=== PATIENT | male | born 1945 | race Caucasian/White ===

== ENCOUNTER 2022-10-03 10:50 | Outpatient (OUT) | payer OTHER, SELFPAY ==
[2022-10-03 11:07] LABS: Eosinophils Absolute Auto 0.1 10^3/uL (0.0-0.7); Eosinophils Percent Auto 2.9 % (0.9-7.0); Hematocrit 40.6 % (42.0-54.0); Hemoglobin 13.3 g/dL (14.0-18.0); Immature Granulocytes Abs Auto 0.01 10^3/uL (0.00-0.03); Immature Granulocytes Pct Auto 0.2 % (0.0-0.5); Lymphocytes Absolute Auto 1.2 10^3/uL (1.2-3.8); Lymphocytes Percent Auto 28.1 % (20.5-60.0); Mean Corpuscular HGB Conc 32.8 g/dL (29.9-35.2); Mean Corpuscular Hemoglobin 30.3 pg (25.9-34.0); Mean Corpuscular Volume 92.5 fL (80.0-94.0); Mean Platelet Volume 9.9 fL (9.5-13.5); Monocytes Absolute Auto 0.5 10^3/uL (0.3-0.8); Neutrophils Absolute Auto 2.3 10^3/uL (1.4-6.5); Neutrophils Percent Auto 55.8 % (43.0-75.0); Platelet Count 203 10^3/uL (150-450); Red Blood Count 4.39 10^6/uL (4.70-6.10); Red Cell Distribution Width 12.5 % (11.0-15.0); White Blood Count 4.2 10^3/uL (4.0-11.0)
== END 2022-10-03 10:51 ==
LOC: LAB 10:54
PROVIDERS: PCP Family Medicine; Visit Provider Family Medicine
DX: M25.474 Effusion, right foot (principal)
CPT/HCPCS: 36415; 84550; 85025

== ENCOUNTER 2022-11-07 10:40 | Outpatient (OUT) | payer OTHER, SELFPAY ==
[2022-11-07 12:13] LABS: Thyroid Stimulating Hormone 3.438 uIU/mL (0.358-3.740)
[2022-11-07 12:16] LABS: C Reactive Protein <0.2 mg/dL (<=1.0)
[2022-11-07 12:47] LABS: Erythrocyte Sedimentation Rate 15 mm/hr (<=20)
[2022-11-08 05:12] LABS: HIV Ab/p24 Ag Screen Non Reactive (Non Reactive)
[2022-11-08 15:10] LABS: Deamidated Gliadin Abs, IgA 5 units (0-19); Deamidated Gliadin Abs, IgG 6 units (0-19); Endomysial Antibody IgA Negative (Negative); Immunoglobulin A, Qn, Serum 228 mg/dL (61-437); t-Transglutaminase (tTG) IgA <2 U/mL (0-3); t-Transglutaminase (tTG) IgG 4 U/mL (0-5)
[2022-11-10 00:06] LABS: Calprotectin, Fecal 7 ug/g (0-120)
[2022-11-12 05:12] LABS: Pancreatic Elastase, Fecal 340 (>200)
[2022-11-16 18:09] LABS: Ova + Parasite Exam Final report (.)
== END 2022-11-07 10:41 | disposition home or self-care (01) ==
LOC: LAB 10:41
PROVIDERS: PCP Family Medicine
DX: R19.7 Diarrhea, unspecified (principal)
CPT/HCPCS: 36415; 82656; 82784; 83993; 84443; 85652; 86140; 86231; 86258; 86364; 87045; 87046; 87177; 87209; 87389; 87427

== ENCOUNTER 2023-09-17 15:12 | Emergency (ER) | payer OTHER, SELFPAY ==
[2023-09-17] VITALS (44 sets, daily range): BP systolic 133–157; BP diastolic 56–70; PULSE 55–126; TEMP 36.6; O2SAT 87–97; BMI 30.3
--- NOTE | 2023-09-17 15:37 | ECG_ITS ---
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
--- NOTE | 2023-09-17 15:38 | ED_ITS ---
HPI - Dizziness General Chief Complaint: Dizziness Stated Complaint: Dizziness Time Seen by Provider: 09/17/23 15:20 Source: patient Mode of arrival: walk-in Limitations: no limitations History of Present Illness HPI Narrative: 78-year-old male presents for weakness and dizziness. She is felt like this for a few days. He states that when he stands up he feels like he is off balance and he might pass out. He has not passed out. He has had no fever chest pain shortness of breath or vomiting. No diarrhea. A few weeks ago he had left knee replacement and is on Eliquis. He has no personal history of PE or DVT. He feels better when he lays still. Related Data Home Medications ?Medication ?Instructions ?Recorded ?Confirmed apixaban 5 mg tablet (Eliquis) 5 mg PO Q12H 09/17/23 09/17/23 ascorbic acid (vitamin C) 500 mg 500 mg PO DAILY 09/17/23 09/17/23 tablet,extended release (C Complex) cholecalciferol (vitamin D3) 50 50 mcg PO DAILY 09/17/23 09/17/23 mcg (2,000 unit) capsule (D3-2000) fluoxetine 20 mg capsule 20 mg PO DAILY 09/17/23 09/17/23 lisinopril 20 1 tab PO DAILY 09/17/23 09/17/23 mg-hydrochlorothiazide 12.5 mg tablet multivitamin (Daily Multi-Vitamin 1 tab PO DAILY 09/17/23 09/17/23 tablet) omega 6-orf-gvq-fish oil 1,000 mg 1 cap PO DAILY 09/17/23 09/17/23 (120 mg-180 mg) capsule (Fish Oil) Allergies Allergy/AdvReac Type Severity Reaction Status Date / Time No Known Drug Allergies Allergy Verified 09/17/23 15:24 Review of Systems ROS Narrative A ten point review of systems is negative except as noted above. Exam Narrative Exam Narrative: Nurses note and vital signs reviewed and patient is not hypoxic. General: The patient appears well and in no apparent distress. Patient is resting comfortably on cart. Skin: Warm, dry, no pallor noted. There is no rash noted. His left knee surgical wound is healing quite well. No erythema or dehiscence. Head: Normocephalic, atraumatic Eye: Normal conjunctiva, no drainage Ears, Nose, Mouth, and Throat: oral mucosa is moist. Nares patent. Cardiovascular: Irregularly irregular Respiratory: Patient is in no distress, no accessory muscle use, lungs are clear to auscultation, no wheezing, rales or rhonchi Back: non-tender GI: Soft and nontender Musculoskeletal: The patient has no evidence of calf tenderness, no pitting edema, symmetrical pulses noted bilaterally Neurological: A&O, normal speech, upper and lower extremity strength 5 out of 5 and symmetric Psychiatric: Cooperative Constitutional Vital Signs, click to edit/add: Last Vital Signs Temp 97.9 F 09/17/23 15:24 Pulse 65 09/17/23 18:40 Resp 18 09/17/23 18:40 BP 133/70 09/17/23 18:40 Pulse Ox 97 09/17/23 18:40 O2 Del Method Room Air 09/17/23 18:40 Course Vital Signs Vital signs: Vital Signs Temperature 97.9 F 09/17/23 15:24 Pulse Rate 71 09/17/23 15:24 Respiratory Rate 18 09/17/23 15:24 Blood Pressure 134/58 09/17/23 15:24 Pulse Oximetry 96 09/17/23 15:24 Oxygen Delivery Method Room Air 09/17/23 15:24 Temperature 97.9 F 09/17/23 15:24 Pulse Rate 65 09/17/23 18:40 Respiratory Rate 18 09/17/23 18:40 Blood Pressure 133/70 09/17/23 18:40 Pulse Oximetry 97 09/17/23 18:40 Oxygen Delivery Method Room Air 09/17/23 18:40 MDM - Dizziness MDM Narrative Medical decision making narrative: Laboratory analysis is negative. The patient however was noted to have sinus pauses in the range of 1 and half to nearly 3 seconds, several occasions. He has been diagnosed with atrial fibrillation a few weeks ago and is on Eliquis. He does not seem to be on any beta-blockers or calcium channel blockers. 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 He is stable and agreeable for transfer. We are awaiting a callback from the accepting physician. The patient is signed out to Dr. Knight at change of shift. Differential Diagnosis Differential diagnosis: Likely benign paroxysmal positional vertigo, orthostatic hypotension and other (Dysrhythmia) Lab Data Attestation: I reviewed the patient's lab results. Labs: Lab Results 09/17/23 09/17/23 Range/Units 15:45 17:45 WBC 5.8 (4.0-11.0) 10^3/uL RBC 3.60 L (4.70-6.10) 10^6/uL Hgb 10.8 L (14.0-18.0) g/dL Hct 33.6 L (42.0-54.0) % MCV 93.3 (80.0-94.0) fL MCH 30.0 (25.9-34.0) pg MCHC 32.1 (29.9-35.2) g/dL RDW 13.0 (11.0-15.0) % Plt Count 328 (150-450) 10^3/uL MPV 9.9 (9.5-13.5) fL Neut % (Auto) 60.3 (43.0-75.0) % Lymph % (Auto) 23.3 (20.5-60.0) % [place] % (Auto) 12.5 H (1.7-12.0) % Eos % (Auto) 3.1 (0.9-7.0) % Baso % (Auto) 0.5 (0.2-2.0) % Neut # (Auto) 3.5 (1.4-6.5) 10^3/uL Lymph # (Auto) 1.4 (1.2-3.8) 10^3/uL [place] # (Auto) 0.7 (0.3-0.8) 10^3/uL Eos # (Auto) 0.2 (0.0-0.7) 10^3/uL Baso # (Auto) 0.0 (0.0-0.1) 10^3/uL Abs Immat Gran (auto) 0.02 (0.00-0.03) 10^3/uL Imm/Tot Granulo (auto) 0.3 (0.0-0.5) % Sodium 137 (136-145) mmol/L Potassium 4.1 (3.5-5.1) mmol/L Chloride 103 (98-107) mmol/L Carbon Dioxide 26.4 (21.0-32.0) mmol/L Anion Gap 11.7 BUN 21.0 H (7.0-18.0) mg/dL Creatinine 1.20 (0.70-1.30) mg/dL Est GFR ( Amer) >60 (>=60) Est GFR (Non-Af Amer) 59 L (>=60) BUN/Creatinine Ratio 17.5 Glucose 102 (74-106) mg/dL Calcium 8.6 (8.5-10.1) mg/dL Troponin I High Sens 7.6 (4.0-76.1) pg/mL Urine Color Yellow (YELLOW) Urine Clarity Clear (CLEAR) Urine pH 6.5 (5.0-9.0) Ur Specific [place] 1.025 (1.005-1.025) Urine Protein Negative (NEG/TRACE) mg/dL Urine Glucose (UA) Negative (NEGATIVE) mg/dL Urine Ketones Negative (NEGATIVE) mg/dL Urine Occult Blood Negative (NEGATIVE) Urine Nitrite Negative (NEGATIVE) Urine Bilirubin Negative (NEGATIVE) Urine Urobilinogen 0.2 (0.2-1.0) EU/dL Ur Leukocyte Esterase Negative (NEGATIVE) Urine RBC 0-2 (0-2) #/HPF Urine WBC None seen (NONE SEEN) #/HPF Ur Squamous Epith Cells None seen (NONE/RARE) #/LPF Urine Crystals None seen (None Seen) #/HPF Urine Bacteria None seen (NONE SEEN) #/HPF Urine Casts None seen (NONE SEEN) #/LPF Urine Mucus None seen (NONE SEEN) Imaging Data Chest x-ray: Radiologist's impression: ITS Impressions Chest X-Ray 09/17/23 15:38 IMPRESSION: No acute infiltrate or evidence of cardiac decompensation. Similar findings were noted in the prior study. Electronically authenticated by: JAMILA SONG Date: 09/17/2023 16:17 ECG Data Attestation: I personally reviewed and interpreted this ECG as follows: (EKG on my interpretation shows normal sinus rhythm with a rate of 66.) Discharge Plan Discharge Chief Complaint: Dizziness Clinical Impression: Sinus pause, Dizziness [facility] Time of Disposition Decision: 18:29 Discharge Location: [facility] Condition: Fair Mode of Transportation: Private Vehicle
--- NOTE | 2023-09-17 15:38 | XR_ITS ---
The [address] [address] Patient Name: SHAJI WASHINGTON MRN: [id number] date: 1945 Sex: M Assigned Patient Location: ER Current Patient Location: ER Accession/Order Number: [id number] Exam Date: 09/17/2023 15:45 Report Date: 09/17/2023 16:17 At the request of: CARMENCITA POWERS Procedure: XR chest 1V EXAM: XR chest 1V at 1544 hours HISTORY: Weakness and dizziness COMPARISON: 04/18/2015 TECHNIQUE: AP upright portable chest x-ray FINDINGS: The heart is not enlarged and the vasculature is not distended. No acute infiltrate, effusion or pneumothorax is identified. Elevation of the right hemidiaphragm is again noted. The osseous structures are grossly intact. XR/XR chest 1V IMPRESSION: No acute infiltrate or evidence of cardiac decompensation. Similar findings were noted in the prior study. Electronically authenticated by: JAMILA SONG Date: 09/17/2023 16:17
[2023-09-17 16:16] LABS: Basophils Percent Auto 0.5 % (0.2-2.0); Eosinophils Absolute Auto 0.2 10^3/uL (0.0-0.7); Eosinophils Percent Auto 3.1 % (0.9-7.0); Hematocrit 33.6 % (42.0-54.0); Hemoglobin 10.8 g/dL (14.0-18.0); Immature Granulocytes Abs Auto 0.02 10^3/uL (0.00-0.03); Immature Granulocytes Pct Auto 0.3 % (0.0-0.5); Lymphocytes Absolute Auto 1.4 10^3/uL (1.2-3.8); Lymphocytes Percent Auto 23.3 % (20.5-60.0); Mean Corpuscular HGB Conc 32.1 g/dL (29.9-35.2); Mean Corpuscular Volume 93.3 fL (80.0-94.0); Mean Platelet Volume 9.9 fL (9.5-13.5); Monocytes Absolute Auto 0.7 10^3/uL (0.3-0.8); Monocytes Percent Auto 12.5 % (1.7-12.0); Neutrophils Absolute Auto 3.5 10^3/uL (1.4-6.5); Neutrophils Percent Auto 60.3 % (43.0-75.0); Platelet Count 328 10^3/uL (150-450); White Blood Count 5.8 10^3/uL (4.0-11.0)
[2023-09-17 16:34] LABS: Anion Gap 11.7; BUN Creatinine Ratio 17.5; Calcium 8.6 mg/dL (8.5-10.1); Carbon Dioxide 26.4 mmol/L (21.0-32.0); Chloride 103 mmol/L (98-107); Estimated GFR (African America >60 (>=60); Estimated GFR (Non-African Ame 59 (>=60); Glucose 102 mg/dL (74-106); Potassium 4.1 mmol/L (3.5-5.1); Sodium 137 mmol/L (136-145)
[2023-09-17 16:42] LABS: Troponin I High Sensitivity 7.6 pg/mL (4.0-76.1)
[2023-09-17 17:56] LABS: Bilirubin Urine NEGATIVE (NEGATIVE); Blood Urine NEGATIVE (NEGATIVE); Clarity Urine CLEAR (CLEAR); Color Urine YELLOW (YELLOW); Glucose Urine UA NEGATIVE (NEGATIVE); Ketones Urine NEGATIVE (NEGATIVE); Leukocyte Esterase Urine NEGATIVE (NEGATIVE); Nitrite Urine NEGATIVE (NEGATIVE); Protein Urine NEGATIVE (NEG/TRACE); Specific Gravity Urine 1.025 (1.005-1.025); Urobilinogen Urine 0.2 EU/dL (0.2-1.0); pH Urine 6.5 (5.0-9.0)
--- NOTE | 2023-09-17 18:05 | CT_ITS ---
The [address] [address] Patient Name: SHAJI WASHINGTON MRN: [id number] date: 1945 Sex: M Assigned Patient Location: ED.MAIN Current Patient Location: Accession/Order Number: [id number] Exam Date: 09/17/2023 18:30 Report Date: 09/17/2023 18:53 At the request of: CARMENCITA POWERS Procedure: CT head/brain wo con EXAM: CT head/brain wo con HISTORY: dizzy COMPARISON: None. TECHNIQUE: Axial CT scans through the head were obtained without IV contrast administration. Dose reduction techniques were achieved by using: automated exposure control and/or adjustment of mA and /or kV according to patient size and/or use of iterative reconstruction technique. FINDINGS: There is no acute intracranial hemorrhage or abnormal extra-axial fluid collection. No mass effect or midline shift is seen. There is no evidence of large acute territorial infarction. There is no hydrocephalus. There is mild enlargement of the cortical sulci, consistent with mild cerebral atrophy To the limit of CT, the posterior fossa appears unremarkable. The calvaria and extra cranial soft tissues are unremarkable. The visualized orbits show no abnormality. The visualized paranasal sinuses show no air-fluid level. Mastoid air cells are clear. CT/CT head/brain wo con IMPRESSION: No acute intracranial process. Mild cerebral atrophy. Electronically authenticated by: RUDY FOREMANU Date: 09/17/2023 18:53
[2023-09-17 18:10] LABS: Bacteria Urine NONE SEEN #/HPF (NONE SEEN); Cast Seen? NONE SEEN #/LPF (NONE SEEN); Crystals Seen? None Seen #/HPF (None Seen); Mucus Urine NONE SEEN (NONE SEEN); RBC Urine 0-2 #/HPF (0-2); Squamous Epithelial Cell Urine NONE SEEN #/LPF (NONE/RARE); WBC Urine NONE SEEN #/HPF (NONE SEEN)
== END 2023-09-17 23:25 | disposition short-term general hospital (02) ==
PROVIDERS: Emergency Medicine; Emergency Provider Internal Medicine; PCP Family Medicine
DX: I49.5 Sick sinus syndrome (principal); R42 Dizziness and giddiness; Z79.01 Long term (current) use of anticoagulants; Z96.652 Presence of left artificial knee joint; I48.91 Unspecified atrial fibrillation
CPT/HCPCS: 36415; 70450; 71045; 80048; 81001; 84484; 85025; 93005; 99285

== ENCOUNTER 2024-04-23 13:08 | Outpatient (OUT) | payer OTHER, SELFPAY ==
--- NOTE | 2024-04-23 13:11 | CA_ITS ---
Patient Name: SHAJI WASHINGTON MR#: [id number] : 1945 Exam Date: 04/23/2024 Ordering Doctor: Non-Staff Physician ECHOCARDIOGRAM REPORT PROCEDURE: CA ECHO DOPPLER COMPLETE INDICATIONS: Ischemic heart disease, hypertension, atrial fibrillation COMPARISON: None. DESCRIPTION: COMPLETE ECHOCARDIOGRAM Real-time transthoracic echocardiography with 2D, M-mode, spectral and color flow Doppler performed. QUALITY: Technical quality was good. LEFT VENTRICLE: Normal chamber size. Normal left ventricular wall thickness. LV EF: Global left ventricular systolic function is hyperdynamic; visually estimated ejection fraction is 65 to 70%. No obvious wall motion abnormalities DIASTOLIC: Normal diastolic function. ATRIAL SEPTUM: Inadequately seen. LEFT ATRIUM: Normal chamber size. RIGHT ATRIUM: Normal chamber size. RIGHT VENTRICLE: Appears enlarged. Normal right ventricular systolic function. TRICUSPID VALVE: Normal mobility and thickness. No stenosis with no regurgitation. MITRAL VALVE: Normal mobility and thickness. No evidence of mitral valve stenosis. There is no mitral annular calcification. Mild mitral regurgitation. AORTIC VALVE: Normal trileaflet appearance. Thickened aortic valve. Normal leaflet mobility. No evidence of aortic valve stenosis. No aortic regurgitation. AORTIC ROOT: Normal diameter and appearance. Ascending aorta is normal in size. PULMONIC VALVE: Not well visualized. No stenosis. No regurgitation. PERICARDIUM: No evidence of pericardial effusion. IVC: IVC is normal in size, does not fully collapse. CONCLUSION: 1. Global left ventricular systolic function is hyperdynamic; visually estimated ejection fraction is 65 to 70% 2. The right ventricle appears enlarged with normal systolic function 3. Normal diastolic function 4. The left atrium is normal in size 5. Mild mitral regurgitation Adult Echocardiography Procedure Report Left Ventricle LVEDD (3.7 - 5.6 cm): 4.66 cm LVESD (2.2 - 4.0 cm): 2.89 cm LVIVS thickness (0.6 - 1.2 cm): 0.93 cm LVPW thickness (0.5 - 1.0 cm): 0.98 cm e': 0.09 m/s E - e': 11.32 LVOT Max Gradient: 3.16 mm[Hg] LVOT Area (cm2): 0.89 m/s Peak Velocity (LVOT): 0.89 m/s Mean Velocity (LVOT): 0.59 m/s LVOT Diameter 2.06 cm Left Atrium LA Volume Index (2D A2C): 36.01 ml/m2 Left Atrium Systolic Dimension: 3.87 cm Mitral Valve MV E to A Ratio: 1.15 Mitral Valve A-Wave Peak Velocity: 0.91 m/s Mitral Valve E-Wave Peak Velocity: 1.04 m/s Right Ventricle Aorta AO Root Diam: 2.96 cm Ascending Ao Diam: 3.06 cm Aortic Valve AoV Area (Peak Matheus): 2.93 cm2, 2.93 cm2 AoV Area (VTI): 2.65 cm2, 2.65 cm2 Peak Velocity(Antegrade Flow): 1.01 m/s Peak Gradient(Antegrade Flow): 4.12 mm[Hg] Mean Velocity(Antegrade Flow): 0.73 m/s Mean Gradient(Antegrade Flow): 2.42 mm[Hg] Velocity Time Integral: 27.30 cm Tricuspid Valve Pulmonic Valve Mean Gradient: 2.33 mm[Hg] Mean Velocity: 0.72 m/s Peak Velocity: 1.02 m/s, 1.00 m/s Peak Gradient: 4.03 mm[Hg], 4.14 mm[Hg] Right Atrium Right Atrium Systolic Pressure: 44.97 ml, 44.97 ml Dictated by: Argentina Farmer M.D. on 04/28/2024 at 11:27 Approved by: Argentina Farmer M.D. on 04/28/2024 at 11:30
== END 2024-04-23 13:09 | disposition home or self-care (01) ==
LOC: CARD 13:09
PROVIDERS: PCP Family Medicine
DX: I25.9 Chronic ischemic heart disease, unspecified (principal); I51.7 Cardiomegaly
CPT/HCPCS: 93306

== ENCOUNTER 2024-04-29 20:59 | Outpatient (OUT) | payer OTHER, SELFPAY | END 2024-04-29 21:00 | disposition home or self-care (01) | LOC: SLEEP 21:00 | PROVIDERS: PCP Chiropractor; Visit Provider Chiropractor | DX: G47.30 Sleep apnea, unspecified (principal) | CPT/HCPCS: 95810 ==

== ENCOUNTER 2024-05-01 10:03 | Emergency (ER) | payer MEDICARE, SELFPAY ==
[2024-05-01 10:07] VITALS: BP 140/84; PULSE 71; TEMP 36.6; O2SAT 95; BMI 35.9
--- OUTSIDE RECORDS SUMMARY | 2024-05-01 10:29 | XMS_ITS | CCD ---
Author Organization [facility] Care Team Providers Care Creative Producer Name Role Phone Phuc Denney Unavailable DR MEGAN FAN Primary Care Unavailable CARMEL ARANA Attending Unavailable GIACOMO Medina, CARMEL Admitting Unavailable ODESSA UMAÑA Consulting Unavailable CARMEL ARANA Consulting Unavailable MENG, DR MEGAN Stafford Consulting Unavailable MENG, DR MEGAN Stafford Attending Unavailable MENG, DR MEGAN Stafford Admitting Unavailable MENG, DR MEGAN Stafford Primary Care Unavailable MENG, DR MEGAN Stafford Consulting Unavailable MENG, DR MEGAN Stafford Attending Unavailable MENG, DR MEGAN Stafford Admitting Unavailable MENG, DR MEGAN Stafford Primary Care Unavailable Megan Fan Unavailable Tina Garcia Unavailable MD Megan Fan Primary Care Provider MD Tina Garcia Attending Provider Jack Mcpherson Unavailable MD Megan Fan Primary Care Provider DO Phuc Denney Attending Provider MD Garrett Gunter Attending Provider MD Devonte Kelly Admit Provider [phone] MD Patricia Vilchis Attending Provider MANNY ESCOBEDO Attending Unavailable MANNY ESCOBEDO Attending Unavailable ELBERT FOSS Referring Unavailable DOUGIE MOSLEY Attending Unavailable ELBERT FOSS Referring Unavailable RONNA CARPIO Attending Unavailable ELBERT FOSS Referring Unavailable MD Megan Fan Primary Care Provider DO Phuc Denney Attending Provider MD Garrett Gunter Attending Provider MD Megan Fan Primary Care Provider MD Garrett Gunter Attending Provider MD Tina Garcia Attending Provider [phone] Edwin Denneyin Zena Admitting Unavailable Graciela Phuc A Attending Unavailable Velasquez Fania E Primary Care Unavailable Megan Fan E Primary Care Unavailable Garrett Gunter Admitting Unavai lable Koromia, Garrett Denny Attending Unavai lable Matthew, Adwoa Consulting Unavailable Velasquez Fania E Primary Care Unavailable Patricia Vilchis Attending Unavailable DaromarDevonte Admitting Unavailable Jitendra Buddy Consulting Unavailable GosiaomGarrett harmon Consulting Unavai lable Al, Ibis Consulting Unavailable Graciela, Phuc A Admitting Unavailable Graciela Phuc A Attending Unavailable Velasquez Fania E Primary Care Unavailable Graciela Phuc A Admitting Unavailable Graciela Phuc A Attending Unavailable Meng Megan E Primary Care Unavailable Meng, Megan E Primary Care Unavailable Asaad, Imad Admitting Unavailable Asaad, Imad Attending Unavailable Graciela, Phuc A Attending Unavailable Graciela, Phuc A Admitting Unavailable Fan, Megan E Primary Care Unavailable Meng, Megan E Primary Care Unavailable Garrett Gunter Attending Unavai lable Lyric, Garrett Denny Admitting Unavai lable Megan Fan Primary Care Unavailable Garrett Gunter Admitting Unavai lable Gosiaomeden, Garrett Denny Attending Unavai lable Megan Fan Primary Care Unavailable Garrett Gunter Attending Unavai lable Garrett Gunter Admitting Unavai lable Allergies Allergy Classification Reported Allergen(s) Allergy Type Date of Onset Reaction(s) Facility (18 sources) Diclofenac Drug Allergy stomach upset/weakness [facility] Other (8 sources) Allergies Reconciled Propensity to adverse reactions Unknown [facility] Other (1 source) Diclofenac Drug Allergy 4 [facility] Repository Medications Current Medications Medication Drug Class(es) Dates Sig (Normalized) Sig (Original) allopurinol 100 mg oral tablet (7 sources) Xanthine Oxidase Inhibitor Start: 12-24-2023 take 1 tablet by mouth once daily Allopurinol Active 0 .ROUTE .COMPLEX December 24, 2023 1:16pm TAKE 1 TABLET BY MOUTH EVERY DAY Start: 09-25-2023 End: 12-24-2023 take 100 mg by mouth once daily Allopurinol Discontinued 100 MG PO Daily November 18, 2023 2:18pm December 24, 2023 1:16pm apixaban 5 mg oral tablet (18 sources) Factor Xa Inhibitor Start: 08-14-2023 End: 08-21-2023 take 1 tablet by mouth twice daily Apixaban (Eliquis) 5 mg tablet Active 5 MG PO Twice daily August 14, 2023 12:00am cholecalciferol 0.05 mg oral capsule (20 sources) Vitamin D Start: 12-16-2020 take 1 capsule by mouth once daily in the morning Cholecalciferol (Vitamin D3) (Vitamin D3) 50 mcg (2,000 unit) Capsule Active 50 MCG PO Every morning December 16, 2020 12:00am take 1 capsule by [facility] every twenty-four hours Vitamin D3 50 MCG (2000 UT) 1 capsule Orally Once a day Active diphenhydrAMINE hydrochloride 25 mg oral capsule (1 source) Histamine-1 Receptor Antagonist Start: 12-20-2023 take 1 capsule by mouth once daily at bedtime Diphenhydramine Hcl (Allergy (Diphenhydramine)) 25 mg capsule Active 25 MG PO Daily at bedtime December 20, 2023 12:00am Fish Oils (9 sources) take 1 capsule by mouth once daily Fish Oil 1000 MG 1 capsule Orally Once a day Active FLUoxetine 20 mg oral capsule (20 sources) Serotonin Reuptake Inhibitor Start: 10-21-2023 Fluoxetine Active 0 .ROUTE .COMPLEX October 21, 2023 8:30am TAKE 1 CAPSULE ONCE DAILY Start: 08-09-2023 End: 10-21-2023 take 1 capsule by mouth once daily in the morning Fluoxetine Discontinued 20 MG PO Every morning August 09, 2023 12:00am October 21, 2023 8:30am TAKE 1 CAPSULE ONCE DAILY Start: 07-22-2023 End: 08-09-2023 Fluoxetine Discontinued 0 .R OUTE .COMPLEX July 22, 2023 11:55am August 09, 2023 10:31am TAKE 1 CAPSULE ONCE DAILY Start: 07-22-2023 End: 07-22-2023 take 20 mg by mouth once daily Fluoxetine Discontinued 20 MG PO Daily July 22, 2023 12:00am July 22, 2023 11:55am Start: 06-22-2022 take 1 capsule by [facility] every twenty-four hours FLUoxetine HCl 20 MG 1 capsule Orally Once a day for 90 days Jun, Active hydroCHLOROthiazide 12.5 mg oral capsule (9 sources) Thiazide Diuretic take 1 capsule by mouth every twenty-four hours hydroCHLOROthiazide 12.5 MG 1 capsule in the morning Orally Once a day Active hydroCHLOROthiazide 12.5 mg / lisinopril 20 mg oral tablet (20 sources) Thiazide Diuretic, Angiotensin Converting Enzyme Inhibitor Start : 12-12 Lisinopril-Hydrochloroth iazide Active 0 .ROUTE .COMPLEX December 13, 2023 10:23am TAKE 1 TABLET DAILY Start: 09-23-2023 End: 12-13-2023 take 1 tablet by mouth once daily Lisinopril-Hydrochlorothiazide Discontin ued 1 TAB PO Daily September 23, 2023 1:48pm December 13, 2023 10:23am Start: 09-06-2023 End: 09-23-2023 Lisinopril-Hydrochlorothiazi de Discontinued 0 .ROUTE .COMPLEX September 06, 2023 9:53am September 23, 2023 1:51pm TAKE 1 TABLET DAILY Start: 08-09-2023 End: 09-06-2023 take 1 tablet by mouth once daily in the morning Lisinopril-Hydrochlorothiazide Discontin ued 1 TAB PO Every morning August 09, 2023 12:00am September 06, 2023 9:53am TAKE 1 TABLET DAILY Start: 06-17-2023 End: 08-09-2023 Lisinopril-Hydrochlorothiazi de Discontinued 0 .ROUTE .COMPLEX June 17, 2023 3:23pm August 09, 2023 10:31am TAKE 1 TABLET DAILY Start: 06-17-2023 End: 06-17-2023 take 1 tablet by mouth once daily Lisinopril-Hydrochlorothiazide Discontin ued 1 TAB PO Daily June 17, 2023 1:00am June 17, 2023 3:23pm Start: 12-16-2020 End: 08-05-2023 take 1 tablet by mouth once daily Lisinopril-Hydrochlorothiazide Discontin ued 1 TAB PO Daily December 16, 2020 12:00am August 05, 2023 8:55am take 1 tablet by yuri th every twenty-four hours Lisinopril-hydroCHLOROthiazide 20-12.5 M G 1 tablet Orally Once a day for 90 days Active levocetirizine dihydrochloride 5 mg oral tablet (9 sources) Histamine-1 Receptor Antagonist take 1 tablet by mouth every twenty-four hours Xyzal Allergy 24HR 5 MG 1 tablet in the evening Orally Once a day Active methylPREDNISolone 4 mg oral tablet (6 sources) Corticosteroid Start : 10-03 methylPREDNISolone 4 MG as directed Orally for 6 days Sep, Active 24 hr metoprolol succinate 25 mg extended release oral tablet (10 sources) beta-Adrenergic Cate Start : 09-18 End: 10-02 take 25 mg by mouth once daily Metoprolol Succinate Active 25 MG PO Daily October 03, 2023 3:41pm Jfndhmna-Odq-Xfenr-Vit K-Lycop (Men's 50 Plus Daily Formula) 400-20-370 mcg Tablet (12 sources) Start : 12-16 take 1 tablet by mouth once daily in the morning Swsdllwz-Ghf-Kgrlp-Vit K-Lycop (Men's 50 Plus Daily Formula) 400-20-370 mcg Tablet Active 1 TAB PO Every morning December 16, 2020 12:00am Start: 12-16-2020 take 1 tablet by yuri th once daily Hghfibzz-Fpa-Einaz-Vit K-Lycop (Men's 50 Plus Daily Formula) 400-20-370 mcg Tablet Active 1 TAB PO Daily December 16, 2020 12:00am Multivitamin preparation (18 sources) Multivitamin Act everette [place]-3 Fatty Acids (Maxepa) 500 mg capsule (1 source) Start: take 1 capsule by mouth once daily [place]-3 Fatty Acids (Maxepa) 500 mg capsule Active 500 MG PO Daily December 20, 2023 12:00am paxlovid (300/100) 20 x 150 mg & 10 x 100mg tablet therapy pack (2 sources) Paxlovid (300/10 0) 20 x 150 MG & 10 x 100MG as directed Orally for 5 days Active polyethylene glycol 3350 [id number] mg / potassium chloride 2970 mg / sodium bicarbonate 6740 mg / sodium chloride 5860 mg / sodium sulfate 27235 mg powder for oral solution (5 sources) Osmotic Laxative Start: 3 Golytely 236 GM At 4:00 pm the day prior to colonoscopy Orally 8 ounces every 15 minutes for 1 days PLEASE CHECK ALLERGIES Oct, Active Vitamin D3 (9 sources) Vitamin D3 Activ e {20 (nirmatrelvir 150 MG Oral Tablet) / 10 (ritonavir 100 MG Oral Tablet) } Pack [Paxlovid 5-Day] (2 sources) Paxlovid (300/10 0) 20 x 150 MG & 10 x 100MG as directed Orally for 5 days Active Completed/Discontinued Medications Medication Drug Class(es) Dates Sig (Normalized) Sig (Original) acetaminophen 500 mg oral tablet (20 sources) Start: 08-21-2023 End: 08-21-2023 take 1000 mg by mouth every eight hours Acetaminophen Discontinued 1000 MG PO Q8H 180 August 21, 2023 12:00am August 21, 2023 11:11am Start: 01-04-2021 End: 08-05-2023 take 1000 mg by mouth every eight hours Acetaminophen Discontinued 1000 MG PO Q8H January 04, 2021 12:00am August 05, 2023 8:56am Start: 12-30-2020 take 2 tablets by mo [facility] every eight hours Acetaminophen 500 MG take 2 tablet Orally every 8 hrs Do not fill until 01/02/21. To be used post op TKA. 10 Dec, 2020 Active aspirin 81 mg chewable tablet (20 sources) Platelet Aggregation Inhibitor, Nonsteroidal Anti-inflammatory Drug Start: 08-21-2023 End: 08-21-2023 take 81 mg by mouth twice daily Aspirin Discontinued 81 MG PO Twice daily 74 37 August 21, 2023 12:00am August 21, 2023 11:11am Start: 01-04-2021 End: 12-11-2022 take 81 mg by mouth twice daily Aspirin Discontinued 8 1 MG PO Twice daily January 04, 2021 12:00am December 11, 2022 9:20am Start: 12-30-2020 take 1 tablet by yuri every twelve hours Aspirin 81 MG 1 tablet Orally every 12 hrs for 35 days Do not fill until 01/02/21. To be used post op TKA for DVT prophylaxis Dec, Active baclofen 10 mg oral tablet (20 sources) gamma-Aminobutyric Acid-ergic Agonist Start: 12-16-2020 End: 08-05-2023 take 10 mg by mouth at bedtime Baclofen Discontinued 10 MG PO Bedtime December 16, 2020 12:00am August 05, 2023 8:56am calcium ascorbate 500 mg oral tablet (9 sources) Start: 08-14-2023 End: 08-21-2023 take 500 mg by mouth once daily Ascorbate Calcium (Vitamin C) Discontinued 500 MG PO Daily August 14, 2023 12:00am August 21, 2023 11:11am cyclobenzaprine hydrochloride 10 mg oral tablet (17 sources) Muscle Relaxant Start: 08-21-2023 End: 09-11-2023 take 5-10 mg by mouth every eight hours Cyclobenzaprine Discontinued 5 - 10 MG PO Q8H 30 August 21, 2023 12:00am September 11, 2023 2:04pm Start: 12-30-2020 take 0.5-1 tablets b y mouth every eight hours as needed for muscle spasms Cyclobenzaprine HCl 10 MG 1/2 to 1 tablet at as needed for muscle spasm Orally every 8 hrs Dec, Not-Taking docusate sodium 100 mg oral capsule (20 sources) Start: 08-21-2023 End: 09-09-2023 take 1 capsule by mouth twice daily Docusate Sodium (Colace) 100 mg capsule Discontinued 100 MG PO Twice daily August 21, 2023 12:00am September 09, 2023 10:21am Start: 01-04-2021 End: 08-09-2023 take 100 mg by mouth twice daily Docusate Sodium Discontinued 100 MG PO Twice daily January 04, 2021 12:00am August 09, 2023 10:30am Start: 12-30-2020 take 1 capsule by mo [facility] every twelve hours Colace 100 MG 1 capsule Orally every 12 hrs for 14 days Do not fill until 01/02/21. To be used post op TKA. Dec, Active doxycycline hyclate 100 mg oral tablet (8 sources) Tetracycline-class Drug Start: 08-21-2023 End: 09-11-2023 take 100 mg by mouth twice daily Doxycycline Hyclate Discontinued 100 MG PO Twice daily 14 August 21, 2023 12:00am September 11, 2023 2:04pm dronedarone 400 mg oral tablet (16 sources) Antiarrhythmic Start: 08-14-2023 End: 09-19-2023 take 1 tablet by mouth twice daily at mealtime Dronedarone (Multaq) 400 mg tablet Discontinued 400 MG PO Twice daily 180 90 September 11, 2023 2:49pm September 19, 2023 2:26pm must administer with a meal/food loratadine 10 mg oral tablet (20 sources) Start: 12-16-2020 End: 08-21-2023 take 1 tablet by mouth once daily at bedtime Loratadine (Claritin) 10 mg tablet Discontinued 10 MG PO Daily at bedtime August 14, 2023 1:57pm August 21, 2023 11:12am Claritin Active melatonin 10 mg oral tablet (20 sources) Start: 12-16-2020 End: 12-11-2022 take 10 mg by mouth once daily at bedtime Melatonin Discontinued 10 MG PO Daily at bedtime December 16, 2020 12:00am December 11, 2022 9:20am Melatonin Not-Ta ann marie Melatonin Active [place] 1-Cqz-Zuw-Fish Oil (12 sources) Start: 12-16-2020 End: 10-22-2023 [place] 9-Nkv-Ujq-Fish Oil Dis continued 1 CAP PO Every morning December 16, 2020 12:00am October 22, 2023 2:21pm Instructed to stop 7 days berfore surgery Start: 12-16-2020 [place] 3-Dha-Ep a-Fish Oil Active 1 CAP PO Every morning December 16, 2020 12:00am Instructed to stop 7 days berfore surgery Start: 12-16-2020 [place] 3-Dha-Ep a-Fish Oil Active 1 CAP PO Daily December 16, 2020 12:00am Instructed to stop 7 days berfore surgery oxyCODONE hydrochloride 5 mg oral tablet (20 sources) Opioid Agonist Start: 08-21-2023 End: 09-09-2023 take 1 tablet by mouth every four hours Oxycodone Discontinued 5 MG PO Q4H 42 7 August 204 May 20th, 2024 10:21am dispense 42 (forty-two) tablets diagnosis: M17.12 DO NOT FILL UNTIL 08/26/2023 Start: 12-30-2020 End: 08-09-2023 take 5 mg by mouth every four hours Oxycodone Discontinued 5 MG PO Q4H January 04, 2021 August 09, 2023 10:30am traMADol hydrochloride 50 mg oral tablet (8 sources) Opioid Agonist Start: 08-21-2023 End: 09-09-2023 take 1 tablet by mouth every four hours Tramadol Discontinued 50 MG PO Q4H 42 August 21, 2023 12:00am September 09, 2023 10:21am dispense 42 (forty-two) tablets diagnosis: M17.12 DO NOT FILL UNTIL 08/26/2023 Triamcinolone (20 sources) Corticosteroid Start: 10-13-2020 Kenalog -40 mg Sep, 40 mg Start: 10-21-2018 Kenalog -40 mg Oct, 40 mg Start: 06-07-2016 Kenalog -40 mg May, Vitamin B Complex (20 sources) Start: 12-16-2020 End: 12-11-2022 take 1 tablet by mouth once daily Vitamin B Complex Discontinued 1 TAB PO Daily December 16, 2020 12:00am December 11, 2022 9:21am Vitamin B Comple x Not-Taking Vitamin B Comple x Active Problems Active Problems Problem Classification Problem Date Documented Da te Episodic/Chronic Anxiety disorders (8 sources) Generalized anxiety disorder; Translations: [Generalized anxiety disorder] Chronic Cardiac dysrhythmias (20 sources) Atrial fibrillation; Translations: [Unspecified atrial fibrillation] Onset: 4 08-09-2023 Chronic Essential hypertension (20 sources) Essential (primary) hypertension; Translations: [Essential hypertension] Onset: 3 Chronic Gout and other crystal arthropathies (20 sources) Gout, unspecified; Translations: [Gouty arthropathy] Onset: 2 Chronic Mood disorders (18 sources) Moderate major depression, single episode; Translations: [Major depressive disorder, single episode, moderate] Chronic Nausea and vomiting (8 sources) Nausea; Translations: [Nausea] Episodic Osteoarthritis (20 sources) Osteoarthritis of knee; Translations: [Unilateral primary osteoarthritis, left knee] Onset: 1 Resolved: 1 Chronic Other circulatory disease (5 sources) Other specified symptoms and signs involving the circulatory and respiratory systems; Translations: [OTH SPEC SX SIGNS INVLV CIRC RS] Onset: 3 Episodic Other circulatory disease (6 sources) Orthostatic hypotension; Translations: [Orthostatic hypotension] 09-18-2023 Episodic Other connective tissue disease (18 sources) History of right total knee replacement; Translations: [Presence of right artificial knee joint] Chronic Other connective tissue disease (2 sources) Presence of right artificial knee joint; Translations: [History of total right knee replacement Z96.651] Onset: 1 Resolved: 1 Chronic Other connective tissue disease (19 sources) History of total knee arthroplasty; Translations: [Presence of unspecified artificial knee joint] 01-04-2021 Chronic Other connective tissue disease (9 sources) Presence of left artificial knee joint; Translations: [Knee joint replacement] 09-09-2023 Chronic Other gastrointestinal disorders (10 sources) Incontinence of feces; Translations: [Full incontinence of feces] Episodic Other gastrointestinal disorders (2 sources) Full incontinence of feces Episodic Other gastrointestinal disorders (1 source) Other fecal abnormalities Episodic Other gastrointestinal disorders (1 source) Change in bowel habit Episodic Other gastrointestinal disorders (1 source) Diarrhea, unspecified Episodic Other injuries and conditions due to external causes (8 sources) History of fall; Translations: [History of falling] Episodic Other lower respiratory disease (8 sources) Cough; Translations: [Cough, unspecified] Episodic Other non-traumatic joint disorders (1 source) Effusion, right foot Episodic Other non-traumatic joint disorders (1 source) Effusion, left foot Episodic Other nutritional; endocrine; and metabolic disorders (18 sources) Obesity; Translations: [Obesity, unspecified] Chronic Other nutritional; endocrine; and metabolic disorders (20 sources) Body mass index 30+ - obesity; Translations: [Body mass index (BMI) 32.0-32.9, adult] Chronic Other nutritional; endocrine; and metabolic disorders (2 sources) Obesity, unspecified; Translations: [Obesity, unspecified E66.9] Onset: 1 Resolved: 1 Chronic Other nutritional; endocrine; and metabolic disorders (2 sources) Body mass index (BMI) 31.0-31.9, adult; Translations: [Body mass index [BMI] 31.0-31.9, adult Z68.31] Onset: 1 Resolved: Chronic Other screening for suspected conditions (not mental disorders or infectious disease) (2 sources) Encounter for screening for malignant neoplasm of colon; Translations: [Abnormal electrocardiogram [ECG] [EKG]] Onset: 4 Episodic Residual codes; unclassified (4 sources) Obstructive sleep apnea syndrome; Translations: [Obstructive sleep apnea (adult) (pediatric)] 09-28-2023 Chronic Residual codes; unclassified (3 sources) Obstructive sleep apnea (adult) (pediatric); Translations: [Obstructive sleep apnea (adult)(pediatric)] 09-23-2023 Chronic Spondylosis; intervertebral disc disorders; other back problems (18 sources) Degeneration of lumbosacral intervertebral disc; Translations: [Other intervertebral disc degeneration, lumbar region] Chronic Past or Other Problems Problem Classification Problem Date Documented Da te Episodic/Chronic Conditions associated with dizziness or vertigo (5 sources) Dizziness; Translations: [Dizziness and giddiness] Onset: 09-18-2023 09-18-2023 Episodic Malaise and fatigue (5 sources) Asthenia; Translations: [Weakness] Onset: 09-18-2023 09-18-2023 Episodic Other aftercare (2 sources) Other show host or hostess (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) drug therapy; Translations: [OTH [facility] CURRENT DRUG THERAPY] Onset: 08-18-2021 Episodic Other circulatory disease (6 sources) Orthostatic hypotension; Translations: [Orthostatic hypotension] Onset: 09-18-2023 09-19-2023 Episodic Other connective tissue disease (3 sources) Pain in left toe(s); Translations: [PAIN IN LEFT TOES] Onset: 08-17-2021 Episodic Other non-traumatic joint disorders (2 sources) Pain in right knee; Translations: [Acute pain of right knee M25.561] Onset: 01-18-2021 Resolved: 02-15-2021 Episodic Other non-traumatic joint disorders (19 sources) Pain in left knee; Translations: [Left knee pain] Onset: 08-05-2023 08-02-2023 Episodic Viral infection (4 sources) COVID-19 Results Test Name Value Interpretation Reference Range Facility Pathology Request for Lab Co rpon 01-03-2024 Pathology Request for Lab [place] Normal [facility] Comment on above: Order Comment: PATHO LOGY GI SPECIMEN Result Comment: See report. Scanned copy available in EMR. PERFORMED BY: [place] [address] PATHOLOGIST CORPORATE QUALITY MANAGER DEJA LING M.D. Performed By: #### P ATH TO [facility] ####[facility] [id number] [place] [id number] [facility] FPG ECG *CARDIOLOGY ONLY*on 10-22-2023 FPG ECG *CARDIOLOGY ONLY* [facility] Main [place] [address] [place] [address] Electrocardiograph Report Signed Patient: Nicholas Trujillo MR#: [id number] : 1945 Acct:[id number] Age/Sex: 78 / M ADM Date: 10/22/23 Loc: [facility] Room: Type: [facility] Attending Dr: Garrett Gunter MD Ordering Provider: Garrett Gunter MD Date of Service: 10/22/2306/15/1410 ECG/FPG ECG *CARDIOLOGY ONLY*: I48.0 - Paroxysmal atrial fibrillation Copies to: Test Reason : Blood Pressure : / mmHG Vent. Rate : 054 BPM Atrial Rate : 054 BPM P-R Int : 220 ms QRS Dur : 090 ms QT Int : 446 ms P-R-T Axes : 073 032 061 degrees QTc Int : 422 ms Sinus bradycardia with 1st degree AV block Otherwise normal ECG When compared with ECG of 18-SEP-2023 07:23, No significant change was found Confirmed by Garrett Gunter ([id number]) on 10/23/2023 2:31:25 PM Referred By: Electronically Signed By:Garrett Gunter Transcribed By: MUS Signed By Garrett Gunter MD 10/23/23 1431 Normal [facility] Basic Metabolic Panelon 08-22 Creatinine Clr Calc Pharmacy 63.33 Normal [facility] Comment on above: Performed By: #### M G, BMP, CBCNO ####[place] [id number] [place] [id number] [facility] GFR/1.73 sq M.predicted MDRD (S/P/Bld) [Vol rate/Area] mL/min/{1.73_m2} Normal [facility] Comment on above: Performed By: #### KONSTANTIN Colin, CBCNO ####[place] [id number] [facility] Calcium [Mass/volume] in Ser um or PlasmaOrdered By: Patricia Vilchis on 09-19-2023 Calcium [Mass/Vol] 8.9 mg/dL Normal 8.6-10.3 [facility] Comment on above: Performed By: #### KONSTANTIN Colin, CBCNO ####[address] Carbon dioxide, total [Moles /volume] in Serum or PlasmaOrdered By: Patricia Vilchis on 09-19-2023 CO2 [Moles/Vol] 25.1 mmol/L Normal 21.0-31.0 [facility] Comment on above: Performed By: #### KONSTANTIN Colin, CBCNO ####[place] [id number] [facility] Chloride [Moles/volume] in S ster[place] or PlasmaOrdered By: Patricia Vilchis on 09-19-2023 Chloride [Moles/Vol] 104 mmol/L Normal 98-107 [facility] Comment on above: Performed By: #### KONSTANTIN Colin, CBCNO ####[place] [id number] [facility] Creatinine [Mass/volume] in Serum or PlasmaOrdered By: Patricia Vilchis on 09-19-2023 Creatinine [Mass/Vol] 1.11 mg/dL Normal 0.70-1.30 [facility] Comment on above: Performed By: #### KONSTANTIN Colin, CBCNO ####[place] [id number] [facility] Erythrocyte distribution wid th [Ratio] by Automated countOrdered By: Patricia Vilchis on 09-19-2023 Erythrocyte distribution width (RBC) [Ratio] 13.3 % Normal 12.0-14.8 [facility] Comment on above: Performed By: #### KONSTANTIN Colin, CBCNO #### [facility] [address] Erythrocytes [#/volume] in B lood by Automated countOrdered By: Patricia Vilchis on 09-19-2023 RBC (Bld) [#/Vol] 3.65 10*6/uL Low 3.90-5.60 [facility] Comment on above: Performed By: #### KONSTANTIN Colin, CBCNO #### [facility] [address] [place] [address] [place] Glucose [Mass/volume] in Ser um or PlasmaOrdered By: Patricia Vilchis on 09-19-2023 Glucose [Mass/Vol] 100 mg/dL Normal 70-100 [facility] Comment on above: ADA recommended refe rence rangeRandom Glucose Reference Range is dependent on time and content of last meal. Glucose of more than 200 mg/dL in a nonstressed, ambulatory subject supports the diagnosis of Diabetes Mellitus. Result Comment: Taylor om Glucose Reference Range is dependent on time and content of last meal. Glucose of more than 200 mg/dL in a nonstressed, ambulatory subject supports the diagnosis of Diabetes Mellitus. ADA recommended reference range Performed By: #### KONSTANTIN Colin CBCNO ####[facility] [id number] [place] [address] [place] Hematocrit [Volume Fraction] of Blood by Automated countOrdered By: Patricia Vilchis on 09-19-2023 Hematocrit (Bld) [Volume fraction] 33.3 % Low 38.8-50.0 [facility] Comment on above: Performed By: #### KONSTANTIN Colin, CBCNO #### [facility] [address] Hemoglobin [Mass/volume] in BloodOrdered By: Patricia Vilchis on 09-19-2023 Hemoglobin (Bld) [Mass/Vol] 11.2 g/dL Low 13.0-17.0 [facility] Comment on above: Performed By: #### M KONSTANTIN Colmenares, CBCNO #### [facility] [address] Hemogram CBC Without Diffon 09-19-2023 Mean Corpuscular HGB Conc 33.7 g/dL Normal 32.5-35.6 [facility] Comment on above: Performed By: #### M Dedra, KONSTANTIN, CBCNO #### [facility] [address] WBC (Bld) [#/Vol] 7.8 10*3/uL Normal 4.1-10.5 [facility] Comment on above: Performed By: #### M KONSTANTIN Colmenares, CBCNO #### [address] Leukocytes [#/volume] correc alfonso for nucleated erythrocytes in Blood by Automated counOrdered By: Patricia Vilchis on 09-19-2023 WBC corrected for nucl RBC Auto (Bld) [#/Vol] 7.8 10*3/uL 4.1-10.5 [facility] MCH [Entitic mass] by Automa alfonso countOrdered By: Patricia Vilchis on 09-19-2023 MCH (RBC) [Entitic mass] 30.7 pg Normal 27.5-35.2 [facility] Comment on above: Performed By: #### M KONSTANTIN Colmenares, CBCNO #### [address] MCHC Auto (RBC) [Mass/Vol]Or dered By: Patricia Vilchis on 09-19-2023 MCHC (RBC) [Mass/Vol] 33.7 g/dL 32.5-35.6 [facility] MCV [Entitic volume] by Auto mated countOrdered By: Patricia Vilchis on 09-19-2023 MCV (RBC) [Entitic vol] 91.2 fL Normal 83.5-101 F [facility] Comment on above: Performed By: #### M KONSTANTIN Colmenares, CBCNO #### [address] Magnesium [Mass/volume] in S sterling or PlasmaOrdered By: Patricia Vilchis on 09-19-2023 Magnesium [Mass/Vol] 1.8 mg/dL Low 1.9-2.7 [facility] Comment on above: Result Comment: PERF ORMED BY: [place] [address] PATHOLOGIST [employer]PORATE QUALITY MANAGER DEJA LING M.D. Performed By: #### KONSTANTIN Colin, CBCNO ####[place] [id number] [address] No Panel InformationOrdered By: Patricia Vilchis on 09-19-2023 Estimated GFR (CKD-EPI) > 60.0 mL/Min [facility] Creatinine Clearance (Chem 63.33 [facility] Platelet mean volume [Entiti c volume] in Blood by Automated countOrdered By: Patricai Vilchis on 09-19-2023 Platelet mean volume (Bld) [Entitic vol] 8.1 fL Normal 6.6-10.1 [facility] Comment on above: Result Comment: PERF ORMED BY: [place] [address] [place] [address] PATHOLOGIST CORPORATE QUALITY MANAGER DEJA LING M.D. Performed By: #### KONSTANTIN Colin CBCNO #### [address] Platelets [#/volume] in Bloo d by Automated countOrdered By: Patricia Vilchis on 09-19-2023 Platelets (Bld) [#/Vol] 293 10*3/uL Normal 150-450 [facility] Comment on above: Performed By: #### KONSTANTIN Colin, CBCNO #### [facility] [address] Potassium [Moles/volume] in Serum or PlasmaOrdered By: Patricia Vilchis on 09-19-2023 Potassium [Moles/Vol] 4.2 mmol/L Normal 3.5-5.1 [facility] Comment on above: Performed By: #### KONSTANTIN Colin, CBCNO ####[facility]1111 [place] [id number] [facility] Serum or plasma anion gap de terminationOrdered By: Patricia Vilchis on 09-19-2023 Anion gap [Moles/Vol] 10.1 mmol/L Normal 6.0-15.0 [facility] Comment on above: Performed By: #### KONSTANTIN Colin, TANNERNO ####[place] [address] Sodium [Moles/volume] in Ser um or PlasmaOrdered By: Patricia Vilchis on 09-19-2023 Sodium [Moles/Vol] 135 mmol/L Low 136-145 [facility] Comment on above: Performed By: #### M KONSTANTIN Colmenares, TANNERNO ####[place] [address] US carotid doppler BIon 08-22 US carotid doppler BI [facility] Main [place] [address] [place] [address] Ultrasound Report Signed Patient: Nicholas Trujillo MR#: [id number] : 1945 Acct:[id number] Age/Sex: 78 / M ADM Date: 09/18/23 Loc: Room: [address] [place] [address] Type: DIS IN Attending Dr: Patricia Vilchis MD Ordering Provider: Carlene Orozco APRN Date of Service: 09/18/23 US/US carotid doppler BI: dizziness Copies to: MD Carlene Burleson APRN CAROTID DUPLEX INDICATION: Dizziness and weakness. PROCEDURE: Color-flow duplex scanning is used to interrogate the extracranial carotid arterial system, as well as both vertebral arteries. The proximal right internal carotid artery shows a highest peak systolic velocity of 72.3 cm/s with an end-diastolic velocity of 12.5 cm/s . The mid internal carotid artery measures 77.2 cm/s peak systolic with an end-diastolic velocity of 23.6 cm/s . The distal segment measures 71.3 cm/s peak systolic with an end diastolic velocity of 24.8 cm/s . The velocities of the right common carotid artery are 96.9 cm/s peak systolic and 19.9 cm/s end- diastolic proximally and 52.7 cm/s peak systolic and 13.6 cm/s end-diastolic distally. The peak systolic velocity ratio of the internal to the common carotid artery is 1.46 . The right external carotid artery measures 90.9 cm/s peak systolic. The right vertebral artery is patent at 35.1 cm/s peak systolic and with antegrade flow. The proximal left internal carotid artery shows a highest peak systolic velocity of 83.4 cm/s with an end-diastolic velocity of 20.3 cm/s . The mid internal carotid artery measures 76.8 cm/s peak systolic with an end-diastolic velocity of 26.3 cm/s . The distal segment measures 118 cm/s peak systolic with an end diastolic velocity of 36.8 cm/s . The velocities of the left common carotid artery are 76.7 cm/s peak systolic and 21.1 cm/s end-diastolic proximally and 66.9 cm/s peak systolic and 16.1 cm/s end-diastolic distally. The peak systolic velocity ratio of the internal to the common carotid artery is 1.25 . The left external carotid artery measures 105 cm/s peak systolic. The left vertebral artery is patent at 54.6 cm/s peak systolic with antegrade flow. US/US carotid doppler BI IMPRESSION: NO HEMODYNAMICALLY SIGNIFICANT STENOSIS OF EITHER EXTRACRANIAL INTERNAL CAROTID ARTERY. BOTH VERTEBRAL ARTERIES ARE PATENT WITH ANTEGRADE FLOW. Impression dictated by: Mian Lopez MD09/19/2023 5:18 PM Dictation Location: [place] [address] Tech: Mai Jordan Transcribed By: LARISA 09/19/231717 Dictated By: Mian Lopez MD 09/19/231716 Signed By: 09/19/231717 Normal [facility] Urea nitrogen [Mass/volume] in Serum or PlasmaOrdered By: Patricia Vilchis on 09-19-2023 Urea nitrogen [Mass/Vol] 20 mg/dL Normal 11-13 [facility] Comment on above: Performed By: #### M G, BMP, CBCNO ####[facility] [address] [place] [address] [facility] ECG 12 lead ECGon 09-18-2023 ECG 12 lead ECG [facility] Main [place] [address] [place] [address] Electrocardiograph Report Signed Patient: Nicholas Trujillo MR#: [id number] : 1945 Acct:[id number] Age/Sex: 78 / M ADM Date: 09/18/23 Loc: Room: [address] [place] [address] Type: ADM IN Attending Dr: Patricia Vilchis MD Ordering Provider: Carlene Orozco APRN Date of Service: 09/18/23 ECG/ECG 12 lead ECG: Hx of a-fib Copies to: Test Reason : Blood Pressure : / mmHG Vent. Rate : 067 BPM Atrial Rate : 067 BPM P-R Int : 238 ms QRS Dur : 098 ms QT Int : 448 ms P-R-T Axes : 065 025 061 degrees QTc Int : 473 ms Sinus rhythm with 1st degree AV block Otherwise normal ECG When compared with ECG of 11-SEP-2023 14:13, No significant change was found Confirmed by Garrett Gunter ([id number]) on 09/19/2023 10:26:51 AM Referred By: Electronically Signed By:Garrett Gunter Transcribed By: MUS Signed By Garrett Gunter MD 09/19/23 1026 Normal [facility] Basophils Auto (Bld) [#/Vol] on 09-17-2023 Basophils (Bld) [#/Vol] 0.0 10 3/uL 0.0-0.1 [facility] Basophils/100 WBC Auto (Bld) on 09-17-2023 Basophils/100 WBC (Bld) 0.5 % 0.2-2.0 [facility] Eosinophils/100 WBC Auto (Bl d)on 09-17-2023 Eosinophils/100 WBC (Bld) 3.1 % 0.9-7.0 [facility] Erythrocyte distribution wid th Auto (RBC) [Ratio]on 09-17-2023 Erythrocyte distribution width (RBC) [Ratio] 13.0 % 11.0-15.0 [facility] Estimated glomerular filtrat ion rate (GFR) non- Americanon 05-28-2024 GFR/1.73 sq M.predicted among non-blacks MDRD (S/P/Bld) [Vol rate/Area] 59 mL/min/{1.73_m2} Low >=60 [facility] Hematocrit Auto (Bld) [Volum e fraction]on 09-17-2023 Hematocrit (Bld) [Volume fraction] 33.6 % Low 42.0-54.0 [facility] Hemoglobin [Mass/volume] in Bloodon 09-17-2023 Hemoglobin (Bld) [Mass/Vol] 10.8 g/dL Low 14.0-18.0 [facility] Laboratory - Chemistry and C hemistry - challengeon 09-17-2023 Bilirubin Ql (U) Negative NEGATIVE [facility] Glucose (U) [Mass/Vol] Negative NEGATIVE [facility] Ketones Ql (U) Negative NEGATIVE [facility] pH (U) 6.5 [pH] 5.0-9.0 [facility] Specific gravity (U) [Rel density] 1.025 1.005-1.025 [facility] Urobilinogen Qn (U) 0.2 {Jodi'U}/dL 0.2-1.0 [facility] Calcium [Mass/Vol] 8.6 mg/dL 8.5-10.1 [facility] Chloride [Moles/Vol] 103 mmol/L 98-107 [facility] CO2 [Moles/Vol] 26.4 mmol/L 21.0-32.0 [facility] Creatinine [Mass/Vol] 1.20 mg/dL 0.70-1.30 [facility] GFR/1.73 sq M.predicted MDRD (S/P/Bld) [Vol rate/Area] mL/min/{1.73_m2} >=60 [facility] Glucose [Mass/Vol] 102 mg/dL 74-106 [facility] Potassium [Moles/Vol] 4.1 mmol/L 3.5-5.1 [facility] Sodium [Moles/Vol] 137 mmol/L 136-145 [facility] Urea nitrogen [Mass/Vol] 21.0 mg/dL High 7.0-18.0 [facility] Urea nitrogen/Creatinine [Mass ratio] 17.5 mg/mg [facility] - Hematology and Cell countson 09-17-2023 Immature granulocytes/100 WBC (Bld) 0.3 % 0.0-0.5 [facility] - Specimen inform ationon 09-17-2023 Appearance (U) CLEAR CLEAR [facility] Color (U) YELLOW YELLOW [facility] - Urinalysison Leukocyte esterase Test strip Ql (U) Negative NEGATIVE [facility] Mucus Ql (Urine sed) NONE SEEN NONE SEEN [facility] Nitrite Ql (U) Negative NEGATIVE [facility] Protein Ql (U) Negative NEG/TRACE [facility] Leukocytes [#/volume] correc alfonso for nucleated erythrocytes in Blood by Automated counon 09-17-2023 WBC corrected for nucl RBC Auto (Bld) [#/Vol] 5.8 10 3/uL 4.0-11.0 [facility] Lymphocytes Auto (Bld) [#/Vo l]on 09-17-2023 Lymphocytes (Bld) [#/Vol] 1.4 10 3/uL 1.2-3.8 [facility] Lymphocytes/100 WBC Auto (Bl d)on 09-17-2023 Lymphocytes/100 WBC (Bld) 23.3 % 20.5-60.0 [facility] MCH Auto (RBC) [Entitic mass ]on 09-17-2023 MCH (RBC) [Entitic mass] 30.0 pg 25.9-34.0 [facility] MCHC Auto (RBC) [Mass/Vol]on 09-17-2023 MCHC (RBC) [Mass/Vol] 32.1 g/dL 29.9-35.2 [facility] MCV Auto (RBC) [Entitic vol] on 09-17-2023 MCV (RBC) [Entitic vol] 93.3 fL 80.0-94.0 [facility] Monocytes Auto (Bld) [#/Vol] on 09-17-2023 Monocytes (Bld) [#/Vol] 0.7 10 3/uL 0.3-0.8 [facility] Monocytes/100 WBC Auto (Bld) on 09-17-2023 Monocytes/100 WBC (Bld) 12.5 % High 1.7-12.0 F [facility] Neutrophils Auto (Bld) [#/Vo l]on 09-17-2023 Neutrophils (Bld) [#/Vol] 3.5 10 3/uL 1.4-6.5 [facility] Neutrophils/100 WBC Auto (Bl d)on 09-17-2023 Neutrophils/100 WBC (Bld) 60.3 % 43.0-75.0 [facility] No Panel Informationon 09-16 Urine Bacteria NONE SEEN #/HPF NONE SEEN [facility] Urine Occult Blood Negative NEGATIVE [facility] Urine Other Casts NONE SEEN #/LPF NONE SEEN Fi [facility] Urine Other Crystals None Seen #/HPF None Seen [facility] Urine RBC 0-2 #/HPF 0-2 [facility] Urine Squamous Epithelial Cells NONE SEEN #/LPF NONE/RARE [facility] Urine WBC NONE SEEN #/HPF NONE SEEN [facility] Eosinophils # (Auto) 0.2 10 3/uL 0.0-0.7 [facility] Immature Granulocyte # (Auto) 0.02 10 3/uL 0.00-0.03 [facility] Troponin I High Sensitivity 7.6 pg/mL 4.0-76.1 [facility] Comment on above: CUT-OFF POINTS HAVE BEEN ESTABLISHED BASED ON THE FOURTHUNIVERSAL DEFINITION OF MYOCARDIAL INFARCTION. THE UPPERREFERENCE LIMIT (URL) OF TROPONIN, DEFINED THE 99THPERCENTILE OF cTnI DISTRIBUTION IN A REFERENCE POPULATION,HAS BEEN CONFIRMED THE DECISION THRESHOLD FOR MIDIAGNOSIS.99TH PERCENTILE = 76.2 PG/MLNOTE: HIGH-SENSITIVITY TROPONIN ASSAY IS NOT INTENDED TO BEUSED IN ISOLATION BUT SHOULD BE INTERPRETED IN CONJUNCTIONWITH OTHER DIAGNOSTIC AND CLINICAL INFORMATION. Platelet mean volume Auto (B ld) [Entitic vol]on 09-17-2023 Platelet mean volume (Bld) [Entitic vol] 9.9 fL 9.5-13.5 [facility] Platelets Auto (Bld) [#/Vol] on 09-17-2023 Platelets (Bld) [#/Vol] 328 10 3/uL 150-450 [facility] RBC Auto (Bld) [#/Vol]on RBC (Bld) [#/Vol] 3.60 10 6/uL Low 4.70-6.10 [facility] Serum or plasma anion gap de terminationon 09-17-2023 Anion gap [Moles/Vol] 11.7 mmol/L [facility]PG ECG *OFFICE ONLY*on 08-21 FPG ECG *OFFICE ONLY* [facility] [place] [address] Electrocardiograph Report Signed Patient: Nicholas Trujillo MR#: [id number] : 1945 Acct:[id number] Age/Sex: 78 / M ADM Date: 09/11/23 Loc: EKGCARD Room: Type: [facility] Attending Dr: Garrett Gunter MD Ordering Provider: Garrett Gunter MD Date of Service: 09/11/23 ECG/FPG ECG *OFFICE ONLY*: I48.0 - Paroxysmal atrial fibrillation Copies to: Test Reason : Blood Pressure : / mmHG Vent. Rate : 077 BPM Atrial Rate : 077 BPM P-R Int : 220 ms QRS Dur : 092 ms QT Int : 394 ms P-R-T Axes : 067 033 078 degrees QTc Int : 445 ms Sinus rhythm with 1st degree AV block Otherwise normal ECG When compared with ECG of 14-AUG-2023 14:34, No significant change was found Confirmed by Garrett Gunter ([id number]) on 09/13/2023 12:01:40 AM Referred By: Electronically Signed By:Garrett Gunter Transcribed By: MUS Signed By Garrett Gunter MD 09/13/23 0001 Normal [facility] Shadi 08-27-2023 L Specimen: [id number] Received: 08/27/23 Status: ADITI Repauly Num: [id number] Spec Type: Surgical Subm Dr: Phuc Denney DO Tissues: A Joint/Knee (LT KNEE) Procedures: HE, Gross/Micro L4, Decalcification Age/ Patient Sex Location Account Attending Physician Nicholas Trujillo 78/M [place] [id number] Phuc Denney DO SPEC NUM: [id number] RECD: 08/27/23 STATUS: ADITI CORDEROPauly NUM: [id number] SHIRA: 08/27/[address]: Phuc Denney DO ENTERED: 08/27/[address] [facility] DR: SPEC TYPE: Surgical DEPT: S ORDERED: HE, Gross/Micro L4, Decalcification ORDERED: HE, Gross/Micro L4, Decalcification Pathological Diagnosis Left knee bone and tissue, total knee arthroplasty: -Severe degenerative osteoarthritis, including patchy articular erosion and cortical eburnation, in addition to the moderate osteophytic degeneration, and irregularly thickened meniscus cartilage, compatible with severe degenerative joint disease of the left knee. Gross only examination Gross Description The specimen is received in formalin, labeled with the patient's name and left knee bone and tissue , and consists of a 16.6 x 14.9 x 2.9 cm aggregate of multiple fragments of mcfadden- white hemorrhagic bone and fibrous soft tissue. The largest fragment is consistent with tibial plateau, measuring 8.1 x 5.5 x 2.6 cm. There is a 2.3 x 1.5 cm focus of eburnation on the articular surface of the tibial plateau. There is mild osteophytic lipping over 20 to 30% of the specimen periphery. The specimen is for gross only examination. Gross photo included. Clinical history: DJD TW -------- Specimen: [id number] Received: 08/27/23 Status: ADITI Cochran Num: [id number] Spec Type: Surgical Subm Dr: Phuc Denney DO Tissues: A Joint/Knee (LT KNEE) Procedures: HE, Gross/Micro L4, Decalcification -------- Patient: Nicholas Trujillo [id number] (Continued) -------- Specimen: [id number] Received: 08/27/23 (Continued) Signed (signature on file) Alva Quinones MD 08/28/23 1851 -------- Specimen: [id number] Received: 08/27/23 Status: ADITI Cochran Num: [id number] Spec Type: Surgical Subm Dr: Phuc Denney DO Tissues: A Joint/Knee (LT KNEE) Procedures: GABY, Niles/Brayan L4, Decalcification -------- Patient: Nicholas Trujillo [id number] (Continued) -------- Specimen: [id number] Received: 08/27/23 (Continued) CPT Codes 56531 BONE AND TISSUE -------- -------- Specimen: [id number] Received: 08/27/23 Status: ADITI Cochran Num: [id number] Spec Type: Surgical Subm Dr: Phuc Denney DO Tissues: A Joint/Knee (LT KNEE) Procedures: Niles GRIFFIN/Brayan L4, Decalcification -------- Patient: Nicholas Trujillo [id number] (Continued) -------- Signed (signature on file) Alva Quinones MD 08/28/23 1851 Normal [facility] XR knee LT 2Von 08-27-2023 XR knee LT 2V [address] [address] XRay Report Signed Patient: Nicholas Trujillo MR#: [id number] 5004 : 1945 Acct:[id number] Age/Sex: 78 / M ADM Date: 08/27/23 Loc: [place] Room: Type: [facility] Attending Dr: Phuc Denney DO Copies to: Phuc Denney DO Ordering Provider: Phuc Denney DO Date of Service: 08/27/23 XR/XR knee LT 2V: Total or partial knee, do in PACU LEFT KNEE - 2 views COMPARISON: 08/05/2023 CLINICAL DATA: Follow-up after knee replacement. AP and lateral views were obtained. There is a new knee replacement. The hardware appears intact and in appropriate position. No acute fracture or dislocation is identified. There is postoperative air within the joint space and anterior subcutaneous soft tissues. XR/XR knee LT 2V IMPRESSION: SATISFACTORY POSTOPERATIVE APPEARANCE OF LEFT KNEE REPLACEMENT. Impression dictated by: Shirin Charles M.D.08/27/2023 2:45 PM Dictation Location: [place] [address] Transcribed By: [facility] 08/27/23 144 Dictated By: Shirin Charles MD 08/27/231443 Signed By: 08/27/23 144 Normal [facility] ECH echo transthoracicon ECH echo transthoracic [address] [address] Echocardiogram Signed Patient: Nicholas Trujillo MR#: [id number] 5004 : 1945 Acct:[id number] Age/Sex: 78 / M ADM Date: 08/21/23 Loc: Room: Type: [facility] Attending Dr: Garrett Gunter MD Ordering Provider: Garrett Gunter MD Date of Service: 08/21/2305/15/841 ECH/ECH echo transthoracic: R94.31 - Abnormal electrocardiogram [ECG] [EKG] Copies to: MD Gonzalez Mccoy MD, [facility] Weight: 215 lb Performed By: Glory Graff VIJAYA BSA: 2.1 m2 BP: 148/70 mmHg HR: 63 Reason For Study: Abnormal electrocardiogram [ECG] [EKG] History: HTN. JULIANA. Former Smoker. Interpretation Summary The left ventricular size, thickness and function are normal Ejection Fraction = 60-65%. A variety of Doppler measurements indicate normal left ventricular diastolic function. There is mild tricuspid regurgitation. The right ventricular systolic pressure is 46 mmHg. Right ventricular systolic pressure is consistent with mild to moderate pulmonary hypertension. There is no prior echocardiogram noted for this patient. Procedure/Quality: A two-dimensional transthoracic echocardiogram with color flow and Doppler was performed. The study was technically good in quality. There is no prior echocardiogram noted for this patient. Left Ventricle: The left ventricular size, thickness and function are normal. Ejection Fraction = 60-65%. A variety of Doppler measurements indicate normal left ventricular diastolic function. Left Atrium: The left atrium appears normal in size. The atrial septum appears normal. Right Atrium: The right atrium appears normal in size. Right Ventricle: The right ventricular size, thickness and function are normal. Aortic Valve: The aortic valve is trileaflet. Mitral Valve: The mitral valve is mildly sclerotic. Tricuspid Valve: The tricuspid valve is normal in structure. There is mild tricuspid regurgitation. The right ventricular systolic pressure is 46 mmHg. Right ventricular systolic pressure is consistent with mild to moderate pulmonary hypertension. Pulmonic Valve: The pulmonic valve is not well seen, but is grossly normal. Arteries: The aortic root is normal size. Pericardium/Pleura: No pericardial effusion seen. There is no pleural effusion. IVC/Hepatic Veins: The IVC is normal in size with an inspiratory collapse of greater then 50%, suggesting normal right atrial pressure. Miscellaneous: No thrombus, vegetation or mass is seen. Measurements with Normals IVSd: 0.95 cm (0.7-1.1 cm)LVIDd: 4.1 cm (3.7-5.4 cm) LVPWd: 0.89 cm (0.7-1.1 cm)LVIDs: 2.7 cm (2.3-3.6 cm) LA dimension: 3.9 cm (2.3-4.0 cm)Ao root diam: 3.4 cm(2.0-3.6 cm) asc Aorta Diam: 3.6 cm(2.1-3.4cm) Doppler with Normals RVSP(TR): 45.8 mmHg (18-35mmHg) LV V1 max: 132.8 cm/sec (0.7-1.7m/s)MV E max leatha: 113.0 cm/sec(0.8-1.3m/s) MV A max leatha: 107.1 cm/sec(0.0-0.0m/s) MV E/A: 1.1 (<1.5) MMode/2D Measurements Calculations TAPSE: 2.3 cm FS: 33.4 % Ao root area: LVOT diam: 2.0 cm RV S Leatha: EDV(Teich): 9.0 cm2 LVOT area: 3.2 cm2 20.0 cm/sec 72.9 ml ESV(Teich): 27.3 ml EF(Teich): 62.6 % __ LVLd ap4: 8.1 cm SV(MOD-sp4): LAV(MOD-sp4): LA A2 area: 14.3 cm2 EDV(MOD-sp4): 56.6 ml 27.8 ml 89.1 ml LAV(MOD-sp2): LA A4 area: 12.4 cm2 LVLs ap4: 6.7 cm 32.5 ml LA length (vol): ESV(MOD-sp4): 4.3 cm 32.5 ml LA vol: 35.2 ml EF(MOD-sp4): 63.5 % LA vol index: 16.4 ml/m2 Doppler Measurements Calculations MV dec time: MV V2 max: E/E' lat: 12.1 MV P1/2t max leatha: 0.19 sec 121.1 cm/sec E/E' med: 12.8 121.6 cm/sec MV max PG: MV P1/2t: 60.4 msec 100.0 mmHg MV V2 mean: MVA(P1/2t): 3.6 cm2 70.8 cm/sec MV dec slope: MV mean P.2 cm/sec2 2.3 mmHg MV V2 VTI: 38.9 cm MVA(VTI): 2.1 cm2 __ Ao V2 max: LV V1 max PG: MR max leatha: TV max P.0 mmHg 146.8 cm/sec 7.1 mmHg 499.5 cm/sec Ao max PG: LV V1 mean PG: MR max P.6 mmHg 3.4 mmHg 99.9 mmHg Ao mean PG: LV V1 mean: 4.9 mmHg 83.2 cm/sec Ao V2 mean: LV V1 VTI: 25.3 cm 105.3 cm/sec Ao V2 VTI: 32.0 cm DENNIS(I,D): 2.6 cm2 DENNIS(V,D): 2.9 cm2 __ TR max leatha: 327.3 cm/sec TR max P.8 mmHg RAP systole: 3.0 mmHg Transcribed By: SCV Performed At: 08/21/23 0846 Signed By: Gonzalez Perez MD, FACC 08/22/23 6224 Normal [facility] FPG ECG *OFFICE ONLY*on 07-22 FPG ECG *OFFICE ONLY* [facility] [place] [address] Electrocardiograph Report Signed Patient: Nicholas Trujillo MR#: [id number] 5004 : 1945 Acct:[id number] Age/Sex: 78 / M ADM Date: 08/14/23 Loc: EKGCARDIO Room: Type: [facility] Attending Dr: Garrett Gunter MD Ordering Provider: Garrett Gunter MD Date of Service: 08/14/23 ECG/FPG ECG *OFFICE ONLY*: I48.91 - Unspecified atrial fibrillation Copies to: Test Reason : Blood Pressure : / mmHG Vent. Rate : 061 BPM Atrial Rate : 061 BPM P-R Int : 222 ms QRS Dur : 094 ms QT Int : 426 ms P-R-T Axes : 076 012 081 degrees QTc Int : 428 ms Sinus rhythm with 1st degree AV block Otherwise normal ECG When compared with ECG of 09-AUG-2023 10:41, Sinus rhythm has replaced Atrial fibrillation Confirmed by Garrett Gunter ([id number]) on 08/14/2023 6:22:41 PM Referred By: Electronically Signed By:Garrett Gunter Transcribed By: MUS Signed By Garrett Gunter MD 08/14/23 1822 Normal [facility] Alanine aminotransferase [En zymatic activity/volume] in Serum or PlasmaOrdered By: Phuc Denney on 08-09-2023 ALT [Catalytic activity/Vol] 21 U/L Normal 7-52 [facility] Comment on above: Performed By: #### C BC, CMP wRFX A1C #### [facility] [address] [place] [address] Albumin [Mass/volume] in Ser um or Plasma by Bromocresol green (BCG) dye binding methoOrdered By: Phuc Denney on 08-09-2023 Albumin BCG dye [Mass/Vol] 4.0 g/dL 3.5-5.7 [facility] Alkaline phosphatase [Enzyma tic activity/volume] in Serum or PlasmaOrdered By: Phuc Denney on 08-09-2023 ALP [Catalytic activity/Vol] 37 U/L Normal 34-104 [facility] Comment on above: Result Comment: PERF ORMED BY: [place] [address] PATHOLOGIST CORPORATE QUALITY MANAGER DEJA LING M.D. Performed By: #### C BC, CMP wRFX A1C #### [facility] [address] [place] [address] Aspartate aminotransferase [ Enzymatic activity/volume] in Serum or PlasmaOrdered By: Phuc Denney on 08-09-2023 AST [Catalytic activity/Vol] 22 U/L Normal 13-39 [facility] Comment on above: Performed By: #### C BC, CMP wRFX A1C #### [facility] [address] [place] [address] Automated basophil %Ordered By: Phuc Denney on 08-09-2023 Basophils/100 WBC (Bld) 1.1 % Normal . [facility] Comment on above: Performed By: #### C BC, CMP wRFX A1C #### [facility] [address] [place] [address] Automated basophil countOrde red By: Phuc Denney on 08-09-2023 Basophils (Bld) [#/Vol] 0.1 10*3/uL Normal 0.0-0.2 [facility] Comment on above: Result Comment: PERF ORMED BY: [place] [address] PATHOLOGIST CORPORATE QUALITY MANAGER DEJA LING M.D. Performed By: #### C BC, CMP wRFX A1C #### [address] Automated blood monocyte cou ntOrdered By: Phuc Denney on 08-09-2023 Monocytes (Bld) [#/Vol] 0.8 10*3/uL Normal 0.0-0.8 [facility] Comment on above: Performed By: #### C BC, CMP wRFX A1C #### [facility] [address] [place] [address] Automated eosinophil %Ordere d By: Phuc Denney on 08-09-2023 Eosinophils/100 WBC (Bld) 2.3 % Normal . [facility] Comment on above: Performed By: #### C BC, CMP wRFX A1C #### [facility] [address] [place] [address] Automated eosinophil countOr dered By: Phuc Denney on 08-09-2023 Eosinophils (Bld) [#/Vol] 0.1 10*3/uL Normal 0.0-0.45 [facility] Comment on above: Performed By: #### C BC, CMP wRFX A1C #### [address] Automated monocyte %Ordered By: Phuc Denney on 08-09-2023 Monocytes/100 WBC (Bld) 14.9 % Normal .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 08-27-2023 11:45-0400 SaO2% (BldA) [Mass fraction] 93 % MD Megan Fan Work Phone: [facility] 08-27-2023 11:45-0400 Systolic blood pressure 141 mm[Hg] MD Megan Fan Work Phone: [facility] 08-27-2023 10:14-0400 Body temperature 98.1 [degF] MD Megan Fan Work Phone: [facility] 08-27-2023 09:49-0400 Inhaled oxygen flow rate 6 L/min MD Megan Fan Work Phone: [facility] 08-27-2023 07:47-0400 Body mass index (BMI) [Ratio] 30.9 kg/m2 MD Megan Fan Work Phone: [facility] 08-27-2023 06:36-0400 Body height 177.8 cm MD Megan Fan Work Phone: [facility] 08-27-2023 06:36-0400 Body weight 97.7 kg MD Megan Fan Work Phone: [facility] 08-21-2023 11:10-0400 Body height 177.8 cm MD Megan Fan Work Phone: [facility] 08-21-2023 11:10-0400 Body mass index (BMI) [Ratio] 30.9 kg/m2 MD Megan Fan Work Phone: [facility] 08-21-2023 11:10-0400 Body weight 97.57 kg MD Megan Fan Work Phone: [facility] 08-14-2023 14:01-0400 Body height 177.8 cm MD Megan Fan Work Phone: [facility] 08-14-2023 14:01-0400 Body mass index (BMI) [Ratio] 30.8 kg/m2 MD Megan Fan Work Phone: [facility] 08-14-2023 14:01-0400 Body weight 97.52 kg MD Megan Fan Work Phone: [facility] 08-14-2023 14:01-0400 Diastolic blood pressure 66 mm[Hg] MD Megan Fan Work Phone: [facility] 08-14-2023 14:01-0400 Heart rate 60 /min MD Megan Fan Work Phone: [facility] 08-14-2023 14:01-0400 Respiratory rate 18 /min MD Mgean Fan Work Phone: [facility] 08-14-2023 14:01-0400 SaO2% (BldA) [Mass fraction] 96 % MD Megan Fan Work Phone: [facility] 08-14-2023 14:01-0400 Systolic blood pressure 142 mm[Hg] MD Megan Fan Work Phone: [facility] 08-05-2023 08:56-0400 Body height 177.8 cm MD Megan Fan Work Phone: [facility] 08-05-2023 08:56-0400 Body mass index (BMI) [Ratio] 30.2 kg/m2 MD Megan Fan Work Phone: [facility] 08-05-2023 08:56-0400 Body weight 95.42 kg MD Megna Fan Work Phone: [facility] 12-11-2022 11:24-0400 Diastolic blood pressure 83 mm[Hg] MD Megan Fan Work Phone: [facility] 12-11-2022 11:24-0400 Heart rate 55 /min MD Megan Fan Work Phone: [facility] 12-11-2022 11:24-0400 Respiratory rate 16 /min MD Megan Fan Work Phone: [facility] 12-11-2022 11:24-0400 SaO2% (BldA) [Mass fraction] 99 % MD Megan Fan Work Phone: [facility] 12-11-2022 11:24-0400 Systolic blood pressure 153 mm[Hg] MD Megan Fan Work Phone: [facility] 12-11-2022 09:15-0400 Body height 177.8 cm MD Megan Fan Work Phone: [facility] 12-11-2022 09:15-0400 Body temperature 97.6 [degF] MD Megan Fan Work Phone: [facility] 12-11-2022 09:15-0400 Body weight 96.16 kg MD Megan Fan Work Phone: [facility] 11-06-2022 10:45-0400 Body height 177.8 cm Imad Asaad Other [facility] [employer] Other 11-06-2022 10:45-0400 Body mass index (BMI) [Ratio] 30.13 kg/m2 Imad Asaad Other [facility] [employer] Other 11-06-2022 10:45-0400 Body weight 95.26 kg Imad Asaad Other [employer] Other 11-06-2022 10:45-0400 Diastolic blood pressure 63 mm[Hg] Imad Asaad Other [employer] Other 11-06-2022 10:45-0400 Systolic blood pressure 135 mm[Hg] Imad Asaad Other [employer] Other 10-03-2022 10:00-0400 Body height 177.8 cm Megan Fan Other [employer] Other 10-03-2022 10:00-0400 Body mass index (BMI) [Ratio] 30.7 kg/m2 Megan Fan Other [employer] Other 10-03-2022 10:00-0400 Body weight 97.07 kg Megan Fan Other [employer] Other 10-03-2022 10:00-0400 Diastolic blood pressure 64 mm[Hg] Megan Fan Other [employer] Other 10-03-2022 10:00-0400 Systolic blood pressure 133 mm[Hg] Megan Fan Other [employer] Other 06-22-2022 09:15-0500 Body height 177.8 cm Megan Fan Other [employer] Other 06-22-2022 09:15-0500 Body mass index (BMI) [Ratio] 31.96 kg/m2 Megan Fan Other [employer] Other 06-22-2022 09:15-0500 Body weight 101.06 kg Megan Fan Other [employer] Other 06-22-2022 09:15-0500 Diastolic blood pressure 60 mm[Hg] Megan Fan Other [employer] Other 06-22-2022 09:15-0500 SaO2% (BldA) [Mass fraction] 95 % Megan Fan Other [employer] Other 06-22-2022 09:15-0500 Systolic blood pressure 118 mm[Hg] Megan Fan Other [employer] Other 06-12-2022 09:45-0500 Body height 177.8 cm Megan Fan Other [employer] Other 06-12-2022 09:45-0500 Body mass index (BMI) [Ratio] 31.99 kg/m2 Megan Fan Other [employer] Other 06-12-2022 09:45-0500 Body weight 101.15 kg Megan Fan Other [employer] Other 06-12-2022 09:45-0500 Diastolic blood pressure 74 mm[Hg] Megan Fan Other [employer] Other 06-12-2022 09:45-0500 SaO2% (BldA) [Mass fraction] 97 % Megan Fan Other [employer] Other 06-12-2022 09:45-0500 Systolic blood pressure 126 mm[Hg] Megan Fan Other [employer] Other 02-15-2021 11:00-0400 Body height 177.8 cm Phuc Denney Other [employer] Other 02-15-2021 11:00-0400 Body mass index (BMI) [Ratio] 31.13 kg/m2 Phuc Denney Other [employer] Other 02-15-2021 11:00-0400 Body weight 98.43 kg Phuc Denney Other [employer] Other Encounters Encounter Date Encounter Type Care Provider Facility Start: 01-03-2024 Non-patient / Non-visit MD Sheila Fan Work Phone: [facility] Work Phone: Start: 01-03-2024 End: 01-03-2024 Admission to same day surgery center MD Megan Fan Work Phone: [facility] Work Phone: Start: 01-03-2024 End: 01-03-2024 ambulatory MD Megan Fan Work Phone: [facility] Work Phone: Start: 10-23-2023 End: 10-23-2023 ambulatory MD Megan Fan Work Phone: [facility] Work Phone: Start: 10-23-2023 End: 10-23-2023 Patient encounter procedure MD Megan Fan Work Phone: [facility] Work Phone: Start: 10-22-2023 End: 10-22-2023 ambulatory MD Megan Fan Work Phone: [facility] Work Phone: Start: 10-22-2023 End: 10-22-2023 Patient encounter procedure MD Megan Fan Work Phone: [facility] Work Phone: Start: 10-04-2023 End: 10-04-2023 ambulatory RONNA CARPIO Not Available Start: 10-01-2023 End: 10-01-2023 ambulatory DOUGIE MOSLEY Not Available Start: 09-27-2023 End: 09-27-2023 ambulatory MANNY ESCOBEDO Not Available Start: 09-25-2023 End: 09-25-2023 ambulatory MANNY ESCOBEDO Not Available Start: 09-23-2023 End: 09-23-2023 ambulatory MD Megan Fan Work Phone: [facility] Work Phone: Start: 09-23-2023 End: 09-23-2023 Patient encounter procedure MD Megan Fan Work Phone: [facility] Work Phone: Start: 09-18-2023 End: 09-19-2023 Non-patient / Non-visit MD Megan Fan Work Phone: [facility] Cardiology Work Phone: Start: 09-18-2023 End: 09-19-2023 Evaluation and management of inpatient MD Megan Fan Work Phone: [facility] Work Phone: Start: 09-17-2023 Non-patient / Non-visit MD Sheila Fan Work Phone: [facility] [place] Work Phone: Start: 09-11-2023 End: 09-11-2023 ambulatory MD Megan Fan Work Phone: [facility] Work Phone: Start: 09-11-2023 End: 09-11-2023 Patient encounter procedure MD Megan Fan Work Phone: [facility] Cardiology Work Phone: Start: 09-09-2023 End: 09-09-2023 Patient encounter procedure MD Megan Fan Work Phone: [facility] Work Phone: Start: 08-27-2023 Non-patient / Non-visit MD Sheila Fan Work Phone: [facility] Work Phone: Start: 08-27-2023 End: 08-27-2023 Admission to same day surgery center MD Megan Fan Work Phone: [facility]-Surgery Center [place] Start: 08-27-2023 End: 08-27-2023 ambulatory MD Megan Fan Work Phone: [facility] Work Phone: Start: 08-21-2023 End: 08-21-2023 Patient encounter procedure MD Megan Fan Work Phone: [facility] Work Phone: Start: 08-21-2023 Registered Recurring MD Megan Fan Work Phone: [facility]-Physical Therapy [place] Start: 08-21-2023 End: 08-21-2023 ambulatory Phuc Denney Facility:[facility] Start: 08-21-2023 Encounter for other preprocedural examination Phuc Denney [facility] Start: 08-21-2023 End: 08-21-2023 Patient encounter procedure MD Megan Fan Work Phone: [facility]-Electrodiagnostics Work Phone: Start: 08-21-2023 End: 08-21-2023 ambulatory Megan Fan Facility:[facility] Start: 08-14-2023 Patient encounter status MD Megan Fan Work Phone: [facility] Start: 08-14-2023 End: 08-14-2023 ambulatory MD Megan Fan Work Phone: [facility] Work Phone: Start: 08-14-2023 End: 08-14-2023 Encounter for preprocedural cardiovascular examination MD Megan Fan Work Phone: [facility] Start: 08-14-2023 End: 08-14-2023 Patient encounter procedure MD Megan Fan Work Phone: [facility] Cardiology Work Phone: Start: 08-09-2023 End: 08-09-2023 Patient encounter procedure MD Megan Fan Work Phone: [facility] Work Phone: Start: 08-09-2023 End: 08-09-2023 ambulatory MD Megan Fan Work Phone: [facility] Work Phone: Start: 08-09-2023 Encounter for preprocedural laboratory examination Phuc Denney [facility] Start: 08-05-2023 End: 08-05-2023 Patient encounter procedure MD Megan Fan Work Phone: [facility] Work Phone: Start: 08-05-2023 End: 08-05-2023 Patient encounter procedure MD Megan Fan Work Phone: [facility]-X[facility] Start: 08-05-2023 End: 08-05-2023 ambulatory MD Megan Fan Work Phone: [facility] Work Phone: Start: 06-17-2023 Non-patient / Non-visit MD Sheila Fan Work Phone: [facility] [place] Work Phone: Start: 03-26-2023 (Televisit) Televisit Megan Paul [facility] Start: 03-26-2023 End: 03-26-2023 ambulatory Megan Fan Other [employer] Other Start: 03-13-2023 (Televisit) Televisit Megan Paul [facility] Start: 03-13-2023 End: 03-13-2023 ambulatory Megan Fan Other [employer] Other Start: 01-21-2023 End: 01-21-2023 ambulatory Megan Fan Other [employer] Other Start: 01-21-2023 Telephone encounter Megan Fan [facility] Start: 12-21-2022 End: 12-21-2022 ambulatory Jack Mcpherson Other [employer] Other Start: 12-21-2022 Telephone encounter Jack Mcpherson [facility] Start: 12-11-2022 End: 12-11-2022 Admission to same day surgery center MD Megan Fan Work Phone: [facility] Work Phone: Start: 12-11-2022 End: 12-11-2022 ambulatory MD Megan Fan Work Phone: [facility] Work Phone: Start: 11-16-2022 End: 11-16-2022 ambulatory Megan Fan Other [employer] Other Start: 11-16-2022 Telephone encounter Megan Fan [facility] Start: 11-06-2022 End: 11-06-2022 ambulatory Imad Asaad Other [employer] Other Start: 11-06-2022 Office outpatient ne w 45 minutes Imad Asaad [facility] Start: 10-15-2022 End: 10-15-2022 ambulatory Megan Fan Other [employer] Other Start: 10-15-2022 Telephone encounter Megan Fan [facility] Start: 10-03-2022 End: 10-03-2022 ambulatory Megan Fan Other [employer] Other Start: 10-03-2022 Office outpatient vi sit 15 minutes Megan Fan [facility] Start: 07-31-2022 End: 07-31-2022 ambulatory Megan Fan Other [employer] Other Start: 07-31-2022 Telephone encounter Megan Fan [facility] Start: 06-25-2022 End: 06-26-[address] MEGAN FAN Facility:[facility] Start: 06-22-2022 Office outpatient vi sit 15 minutes Megan Fan [facility] Start: 06-22-2022 End: 06-23-[address] MEGAN FAN Facility:[facility] Start: 06-18-2022 End: 06-18-2022 ambulatory Megan Fan Other [employer] Other Start: 06-18-2022 Telephone encounter Megan Fan [facility] Start: 06-12-2022 End: 06-12-2022 ambulatory Megan Fan Other [employer] Other Start: 06-12-2022 Office outpatient vi sit 15 minutes Megan Fan [facility] Start: 08-17-2021 End: 08-17-[address] MEGAN FAN Facility:[facility] Start: 08-07-2021 Adult health examination Megan Fan Other [employer] Other Start: 02-15-2021 Postop follow up vis it related to original px Phuc Denney [facility] Start: 01-23-2021 Telephone encounter Phuc Denney [facility] Start: 01-18-2021 Postop follow up vis it related to original px Phuc Graciela [facility] Procedures Date Procedure Procedure Detail Performing Clinician Start: 01-03-2024 Colonoscopy MD Megan Fan Work Phone: Start: 09-18-2023 Doppler ultrasonogra phy of bilateral carotid arteries MD Megan Fan Work Phone: Start: 08-27-2023 Total replacement of left knee joint MD Megan Fan Work Phone: Start: 08-27-2023 X-ray of left knee MD Mile Fan Work Phone: Start: 08-05-2023 X-ray of left knee MD Mile Fan Work Phone: Start: 12-11-2022 Colonoscopy MD Megan Fan Work Phone: Plan of Treatment Date Care Activity Detail Author Start: 01-03-2024 [facility] Start: 09-19-2023 [facility] Start: 09-18-2023 Doppler ultrasonogra phy of bilateral carotid arteries US carotid doppler BI [facility] Start: 09-18-2023 US.doppler Carotid a rteries - bilateral [facility] Start: 09-18-2023 Hospital admission [facility] Start: 09-11-2023 [facility] Start: 08-29-2023 [facility] Start: 08-28-2023 [facility] Start: 08-27-2023 End: 08-27-2023 [facility] Start: 08-27-2023 X-ray of left knee XR knee LT 2V [facility] Start: 08-27-2023 XR Knee - left [address] [facility] Start: 08-27-2023 Hospital admission [facility] Start: 08-27-[address] [facility] Start: 08-27-2023 Referral to occupati onal therapist [facility] Start: 12-11-2022 [facility] Patient Education [facility] Work Phone: Patient referral [facility] Work Phone: US Heart Transthoracic [facility] Immunizations Immunization Date Immunization Notes Care Provider Fa cility 02-21-2023 COVID-19 (PFIZER) 12Y and older MD Megan Fan Work Phone: [facility] 01-30-2022 COVID-19 mRNA Bivale nt Booster (Pfizer) MD Megan Fan Work Phone: [facility] 01-30-2022 COVID-19 Pfizer (Pediatric) Megan Fan Other [facility] 03-06-2021 COVID-19 mRNA-1273 (Moderna) MD Megan Fan Work Phone: [facility] 10-13-2020 Kenalog -40 mg Phuc Graciela Other [employer] Other 06-28-2020 COVID-19 mRNA-1273 (Moderna) MD Megan Fan Work Phone: [facility] 05-30-2020 COVID-19 mRNA-1273 (Moderna) MD Megan Fan Work Phone: [facility] 02-06-2019 influenza virus vaccine, split virus (incl. purified surface antigen) Megan Fan Other [facility] Other 02-06-2019 influenza virus vaccine, unspecified formulation MD Megan Fan Work Phone: [facility] 10-21-2018 Kenalog -40 mg Phuc Graciela Other [facility] Other 06-07-2016 Kenalog -40 mg Phuc Graciela Other [facility] Other Payers Date Payer Category Payer Medicare [id number] 2023 Self-pay [id number] 2020 Unknown [id number] 1945 Unknown [id number] 2.16.840.1.494430.3.579.2.593 1945 Unknown [id number] 2.16.840.1.030507.3.579.2.593 1945 Unknown [id number] 2.16.840.1.846312.3.579.2.593 1945 Unknown [id number] 2.840.1.459421.3.579.2.1259 1945 Unknown [id number] 2.840.1.362367.3.579.2.1259 1945 Unknown [id number] 2.840.1.477193.3.579.2.1259 1945 Unknown [id number] 2.840.1.380539.3.579.2.1259 Medicare [id number] 2. [id number] Medicare Medicare [id number] Private Health Insurance [facility] [id number] Unknown [place]/ [id number] Unknown [id number] 2.840.1.226635.3.579.2.531 Unknown [id number] 2.840.1.404902.3.579.2.531 Unknown [id number] 2.840.1.420728.3.579.2.531 Unknown [id number] 2.840.1.452127.3.579.2.531 Unknown [id number] 840.1.874227.3.579.2.531 Unknown [id number] .840.1.310904.3.579.2.531 Unknown [id number] 2.840.1.751259.3.579.2.531 Unknown [id number] 2.840.1.035449.3.579.2.531 Unknown [id number] 2.840.1.757431.3.579.2.531 Unknown [id number] 2.840.1.090507.3.579.2.531 Social History Date Type Detail Facility Sex Assigned At [facility] Other Start: 12-11-2022 End: 01-03-2024 Tobacco smoking status NHIS Ex-smoker (finding) [facility] Start: 1945 Sex Assigned At Male F [facility] Medical Equipment Procedure Code Equipment Code Equipment Origin al Text Equipment Identifier Dates Arthroplasty, knee, total, minimally invasive Orthopaedic cement, non-medicated [id number] FDA Start: 01-03-2021 Arthroplasty, knee, total, minimally invasive Coated knee femur prosthesis ()[id number] FDA Start: 01-03-2021 Arthroplasty, knee, total, minimally invasive Tibial insert ()[id number] FDA Start: 01-03-2021 Arthroplasty, knee, total, minimally invasive Polyethylene patella prosthesis ()[id number] FDA Start: 01-03-2021 Arthroplasty, knee, total, minimally invasive Uncoated knee tibia prosthesis, metallic ()[id number] FDA Start: 01-03-2021 Arthroplasty, knee, total, minimally invasive Orthopaedic cement, non-medicated ()[id number] FDA Start: 08-27-2023 Arthroplasty, knee, total, minimally invasive Uncoated knee tibia prosthesis, metallic ()[id number] FDA Start: 08-27-2023 Arthroplasty, knee, total, minimally invasive Polyethylene patella prosthesis ()[id number] FDA Start: 08-27-2023 Arthroplasty, knee, total, minimally invasive Tibial insert ()[id number] FDA Start: 08-27-2023 Arthroplasty, knee, total, minimally invasive Coated knee femur prosthesis ()[id number] FDA Start: 08-27-2023 Goals Date Patient Goal Desired Activity /State Functional Status Date Assessment Result Facility 09-19-2023 Functional status Patient at Baseline [facility] Work Phone: Mental Status Date Assessment Result Facility 09-19-2023 Cognitive function Cognitive Sta tus Patient at Baseline [facility] Work Phone: Clinical Notes 01-03-2021 to 01-03-2024 Note Date & Type Note Facility 01-03-2024 Procedure note [facility] 09-18-2023 Progress note Note Date/Time September 18, 2023 7:35p m [facility] [address] [place] [address] Hospitalist Progress Note Signed Patient: Nicholas Trujillo MR#: [id number] : 1945 Acct:[id number] Age/Sex: 78 / M Adm Date: 4 Loc: 4P Room: [address] [place] [address] Type: ADM IN Attending Dr: Patricia Vilchis MD Copies to: ~ Date of Service: 09/18/2023 Subjective Subjective Narrative: Assessment And Plan 78M with PMH of HTN, PAF (on Eliquis), DJD who presented with weakness and dizziness to [facility] ER and transferred for the evaluation and treatment of suspected sinus pauses Orthostatic hypotension The patient presented with lightheadedness, he was found with Positive orthostatic blood pressure He received IVF. could be due to Multaq per cardiology dronedarone was discontinued US carotid pending report Post-conversion pause Sinus pauses was noted at [facility] . cardiology belvies this is in the context of conversion of A-fib to sinus rhythm. No syncope Cardiology was consulted, recommendation appreciated. INTERVAL HPI: As Above, Pt resting in bed. feeling better. Denies any chest pain, SOB or lightheadedness Chronic diseases: Unless mentioned Above, Essential home medications have been continued. DVT Px: Addressed Disposition: home in 12-24h Plan of care Discussed with: the medical team, the patient Exam Physical Exam Vital Signs: Temp Pulse Resp BP Pulse Ox O2 Del Method 36.3 C L 74 18 166/68 H 96 Room Air 09/18/23 15:40 09/18/23 15:40 09/18/23 15:40 09/18/23 15:40 09/18/23 15:40 09/18/23 15:40 Narrative: GEN: NAD, Cooperative NECK: ? JVD, supple LUNGS: CTA CV: nl S1 S2; no M/R/G ABD: Soft, ND, NT, + BS, ? HSM EXT: trace LE peripheral edema, No calf muscle tenderness NEURO: ? FND. PSYCH: nl affect, AOx3 Meds Allergies and Active Meds Allergies diclofenac Allergy (Unknown, Verified 09/18/23 15:43) stomach upset/weakness Active Meds: Active Medications Generic Name Dose Route Start Last Admin Trade Name Bradleyq PRN Reason Stop Dose Admin Acetaminophen 1,000 mg 09/18/23 00:54 Acetaminophen 500 Mg Tablet PO 09/17/24 00:53 Q6HR PRN Pain Scale 1 - 3 or fever Apixaban 5 mg 09/18/23 09:00 09/18/23 08:37 Apixaban 5 Mg Tablet PO 09/17/24 08:59 5 mg BID JAREN Administration Fluoxetine HCl 20 mg 09/18/23 09:00 09/18/23 08:37 Fluoxetine 20 Mg Capsule PO 09/17/24 08:59 20 mg QAM JAREN Administration Non-Formulary Medication 0 tab 09/18/23 19:30 Lisinopril-Hydrochlorothiazide .ROUTE 09/17/24 19:29 .COMPLEX JAREN Sodium Chloride 0 ml 09/18/23 06:00 09/18/23 16:57 Sodium Chloride 0.9 % 10 Ml Syringe IV-PUSH 09/17/24 05:59 10 ml QSHIFT JAREN Administration A&P - Hospitalist Assessment/Plan (1) Paroxysmal atrial fibrillation: (2) Hypertension: Plan Documented By: Patricia Vilchis MD 09/18/231931 Signed By: <Electronically signed by Patricia Vilchis MD> 09/18/232053 [facility] Work Phone: 1(327) 969-177705-29-2024 Consult note Author Garrett Gunter [facility] September 18, 2023 2:22pm Note Date/Time September 18, 2023 2:19p m [facility] [address] [place] [address] Cardiology Consult Note Signed with Debbie Patient: Nicholas Trujillo MR#: [id number] : 1945 Acct:[id number] Age/Sex: 78 / M Adm Date: 4 Loc: Room: [address] [place] [address] Type: ADM IN Attending Dr: Patricia Vilchis MD Copies to: MD Megan Mccoy MD Marwan Wassouf, MD~ ADDENDUM1 CANCELLED Addendum Documented By: Garrett Gunter MD 09/18/231421 Addendum Signed By: <Electronically signed by Garrett Gunter MD> 09/18/23 142 Cardiology HPI History of Present Illness Consult Date: 09/18/23 HPI: Mr. Trujillo is a 78-year-old male with a past medical history below who is well- known to me. I have seen him for atrial fibrillation and placed him on Multaq earlier this month. After initiation of Multaq, he initially tolerated the medication well, then developed weakness and dizziness, worse on standing up. Has never had syncope. Denies any chest pain, shortness of breath, palpitations,orthopnea, leg swelling, PND. He has orthostatic symptoms worsened over the lastseveral days and he presented to the [place] ER. There was questionable reportsof dark stools, however patient said that these were due to iron pills. He was not significantly anemic with hemoglobin of 10. At [place] was noted to be in sinus rhythm with first-degree AV block. He then went into A-fib and when he converted back to sinus rhythm he had PACs with pauses lasting 1-3 seconds. The patient says he was asymptomatic of these particular episodes as he was lying inbed and he felt nothing. The rest of his workup at [place] was unremarkable: Chest x-ray shows no acute cardiopulmonary process, elevation of the right hemidiaphragm. CT of the head showed no acute intracranial process. CBC with an H&H of 10.8/33.6. BMP with sodium of 137, potassium 4.1, BUN 21, creatinine 1.2. Troponins negative. Here, he is hemodynamically stable. Telemetry showed sofar shows no pauses. Nursing obtained orthostatic blood pressures and pulses on arrival, laying 152/76, heart rate 65, sitting 145/69, heart rate 69, standing 126/69, heart rate 57. Review of Systems Review of Systems All other systems reviewed & are negative unless noted below or in HPI [facility] Medical History (Updated 09/18/23 @ 14:19 by Garrett Gunter MD) Gout Unilateral primary osteoarthritis, right knee Primary osteoarthritis of right knee Obesity, unspecified Nausea History of falling Gouty arthritis Generalized anxiety disorder Essential (primary) hypertension Degenerative joint disease of left knee Degenerative disc disease at L5-S1 level Cough, unspecified Arthritis of right knee Arthritis of left knee Sleep apnea Chronic low back pain DJD (degenerative joint disease) Venous (peripheral) insufficiency Arthritis Surgical History History of total left knee replacement History of phacoemulsification of cataract of both eyes with intraocular lens implantation History of total right knee replacement Status post epidural steroid injection Family History Father History of stroke hemorrhagic Mother Diabetes Heart disease Family/Other Legacy FamHx Problem: 1 son MVA and bipolar Son Family history of mental disorder Legacy FamHx Problem: Diagnosed with Mental Illness Social History Smoking Status: Former smoker Tobacco Type: cigars Substance Use Type: None Social History Comments: lives in mobile home Meds Medications and Allergies Allergies diclofenac Allergy (Unknown, Verified 09/11/23 14:03) stomach upset/weakness Home Medications cholecalciferol (vitamin D3) 50 mcg (2,000 unit) capsule (Vitamin D3) 50 mcg PO QAM supplement 12/16/20 [History Confirmed 09/18/23] htppmublatnc-fao-ahoqm acid-vit K-lycop 400 mcg-20 mcg-370 mcg tablet (Men's 50 Plus Daily Formula) 1 tab PO QAM supplement 12/16/20 [History Confirmed 09/18/23] omega 3 600 mg-dha 216 mg-epa 324 mg-fish oil 1,200 mg capsule,del rel 1 cap PO QAM supplement 12/16/20 [History Confirmed 09/18/23] fluoxetine 20 mg capsule 20 mg PO QAM 08/09/23 [History Confirmed 09/18/23] apixaban 5 mg tablet (Eliquis) 5 mg PO BID 08/14/23 [History Confirmed 09/18/23] lisinopril 20 mg-hydrochlorothiazide 12.5 mg tablet See Rx Instructions .Route .COMPLEX #90 tabs 09/06/23 [Rx Confirmed 09/18/23] dronedarone 400 mg tablet (Multaq) 400 mg PO BID 90 days #180 tabs 09/11/23 [Rx Confirmed 09/18/23] Exam Physical Exam Vital Signs: Temp Pulse Resp BP Pulse Ox O2 Del Method 98.1 F 67 18 150/64 H 95 Room Air 09/18/23 11:50 09/18/23 11:50 09/18/23 11:50 09/18/23 11:50 09/18/23 11:50 09/18/23 11:50 Narrative: Physical Exam: General: NAD, A&Ox3, Cooperative Head, Eyes: NC/AT, EOMI Lungs: Good air entry; No crackles/rhonchi/wheezes Heart: S1S2 normal, Regular rhythm, No murmurs/rubs/gallop, No JVD Extremities: No edema. Abdomen: Soft, non-tender, non-distended. Neuro: CN grossly intact, No focal deficits. Psych: Normal mood & affect. Results - Cardiology Labs Lab results: Intake and Output 09/17/23 09/18/23 09/18/23 22:59 06:59 14:59 Intake Total 200 / 200 Balance 200 / 200 Intake: Oral 200 / 200 Other: # Unmeasured Voids 1 Weight 99.4 kg Date of Last Bowel Movement 09/17/23 09/18/23 A&P - Cardiology (1) Paroxysmal atrial fibrillation with conversion pauses: Code(s): I48.0 - Paroxysmal atrial fibrillation; I49.5 - Sick sinus syndrome (2) Orthostatic hypotension: Code(s): I95.1 - Orthostatic hypotension (3) Dizziness: Code(s): R42 - Dizziness and giddiness (4) Weakness: Code(s): R53.1 - Weakness (5) Paroxysmal atrial fibrillation: Code(s): I48.0 - Paroxysmal atrial fibrillation (6) Essential (primary) hypertension: Code(s): I10 - Essential (primary) hypertension Plan # Orthostatic dizziness and lightheadedness ? is possibly a side effect of Multaq. # Post-conversion pause of 1-3-seconds noticed at [place] ? -The pauses at [facility] were in the context of conversion of A-fib to sinus rhythm, were asymptomatic, he has never had syncope, and does not require pacemaker therapy. # Paroxysmal nonvalvular A-fib - tolerating Eliquis. Previously on rhythm control strategy with Multaq. # Mild chronic anemia ? baseline Hgb 10-13. # Hypertension ? acceptable control. 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 EKG/ - A-fib 71 bpm, QRS 98, QTc 449. EKG 08/12/2023 ? sinus rhythm with first-degree AV block 61 bpm. Echo 08/21/2023 ? EF 60 to 35%, normal LV size thickness and function, normal diastolic function, mild TR, RVSP 46 mmHg. EKG 09/18/2023 ? sinus rhythm, first-degree AV block, 67 bpm, no ST-T abnormalities, QRS 98, QTc 473. -Continue Eliquis. He has tolerated this well. No symptoms or evidence to suggest bleeding. -His orthostatic lightheadedness and dizziness may be as a result of dronedaronewhich is an occasional side effect. Will stop this medication. -Continue telemetry monitoring. -Will observe for another 24 hours off of Multaq and ensure that he is not having any further pauses, before he would be able to go home. Documented By: Garrett Gunter MD 08/21 01/13 1407 Signed By: <Electronically signed by Garrett Gunter MD> 09/18/23 0177 [facility] Work Phone: 1(495) 467-440705-29-2024 Consult note Author Garrett Gunter [facility] September 18, 2023 2:21pm Note Date/Time September 18, 2023 2:21p m [facility] [address] [place] [address] Cardiology Consult Note Signed Patient: Nicholas Trujillo MR#: [id number] : 1945 Acct:[id number] Age/Sex: 78 / M Adm Date: 4 Loc: 4 Room: [address] [place] [address] Type: ADM IN Attending Dr: Patricia Vilchis MD Copies to: MD eMgan Mccoy MD Marwan Wassouf, MD~ Cardiology HPI History of Present Illness Consult Date: 09/18/23 HPI: Mr. Trujillo is a 78-year-old male with a past medical history below who is well- known to me. I have seen him for atrial fibrillation and placed him on Multaq earlier this month. After initiation of Multaq, he initially tolerated the medication well, then developed weakness and dizziness, worse on standing up. Has never had syncope. Denies any chest pain, shortness of breath, palpitations,orthopnea, leg swelling, PND. He has orthostatic symptoms worsened over the lastseveral days and he presented to the [place] ER. There was questionable reportsof dark stools, however patient said that these were due to iron pills. He was not significantly anemic with hemoglobin of 10. At [place] was noted to be in sinus rhythm with first-degree AV block. He then went into A-fib and when he converted back to sinus rhythm he had PACs with pauses lasting 1-3 seconds. The patient says he was asymptomatic of these particular episodes as he was lying inbed and he felt nothing. The rest of his workup at [place] was unremarkable: Chest x-ray shows no acute cardiopulmonary process, elevation of the right hemidiaphragm. CT of the head showed no acute intracranial process. CBC with an H&H of 10.8/33.6. BMP with sodium of 137, potassium 4.1, BUN 21, creatinine 1.2. Troponins negative. Here, he is hemodynamically stable. Telemetry showed sofar shows no pauses. Nursing obtained orthostatic blood pressures and pulses on arrival, laying 152/76, heart rate 65, sitting 145/69, heart rate 69, standing 126/69, heart rate 57. Review of Systems Review of Systems All other systems reviewed & are negative unless noted below or in HPI [facility] Medical History (Updated 09/18/23 @ 14:19 by Garrett Gunter MD) Gout Unilateral primary osteoarthritis, right knee Primary osteoarthritis of right knee Obesity, unspecified Nausea History of falling Gouty arthritis Generalized anxiety disorder Essential (primary) hypertension Degenerative joint disease of left knee Degenerative disc disease at L5-S1 level Cough, unspecified Arthritis of right knee Arthritis of left knee Sleep apnea Chronic low back pain DJD (degenerative joint disease) Venous (peripheral) insufficiency Arthritis Surgical History History of total left knee replacement History of phacoemulsification of cataract of both eyes with intraocular lens implantation History of total right knee replacement Status post epidural steroid injection Family History Father History of stroke hemorrhagic Mother Diabetes Heart disease Family/Other Legacy FamHx Problem: 1 son MVA and bipolar Son Family history of mental disorder Legacy [facility] Problem: Diagnosed with Mental Illness Social History Smoking Status: Former smoker Tobacco Type: cigars Substance Use Type: None Social History Comments: lives in mobile home Meds Medications and Allergies Allergies diclofenac Allergy (Unknown, Verified 09/11/23 14:03) stomach upset/weakness Home Medications cholecalciferol (vitamin D3) 50 mcg (2,000 unit) capsule (Vitamin D3) 50 mcg PO QAM supplement 12/16/20 [History Confirmed 09/18/23] jatrbztuainm-ttl-tjhtr acid-vit K-lycop 400 mcg-20 mcg-370 mcg tablet (Men's 50 Plus Daily Formula) 1 tab PO QAM supplement 12/16/20 [History Confirmed 09/18/23] omega 3 600 mg-dha 216 mg-epa 324 mg-fish oil 1,200 mg capsule,del rel 1 cap PO QAM supplement 12/16/20 [History Confirmed 09/18/23] fluoxetine 20 mg capsule 20 mg PO QAM 08/09/23 [History Confirmed 09/18/23] apixaban 5 mg tablet (Eliquis) 5 mg PO BID 08/14/23 [History Confirmed 09/18/23] lisinopril 20 mg-hydrochlorothiazide 12.5 mg tablet See Rx Instructions .Route .COMPLEX #90 tabs 09/06/23 [Rx Confirmed 09/18/23] dronedarone 400 mg tablet (Multaq) 400 mg PO BID 90 days #180 tabs 09/11/23 [Rx Confirmed 09/18/23] Exam Physical Exam Vital Signs: Temp Pulse Resp BP Pulse Ox O2 Del Method 98.1 F 67 18 150/64 H 95 Room Air 09/18/23 11:50 09/18/23 11:50 09/18/23 11:50 09/18/23 11:50 09/18/23 11:50 09/18/23 11:50 Narrative: Physical Exam: General: NAD, A&Ox3, Cooperative Head, Eyes: NC/AT, EOMI Lungs: Good air entry; No crackles/rhonchi/wheezes Heart: S1S2 normal, Regular rhythm, No murmurs/rubs/gallop, No JVD Extremities: No edema. Abdomen: Soft, non-tender, non-distended. Neuro: CN grossly intact, No focal deficits. Psych: Normal mood & affect. Results - Cardiology Labs Lab results: Intake and Output 09/17/23 09/18/23 09/18/23 22:59 06:59 14:59 Intake Total 200 / 200 Balance 200 / 200 Intake: Oral 200 / 200 Other: # Unmeasured Voids 1 Weight 99.4 kg Date of Last Bowel Movement 09/17/23 09/18/23 A&P - Cardiology (1) Paroxysmal atrial fibrillation with conversion pauses: Code(s): I48.0 - Paroxysmal atrial fibrillation; I49.5 - Sick sinus syndrome (2) Orthostatic hypotension: Code(s): I95.1 - Orthostatic hypotension (3) Dizziness: Code(s): R42 - Dizziness and giddiness (4) Weakness: Code(s): R53.1 - Weakness (5) Paroxysmal atrial fibrillation: Code(s): I48.0 - Paroxysmal atrial fibrillation (6) Essential (primary) hypertension: Code(s): I10 - Essential (primary) hypertension Plan # Orthostatic dizziness and lightheadedness ? is possibly a side effect of Multaq. # Post-conversion pause of 1-3-seconds noticed at [place] ? -The pauses at [facility] were in the context of conversion of A-fib to sinus rhythm, were asymptomatic, he has never had syncope, and does not require pacemaker therapy. # Paroxysmal nonvalvular A-fib - tolerating Eliquis. Previously on rhythm control strategy with Multaq. # Mild chronic anemia ? baseline Hgb 10-13. # Hypertension ? acceptable control. # Other: H/o right TKA 2021 and left TKA 08/2023, anxiety, Untreated JULIANA (he stopped using CPAP months ago), peripheral venous insufficiency. EKG/ - A-fib 71 bpm, QRS 98, QTc 449. EKG 08/12/2023 ? sinus rhythm with first-degree AV block 61 bpm. Echo 08/21/2023 ? EF 60 to 35%, normal LV size thickness and function, normal diastolic function, mild TR, RVSP 46 mmHg. EKG 09/18/2023 ? sinus rhythm, first-degree AV block, 67 bpm, no ST-T abnormalities, QRS 98, QTc 473. -Continue Eliquis. He has tolerated this well. No symptoms or evidence to suggest bleeding. -His orthostatic lightheadedness and dizziness may be as a result of dronedaronewhich is an occasional side effect. Will stop this medication. -Continue telemetry monitoring. -Will observe for another 24 hours off of Multaq and ensure that he is not having any further pauses, before he would be able to go home. Documented By: Garrett Gunter MD 08/21 01/13 142 Signed By: <Electronically signed by Garrett Gunter MD> 09/18/23 1421 [facility] Work Phone: 1([phone]) 343-732705-29-2024 History and physical note Author Devonte Kelly [facility] September 18, 2023 1:53am Note Date/Time September 18, 2023 1:03a m [facility] [address] [place] [address] Hospitalist H&P Signed Patient: Nicholas Trujillo MR#: [id number] : 1945 Acct:[id number] Age/Sex: 78 / M Adm Date: 4 Loc: 4 Room: [address] [place] [address] Type: ADM IN Attending Dr: Devonte Kelly MD Copies to: MD Devonte Bahena MD Paula G Smith, OPHTHALMOLOGY SURGICAL TECHNICIAN~ HPI DATE OF EXAMINATION: 09/18/23 CHIEF COMPLAINT: weakness and dizziness HISTORY OF PRESENT ILLNESS: Mr. Trujillo is a 78-year-old male with a PMH of paroxysmal A-fib, HTN, recent left knee replacement the presented to the [facility] emergency room for weakness and dizziness. Patient states for the last couple of days he has been feeling weak and dizzy from time to time, especially when he stands up and goes to move. He denies fever, chills, chest pain, shortness of breath, nausea or vomiting, cough. Denies any sick contacts. He states his most recent medication addition was done on first week of August and he was started on dronedarone through cardiology. He denies any black, tarry stools. He states that everything has been going well since his knee surgery. Nursing obtained orthostatic blood pressures and pulses on arrival, laying 152/76, heart rate 65,sitting 145/69, heart rate 69, standing 126/69, heart rate 57. [facility] chart review?EKG sinus rhythm with a first-degree AVB, no ST changes noted. They had sent some rhythm strips through telemetry, looks like he went into a flutter while there and converted back to sinus rhythm, PACs noted. ER physician reports 1-1/2 to 3-second pauses. Chest x-ray shows no acute cardiopulmonary process, elevation of the right hemidiaphragm. CT of the head showed no acute intracranial process. CBC with an H&H of 10.8/33.6. BMP with sodium of 137, potassium 4.1, BUN 21, creatinine 1.2. Troponin was checkedand it was negative at 7.6. UA with clear, yellow urine, negative for infection. Nursing reports that the patient was medicated with his evening medications while there, he received his apixaban and dronedarone while there. Cardiology was consulted per the ER physician who accepted the patient as consult. Patient was transferred here as inpatient to the progressive floor under the care of the hospitalist team. Review of Systems Review of Systems Review of systems: A 10 point review of systems was obtained, negative unless noted in the HPI or below. [facility] Medical History (Updated 09/18/23 @ 01:40 by Carlene Orozco APRN) Gout Unilateral primary osteoarthritis, right knee Primary osteoarthritis of right knee Obesity, unspecified Nausea History of falling Gouty arthritis Generalized anxiety disorder Essential (primary) hypertension Degenerative joint disease of left knee Degenerative disc disease at L5-S1 level Cough, unspecified Arthritis of right knee Arthritis of left knee Sleep apnea Chronic low back pain DJD (degenerative joint disease) Venous (peripheral) insufficiency Arthritis Hypertension Surgical History History of total left knee replacement History of phacoemulsification of cataract of both eyes with intraocular lens implantation History of total right knee replacement Status post epidural steroid injection Family History (Updated 09/18/23 @ 01:40 by Carlene Orozco APRN) Father History of stroke hemorrhagic Mother Diabetes Heart disease Family/Other Legacy FamHx Problem: 1 son MVA and bipolar Son Family history of mental disorder Legacy FamHx Problem: Diagnosed with Mental Illness Social History Smoking Status: Former smoker Tobacco Type: cigars Substance Use Type: None Social History Comments: lives in mobile home Meds Medications and Allergies Allergies diclofenac Allergy (Unknown, Verified 09/11/23 14:03) stomach upset/weakness Home Medications cholecalciferol (vitamin D3) 50 mcg (2,000 unit) capsule (Vitamin D3) 50 mcg PO QAM supplement 12/16/20 [History Confirmed 09/18/23] coalfegznryb-qhm-asurk acid-vit K-lycop 400 mcg-20 mcg-370 mcg tablet (Men's 50 Plus Daily Formula) 1 tab PO QAM supplement 12/16/20 [History Confirmed 09/18/23] omega 3 600 mg-dha 216 mg-epa 324 mg-fish oil 1,200 mg capsule,del rel 1 cap PO QAM supplement 12/16/20 [History Confirmed 09/18/23] fluoxetine 20 mg capsule 20 mg PO QAM 08/09/23 [History Confirmed 09/18/23] apixaban 5 mg tablet (Eliquis) 5 mg PO BID 08/14/23 [History Confirmed 09/18/23] lisinopril 20 mg-hydrochlorothiazide 12.5 mg tablet See Rx Instructions .Route .COMPLEX #90 tabs 09/06/23 [Rx Confirmed 09/18/23] dronedarone 400 mg tablet (Multaq) 400 mg PO BID 90 days #180 tabs 09/11/23 [Rx Confirmed 09/18/23] Exam Physical Exam Vital Signs: Temp Pulse Resp BP Pulse Ox O2 Del Method 97.9 F 65 22 152/76 H 96 Room Air 09/17/23 23:54 09/17/23 23:54 09/17/23 23:54 09/17/23 23:54 09/17/23 23:54 09/18/23 00:00 Narrative: CONST- Appears well -developed and well nourished. Morbidly obese?BMI 31.4 HEAD - Normocephalic and atraumatic EENT-Sclera nonicteric, conjunctive are non-erythemic, moist oral mucosa, pharynx clear NECK-Supple, no cervical lymphadenopathy CARDIAC-normal rate, irregular rhythm, S1 & S2. PULM-diminished without wheeze or rhonchi, RA, no accessory muscle use or cough noted ABD - Soft. Bowel sounds are normal. No distention. No tenderness EXTREM-non pitting edema LLE upper calf, knee and lower thigh, nontender SKIN- W/D good turgor, incision to left knee well-approximated, no drainage, bruising proximal to the incision to the left thigh MS- MAEX4 spontaneously with equal with equal strength NEURO- A&Ox3 speech clear and tongue midline, equal facial symmetry, no focal motor deficits PSYCH-Mood, affect, and behavior appropriate Assessment & Plan Assessment/Plan (1) Dizziness: (2) Weakness: (3) Paroxysmal atrial fibrillation: (4) Hypertension: Plan Dizziness Weakness ? Positive orthostatic blood pressure on arrival ? IV hydration overnight?LR @ 75cc/hr x 1L ? Carotid ultrasounds in a.m. ? Consult PT/OT Paroxysmal A-fib?currently sinus rhythm ? Consult cardiology for possible sinus pauses seen at [facility] emergency room ? Hold dronedarone for now ? Continue apixaban ? Monitor telemetry ? EKG in a.m. Chronic conditions HTN?lisinopril/HCTZ DVT PPx-SCDs, apixaban Diet order-regular CODE STATUS-DNR CCA without intubation after discussion with patient Attending Physician Attestation: I personally reviewed the history, performed the munoz elements of the exam, formulated the plan of care and confirmed the written note. I agree with the findings and plan as documented in this note and have edited it if needed to reflect my findings and plan. Devonte Lamas MD IP vs OBS Justification Based on differential dx, clinical care plan, and risk of adverse events, if untreated, in my clinical judgement this patient requires an acute care setting as: INPATIENT because of an expectation of an over 2 midnight stay. Estimated length of stay (# of days): 3 Documented By: Carlene Orozco APRN 09/18/23 0103 Signed By: <Electronically signed by RAFAT Orozco> 09/18/23 0150 <Electronically signed by Devonte Kelly MD> 09/18/23 0153 [facility] Work Phone: [phone]) 607-911612-05-2023 Evaluation note* Encounter Date Diagnosis Assessment Notes Treatment Notes Treatment Clinical Notes Mar, COVID-19 (ICD-10 - U07.1) Discussed quarantine guidelines and symptom management. Call if further concerns. [facility] Other 11-22-2023 Evaluation note* Encounter Date Diagnosis Assessment Notes Treatment Notes Treatment Clinical Notes Feb, COVID-19 (ICD-10 - U07.1) Given his age and duration symptoms, he is a good candidate for paxlovid. Educated about the risks vs benefit of medicine. She understands and would like to start it. Most recent GFR is greater than 60. No history of liver disease. Pt given her return precautions. ER through weekend of breathing or other symptoms worsen. [facility] Encounter Date Diagnosis Assessment Notes Treatment Notes Treatment Clinical Notes 28 Russell, 2023 Gouty arthritis (ICD-10 - M10.9) [facility] Other 07-18-2023 Evaluation note* Encounter Date Diagnosis Assessment Notes Treatment Notes Treatment Clinical Notes Oct, Fecal incontinence (ICD-10 - R15.9) Oct, Mucus in stool (ICD-10 - R19.5) Oct, Frequent bowel movements (ICD-10 - R19.4) Oct, Diarrhea (ICD-10 - R19.7) [facility] Other 06-26-2023 Evaluation note* Encounter Date Diagnosis Assessment Notes Treatment Notes Treatment Clinical Notes Sep, Incontinence of feces, unspecified fecal incontinence type (ICD-10 - R15.9) [facility] Other 06-14-2023 Evaluation note* Encounter Date Diagnosis Assessment Notes Treatment Notes Treatment Clinical Notes Sep, Effusion, right foot (ICD-10 - M25.474) check labs assess for gout or infection. Sep, Effusion, left foot (ICD-10 - M25.475) as above Sep, Gouty arthritis (ICD-10 - M10.9) Confirmed with elevated uric acid - would hold on colchicine as he is already having GI issues. Medrol pack should help it resolve faster. [facility] Other 04-11-2023 Evaluation note* Encounter Date Diagnosis Assessment Notes Treatment Notes Treatment Clinical Notes Jul, Current moderate episode of major depressive disorder without prior episode (ICD-10 - F32.1) [facility] Other 03-03-2023 Evaluation note* Encounter Date Diagnosis Assessment Notes Treatment Notes Treatment Clinical Notes Jun, Current moderate episode of major depressive disorder without prior episode (ICD-10 - F32.1) D/c effexor. start SSRI. Followup in 1-2 months Jun, Essential (primary) hypertension (ICD-10 - I10) Has not had an ekg in several years. would be helpful to get a baseline with his fluctuating bps. [facility] Other 02-21-2023 Evaluation note* Encounter Date Diagnosis Assessment Notes Treatment Notes Treatment Clinical Notes May, Essential (primary) hypertension (ICD-10 - I10) Reviewed medications. Continue present dose. [facility] May, Decreased pedal pulses (ICD-10 - R09.89) Discussed possible arterial issues - will set up for ABIs. May, Current moderate episode of major depressive disorder without prior episode (ICD-10 - F32.1) Will initiate medication as a trial. Discussed side effects. Denies counseling - cannot identify particular sources of depression in his life at this time. [facility] Other 10-27-2021 Evaluation note* Encounter Date Diagnosis Assessment Notes Treatment Notes Treatment Clinical Notes Jan, Acute pain of right knee (ICD-10 - M25.561) Jan, Primary osteoarthritis of right knee (ICD-10 - M17.11) Ed presents today 6 weeks s/p right total knee arthroplasty. They are doing well. Physical exam is benign with a healthy appearing wound and range of motion of 5-115. He still uses Flexeril at night and we have refilled this today. They are without any signs of deep vein thrombosis. We we will continue outpatient therapy today. I will see them back at the 12-week anniversary from their surgery for reevaluation. No x-rays are needed at that time. Jan, Obesity, unspecified (ICD-10 - E66.9) Jan, Body mass index [BMI] 31.0-31.9, adult (ICD-10 - Z68.31) Today we discussed obesity. We discussed the range of BMI and the patient's BMI of 31.56. We discussed weight loss strategies through increased physical activity as well as decrease caloric intake. We offered referral for bariatric services. Our discussion is limited to 5 minutes. Jan, History of total right knee replacement (ICD-10 - Z96.651) Patient is progressing well from his right total knee surgery at this time. Continue gentle motion and strengthening exercises as instructed by physical therapy. Call with questions/concerns . [facility] Other 09-29-2021 Evaluation note* Encounter Date Diagnosis Assessment Notes Treatment Notes Treatment Clinical Notes Dec, Acute pain of right knee (ICD-10 - M25.561) Dec, Primary osteoarthritis of right knee (ICD-10 - M17.11) Ed presents today 2 weeks s/p right total knee arthroplasty. They are doing well. Physical exam is benign with a healthy appearing wound and range of motion of 10-90. They are still taking pain medication but we did discuss the weaning process today. They are anticoagulated appropriately without any signs of deep vein thrombosis. We have given an order for outpatient therapy today. I will see them back at the 6-week anniversary from their surgery for reevaluation. No x-rays are needed at that time. Dec, Obesity, unspecified (ICD-10 - E66.9) Dec, Body mass index [BMI] 31.0-31.9, adult (ICD-10 - Z68.31) Today we discussed obesity. We discussed the range of BMI and the patient's BMI of 31.56. We discussed weight loss strategies through increased physical activity as well as decrease caloric intake. We offered referral for bariatric services. Our discussion is limited to 5 minutes. Dec, History of total right knee replacement (ICD-10 - Z96.651) Patient is progressing well. Continue physical therapy exercises and TKA precautions. Instructed patient to call with any questions or concerns. Dec, Other See orders docu ment today in the electronic medical record [facility] Other 09-14-2021 History general Narrative - Reported* Type Description Date Medical History HTN Surgical History right total knee arthroplasty [facility] Other 09-14-2021 History general Narrative - Reported* Type Description Date Medical History HTN Surgical History right total knee arthroplasty Hospitalization History SEE SURGICAL HX [facility] Other Evaluation noteNo InformationNort [facility] Other Evaluation noteNo assessment information available [facility] Work Phone: Evaluation note* Diagnosis Onset Date Resolution Status Primary osteoarthritis of left knee acute [facility] Work Phone: Evaluation note* Diagnosis Onset Date Resolution Status Primary osteoarthritis of left knee acute Essential (primary) hypertension acute Left knee pain acute Paroxysmal atrial fibrillation acute Pre-operative cardiovascular examination acute Primary osteoarthritis of left knee acute [facility] Work Phone: evaluation note* Diagnosis Onset Date Resolution Status Primary osteoarthritis of left knee acute Essential (primary) hypertension acute Left knee pain acute Paroxysmal atrial fibrillation acute Pre-operative cardiovascular examination acute Primary osteoarthritis of left knee acute Primary osteoarthritis of left knee acute [facility] Work Phone: Evaluation note* Diagnosis Onset Date Resolution Status Primary osteoarthritis of left knee acute Essential (primary) hypertension acute Left knee pain acute Paroxysmal atrial fibrillation acute Pre-operative cardiovascular examination acute Primary osteoarthritis of left knee acute Primary osteoarthritis of left knee acute Primary osteoarthritis of left knee acute Status post total left knee replacement acute Essential (primary) hypertension acute Paroxysmal atrial fibrillation acute Primary osteoarthritis of left knee acute [facility] Work Phone: evaluation note* Diagnosis Onset Date Resolution Status Primary osteoarthritis of left knee acute Essential (primary) hypertension acute Left knee pain acute Paroxysmal atrial fibrillation acute Pre-operative cardiovascular examination acute Primary osteoarthritis of left knee acute Primary osteoarthritis of left knee acute Primary osteoarthritis of left knee acute Status post total left knee replacement acute Essential (primary) hypertension acute Paroxysmal atrial fibrillation acute Primary osteoarthritis of left knee acute Dizziness acute Essential (primary) hypertension acute Orthostatic hypotension acut e Paroxysmal atrial fibrillation acute Paroxysmal atrial fibrillation with conversion pauses acute Weakness acute [facility] Work Phone: evaluation note* Diagnosis Onset Date Resolution Status Primary osteoarthritis of left knee acute Essential (primary) hypertension acute Left knee pain acute Paroxysmal atrial fibrillation acute Pre-operative cardiovascular examination acute Primary osteoarthritis of left knee acute Primary osteoarthritis of left knee acute Primary osteoarthritis of left knee acute Status post total left knee replacement acute Essential (primary) hypertension acute Paroxysmal atrial fibrillation acute Primary osteoarthritis of left knee acute Essential (primary) hypertension acute Paroxysmal atrial fibrillation acute Orthostatic hypotension reso lved Paroxysmal atrial fibrillation with conversion pauses resolved Gout acute JULIANA (obstructive sleep apnea) acute Paroxysmal atrial fibrillation acute Essential (primary) hypertension acute Paroxysmal atrial fibrillation acute Primary osteoarthritis of left knee acute [facility] Work Phone: evaluation note* Diagnosis Onset Date Resolution Status Primary osteoarthritis of left knee acute Essential (primary) hypertension acute Left knee pain acute Paroxysmal atrial fibrillation acute Pre-operative cardiovascular examination acute Primary osteoarthritis of left knee acute Primary osteoarthritis of left knee acute Primary osteoarthritis of left knee acute Status post total left knee replacement acute Essential (primary) hypertension acute Paroxysmal atrial fibrillation acute Primary osteoarthritis of left knee acute Essential (primary) hypertension acute Paroxysmal atrial fibrillation acute Orthostatic hypotension reso lved Paroxysmal atrial fibrillation with conversion pauses resolved Gout acute JULIANA (obstructive sleep apnea) acute Paroxysmal atrial fibrillation acute Essential (primary) hypertension acute Paroxysmal atrial fibrillation acute Primary osteoarthritis of left knee acute Primary osteoarthritis of left knee acute Status post total left knee replacement acute [facility] Work Phone: Evaluation note* Diagnosis Onset Date Resolution Status Primary osteoarthritis of left knee acute Status post total left knee replacement acute Essential (primary) hypertension acute Paroxysmal atrial fibrillation acute Primary osteoarthritis of left knee acute Essential (primary) hypertension acute Paroxysmal atrial fibrillation acute Orthostatic hypotension reso lved Paroxysmal atrial fibrillation with conversion pauses resolved Gout acute JULIANA (obstructive sleep apnea) acute Paroxysmal atrial fibrillation acute Essential (primary) hypertension acute Paroxysmal atrial fibrillation acute Primary osteoarthritis of left knee acute Primary osteoarthritis of left knee acute Status post total left knee replacement acute [facility] Work Phone: Evaluation note* Diagnosis Onset Date Resolution Status Essential (primary) hypertension acute Paroxysmal atrial fibrillation acute Primary osteoarthritis of left knee acute Primary osteoarthritis of left knee acute Status post total left knee replacement acute [facility] Work Phone: History and physical note Author Tina Garcia [facility] December 11, 2022 10:20am Note Date/Time December 11, 2022 10 :20am [facility] [address] [place] [address] Gastroenterology H&P Signed Patient: Nicholas Trujillo MR#: [id number] : 1945 Acct:[id number] Age/Sex: 77 / M Adm Date: 3 Loc: Room: Type: [facility] Attending Dr: Tina Garcia MD Copies to: MD Megan Zhang MD~ Date of Service: 12/11/2022 HISTORY & PHYSICAL: Patient's history with special attention to the cardiovascular, pulmonary systems and the current problem was reviewed with the patient immediately prior to the procedure. Present medications and doses reviewed in the EMR. Allergies and pertinent laboratory tests were also reviewedat this time in the EMR. The physical examination, as below, was then performed. Indication, assessment and HPI: 77-year-old man here for colonoscopy for evaluation of diarrhea Family history of GI malignancy? No PHYSICAL EXAMINATION Mouth and Pharynx : Moist mucus membranes, normal dentition Cardiac: Regular rate, regular rhythm Pulmonary: Clear to auscultation bilaterally, no wheezing Neurological: Alert and oriented x3, no focal deficits noted Abdomen: Abdomen soft, non-tender REVIEW OF SYSTEMS Constitutional: Denies malaise, fevers Cardiovascular: Denies chest pain, palpitations Respiratory: Denies shortness of breath, wheezing Gastrointestinal: Per HPI Genitourinary: Denies dysuria, polyuria Musculoskeletal: Denies joint swelling, joint stiffness Neurological: Denies numbness, tingling Integumentary: Denies rashes, skin lesions Endocrine: Denies fatigue, weight loss Written informed consent obtained from the patient. Risks (including but not limited to perforation, infection, bloating, bleeding, need for emergent surgeryand loss of life), benefits and alternatives explained and questions answered. The patient verbalized understanding. Based on history patient is an appropriate candidate for the procedure. Tina Garcia M.D. Documented By: Tina Garcia MD 12/11/22 1019 Signed By: <Electronically signed by Tina Garcia MD> 12/11/22 1020 [facility] Work Phone: History and physical note Author Tina Garcia [facility] January 03, 2024 10:22am Note Date/Time January 03, 2024 10:22am [facility] [address] [place] [address] Gastroenterology H&P Signed Patient: Nicholas Trujillo MR#: [id number] : 1945 Acct:[id number] Age/Sex: 78 / M Adm Date: 4 Loc: Room: Type: [facility] Attending Dr: Tina Garcia MD Copies to: MD Megan Zhang MD~ Date of Service: 01/03/2024 HISTORY & PHYSICAL: Patient's history with special attention to the cardiovascular, pulmonary systems and the current problem was reviewed with the patient immediately prior to the procedure. Present medications and doses reviewed in the EMR. Allergies and pertinent laboratory tests were also reviewedat this time in the EMR. The physical examination, as below, was then performed. Indication, assessment and HPI: 78-year-old man here for surveillance colonoscopy Family history of GI malignancy? No PHYSICAL EXAMINATION General appearance: NAD Skin: No jaundice Head: NC/AT Eyes: Anicteric Neck: Supple Lungs: Normal respiratory effort, no use of accessory muscles Abdomen: nondistended Neuro: Ox3. REVIEW OF SYSTEMS Constitutional: Denies malaise, fevers Cardiovascular: Denies chest pain, palpitations Respiratory: Denies shortness of breath, wheezing Gastrointestinal: As per HPI Genitourinary: Denies dysuria, polyuria Musculoskeletal: Denies joint swelling, joint stiffness Neurological: Denies confusion, numbness, tingling Endocrine: Denies fatigue Written informed consent obtained from the patient. Risks (including but not limited to perforation, infection, bloating, bleeding, need for emergent surgeryand loss of life), benefits and alternatives explained and questions answered. The patient verbalized understanding. Based on history patient is an appropriate candidate for the procedure. Tina Garcia M.D. Documented By: Tina Garcia MD 01/03/24 1021 Signed By: <Electronically signed by Tina Garcia MD> 01/03/24 1022 [facility] Work Phone: Hospital Discharge instructions Additional Instructions DISCHARGE INSTRUCTIONS FOR COLONOSCOPY WHAT TO EXPECT: - You may feel full, gassy or cramping after your procedure. In some cases, this may be from a few hours to a day. Walking may help relieve the discomfort. - If you have polyp(s) removed you may note some minor bloody discharge after your first bowel movements. - You should begin to recover from anesthesia within 1 hour of the procedure, however may feel groggy for the next 24 hours. DO's AND DON'Ts: - Call your doctor right away if you have a hard abdomen, severe pain, are passing lots of bright red blood or clots. - Call your doctor if you develop any rashes, hives or difficulty breathing. - Let your doctor know if you have not had a bowel movement by 3 days after your procedure. - If you take 81 mg aspirin for your heart it is safe to resume this medication. - If you take other blood thinner medications your doctor will instruct you when these can safely be resumed. - Do NOT drive for 24 hours. - Do NOT operate machinery such as power tools, lawn mowers, snow blowers, sewing machines, etc. for 24 hours. - Avoid alcoholic beverages and drugs for allergies, nerves, or sleep. - Do NOT stay alone. Do NOT leave your child unattended. - Do NOT make important personal or business decisions or sign any legal documents. - Eat solid foods and drink liquids in smaller amounts than usual until normal appetite returns. If you should experience an upset stomach, liquids high in sugar content (soda, Taiwo-Aid, non-acid juices) are recommended. - You can resume normal activities tomorrow. FOLLOW UP & RECOMMENDATIONS: -Notify the doctor if you have any problems. -Repeat colonoscopy in 1 year -Follow up pathology -Follow up in the office as scheduled -Follow up with PCP. -Office number [phone]. [facility] Work Phone: Hospital Discharge instructions Additional Instructions Joint Replacement Discharge Instructions Your safety during your recovery process is important to us. Please seek immediate emergency care if you have sudden chest pain or shortness of breath. Additionally, please call our office at [phone] should any of the following occur: wound bleeding or an increase in bleeding, increased swelling, redness around the incision, fever over 101 F, excessive vomiting, nose bleeds, or bloody stool. Discharge Medications (scheduled): Aspirin 81 mg twice daily should be taken starting the morning after surgery. You should take this as prescribed until your prescription is completed. This is to provide anticoagulation to help prevent blood clots. Doxycycline tablet by mouth twice daily for 7 days. Take with food. Begin the morning after surgery. This is for prophylaxis against infection Tylenol (acetaminophen) 500mg tablet. Take 2 tablets 3 times (every 8 hours) a day for the first 2 weeks after your surgery. You may begin this the day of your surgery. *If you have a patch behind your ear remove it the morning after surgery, discard, and thoroughly wash your hands. Discharge Medications (as needed): Tramadol (Ultram) 50mg tablet. Take 1 tablet by mouth every 6 hours as needed for pain. Do not take at the same time as oxycodone but rather alternate these if needed. Take with food. Begin the night of surgery. Take around the clock for 24 hours after surgery and then utilize if necessary. Oxycodone 5mg tablet. Take 1 tablet by mouth every 4 hours as needed for pain. If pain unrelenting 30 minutes after taking 1 tablet, then take another 1 tablet. Do not take at the same time as Tramadol (Ultram). Take with food. Begin the night of surgery. Take around the clock for 24 hours after surgery and then utilize if necessary. Discharge Instructions: BE SURE YOU HAVE READ THE BOOKLET YOU RECEIVED IN THE OFFICE. Home Health: Home health is a valuable partner in the joint replacement process; they will be your first step to your road of recovery. A therapist will see you the day after your surgery; they will be at your home before noon. They will see you the first three days after surgery and continue working with you until I see you in the office for your 2-week post-op appointment. Follow their instructions. Exercises are to be done several times a day, including the days the therapist does not come to your house! Wound Care: Your surgical incision may be covered with a few different dressings. Your home health physical therapist can remove the Jose Luis wrap from your leg the first day after surgery, but they will leave the surgical dressing over the incision. Mepilex-This hassan foam dressing that will be over the surgical site and should stay in place for 1 week after surgery. This dressing helps with early wound healing and protects your surgical incision. This is a waterproof dressing that may get wet in the shower starting the day after surgery. You may apply ice over the dressing as needed. 7 days after surgery you may take the dressing off by peeling up an edge and then taking off like a Band-Aid. Sometimes you can have some redness or blistering around the dressing which can be normal. Bruising around the surgical site is normal in the acute postoperative phase. DO NOT take a bath, enter a pool, abdi/pond, or ocean until we discuss this at your post-op appointments. Prevena-This is a negative pressure wound therapy device with a collection container for any drainage. If this becomes completely full, call your therapist to discuss changing the collection container. This device also has a 14-day battery. Your home health physical therapist will remove the dressing 14 days after your surgery; it will be removed prior to your initial follow up appointment. Do not place any ointments, creams, or lotions around your wound or on the dressing. Avoid getting outside on hot days; excessive sweating can increase the risk of wound infection. When you do bathe, allow soapy water to run over the dressing site, but do not scrub the device or the surrounding skin. DO NOT get the device wet! Pat the dressing site dry with a towel after you shower. DO NOT take a bath, enter a pool, abdi/pond, or ocean until we discuss this at your post-op appointments. What to expect: SWELLING: Ice frequently, a minimum of 4 times a day for 20 minutes at a time for the first 2-3 weeks after surgery, especially after doing your exercises. While icing, elevate your foot above the level of your heart with several pillows under your ankle. DO NOT put pillows under your knee. (KNEE REPLACEMENT ONLY) Avoid prolonged periods of sitting over the first 7 to 10 days after surgery. We recommend that you not sit for more than 45 to 60 minutes at a time. You should get up and move around or lie down and elevate your leg. BRUISING: You will have bruising to some degree; possibly the thigh, calf, ankle, foot, and in some cases the genitalia. Do not be alarmed. The bruising will eventually go away on its own as the body reabsorbs the blood. BLISTERS: Some patients may develop blisters around the knee/hip and/or the incision. Although they can be alarming in appearance, they pose no significant risk to your joint replacement. o Leave the blisters alone and allow them to heal on their own. NUMBNESS: Usually normal around the incision. For knee replacements, the outside of the knee may be involved as well. The area of numbness may shrink over time or it could last forever. For hip replacements, you may notice numbness around the surgical incision. The area of numbness may shrink over time or it could last forever. ALFONSO estevez): Wear them for 4 weeks on the operative side and 2 weeks on the nonoperative side. Try to wear these as 24/7 as possible to help decrease swelling. Weight Bearing, Walkers, and Canes: You are weightbearing as tolerated. Do not attempt to walk without your walker and assistance until the therapist checks you the following day after surgery and gives you further instruction. Follow all preoperative precautions as instructed by therapy. Typically, you will start out on a walker, then progress to a cane, and eventually walk without any device. Some of our patients do this within 2 weeks of surgery, while others can take 6 weeks. Pain Medications: You may experience significant pain. Our goal is to make your pain manageable (not absent, since this is usually not realistic) and to allow you to progress with your therapy for your hip or knee. Take your pain medication scheduled for the first 24 hours, then take it as needed. Always take your pain medication with food to decrease nausea and vomiting. Be sure to take stool softeners and/or laxatives as directed. You may take ilzx-rtz-hsaqtgg Benadryl if itching occurs without a rash or hives. Icing and elevation will help relieve pain as well, do not underestimate the power of ice and elevation. We do recommend that you stop taking narcotic pain medications by 4-6 weeks after surgery and if necessary, continue to use anti-inflammatory medications such as Mobic (meloxicam), Celebrex (celecoxib), or an idxz-nhn-dtrqpsq medication (Aleve, Motrin, Ibuprofen, etc). Driving an automobile: You must be off all narcotic pain medications. If your right leg is involved, that is your braking leg. Your physical therapist needs to help you determine that you can actively and firmly hit the brake and sustain it as this could be a life or situation for you or someone else. You will not be ``cleared to drive by me or anyone else. It is up to you to know when you feel safe to drive. We do recommend waiting until your first follow up and utilizing an empty parking lot to practice and ensure you are able to slam on the brakes if necessary during an emergency. Low Grade Fever (less than 101 F): Low-grade fevers can be treated, but make sure you do not exceed the daily limit of Tylenol. The daily limit on Tylenol (acetaminophen) is 3000 mg in a 24-hour period. If you have procedures done after your joint replacement: Dental procedures (including routine cleaning), prostate surgery, colonoscopy, and other invasive procedures could increase your risk for a total joint infection. During a postoperative visit, be sure to discuss the use of prophylactic antibiotic therapy prior to and sometimes after these invasive procedures. The decision to utilize antibiotics before and/or after these invasive procedures is a shared decision process between you and myself. Constipation: If you develop constipation in spite of taking stool softeners and/or laxatives, follow the protocol below: Day 2 of constipation - if no results, use a Dulcolax suppository Day 3 of constipation - if no results, use a fleet s enema. If no results by the afternoon, notify our office. Bladder Habits: If you have difficulty urinating or are unable to urinate within 12 hours after arriving home following your surgery, please notify our office immediately. Expectations for Pain Relief after Joint Replacement: Patients predictably improve for up to a year after a hip or knee replacement. It is normal for you to still have some pain in your hip or knee for as much as 3 to 9 months after surgery. The pain relief will come, but you should not expect great relief of pain in less than this time. High demand activities (such as going up and down stairs) frequently take 3 to 9 months before patients feel comfortable doing them. It is permissible to go up and down stairs whenever you can safely navigate them, but it will take much longer to do them normally and with great confidence. Questions or Problems: If you have any questions, problems, or confusion about your recovery after your hip or knee replacement, please feel free to call our office at [phone]. You are a priority of ours and we will not be upset with you if you call. We would much rather you call to confirm aspects of your recovery process as opposed to possibly hindering your recovery with inappropriate care. We are committed to providing you with the best care possible. Dr. Phuc Denney [facility] [address] [place] [phone] [email or web address] [facility] Work Phone: Progress note Author Garrett Gunter [facility] September 19, 2023 1:51pm Note Date/Time September 19, 2023 1:49p m [facility] [address] [place] [address] Cardiology Progress Note Signed Patient: Nicholas Trujillo MR#: [id number] : 1945 Acct:[id number] Age/Sex: 78 / M Adm Date: 4 Loc: 4 Room: 9Y5270-3 Type: ADM IN Attending Dr: Patricia Vilchis MD Copies to: ~ Date of Service: 09/19/2023 Subjective Interval history: Doing well today. No complaints. No pauses on telemetry. Has been walking around, denies any dizziness. Exam Physical Exam Vital Signs: Temp Pulse Resp BP Pulse Ox O2 Del Method 97.6 F 86 18 135/75 96 Room Air 09/19/23 08:06 09/19/23 12:24 09/19/23 12:24 09/19/23 12:24 09/19/23 12:24 09/19/23 12:24 Narrative: Physical Exam: General: NAD, A&Ox3, Cooperative Head, Eyes: NC/AT, EOMI Lungs: Good air entry; No crackles/rhonchi/wheezes Heart: S1S2 normal, Regular rhythm, No murmurs/rubs/gallop, No JVD Extremities: No edema. Abdomen: Soft, non-tender, non-distended. Neuro: CN grossly intact, No focal deficits. Psych: Normal mood & affect. Objective Labs 09/19/23 04:59 09/19/23 04:59 Labs: Laboratory Results - last 24 hr 09/19/23 04:59 Corrected WBC 7.8 RBC 3.65 L Hgb 11.2 L Hct 33.3 L MCV 91.2 MCH 30.7 MCHC 33.7 RDW 13.3 Plt Count 293 MPV 8.1 PHA Creatinine Clear 63.33 Sodium 135 L Potassium 4.2 Chloride 104 Carbon Dioxide 25.1 Anion Gap 10.1 BUN 20 Creatinine 1.11 Est GFR (CKD-EPI) > 60.0 Glucose 100 Calcium 8.9 Magnesium 1.8 L A&P - Cardiology (1) Paroxysmal atrial fibrillation with conversion pauses: Code(s): I48.0 - Paroxysmal atrial fibrillation; I49.5 - Sick sinus syndrome (2) Orthostatic hypotension: Code(s): I95.1 - Orthostatic hypotension (3) Dizziness: Code(s): R42 - Dizziness and giddiness (4) Weakness: Code(s): R53.1 - Weakness (5) Paroxysmal atrial fibrillation: Code(s): I48.0 - Paroxysmal atrial fibrillation (6) Essential (primary) hypertension: Code(s): I10 - Essential (primary) hypertension Plan # Orthostatic dizziness and lightheadedness ? is possibly a side effect of Multaq. # Post-conversion pause of 1-3-seconds noticed at [place] - The pauses at [facility] were in the context of conversion of A-fib to sinus rhythm, were asymptomatic, he has never had syncope, and does not require pacemaker therapy. # Paroxysmal nonvalvular A-fib - tolerating Eliquis. Previously on rhythm control strategy with Multaq. # Mild chronic anemia ? baseline Hgb 10-13. # Hypertension ? acceptable control. 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 EKG/ - A-fib 71 bpm, QRS 98, QTc 449. EKG 08/12/2023 ? sinus rhythm with first-degree AV block 61 bpm. Echo 08/21/2023 ? EF 60 to 35%, normal LV size thickness and function, normal diastolic function, mild TR, RVSP 46 mmHg. EKG 09/18/2023 ? sinus rhythm, first-degree AV block, 67 bpm, no ST-T abnormalities, QRS 98, QTc 473. -Continue Eliquis. He has tolerated this well. No symptoms or evidence to suggest bleeding. -His orthostatic lightheadedness and dizziness may be as a result of dronedaronewhich is an occasional side effect. Will stop this medication. -No pauses on telemetry. Will start low-dose metoprolol. -Ok to disharge today on low dose Meoprolol and Eliquis. Stop Multaq at discharge. -Will see as needed. Please call with any questions. Follow up with [facility] Cardiology in 1 month. Documented By: Garrett Gunter MD 08/22 1347 Signed By: <Electronically signed by Garrett Gunter MD> 09/19/23 1356 [facility] Work Phone: Summary Purpose Family History No Family History Records Found Relationship Condition Age at Onset Recorded Date/T kellie Not Specified Heart disease Unknown Diabetes mellitus Unknown Relationship Condition Age at Onset Recorded Date/T kellie Not Specified Heart disease Unknown Diabetes mellitus Unknown father History of stroke Unknown Unknown family member Unknown Not Specified Unknown natural son Family history of mental disorder Unknown Relationship Condition Age at Onset Recorded Date/T kellie father Unknown History of stroke Unknown Not Specified Diabetes mellitus Unknown Heart disease Unknown Unknown family member Unknown natural son Family history of mental disorder Unknown Relationship Condition Age at Onset Recorded Date/T kellie father Unknown History of stroke Unknown mother Diabetes mellitus Unknown Heart disease Unknown Unknown family member Unknown son Family history of mental disorder Unknown Relationship Condition Age at Onset Recorded Date/T kellie father Unknown History of stroke Unknown mother Diabetes mellitus Unknown Heart disease Unknown Unknown family member Unknown son Family history of mental disorder Unknown sister Arthritis Unknown Advance Directives No Advanced Directives Records Found Advance Directive Response Recorded Date/ Time Advance Directives No October 24 9 7:45am Reason for Referral Reason *Waiting for appt Bowel incontinence Diagnosis 1 Incontinence of fece s, unspecified fecal incontinence type (R15.9) Referral Organization [facility] Referring Provider First Name Megan Referring Provider Last Name Meng Referring Provider Specialty Family Medi cine Referred Organization [facility] Gastroenterolo gy Referred Provider Jack Mcpherson Referred Address [address],[facility] [address] ,[place], [place],[address] Referred Provider Specialty Gastroentero logy Referral Priority Routine General Notes Chioma Lorenzo 08:04:51 AM >received today, sent P2P Chief Complaint and Reason for Visit Chief Complaint Fecal Incontinence, Mucus in Stool, Diarrhea Chief Complaint Amb Documentation M25.562 - Pain in left knee 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 Abnormal EKG Reason for Visit Primary osteoarthrit is of left knee Essential (primary) hypertension Left knee pain Paroxysmal atrial fibrillation Pre-operative cardiovascular examination Primary osteoarthritis of left knee Chief Complaint Amb Documentation M25.562 - Pain in left knee op ticket scheduler lt knee pain discuss surgery Knee Pain Preop Clearance For L Total Knee. Abnormal EKG R94.31 I48.91 LTK Pre Op H & P LEFT TOTAL KNEE ARTHROPLASTY 08-27-23 Knee Pain Reason for Visit Primary osteoarthrit is of left knee Essential (primary) hypertension Left knee pain Paroxysmal atrial fibrillation Pre-operative cardiovascular examination Primary osteoarthritis of left knee Primary osteoarthritis of left knee Chief Complaint Amb Documentation M25.562 - Pain in left knee op ticket scheduler lt knee pain discuss surgery Knee Pain Preop Clearance For L Total Knee. Abnormal EKG R94.31 I48.91 LTK Pre Op H & P LEFT TOTAL KNEE ARTHROPLASTY 08-27-23 Knee Pain Knee Pain 2 WEEKS POST OP 1 Month Reason for Visit Primary osteoarthrit is of left knee Essential (primary) hypertension Left knee pain Paroxysmal atrial fibrillation Pre-operative cardiovascular examination Primary osteoarthritis of left knee Primary osteoarthritis of left knee Primary osteoarthritis of left knee Status post total left knee replacement Essential (primary) hypertension Paroxysmal atrial fibrillation Primary osteoarthritis of left knee Chief Complaint M25.562 - Pain in le ft knee op ticket scheduler lt knee pain discuss surgery Knee Pain Preop Clearance For L Total Knee. Abnormal EKG R94.31 I48.91 LTK Pre Op H & P LEFT TOTAL KNEE ARTHROPLASTY 08-27-23 Knee Pain Knee Pain 2 WEEKS POST OP 1 Month Sinus Pressure Sinus Pressure Reason for Visit Primary osteoarthrit is of left knee Essential (primary) hypertension Left knee pain Paroxysmal atrial fibrillation Pre-operative cardiovascular examination Primary osteoarthritis of left knee Primary osteoarthritis of left knee Primary osteoarthritis of left knee Status post total left knee replacement Essential (primary) hypertension Paroxysmal atrial fibrillation Primary osteoarthritis of left knee Dizziness Essential (primary) hypertension Orthostatic hypotension Paroxysmal atrial fibrillation Paroxysmal atrial fibrillation with conversion pauses Weakness Chief Complaint M25.562 - Pain in le ft knee op ticket scheduler lt knee pain discuss surgery Knee Pain Preop Clearance For L Total Knee. Abnormal EKG R94.31 I48.91 LTK Pre Op H & P LEFT TOTAL KNEE ARTHROPLASTY 08-27-23 Knee Pain Knee Pain 2 WEEKS POST OP 1 Month Sinus Pressure Sinus Pressure [place] follow up, weakness and dizziness Reason for Visit Primary osteoarthrit is of left knee Essential (primary) hypertension Left knee pain Paroxysmal atrial fibrillation Pre-operative cardiovascular examination Primary osteoarthritis of left knee Primary osteoarthritis of left knee Primary osteoarthritis of left knee Status post total left knee replacement Essential (primary) hypertension Paroxysmal atrial fibrillation Primary osteoarthritis of left knee Dizziness Essential (primary) hypertension Orthostatic hypotension Paroxysmal atrial fibrillation Paroxysmal atrial fibrillation with conversion pauses Weakness Chief Complaint M25.562 - Pain in le ft knee op ticket scheduler lt knee pain discuss surgery Knee Pain Preop Clearance For L Total Knee. Abnormal EKG R94.31 I48.91 LTK Pre Op H & P LEFT TOTAL KNEE ARTHROPLASTY 08-27-23 Knee Pain Knee Pain 2 WEEKS POST OP 1 Month Sinus Pressure Sinus Pressure [facility] follow up, weakness and dizziness [facility] 5/30 Reason for Visit Primary osteoarthrit is of left knee Essential (primary) hypertension Left knee pain Paroxysmal atrial fibrillation Pre-operative cardiovascular examination Primary osteoarthritis of left knee Primary osteoarthritis of left knee Primary osteoarthritis of left knee Status post total left knee replacement Essential (primary) hypertension Paroxysmal atrial fibrillation Primary osteoarthritis of left knee Essential (primary) hypertension Paroxysmal atrial fibrillation Orthostatic hypotension Paroxysmal atrial fibrillation with conversion pauses Gout JULIANA (obstructive sleep apnea) Paroxysmal atrial fibrillation Essential (primary) hypertension Paroxysmal atrial fibrillation Primary osteoarthritis of left knee Chief Complaint M25.562 - Pain in le ft knee op ticket scheduler lt knee pain discuss surgery Knee Pain Preop Clearance For L Total Knee. Abnormal EKG R94.31 I48.91 LTK Pre Op H & P LEFT TOTAL KNEE ARTHROPLASTY 08-27-23 Knee Pain Knee Pain 2 WEEKS POST OP 1 Month Sinus Pressure Sinus Pressure [facility] follow up, weakness and dizziness [facility] 09/18 6 WEEK RECHECK Reason for Visit Primary osteoarthrit is of left knee Essential (primary) hypertension Left knee pain Paroxysmal atrial fibrillation Pre-operative cardiovascular examination Primary osteoarthritis of left knee Primary osteoarthritis of left knee Primary osteoarthritis of left knee Status post total left knee replacement Essential (primary) hypertension Paroxysmal atrial fibrillation Primary osteoarthritis of left knee Essential (primary) hypertension Paroxysmal atrial fibrillation Orthostatic hypotension Paroxysmal atrial fibrillation with conversion pauses Gout JULIANA (obstructive sleep apnea) Paroxysmal atrial fibrillation Essential (primary) hypertension Paroxysmal atrial fibrillation Primary osteoarthritis of left knee Primary osteoarthritis of left knee Status post total left knee replacement Chief Complaint Knee Pain Knee Pain 2 WEEKS POST OP 1 Month Sinus Pressure Sinus Pressure [facility] follow up, weakness and dizziness [facility] 530 6 WEEK RECHECK Reason for Visit Primary osteoarthrit is of left knee Status post total left knee replacement Essential (primary) hypertension Paroxysmal atrial fibrillation Primary osteoarthritis of left knee Essential (primary) hypertension Paroxysmal atrial fibrillation Orthostatic hypotension Paroxysmal atrial fibrillation with conversion pauses Gout JULIANA (obstructive sleep apnea) Paroxysmal atrial fibrillation Essential (primary) hypertension Paroxysmal atrial fibrillation Primary osteoarthritis of left knee Primary osteoarthritis of left knee Status post total left knee replacement Chief Complaint [place] 09/18 6 WEEK RECHECK hx of colon polyps hx of colon polyps Reason for Visit Essential (primary) hypertension Paroxysmal atrial fibrillation Primary osteoarthritis of left knee Primary osteoarthritis of left knee Status post total left knee replacement Additional Source Comments REASON FOR VISIT (unrecogniz ed section and content) Recheck Right KneeBMIRecheck Right KneeCheck Up/ DepressionmessageMedication DiscussionREFILLFeet IssuesGI referralCONSULT FOR Bowel incontinence. Patient has never had colonoscopy before.messagegastro reportsRefillmessagecovid [phone] COVID Positivecovid [phone] COVID Positive (unrecognized sect ion and content) No Status Records FoundNo Status Records FoundNo Status Records Found INFORMATION SOURCE (unrecogn ized section and content) DATE CREATED AUTHOR 06/27/2022 [facility] DATE CREATED AUTHOR AUTHOR'S ORGANIZ ATION 10/05/2023 [facility] EPIC DATE CREATED AUTHOR AUTHOR'S ORGANIZ ATION 01/12/2024 [facility] Care Teams (unrecognized sec tion and content) Team Status: Active Member Role Status Dates Megan Fan MD Primary Care Provider Active Team Status: Active Member Role Status Dates Megan Fan MD Primary Care Provider Active Start: June 17, 2023 JOVITA Zavala Attending Provider Active Start : June 17, 2023 Team Status: Inactive Member Role Status Dates Megan Fan MD Primary Care Provider Active Start: August 05, 2023 End: August 05, 2023 Phuc Denney DO Attending Provider Active S tart: August 05, 2023 End: August 05, 2023 Team Status: Inactive Member Role Status Dates Megan Fan MD Primary Care Provider Active Tina Garcia MD Attending Provider Active Team Status: Inactive Member Role Status Dates Megan Fan MD Primary Care Provider Active Start: August 09, 2023 End: August 09, 2023 Phuc Denney DO Attending Provider Active S tart: August 09, 2023 End: August 09, 2023 Team Status: Inactive Member Role Status Dates Megan Fan MD Primary Care Provide r, Referring Provider Active Start: August 14, 2023 End: August 14, 2023 Garrett Gunter MD Attending Provider Active Start: August 13 End: August 14, 2023 Team Status: Inactive Member Role Status Dates Megan Fan MD Primary Care Provider Active Start: August 14, 2023 End: August 14, 2023 Garrett Gunter MD Attending Provider Activ e Start: August 14, 2023 End: August 14, 2023 Team Status: Inactive Member Role Status Dates Megan Fan MD Primary Care Provider Active Start: August 21, 2023 End: August 21, 2023 Garrett Gunter MD Attending Provider Activ e Start: August 21, 2023 End: August 21, 2023 Team Status: Active Member Role Status Dates Megan Fan MD Primary Care Provider Active Start: August 21, 2023 Phuc Denney DO Attending Provider Active S tart: August 21, 2023 Team Status: Inactive Member Role Status Dates Megan Fan MD Primary Care Provider Active Start: August 21, 2023 End: August 21, 2023 Phuc Denney DO Attending Provider Active S tart: August 21, 2023 End: August 21, 2023 Team Status: Inactive Member Role Status Dates Megan Fan MD Primary Care Provider Active Start: August 27, 2023 End: August 27, 2023 Phuc Denney DO Attending Provider Active S tart: August 27, 2023 End: August 27, 2023 Team Status: Active Member Role Status Dates Megan Fan MD Primary Care Provider Active Start: August 27, 2023 Phuc Denney DO Attending Provider, Other Provide r Active Start: August 27, 2023 Team Status: Inactive Member Role Status Dates Megan Fan MD Primary Care Provider Active Start: September 09, 2023 End: September 09, 2023 Phuc Denney DO Active Start: September 09, 2023 End: September 09, 2023 YEFRI Hunt Attending Provider Active Start: September 09, 2023 End: September 09, 2023 Team Status: Inactive Member Role Status Dates Megan Fan MD Primary Care Provider Active Start: September 11, 2023 End: September 11, 2023 Garrett Gunter MD Attending Provider Activ e Start: September 11, 2023 End: September 11, 2023 Team Status: Active Member Role Status Dates Garrett Gunter MD Senior Design Engineer Active Megna Fan MD Primary Care Provider Active Team Status: Active Member Role Status Dates Megan Fan MD Primary Care Provider Active Start: September 17, 2023 Jovanni Sullivan DO Attending Provider Active S tart: September 17, 2023 Team Status: Inactive Member Role Status Dates Megan Fan MD Primary Care Provider Active Start: September 18, 2023 End: September 19, 2023 Devonte Kelly MD Admit Provider Active Sta rt: September 18, 2023 End: September 19, 2023 Patricia Vilchis MD Attending Provider Active St art: September 18, 2023 End: September 19, 2023 Team Status: Active Member Role Status Dates Megan Fan MD Primary Care Provider Active Start: September 18, 2023 Devonte Kelly MD Admit Provider Active Sta rt: September 18, 2023 Patricia Vilchis MD Other Provider Active Start: September 18, 2023 Adwoa Castro RN Other Provider Active Star t: September 18, 2023 Buddy Ham MD Other Provider Active Start: M ay 2023 Garrett Gunter MD Attending Provider, Other Provider Active Start: September 18, 2023 Ibis Melendez MD Other Provider Active Start: September 18, 2023 Team Status: Inactive Member Role Status Dates Megan Fan MD Primary Care Provide r, Attending Provider Active Start: September 23, 2023 End: September 23, 2023 Team Status: Active Member Role Status Dates Megan Fan MD Primary Care Provider Active Start: September 18, 2023 End: September 19, 2023 Devonte Kelly MD Admit Provider Active Sta rt: September 18, 2023 End: September 19, 2023 Patricia Vilchis MD Other Provider Active Start: September 18, 2023 End: September 19, 2023 Adwoa Castro RN Other Provider Active Star t: September 18, 2023 End: September 19, 2023 Buddy Ham MD Other Provider Active Start: M ay 2023 End: September 19, 2023 Garrett Gunter MD Attending Provider, Other Provider Active Start: September 18, 2023 End: September 19, 2023 Ibis Melendez MD Other Provider Active Start: September 18, 2023 End: September 19, 2023 Team Status: Inactive Member Role Status Dates Megan Fan MD Primary Care Provider Active Start: October 22, 2023 End: October 22, 2023 Garrett Gunter MD Attending Provider Activ e Start: October 22, 2023 End: October 22, 2023 Team Status: Inactive Member Role Status Dates Megan Fan MD Primary Care Provider Active Start: October 23, 2023 End: October 23, 2023 Phuc Denney DO Attending Provider Active S tart: October 23, 2023 End: October 23, 2023 Team Status: Inactive Member Role Status Bright Fan MD Primary Care Provider Active Start: January 03, 2024 End: January 03, 2024 Tina Garcia MD Attending Provider Active Start: January 03, 2024 End: January 03, 2024 Team Status: Active Member Role Status Dates Megan Fan MD Primary Care Provider Active Start: January 03, 2024 Tina Garcia MD Attending Provider, Other Provider Active Start: January 03, 2024 Goals (unrecognized section and content) Goals may be documented in a n alternate section FOR RECORDS PERTAINING TO PATIENTS WHO ARE OR HAVE BEEN ENROLLED IN A CHEMICAL DEPENDENCY/SUBSTANCEABUSE PROGRAM, SOME INFORMATION MAY BE OMITTED. This clinical summary was aggregated from multiple sources. Caution should be exercised in using it in the provision of clinical care. This summary normalizes information from multiple sources, and as a consequence, information in this document may materially change the coding, format and clinical context of patient data. In addition, data may be omitted in some cases. CLINICAL DECISIONS SHOULD BE BASED ON THE PRIMARY CLINICAL RECORDS. [facility] [employer] [facility] provides no warranty or guarantee of the accuracy or completeness of information in this document.
[2024-05-01 11:29] LABS: Basophils Percent Auto 0.4 % (0.2-2.0); Eosinophils Absolute Auto 0.1 10^3/uL (0.0-0.7); Eosinophils Percent Auto 2.1 % (0.9-7.0); Hematocrit 40.3 % (42.0-54.0); Hemoglobin 13.5 g/dL (14.0-18.0); Immature Granulocytes Abs Auto 0.02 10^3/uL (0.00-0.03); Immature Granulocytes Pct Auto 0.4 % (0.0-0.5); Lymphocytes Absolute Auto 1.3 10^3/uL (1.2-3.8); Lymphocytes Percent Auto 26.5 % (20.5-60.0); Mean Corpuscular HGB Conc 33.5 g/dL (29.9-35.2); Mean Corpuscular Hemoglobin 31.5 pg (25.9-34.0); Mean Corpuscular Volume 93.9 fL (80.0-94.0); Mean Platelet Volume 10.9 fL (9.5-13.5); Monocytes Absolute Auto 0.7 10^3/uL (0.3-0.8); Monocytes Percent Auto 15.4 % (1.7-12.0); Neutrophils Absolute Auto 2.6 10^3/uL (1.4-6.5); Neutrophils Percent Auto 55.2 % (43.0-75.0); Platelet Count 198 10^3/uL (150-450); Red Blood Count 4.29 10^6/uL (4.70-6.10); Red Cell Distribution Width 13.4 % (11.0-15.0); White Blood Count 4.8 10^3/uL (4.0-11.0)
[2024-05-01 11:41] LABS: Alanine Aminotransferase 29 U/L (16-63); Albumin Globulin Ratio 0.9; Albumin Level 3.2 g/dL (3.4-5.0); Alkaline Phosphatase 58 U/L (46-116); Anion Gap 12.8; Aspartate Amino Transferase 23 U/L (15-37); BUN Creatinine Ratio 16.7; Bilirubin Total 0.3 mg/dL (0.2-1.0); Calcium 8.9 mg/dL (8.5-10.1); Carbon Dioxide 25.4 mmol/L (21.0-32.0); Chloride 104 mmol/L (98-107); Estimated GFR (African America >60 (>=60 mL/min/1.73m^2); Estimated GFR (Non-African Ame >60 (>=60 mL/min/1.73m^2); Globulin 3.4 g/dL; Glucose 86 mg/dL (74-106); Potassium 4.2 mmol/L (3.5-5.1); Sodium 138 mmol/L (136-145); Total Protein 6.6 g/dL (6.4-8.2)
[2024-05-01 12:16] VITALS: BP 121/55; PULSE 58; O2SAT 95
[2024-05-01 12:53] LABS: Bilirubin Urine NEGATIVE (NEGATIVE); Blood Urine NEGATIVE (NEGATIVE); Clarity Urine CLEAR (CLEAR); Color Urine LT. YELLOW (YELLOW); Glucose Urine UA NEGATIVE (NEGATIVE); Ketones Urine NEGATIVE (NEGATIVE); Leukocyte Esterase Urine SMALL (NEGATIVE); Nitrite Urine POSITIVE (NEGATIVE); Protein Urine NEGATIVE (NEG/TRACE); Specific Gravity Urine 1.025 (1.005-1.025); Urobilinogen Urine 0.2 EU/dL (0.2-1.0); pH Urine 5.5 (5.0-9.0)
[2024-05-01 13:00] LABS: Bacteria Urine LARGE #/HPF (NONE SEEN); Mucus Urine SMALL (NONE SEEN); RBC Urine 0-2 #/HPF (0-2); Squamous Epithelial Cell Urine RARE #/LPF (NONE/RARE)
[2024-05-01 13:01] LABS: Cast Seen? NONE SEEN #/LPF (NONE SEEN); Crystals Seen? None Seen #/HPF (None Seen); Urine Culture Indicated ALREADY ORDERED
--- NOTE | 2024-05-01 17:34 | ED.GENADUL1 ---
HPI HPI - General Adult General Chief complaint: Nausea/Vomiting/Diarrhea Stated complaint: DIARRHEA Time Seen by Provider: 05/01/24 10:41 Source: patient Mode of arrival: walk-in History of Present Illness HPI narrative: Patient is a 79-year-old male who presents to the ER with chief complaint diarrhea intermittently for 2 months. Patient and granddaughter at bedside. Patient had several episodes of the diarrhea yesterday, but none today. Patient is not lightheaded or dizzy. Patient has no abdominal pain, cramping, nausea, vomiting, he has no symptoms. No chest pain or shortness of breath. Patient has seen Dr. Mcdowell for this previously, patient has had no stool cultures sent in the past 2 months. Patient has no urinary symptoms of frequency urgency or burning. All systems are negative except as noted/marked. All systems reviewed and otherwise negative. Nurses note and vital signs reviewed and patient is not hypoxic. General: The patient appears well and in no apparent distress. Patient is resting comfortably on cart. Patient is not toxic, lethargic, or listless Skin: Warm, dry, no pallor noted. There is no rash noted. No petechiae, purpura. Head: Normocephalic, atraumatic Eye: Normal conjunctiva, no drainage, EOMI. PERRL Ears, Nose, Mouth, and Throat: oral mucosa is moist. Nares patent. Mouth without vesicles. Cardiovascular: Regular Rate and Rhythm, no murmur, gallop, rub Respiratory: Patient is in no distress, no accessory muscle use, lungs are clear to auscultation, no wheezing, rales or rhonchi Back: non-tender, no CVA tenderness bilaterally to percussion. No CT LS midline pain GI: Soft, no tenderness to palpation, no masses appreciated. No rebound, guarding, or rigidity noted. No distention Musculoskeletal: Patient has full range of motion of all of the extremities, no motor, sensory, or focal neurological deficits Neurological: A&O x4, normal speech Psychiatric: Cooperative Related Data Home Medications ?Medication ?Instructions ?Recorded ?Confirmed apixaban 5 mg tablet (Eliquis) 5 mg PO Q12H 09/17/23 05/01/24 ascorbic acid (vitamin C) 500 mg 500 mg PO DAILY 09/17/23 05/01/24 tablet,extended release (C Complex) cholecalciferol (vitamin D3) 50 50 mcg PO DAILY 09/17/23 05/01/24 mcg (2,000 unit) capsule (D3-1999) fluoxetine 20 mg capsule 20 mg PO DAILY 09/17/23 05/01/24 lisinopril 20 1 tab PO DAILY 09/17/23 05/01/24 mg-hydrochlorothiazide 12.5 mg tablet multivitamin (Daily Multi-Vitamin 1 tab PO DAILY 09/17/23 05/01/24 tablet) acetaminophen 500 mg tablet 1,000 mg PO .q8 PRN fever or pain 05/01/24 05/01/24 allopurinol 100 mg tablet 100 mg PO DAILY 05/01/24 05/01/24 metoprolol succinate 25 mg 25 mg PO DAILY 05/01/24 05/01/24 tablet,extended release 24 hr Previous Rx's ?Medication ?Instructions ?Recorded ciprofloxacin HCl 500 mg tablet 500 mg PO Q12H 10 days #20 tabs 05/01/24 metronidazole 500 mg tablet 500 mg PO TID #42 tabs 05/01/24 Allergies Allergy/AdvReac Type Severity Reaction Status Date / Time No Known Drug Allergies Allergy Verified 05/01/24 10:43 Opioid HPI Opioid Management Most Recent Opioid Data: No Data to Display PFSH PFSH Social History Little interest or pleasure in doing things: not at all Feeling down, depressed, or hopeless: not at all Exam Constitutional Vital Signs, click to edit/add: Last Vital Signs Temp 97.9 F 05/01/24 10:07 Pulse 58 L 05/01/24 12:16 Resp 20 05/01/24 12:16 BP 121/55 05/01/24 12:16 Pulse Ox 95 05/01/24 12:16 O2 Del Method Room Air 05/01/24 12:16 Course Vital Signs Vital signs: Vital Signs Temperature 97.9 F 05/01/24 10:07 Pulse Rate 71 05/01/24 10:07 Respiratory Rate 18 05/01/24 10:07 Blood Pressure 140/84 05/01/24 10:07 Pulse Oximetry 95 05/01/24 10:07 Oxygen Delivery Method Room Air 05/01/24 10:07 Temperature 97.9 F 05/01/24 10:07 Pulse Rate 58 L 05/01/24 12:16 Respiratory Rate 20 05/01/24 12:16 Blood Pressure 121/55 05/01/24 12:16 Pulse Oximetry 95 05/01/24 12:16 Oxygen Delivery Method Room Air 05/01/24 12:16 Medical Decision Making MDM Narrative Medical decision making narrative: Patient did not have a stool sample in the ER, patient was sent home with stool cultures with the results to be sent to Dr. Mcdowell. Patient electrolytes showed no significant abnormalities. Patient had a urine sample from April 10 that showed significant amount of white blood cells in his urine, he was never called in the antibiotic at that time. Patient will intermittently have burning with urination, patient believes this is because when they put a Carpenter catheter in him years ago for urinary tension, he would have intermittent burning to the tip of his penis since. Patient states he has no swelling to the glans of his penis, penis. No bilateral testicle or pain. Patient was sent home with Cipro to help treat nitrite positive urine and also secondary to diarrhea intermittently for 2 months, patient will be placed on Cipro short-term. Patient understands this. Patient and and granddaughter are very thankful for time spent at bedside. 1750 patient did go home, had an episode of diarrhea, and then brought a sample back to the lab. We received a phone call from the lab, patient C. difficile was positive. I did speak to the patient on the phone. He is aware of taking Flagyl 3 times a day x 10 days. Patient is also aware to only take the Cipro for 7 days. Patient wrote this on paper with me talking to him so he understood the directions very clearly. Patient is aware to take Cipro twice a day for 7 days. He is aware to take Flagyl 3 times a day for 10 days. He will follow-up with PCP as discussed. Patient was very nice and thankful for phone call. No questions discharge Lab Data Labs: Lab Results 05/01/24 05/01/24 Range/Units 11:13 12:15 WBC 4.8 (4.0-11.0) 10^3/uL RBC 4.29 L (4.70-6.10) 10^6/uL Hgb 13.5 L (14.0-18.0) g/dL Hct 40.3 L (42.0-54.0) % MCV 93.9 (80.0-94.0) fL MCH 31.5 (25.9-34.0) pg MCHC 33.5 (29.9-35.2) g/dL RDW 13.4 (11.0-15.0) % Plt Count 198 (150-450) 10^3/uL MPV 10.9 (9.5-13.5) fL Neut % (Auto) 55.2 (43.0-75.0) % Lymph % (Auto) 26.5 (20.5-60.0) % Pershing % (Auto) 15.4 H (1.7-12.0) % Eos % (Auto) 2.1 (0.9-7.0) % Baso % (Auto) 0.4 (0.2-2.0) % Neut # (Auto) 2.6 (1.4-6.5) 10^3/uL Lymph # (Auto) 1.3 (1.2-3.8) 10^3/uL Pershing # (Auto) 0.7 (0.3-0.8) 10^3/uL Eos # (Auto) 0.1 (0.0-0.7) 10^3/uL Baso # (Auto) 0.0 (0.0-0.1) 10^3/uL Abs Immat Gran (auto) 0.02 (0.00-0.03) 10^3/uL Imm/Tot Granulo (auto) 0.4 (0.0-0.5) % Sodium 138 (136-145) mmol/L Potassium 4.2 (3.5-5.1) mmol/L Chloride 104 (98-107) mmol/L Carbon Dioxide 25.4 (21.0-32.0) mmol/L Anion Gap 12.8 BUN 19.0 H (7.0-18.0) mg/dL Creatinine 1.14 (0.70-1.30) mg/dL Est GFR ( Amer) >60 (>=60 mL/min/1.73m^2) Est GFR (Non-Af Amer) >60 (>=60 mL/min/1.73m^2) BUN/Creatinine Ratio 16.7 Glucose 86 (74-106) mg/dL Calcium 8.9 (8.5-10.1) mg/dL Total Bilirubin 0.3 (0.2-1.0) mg/dL AST 23 (15-37) U/L ALT 29 (16-63) U/L Alkaline Phosphatase 58 (46-116) U/L Total Protein 6.6 (6.4-8.2) g/dL Albumin 3.2 L (3.4-5.0) g/dL Globulin 3.4 g/dL Albumin/Globulin Ratio 0.9 Lipase 33.0 (16.0-77.0) U/L Urine Color Lt. yellow (YELLOW) Urine Clarity Clear (CLEAR) Urine pH 5.5 (5.0-9.0) Ur Specific [place] 1.025 (1.005-1.025) Urine Protein Negative (NEG/TRACE) mg/dL Urine Glucose (UA) Negative (NEGATIVE) mg/dL Urine Ketones Negative (NEGATIVE) mg/dL Urine Occult Blood Negative (NEGATIVE) Urine Nitrite Positive A (NEGATIVE) Urine Bilirubin Negative (NEGATIVE) Urine Urobilinogen 0.2 (0.2-1.0) EU/dL Ur Leukocyte Esterase Small A (NEGATIVE) Urine RBC 0-2 (0-2) #/HPF Urine WBC 10-20 A (NONE SEEN) #/HPF Ur Squamous Epith Cells Rare (NONE/RARE) #/LPF Urine Crystals None seen (None Seen) #/HPF Urine Bacteria Large A (NONE SEEN) #/HPF Urine Casts None seen (NONE SEEN) #/LPF Urine Mucus Small A (NONE SEEN) Ur Culture Indicated? Already ordered Discharge Plan Discharge Chief Complaint: Nausea/Vomiting/Diarrhea Clinical Impression: Acute UTI, Chronic diarrhea Patient Disposition: Home, Self-Care Time of Disposition Decision: 13:05 Condition: Fair Prescriptions / Home Meds: New ciprofloxacin HCl 500 mg tablet 500 mg PO Q12H 10 Days Qty: 20 0RF metronidazole 500 mg tablet 500 mg PO TID Qty: 42 0RF No Action allopurinol 100 mg tablet 100 mg PO DAILY acetaminophen 500 mg tablet 1,000 mg PO .q8 PRN (Reason: fever or pain) metoprolol succinate 25 mg tablet extended release 24 hr 25 mg PO DAILY Eliquis 5 mg tablet 5 mg PO Q12H lisinopril-hydrochlorothiazide 20-12.5 mg tablet 1 tab PO DAILY fluoxetine 20 mg capsule 20 mg PO DAILY multivitamin [Daily Multi-Vitamin] Tablet 1 tab PO DAILY cholecalciferol (vitamin D3) [D3-2000] 50 mcg (2,000 unit) capsule 50 mcg PO DAILY ascorbic acid (vitamin C) [C Complex] 500 mg tablet extended release 500 mg PO DAILY Print Language: [place]an Instructions: Urinary Tract Infection in Men (ED), Chronic Diarrhea (ED), Urinary Tract Infection in Older Adults (ED) Additional Instructions: If you have diarrhea at home, collect the diarrhea and bring it back to the lab, a prescription has been given to you. Results will go to Dr. Mcdowell. Take Cipro twice a day for 10 days, this will help with urinary tract infection hopefully, urine culture is pending. It might help with chronic diarrhea. Call Dr. Mcdowell to follow-up in the office for ongoing and chronic diarrhea. Referrals: Jovanni Singh DO [Primary Care Provider] - 1 week Discharge Date/Time: 05/01/24 13:19
== END 2024-05-01 13:19 | disposition home or self-care (01) ==
PROVIDERS: Emergency Provider Emergency Medicine; PCP Chiropractor
DX: R19.7 Diarrhea, unspecified (principal); N39.0 Urinary tract infection, site not specified
CPT/HCPCS: 36415; 80053; 81001; 83631; 83690; 85025; 87045; 87046; 87086; 87177; 87209; 87329; 87427; 87493; 99283; G0328

== ENCOUNTER 2024-05-01 14:15 | Outpatient (REF) | payer MEDICARE, SELFPAY ==
--- OUTSIDE RECORDS SUMMARY | 2024-05-01 14:36 | XMS_ITS | CCD ---
Author Organization [facility] CliniSyri Care Team Providers Care Equipment Service Associate Name Role Phone Phuc Denney Unavailable DR [...] Unavailable MD Megan Fan Primary Care Provider [phone] MD Tina Garcia Attending Provider Jack Mcpherson Unavailable MD Megan Fan Primary Care Provider DO Phuc Denney Attending Provider MD Garrett Gunter Attending Provider MD Devonte Kelly Admit Provider [phone] MD Patricia Vilchis Attending Provider MANNY ESCOBEDO [...] Attending Provider MD Tina Garcia Attending Provider [phone] Edwin Denneyin Zena Admitting Unavailable Graciela Phuc [...] (18 sources) Diclofenac Drug Allergy stomach upset/weakness [facility] Other (8 sources) Allergies Reconciled Propensity to adverse reactions Unknown [facility] Other (1 source) Diclofenac Drug Allergy 4 [facility] Repository Medications Current Medications Medication Drug Class(es) [...] 16, 2020 12:00am take 1 capsule by [facility] every twenty-four hours Vitamin D3 50 MCG [...] 11:55am Start: 06-22-2022 take 1 capsule by [facility] every twenty-four hours FLUoxetine HCl 20 MG [...] MG PO Daily October 03, 2023 3:41pm Xiidugce-Axy-Pzilu-Vit K-Lycop (Men's 50 Plus Daily Formula) 400-20-370 mcg Tablet (12 sources) Start : 12-16 take 1 tablet by mouth once daily in the morning Pffnlkqt-Djb-Bdapd-Vit K-Lycop (Men's 50 Plus Daily Formula) 400-20-370 mcg Tablet Active 1 TAB PO Every morning December 16, 2020 12:00am Start: 12-16-2020 take 1 tablet by yuri th once daily Wohrxmha-Kij-Xdhtp-Vit K-Lycop (Men's 50 Plus Daily Formula) 400-20-370 mcg Tablet Active 1 TAB PO Daily December 16, 2020 12:00am Multivitamin preparation (18 sources) Multivitamin Act everette Fairview-3 Fatty Acids (Maxepa) 500 mg capsule (1 source) Start: take 1 capsule by mouth once daily Fairview-3 Fatty Acids (Maxepa) 500 mg capsule Active 500 MG PO Daily December 20, 2023 12:00am paxlovid (300/100) 20 x 150 mg & 10 x 100mg tablet therapy pack (2 sources) Paxlovid (300/10 0) 20 x 150 MG & 10 x 100MG as directed Orally for 5 days Active polyethylene glycol 3350 849154 mg / potassium chloride 2970 mg / sodium bicarbonate 6740 mg / sodium chloride 5860 mg / sodium sulfate 68178 mg powder for oral solution (5 sources) [...] Start: 12-30-2020 take 2 tablets by mo [facility] every eight hours Acetaminophen 500 MG take [...] Start: 12-30-2020 take 1 capsule by mo [facility] every twelve hours Colace 100 MG 1 [...] 9:20am Melatonin Not-Ta ann marie Melatonin Active [place] 2-Vsu-Aua-Fish Oil (12 sources) Start: 12-16-2020 End: 10-22-2023 [place] 5-Cdf-Rhl-Fish Oil Dis continued 1 CAP PO Every morning December 16, 2020 12:00am October 22, 2023 2:21pm Instructed to stop 7 days berfore surgery Start: 12-16-2020 [place] 3-Dha-Ep a-Fish Oil Active 1 CAP PO Every morning December 16, 2020 12:00am Instructed to stop 7 days berfore surgery Start: 12-16-2020 [place]view 3-Dha-Ep a-Fish Oil Active 1 CAP PO [...] 09-18-2023 Episodic Other aftercare (2 sources) Other bank messenger (current) drug therapy; Translations: [OTH SNF CURRENT DRUG THERAPY] Onset: 08-18-2021 Episodic Other [...] Request for Lab [place] Normal [facility] Comment on above: Order Comment: PATHO LOGY GI SPECIMEN Result Comment: See report. Scanned copy available in EMR. PERFORMED BY: [place] [address] PATHOLOGIST CLINICAL PROGRAM DIRECTOR DEJA LING M.D. Performed By: #### P ATH TO [facility] ####[facility] [id number] [place] [id number] [facility] FPG ECG *CARDIOLOGY ONLY*on 10-22-2023 FPG ECG *CARDIOLOGY ONLY* [facility] [place] [address] [place] [address] Electrocardiograph Report Signed Patient: Nicholas Trujillo MR#: [id number] 5004 : 1945 Acct:[id number] Age/Sex: 78 / M ADM Date: 10/22/23 Loc: [facility] Room: Type: [facility] Attending Dr: Garrett Gunter MD Ordering Provider: [...] change was found Confirmed by Garrett Gunter ([id number]) on 10/23/2023 2:31:25 PM Referred By: Electronically Signed By:Garrett Gunter Transcribed By: MUS Signed By Garrett Gunter MD 10/23/23 1431 Normal [facility] Basic Metabolic Panelon 08-22 Creatinine Clr Calc Pharmacy 63.33 Normal [facility] Comment on above: Performed By: #### M G, BMP, CBCNO ####[place] [address] [place] [id number] [facility] GFR/1.73 sq M.predicted MDRD (S/P/Bld) [Vol rate/Area] mL/min/{1.73_m2} Normal [facility] Comment on above: Performed By: #### KONSTANTIN Colin, CBCNO ####[place] [id number] [facility] Calcium [Mass/volume] in Ser um or PlasmaOrdered By: Patricia Vilchis on 09-19-2023 Calcium [Mass/Vol] 8.9 mg/dL Normal 8.6-10.3 [facility] Comment on above: Performed By: #### KONSTANTIN Colin, CBCNO ####[address] Carbon dioxide, total [Moles /volume] in Serum or PlasmaOrdered By: Patricia Vilchis on 09-19-2023 CO2 [Moles/Vol] 25.1 mmol/L Normal 21.0-31.0 [facility] Comment on above: Performed By: #### KONSTANTIN Colin, CBCNO ####[place] [id number] [facility] Chloride [Moles/volume] in S sterling or PlasmaOrdered By: Patricia Vilchis on 09-19-2023 Chloride [Moles/Vol] 104 mmol/L Normal 98-107 [facility] Comment on above: Performed By: #### KONSTANTIN Colin, CBCNO ####[place] [id number] [facility] Creatinine [Mass/volume] in Serum or PlasmaOrdered By: Patricia Vilchis on 09-19-2023 Creatinine [Mass/Vol] 1.11 mg/dL Normal 0.70-1.30 [facility] Comment on above: Performed By: #### KONSTANTIN Colin, CBCNO ####[place] [id number] [facility] Erythrocyte distribution wid th [Ratio] by Automated countOrdered By: Patricia Vilchis on 09-19-2023 Erythrocyte distribution width (RBC) [Ratio] 13.3 % Normal 12.0-14.8 [facility] Comment on above: Performed By: #### KONSTANTIN Colin, CBCNO #### [facility] [address] Erythrocytes [#/volume] in B lood by Automated countOrdered By: Patricia Vilchis on 09-19-2023 RBC (Bld) [#/Vol] 3.65 10*6/uL Low 3.90-5.60 [facility] Comment on above: Performed By: #### KONSTANTIN Colin, CBCNO #### [facility] [address] [place] [address] [place] Glucose [Mass/volume] in Ser um or PlasmaOrdered By: Patricia Vilchis on 09-19-2023 Glucose [Mass/Vol] 100 mg/dL Normal 70-100 [facility] Comment on above: ADA recommended refe rence rangeRandom Glucose Reference Range is dependent on time and content of last meal. Glucose of more than 200 mg/dL in a nonstressed, ambulatory subject supports the diagnosis of Diabetes Mellitus. Result Comment: [place] om Glucose Reference Range is dependent on time and content of last meal. Glucose of more than 200 mg/dL in a nonstressed, ambulatory subject supports the diagnosis of Diabetes Mellitus. ADA recommended reference range Performed By: #### KONSTANTIN Colin CBCNO ####[facility] [address] [place] [address] [place] Hematocrit [Volume Fraction] of Blood by Automated countOrdered By: Patricia Vilchis on 09-19-2023 Hematocrit (Bld) [Volume fraction] 33.3 % Low 38.8-50.0 [facility] Comment on above: Performed By: #### KONSTANTIN Colin, CBCNO #### [facility] [address] Hemoglobin [Mass/volume] in BloodOrdered By: Patricia Vilchis on 09-19-2023 Hemoglobin (Bld) [Mass/Vol] 11.2 g/dL Low 13.0-17.0 [facility] Comment on above: Performed By: #### M KONSTANTIN Colmenares, CBCNO #### [facility] [address] Hemogram CBC Without Diffon 09-19-2023 Mean Corpuscular HGB Conc 33.7 g/dL Normal 32.5-35.6 [facility] Comment on above: Performed By: #### M Dedra, KONSTANTIN, CBCNO #### [facility] [address] WBC (Bld) [#/Vol] 7.8 10*3/uL Normal 4.1-10.5 [facility] Comment on above: Performed By: #### M KONSTANTIN Colmenares, CBCNO #### [address] Leukocytes [#/volume] correc alfonso for nucleated erythrocytes in Blood by Automated counOrdered By: Patricia Vilchis on 09-19-2023 WBC corrected for nucl RBC Auto (Bld) [#/Vol] 7.8 10*3/uL 4.1-10.5 [facility] MCH [Entitic mass] by Automa alfonso countOrdered By: Patricia Vilchis on 09-19-2023 MCH (RBC) [Entitic mass] 30.7 pg Normal 27.5-35.2 [facility] Comment on above: Performed By: #### M KONSTANTIN Colmenares, CBCNO #### [address] MCHC Auto (RBC) [Mass/Vol]Or dered By: Patricia Vilchis on 09-19-2023 MCHC (RBC) [Mass/Vol] 33.7 g/dL 32.5-35.6 [facility] MCV [Entitic volume] by Auto mated countOrdered By: Patricia Vilchis on 09-19-2023 MCV (RBC) [Entitic vol] 91.2 fL Normal 83.5-101 [facility] Comment on above: Performed By: #### M KONSTANTIN Colmenares, CBCNO #### [address] Magnesium [Mass/volume] in S sterling or PlasmaOrdered By: Patricia Vilchis on 09-19-2023 Magnesium [Mass/Vol] 1.8 mg/dL Low 1.9-2.7 [facility] Comment on above: Result Comment: PERF ORMED BY: [place] [address] PATHOLOGIST CLINICAL PROGRAM DIRECTOR DEJA LING M.D. Performed By: #### KONSTANTIN Colin, CBCNO ####[place] [address] No Panel InformationOrdered By: Patricia Vilchis on 09-19-2023 Estimated GFR (CKD-EPI) > 60.0 mL/Min [facility] Creatinine Clearance (Chem 63.33 [facility] Platelet mean volume [Entiti c volume] in Blood by Automated countOrdered By: Patricia Vilchis on 09-19-2023 Platelet mean volume (Bld) [Entitic vol] 8.1 fL Normal 6.6-10.1 [facility] Comment on above: Result Comment: PERF ORMED BY: [facility] [address] [place] [address] PATHOLOGIST CLINICAL PROGRAM DIRECTOR DEJA LING M.D. Performed By: #### KONSTANTIN Colin CBCNO #### [address] Platelets [#/volume] in Bloo d by Automated countOrdered By: Patricia Vilchis on 09-19-2023 Platelets (Bld) [#/Vol] 293 10*3/uL Normal 150-450 [facility] Comment on above: Performed By: #### KONSTANTIN Colin, CBCNO #### [facility] [address] Potassium [Moles/volume] in Serum or PlasmaOrdered By: Patricia Vilchis on 09-19-2023 Potassium [Moles/Vol] 4.2 mmol/L Normal 3.5-5.1 [facility] Comment on above: Performed By: #### KONSTANTIN Colin, CBCNO ####[facility] [place] [id number] [facility] Serum or plasma anion gap de terminationOrdered By: Patricia Vilchis on 09-19-2023 Anion gap [Moles/Vol] 10.1 mmol/L Normal 6.0-15.0 [facility] Comment on above: Performed By: #### KONSTANTIN Colin, TANNERNO ####[place] [address] Sodium [Moles/volume] in Ser um or PlasmaOrdered By: Patricia Vilchis on 09-19-2023 Sodium [Moles/Vol] 135 mmol/L Low 136-145 [facility] Comment on above: Performed By: #### M KONSTANTIN Colmenares, TANNERNO ####[place] [address] US carotid doppler BIon 08-22 US carotid doppler BI [facility] [place] [address] [place] [address] Ultrasound Report Signed Patient: Nicholas Trujillo MR#: [id number] 5004 : 1945 Acct:[id number] Age/Sex: 78 / M ADM Date: 09/18/23 Loc: Room: [address] [place] [address] Type: DIS IN Attending Dr: Patricia Vilchis [...] Mian Lopez MD09/19/2023 5:18 PM Dictation Location: [place] [address] Tech: Mai Jordan Transcribed By: LARISA 09/19/231717 Dictated By: Mian Lopez MD 09/19/231716 Signed By: 09/19/231717 Normal [facility] Urea nitrogen [Mass/volume] in Serum or PlasmaOrdered By: Patricia Vilchis on 09-19-2023 Urea nitrogen [Mass/Vol] 20 mg/dL Normal 11-13 [facility] Comment on above: Performed By: #### M G, BMP, CBCNO ####[facility] [address] [place] [address] [facility] ECG 12 lead ECGon 09-18-2023 ECG 12 lead ECG [facility] [place] [address] [place] [address] Electrocardiograph Report Signed Patient: Nicholas Trujillo MR#: [id number] 5004 : 1945 Acct:[id number] Age/Sex: 78 / M ADM Date: 09/18/23 Loc: Room: [address] [place] [address] Type: ADM IN Attending Dr: Patricia Vilchis [...] change was found Confirmed by Garrett Gunter ([id number]) on 09/19/2023 10:26:51 AM Referred By: Electronically Signed By:Garrett Gunter Transcribed By: MUS Signed By Garrett Gunter MD 09/19/23 1026 Normal [facility] Basophils Auto (Bld) [#/Vol] on 09-17-2023 Basophils (Bld) [#/Vol] 0.0 10 3/uL 0.0-0.1 [facility] Basophils/100 WBC Auto (Bld) on 09-17-2023 Basophils/100 WBC (Bld) 0.5 % 0.2-2.0 [facility] Eosinophils/100 WBC Auto (Bl d)on 09-17-2023 Eosinophils/100 WBC (Bld) 3.1 % 0.9-7.0 [facility] Erythrocyte distribution wid th Auto (RBC) [Ratio]on 09-17-2023 Erythrocyte distribution width (RBC) [Ratio] 13.0 % 11.0-15.0 [facility] Estimated glomerular filtrat ion rate (GFR) non- Americanon 05-28-2024 GFR/1.73 sq M.predicted among non-blacks MDRD (S/P/Bld) [Vol rate/Area] 59 mL/min/{1.73_m2} Low >=60 [facility] Hematocrit Auto (Bld) [Volum e fraction]on 09-17-2023 Hematocrit (Bld) [Volume fraction] 33.6 % Low 42.0-54.0 [facility] Hemoglobin [Mass/volume] in Bloodon 09-17-2023 Hemoglobin (Bld) [Mass/Vol] 10.8 g/dL Low 14.0-18.0 [facility] Laboratory - Chemistry and C hemistry - challengeon 09-17-2023 Bilirubin Ql (U) Negative NEGATIVE [facility] Glucose (U) [Mass/Vol] Negative NEGATIVE [facility] Ketones Ql (U) Negative NEGATIVE [facility] pH (U) 6.5 [pH] 5.0-9.0 [facility] Specific gravity (U) [Rel density] 1.025 1.005-1.025 [facility] Urobilinogen Qn (U) 0.2 {Jodi'U}/dL 0.2-1.0 [facility] Calcium [Mass/Vol] 8.6 mg/dL 8.5-10.1 [facility] Chloride [Moles/Vol] 103 mmol/L 98-107 [facility] CO2 [Moles/Vol] 26.4 mmol/L 21.0-32.0 [facility] Creatinine [Mass/Vol] 1.20 mg/dL 0.70-1.30 [facility] GFR/1.73 sq M.predicted MDRD (S/P/Bld) [Vol rate/Area] mL/min/{1.73_m2} >=60 [facility] Glucose [Mass/Vol] 102 mg/dL 74-106 [facility] Potassium [Moles/Vol] 4.1 mmol/L 3.5-5.1 [facility] Sodium [Moles/Vol] 137 mmol/L 136-145 [facility] Urea nitrogen [Mass/Vol] 21.0 mg/dL High 7.0-18.0 [facility] Urea nitrogen/Creatinine [Mass ratio] 17.5 mg/mg [facility] Laboratory - Hematology and Cell countson 09-17-2023 Immature granulocytes/100 WBC (Bld) 0.3 % 0.0-0.5 [facility] Laboratory - Specimen inform ationon 09-17-2023 Appearance (U) CLEAR CLEAR [facility] Color (U) YELLOW YELLOW [facility] Laboratory - Urinalysison Leukocyte esterase Test strip Ql (U) Negative NEGATIVE [facility] Mucus Ql (Urine sed) NONE SEEN NONE SEEN [facility] Nitrite Ql (U) Negative NEGATIVE [facility] Protein Ql (U) Negative NEG/TRACE [facility] Leukocytes [#/volume] correc alfonso for nucleated erythrocytes in Blood by Automated counon 09-17-2023 WBC corrected for nucl RBC Auto (Bld) [#/Vol] 5.8 10 3/uL 4.0-11.0 [facility] Lymphocytes Auto (Bld) [#/Vo l]on 09-17-2023 Lymphocytes (Bld) [#/Vol] 1.4 10 3/uL 1.2-3.8 [facility] Lymphocytes/100 WBC Auto (Bl d)on 09-17-2023 Lymphocytes/100 WBC (Bld) 23.3 % 20.5-60.0 [facility] MCH Auto (RBC) [Entitic mass ]on 09-17-2023 MCH (RBC) [Entitic mass] 30.0 pg 25.9-34.0 [facility] MCHC Auto (RBC) [Mass/Vol]on 09-17-2023 MCHC (RBC) [Mass/Vol] 32.1 g/dL 29.9-35.2 [facility] MCV Auto (RBC) [Entitic vol] on 09-17-2023 MCV (RBC) [Entitic vol] 93.3 fL 80.0-94.0 [facility] Monocytes Auto (Bld) [#/Vol] on 09-17-2023 Monocytes (Bld) [#/Vol] 0.7 10 3/uL 0.3-0.8 [facility] Monocytes/100 WBC Auto (Bld) on 09-17-2023 Monocytes/100 WBC (Bld) 12.5 % High 1.7-12.0 [facility] Neutrophils Auto (Bld) [#/Vo l]on 09-17-2023 Neutrophils (Bld) [#/Vol] 3.5 10 3/uL 1.4-6.5 [facility] Neutrophils/100 WBC Auto (Bl d)on 09-17-2023 Neutrophils/100 WBC (Bld) 60.3 % 43.0-75.0 [facility] No Panel Informationon 09-16 Urine Bacteria NONE SEEN #/HPF NONE SEEN [facility] Urine Occult Blood Negative NEGATIVE [facility] Urine Other Casts NONE SEEN #/LPF NONE SEEN Fi [facility] Urine Other Crystals None Seen #/HPF None Seen [facility] Urine RBC 0-2 #/HPF 0-2 [facility] Urine Squamous Epithelial Cells NONE SEEN #/LPF NONE/RARE [facility] Urine WBC NONE SEEN #/HPF NONE SEEN [facility] Eosinophils # (Auto) 0.2 10 3/uL 0.0-0.7 Fir [facility] Immature Granulocyte # (Auto) 0.02 10 3/uL 0.00-0.03 [facility] Troponin I High Sensitivity 7.6 pg/mL 4.0-76.1 [facility] Comment on above: CUT-OFF POINTS HAVE BEEN [...] volume (Bld) [Entitic vol] 9.9 fL 9.5-13.5 [facility] Platelets Auto (Bld) [#/Vol] on 09-17-2023 Platelets (Bld) [#/Vol] 328 10 3/uL 150-450 [facility] RBC Auto (Bld) [#/Vol]on RBC (Bld) [#/Vol] 3.60 10 6/uL Low 4.70-6.10 [facility] Serum or plasma anion gap de terminationon 09-17-2023 Anion gap [Moles/Vol] 11.7 mmol/L [facility] FPG ECG *OFFICE ONLY*on 08-21 FPG ECG *OFFICE ONLY* [facility] [place] [address] Electrocardiograph Report Signed Patient: Nicholas Trujillo MR#: [id number] 5004 : 1945 Acct:[id number] Age/Sex: 78 / M ADM Date: 09/11/23 Loc: EKGCARD Room: Type: [facility] Attending Dr: Garrett Gunter MD Ordering Provider: [...] change was found Confirmed by Garrett Gunter ([id number]) on 09/13/2023 12:01:40 AM Referred By: Electronically Signed By:Garrett Gunter Transcribed By: MUS Signed By Garrett Gunter MD 09/13/23 0001 Normal [facility] Shadi 08-27-2023 L Specimen: [id number] Received: 08/27/23 Status: ADITI Repauly Num: [id number] Spec Type: Surgical Subm Dr: Phuc Denney DO Tissues: A Joint/Knee (LT KNEE) Procedures: HE, Gross/Micro L4, Decalcification Age/ Patient Sex Location Account Attending Physician Nicholas Trujillo 78/M [place] [id number] Phuc Denney DO SPEC NUM: [id number] RECD: 08/27/23 STATUS: ADITI CORDEROPauly NUM: [id number] SHIRA: 08/27/[address]: Phuc Denney DO ENTERED: 08/27/[address] [facility] [address]: SPEC TYPE: Surgical [...] included. Clinical history: DJD TW -------- Specimen: [id number] Received: 08/27/23 Status: ADITI Cochran Num: [id number] Spec Type: Surgical Subm Dr: Phuc Denney DO Tissues: A Joint/Knee (LT KNEE) Procedures: HE, Gross/Micro L4, Decalcification -------- Patient: Nicholas Trujillo [id number] (Continued) -------- Specimen: [id number] Received: 08/27/23 (Continued) Signed (signature on file) Alva Quinones MD 08/28/23 1851 -------- Specimen: [id number] Received: 08/27/23 Status: ADITI Cochran Num: [id number] Spec Type: Surgical Subm Dr: Phuc Denney DO Tissues: A Joint/Knee (LT KNEE) Procedures: GABY, Niles/Brayan L4, Decalcification -------- Patient: Nicholas Trujillo [id number] (Continued) -------- Specimen: [id number] Received: 08/27/23 (Continued) CPT Codes 58738 BONE AND TISSUE -------- -------- Specimen: [id number] Received: 08/27/23 Status: ADITI Cochran Num: [id number] Spec Type: Surgical Subm Dr: Phuc Denney DO Tissues: A Joint/Knee (LT KNEE) Procedures: Niles GRIFFIN/Brayan L4, Decalcification -------- Patient: Nicholas Trujillo [id number] (Continued) -------- Signed (signature on file) Alva Quinones MD 08/28/23 1851 Normal [facility] XR knee LT 2Von 08-27-2023 XR knee LT 2V [address] [address] XRay Report Signed Patient: Nicholas Trujillo MR#: [id number] 5004 : 1945 Acct:[id number] Age/Sex: 78 / M ADM Date: 08/27/23 Loc: [place] Room: Type: [facility] Attending Dr: Phuc Denney DO Copies to: [...] Shirin Charles M.D.08/27/2023 2:45 PM Dictation Location: [place] [address] Transcribed By: [facility] 08/27/23 144 Dictated By: Shirin Charles MD 08/27/231443 Signed By: 08/27/23 144 Normal [facility] ECH echo transthoracicon ECH echo transthoracic [address] [address] Echocardiogram Signed Patient: Nicholas Trujillo MR#: [id number] 5004 : 1945 Acct:[id number] Age/Sex: 78 / M ADM Date: 08/21/23 Loc: Room: Type: [facility] Attending Dr: Garrett Gunter MD Ordering Provider: Garrett Gunter MD Date of Service: 08/21/2305/15/841 ECH/ECH echo transthoracic: R94.31 - Abnormal electrocardiogram [ECG] [EKG] Copies to: MD Gonzalez Mccoy MD, [facility] Weight: 215 lb Performed By: Glory Graff [...] Signed By: Gonzalez Perez MD, FACC 08/22/23 7834 Normal [facility] FPG ECG *OFFICE ONLY*on 07-22 FPG ECG *OFFICE ONLY* [facility] [place] [address] Electrocardiograph Report Signed Patient: Nicholas Trujillo MR#: [id number] 5004 : 1945 Acct:[id number] Age/Sex: 78 / M ADM Date: 08/14/23 Loc: EKGCARDIO Room: Type: [facility] Attending Dr: Garrett Gunter MD Ordering Provider: [...] replaced Atrial fibrillation Confirmed by Garrett Gunter ([id number]) on 08/14/2023 6:22:41 PM Referred By: Electronically Signed By:Garrett Gunter Transcribed By: MUS Signed By Garrett Gunter MD 08/14/23 1822 Normal [facility] Alanine aminotransferase [En zymatic activity/volume] in Serum or PlasmaOrdered By: Phuc Denney on 08-09-2023 ALT [Catalytic activity/Vol] 21 U/L Normal 7-52 [facility] Comment on above: Performed By: #### C BC, CMP wRFX A1C #### [facility] [address] [place] [address] Albumin [Mass/volume] in Ser um or Plasma by Bromocresol green (BCG) dye binding methoOrdered By: Phuc Denney on 08-09-2023 Albumin BCG dye [Mass/Vol] 4.0 g/dL 3.5-5.7 [facility] Alkaline phosphatase [Enzyma tic activity/volume] in Serum or PlasmaOrdered By: Phuc Denney on 08-09-2023 ALP [Catalytic activity/Vol] 37 U/L Normal 34-104 [facility] Comment on above: Result Comment: PERF ORMED BY: [place] [address] PATHOLOGIST CLINICAL PROGRAM DIRECTOR DEJA LING M.D. Performed By: #### C BC, CMP wRFX A1C #### [facility] [address] [place] [address] Aspartate aminotransferase [ Enzymatic activity/volume] in Serum or PlasmaOrdered By: Phuc Denney on 08-09-2023 AST [Catalytic activity/Vol] 22 U/L Normal 13-39 [facility] Comment on above: Performed By: #### C BC, CMP wRFX A1C #### [facility] [address] [place] [address] Automated basophil %Ordered By: Phuc Denney on 08-09-2023 Basophils/100 WBC (Bld) 1.1 % Normal . [facility] Comment on above: Performed By: #### C BC, CMP wRFX A1C #### [facility] [address] [place], [place] [address] Automated basophil countOrde red By: Phuc Denney on 08-09-2023 Basophils (Bld) [#/Vol] 0.1 10*3/uL Normal 0.0-0.2 [facility] Comment on above: Result Comment: PERF ORMED BY: [place] [address] PATHOLOGIST CLINICAL PROGRAM DIRECTOR DEJA LING M.D. Performed By: #### C BC, CMP wRFX A1C #### [address] Automated blood monocyte cou ntOrdered By: Phuc Denney on 08-09-2023 Monocytes (Bld) [#/Vol] 0.8 10*3/uL Normal 0.0-0.8 [facility] Comment on above: Performed By: #### C BC, CMP wRFX A1C #### [facility] [address] [place] [address] Automated eosinophil %Ordere d By: Phuc Denney on 08-09-2023 Eosinophils/100 WBC (Bld) 2.3 % Normal . [facility] Comment on above: Performed By: #### C BC, CMP wRFX A1C #### [facility] [address] [place] [address] Automated eosinophil countOr dered By: Phuc Denney on 08-09-2023 Eosinophils (Bld) [#/Vol] 0.1 10*3/uL Normal 0.0-0.45 [facility] Comment on above: Performed By: #### C BC, CMP wRFX A1C #### [address] Automated monocyte %Ordered By: Phuc Denney on 08-09-2023 Monocytes/100 WBC (Bld) 14.9 % Normal . [facility] Comment on above: Performed By: #### C BC, CMP wRFX A1C #### [address] Automated neutrophil %Ordere d By: Phuc Denney on 08-09-2023 Neutrophils/100 WBC (Bld) 52.1 % Normal . [facility] Comment on above: Performed By: #### C BC, CMP wRFX A1C #### [address] Automated urine color determ inationOrdered By: Phuc Denney on 08-09-2023 Color (U) Yellow Normal Yellow [facility] Comment on above: Order Comment: Name Collection Type:: Clean-Voided Midstream Performed By: #### U A #### [address] Bilirubin Test strip Ql (U)O rdered By: Phuc Denney on 08-09-2023 Bilirubin Ql (U) Negative Negative [facility] Bilirubin.total [Mass/volume ] in Serum or PlasmaOrdered By: Phuc Denney on 08-09-2023 Bilirubin [Mass/Vol] 0.5 mg/dL Normal 0.3-1.0 [facility] Comment on above: Performed By: #### C BC, CMP wRFX A1C #### [address] CMP with reflex to A1Con Albumin [Mass/Vol] 4.0 g/dL Normal 3.5-5.7 [facility] Comment on above: Performed By: #### C BC, CMP wRFX A1C #### [place] [address] [place] GFR/1.73 sq M.predicted MDRD (S/P/Bld) [Vol rate/Area] mL/min/{1.73_m2} Normal [facility] Comment on above: Performed By: #### C BC, CMP wRFX A1C #### [address] Calcium [Mass/volume] in Ser um or PlasmaOrdered By: Phuc Denney on 08-09-2023 Calcium [Mass/Vol] 9.5 mg/dL Normal 8.6-10.3 [facility] Comment on above: Performed By: #### C BC, CMP wRFX A1C #### [address] Carbon dioxide, total [Moles /volume] in Serum or PlasmaOrdered By: Phuc Denney on 08-09-2023 CO2 [Moles/Vol] 27.7 mmol/L Normal 21.0-31.0 [facility] Comment on above: Performed By: #### C BC, CMP wRFX A1C #### [address] Chloride [Moles/volume] in S sterling or PlasmaOrdered By: Phuc Denney on 08-09-2023 Chloride [Moles/Vol] 104 mmol/L Normal 98-107 [facility] Comment on above: Performed By: #### C BC, CMP wRFX A1C #### [address] Complete Blood Count Auto Di ffon 08-09-2023 Mean Corpuscular HGB Conc 32.9 g/dL Normal 32.5-35.6 [facility] Comment on above: Performed By: #### C BC, CMP wRFX A1C #### [address] NRBC% 0.1 /100{WBC} Normal 0-0.5 [facility] Comment on above: Performed By: #### C BC, CMP wRFX A1C #### [place] [id number] [place] Creatinine [Mass/volume] in Serum or PlasmaOrdered By: Phuc Denney on 08-09-2023 Creatinine [Mass/Vol] 1.09 mg/dL Normal 0.70-1.30 [facility] Comment on above: Performed By: #### C BC, CMP wRFX A1C #### [facility] [address] ECG 12 lead ECGon 08-09-2023 ECG 12 lead ECG [facility] [place] [address] [place] [address] Electrocardiograph Report Signed Patient: Nicholas Trujillo MR#: [id number] : 1945 Acct:[id number] Age/Sex: 78 / M ADM Date: 08/09/23 Loc: Room: Type: [facility] Attending Dr: Phuc Denney DO Ordering Provider: [...] replaced Sinus rhythm Confirmed by Garrett Gunter ([id number]) on 08/10/2023 11:28:21 AM Referred By: GRACIELA Electronically Signed By:Garrett Gunter Transcribed By: MUS Signed By Garrett Gunter MD 08/10/23 1128 Normal [facility] Erythrocyte distribution wid th [Ratio] by Automated countOrdered By: Phuc Denney on 08-09-2023 Erythrocyte distribution width (RBC) [Ratio] 12.9 % Normal 12.0-14.8 [facility] Comment on above: Performed By: #### C BC, CMP wRFX A1C #### [facility] [address] [place] [id number] [place] Erythrocytes [#/volume] in B lood by Automated countOrdered By: Phuc Denney on 08-09-2023 RBC (Bld) [#/Vol] 4.49 10*6/uL Normal 3.90-5.60 [facility] Comment on above: Performed By: #### C BC, CMP wRFX A1C #### [facility] [address] Glucose [Mass/volume] in Ser um or PlasmaOrdered By: Phuc Denney on 08-09-2023 Glucose [Mass/Vol] 87 mg/dL Normal 70-100 [facility] Comment on above: Performed By: #### C BC, CMP wRFX A1C #### [facility] [address] Hematocrit [Volume Fraction] of Blood by Automated countOrdered By: Phuc Denney on 08-09-2023 Hematocrit (Bld) [Volume fraction] 41.1 % Normal 38.8-50.0 [facility] Comment on above: Performed By: #### C BC, CMP wRFX A1C #### [facility] [address] Hemoglobin [Mass/volume] in BloodOrdered By: Phuc Denney on 08-09-2023 Hemoglobin (Bld) [Mass/Vol] 13.5 g/dL Normal 13.0-17.0 [facility] Comment on above: Performed By: #### C BC, CMP wRFX A1C #### [facility] [address] Ketones Auto test strip (U) [Mass/Vol]Ordered By: Phuc Denney on 08-09-2023 Ketones (U) [Mass/Vol] Negative Negative [facility] Leukocytes [#/volume] correc alfonso for nucleated erythrocytes in Blood by Automated counOrdered By: Phuc Denney on 08-09-2023 WBC corrected for nucl RBC Auto (Bld) [#/Vol] 5.1 10*3/uL 4.1-10.5 [facility] Leukocytes [#/volume] in Blo od by Automated countOrdered By: Phuc Denney on 08-09-2023 WBC (Bld) [#/Vol] 5.1 10*3/uL Normal 4.1-10.5 [facility] Comment on above: Performed By: #### C BC, CMP wRFX A1C #### [facility] [address] [place] [address] [place] Lymphocytes [#/volume] in Bl ood by Automated countOrdered By: Phuc Denney on 08-09-2023 Lymphocytes (Bld) [#/Vol] 1.5 10*3/uL Normal 1.00-4.8 [facility] Comment on above: Performed By: #### C BC, CMP wRFX A1C #### [place] [address] [place] Lymphocytes/100 leukocytes i n Blood by Automated countOrdered By: Phuc Denney on 08-09-2023 Lymphocytes/100 WBC (Bld) 29.6 % Normal . [facility] Comment on above: Performed By: #### C BC, CMP wRFX A1C #### [place] [address] [place] MCH [Entitic mass] by Automa alfonso countOrdered By: Phuc Denney on 08-09-2023 MCH (RBC) [Entitic mass] 30.1 pg Normal 27.5-35.2 [facility] Comment on above: Performed By: #### C BC, CMP wRFX A1C #### [address] MCHC Auto (RBC) [Mass/Vol]Or dered By: Phuc Denney on 08-09-2023 MCHC (RBC) [Mass/Vol] 32.9 g/dL 32.5-35.6 [facility] MCV [Entitic volume] by Auto mated countOrdered By: Phuc Denney on 08-09-2023 MCV (RBC) [Entitic vol] 91.4 fL Normal 83.5-101 [facility] Comment on above: Performed By: #### C BC, CMP wRFX A1C #### [facility] [address] [place] [address] [place] Neutrophils [#/volume] in Bl ood by Automated countOrdered By: Phuc Denney on 08-09-2023 Neutrophils (Bld) [#/Vol] 2.7 10*3/uL Normal 1.8-7.7 [facility] Comment on above: Performed By: #### C BC, CMP wRFX A1C #### [facility] [address] [place] [address] [place] Nitrite Test strip Ql (U)Ord ered By: Phuc Denney on 08-09-2023 Nitrite Ql (U) Negative Negative [facility] No Panel InformationOrdered By: Phuc Denney on 08-09-2023 Estimated GFR (CKD-EPI) > 60.0 mL/Min [facility] Creatinine Clearance (Chem N/A [facility] Nucleated erythrocytes [Pres ence] in Blood by Automated countOrdered By: Phuc Denney on 08-09-2023 Nucleated RBC Auto Ql (Bld) 0.1 /100{WBC} 0-0.5 [facility] Platelet mean volume [Entiti c volume] in Blood by Automated countOrdered By: Phuc Denney on 08-09-2023 Platelet mean volume (Bld) [Entitic vol] 9.2 fL Normal 6.6-10.1 [facility] Comment on above: Performed By: #### C BC, CMP wRFX A1C #### [facility] [address] [place] [address] [place] Platelets [#/volume] in Bloo d by Automated countOrdered By: Phuc Denney on 08-09-2023 Platelets (Bld) [#/Vol] 177 10*3/uL Normal 150-450 [facility] Comment on above: Performed By: #### C BC, CMP wRFX A1C #### [facility] [address] [place] [address] [place] Potassium [Moles/volume] in Serum or PlasmaOrdered By: Phuc Denney on 08-09-2023 Potassium [Moles/Vol] 4.2 mmol/L Normal 3.5-5.1 [facility] Comment on above: Performed By: #### C BC, CMP wRFX A1C #### [facility] [address] Protein Auto test strip (U) [Mass/Vol]Ordered By: Phuc Denney on 08-09-2023 Protein (U) [Mass/Vol] Negative Negative [facility] Protein [Mass/volume] in Ser um or PlasmaOrdered By: Phuc Denney on 08-09-2023 Protein [Mass/Vol] 6.5 g/dL Normal 6.4-8.9 [facility] Comment on above: Performed By: #### C BC, CMP wRFX A1C #### [facility] [address] [place] [address] Serum globulin measurement b y calculation (mass/volume)Ordered By: Phuc Denney on 08-09-2023 Globulin (S) [Mass/Vol] 2.5 g/dL Normal [facility] Comment on above: Performed By: #### C BC, CMP wRFX A1C #### [facility] [address] [place] [address] Serum or plasma albumin/glob ulin mass ratioOrdered By: Phuc Denney on 08-09-2023 Albumin/Globulin [Mass ratio] 1.6 {ratio} Normal [facility] Comment on above: Performed By: #### C BC, CMP wRFX A1C #### [facility] [address] [place] [address] Serum or plasma anion gap de terminationOrdered By: Phuc Denney on 08-09-2023 Anion gap [Moles/Vol] 9.5 mmol/L Normal 6.0-15.0 [facility] Comment on above: Performed By: #### C BC, CMP wRFX A1C #### [facility] [address] [place] [address] Sodium [Moles/volume] in Ser um or PlasmaOrdered By: Phuc Denney on 08-09-2023 Sodium [Moles/Vol] 137 mmol/L Normal 136-145 [facility] Comment on above: Performed By: #### C BC, CMP wRFX A1C #### [facility] [address] [place] [address] Specific gravity Auto test s trip (U) [Rel density]Ordered By: Phuc Denney on 08-09-2023 Specific gravity (U) [Rel density] 1.018 1.001-1.030 [facility] Urea nitrogen [Mass/volume] in Serum or PlasmaOrdered By: Phuc Denney on 08-09-2023 Urea nitrogen [Mass/Vol] 26 mg/dL High 7-25 [facility] Comment on above: Performed By: #### C BC, CMP wRFX A1C #### [facility] [address] Urinalysison 08-09-2023 Appearance (U) Clear Normal Clear [facility] Comment on above: Order Comment: Name Collection Type:: Clean-Voided Midstream Performed By: #### U A #### [address] Bilirubin,Urine Negative Normal Negative [facility] Comment on above: Order Comment: Name Collection Type:: Clean-Voided Midstream Performed By: #### U A #### [address] Glucose Ql (U) Normal Normal Normal [facility] Comment on above: Order Comment: Name Collection Type:: Clean-Voided Midstream Performed By: #### U A #### [facility] [address] [place] [address] Ketones Ql (U) Negative Normal Negative [facility] Comment on above: Order Comment: Name Collection Type:: Clean-Voided Midstream Performed By: #### U A #### [facility] [address] [place] [address] Leukocyte esterase Test strip Ql (U) Negative Normal Negative [facility] Comment on above: Order Comment: Name Collection Type:: Clean-Voided Midstream Performed By: #### U A #### [address] Nitrite,Urine Negative Normal Negative [facility] Comment on above: Order Comment: Name Collection Type:: Clean-Voided Midstream Performed By: #### U A #### [address] Occult Blood,Urine Negative Normal Negative [facility] Comment on above: Order Comment: Name Collection Type:: Clean-Voided Midstream Result Comment: PERF ORMED BY: [place] [address] PATHOLOGIST CLINICAL PROGRAM DIRECTOR DEJA LING M.D. Performed By: #### U A #### [address] Protein,Urine Negative Normal Negative [facility] Comment on above: Order Comment: Name Collection Type:: Clean-Voided Midstream Performed By: #### U A #### [address] Specificy [place],Urine 1.018 Normal 1.001-1.030 [facility] Comment on above: Order Comment: Name Collection Type:: Clean-Voided Midstream Performed By: #### U A #### [address] Urobilinogen,Urine Normal Normal Normal [facility] Comment on above: Order Comment: Name Collection Type:: Clean-Voided Midstream Performed By: #### U A #### [address] Urine clarity by refractomet ry automatedOrdered By: Phuc Denney on 08-09-2023 Clarity Refractometry automated (U) Clear Clear [facility] Urine glucose measurement by automated test strip (mass/volume)Ordered By: Phuc Denney on 08-09-2023 Glucose Auto test strip (U) [Mass/Vol] Normal mg/dL Normal [facility] Urine hemoglobin detection b y automated test stripOrdered By: Phuc Denney on 08-09-2023 Hemoglobin Auto test strip Ql (U) Negative Negative [facility] Urine leukocyte esterase det ection by automated test stripOrdered By: Phuc Denney on 08-09-2023 Leukocyte esterase Auto test strip Ql (U) Negative Negative [facility] Urine pH measurement by auto mated test stripOrdered By: Phuc Denney on 08-09-2023 pH (U) 7.0 [pH] Normal 5.0-9.0 [facility] Comment on above: Order Comment: Name Collection Type:: Clean-Voided Midstream Performed By: #### U A #### [facility] [address] [place] [id number] [facility] Urobilinogen Auto test strip (U) [Mass/Vol]Ordered By: Phuc Denney on 08-09-2023 Urobilinogen (U) [Mass/Vol] Normal mg/dL Normal [facility] XR knee LT 3V - NOT FOR ER U [place] 08-05-2023 XR knee LT 3V - NOT FOR ER USE [facility] [place] [facility] [address] [place] [id number] XRay Report Signed Patient: Nicholas Trujillo MR#: [id number] : 1945 Acct:[id number] Age/Sex: 78 / M ADM Date: 08/05/23 Loc: [facility] Room: Type: [facility] Attending Dr: Phuc Dneney DO Copies to: Phuc Denney DO Ordering [...] Shirin Charles M.D.08/05/2023 2:24 PM Dictation Location: [place] [address] Transcribed By: [facility] 08/05/23 1424 Dictated By: Shirin Charles MD 08/05/23 1420 Signed By: 08/05/23 1424 Normal [facility] CBC AUTO DIFFon 08-17-2021 BASO # 0.0 103/ul Normal 0.0-0.1 [facility] Comment on above: Performed By: #### C BC #### [facility] [address] [place] [address] Dr. Jessica Quinones Basophils/100 WBC (Bld) 0.4 % Normal 0.2-2.0 [facility] Comment on above: Performed By: #### C BC #### [facility] [address] [place] [address] Dr. Jessica Quinones EO # 0.1 103/ul Normal 0.0-0.7 [facility] Comment on above: Performed By: #### C BC #### [facility] [address] [place] [address] Dr. Jessica Quinones Eosinophils/100 WBC (Bld) 1.1 % Normal 0.9-7.0 [facility] Comment on above: Performed By: #### C BC #### [facility] [address] [place] [address] Dr. Jessica Quinones Erythrocyte distribution width (RBC) [Ratio] 13.2 % Normal 11.0-15.0 [facility] Comment on above: Performed By: #### C BC #### [facility] [address] [place] [address] Dr. Jessica Quinones Hematocrit (Bld) [Volume fraction] 44.2 % Normal 42.0-54.0 [facility] Comment on above: Performed By: #### C BC #### [facility] [address] [place] [address] Dr. Jessica Quinones Hemoglobin (Bld) [Mass/Vol] 14.6 g/dL Normal 14.0-18.0 [facility] Comment on above: Performed By: #### C BC #### [facility] [address] [place] [address] Dr. Jessica Quinones IG # 0.03 10e3/ul Normal 0.00-0.03 [facility] Comment on above: Performed By: #### C BC #### [facility] [address] [place] [address] Dr. Jessica Quinones IG % 0.4 % Normal 0.0-0.5 [facility] Comment on above: Performed By: #### C BC #### [facility] [address] [place] [address] Dr. Jessica Quinones LYMPH # 1.6 103/ul Normal 1.2-3.8 [facility] Comment on above: Performed By: #### C BC #### [facility] [address] [place] [address] Dr. Jessica Quinones Lymphocytes/100 WBC (Bld) 20.7 % Normal 20.5-60.0 [facility] Comment on above: Performed By: #### C BC #### [facility] [address] [place] [address] Dr. Jessica Quinones MANUAL DIFF REQ NO Normal [facility] Comment on above: Performed By: #### C BC #### [facility] [address] [place] [address] Dr. Jessica Quinones MCH (RBC) [Entitic mass] 31.1 pg Normal 25.9-34.0 [facility] Comment on above: Performed By: #### C BC #### [facility] [address] [place] [address] Dr. Jessica Quinones MCHC (RBC) [Mass/Vol] 33.0 g/dL Normal 29.9-35.2 [facility] Comment on above: Performed By: #### C BC #### [facility] [address] [place] [address] Dr. Jessica Quinones MCV (RBC) [Entitic vol] 94.2 fL Critically high 80.0-94 .0 [facility] Comment on above: Performed By: #### C BC #### [facility] [address] [place] [address] Dr. Jessica Quinones MONO # 0.9 103/ul Critically high 0.3-0.8 [facility] Comment on above: Performed By: #### C BC #### [facility] [address] [place] [address] Dr. Jessica Quinones Monocytes/100 WBC (Bld) 10.7 % Normal 1.7-12.0 [facility] Comment on above: Performed By: #### C BC #### [facility] [address] [place] [address] Dr. Jessica Quinones NEUT # 5.3 103/ul Normal 1.4-6.5 [facility] Comment on above: Performed By: #### C BC #### [facility] [address] [place] [address] Dr. Jessica Quinones Neutrophils/100 WBC (Bld) 66.7 % Normal 43.0-75.0 [facility] Comment on above: Performed By: #### C BC #### [facility] [address] [place] [address] Dr. Jessica Quinones Platelet mean volume (Bld) [Entitic vol] 10.5 fL Normal 9.5-13.5 [facility] Comment on above: Performed By: #### C BC #### [facility] [address] [place] [address] Dr. Jessica Quinones PLT 196 103/ul Normal 150-450 [facility] Comment on above: Performed By: #### C BC #### [facility] [address] [place] [address] Dr. Jessica Quinones RBC 4.69 106/ul Critically low 4.70-6.10 [facility] Comment on above: Performed By: #### C BC #### [facility] [address] [place] [address] Dr. Jessica Quinones WBC 7.9 103/ul Normal 4.0-11.0 [facility] Comment on above: Performed By: #### C BC #### [facility] [address] [place] [address] Dr. Jessica Quinones CRPon 08-17-2021 CRP [Mass/Vol] mg/L Normal <=1.0 [facility] Comment on above: Performed By: #### C RP, URIC, BMP #### [facility] [address] [place] [address] Dr. Jessica Quinones PROF CHEM 8 (BAS METB)on Anion gap [Moles/Vol] 12.6 mmol/L Normal Th [facility] Comment on above: Performed By: #### C RP, URIC, BMP #### [facility] [address] [place] [address] Dr. Jessica Quinones Calcium [Mass/Vol] 8.8 mg/dL Normal 8.5-10.1 [facility] Comment on above: Performed By: #### C RP, URIC, BMP #### [facility] [address] [place] [address] Dr. Jessica Quinones Chloride [Moles/Vol] 99 mmol/L Normal 98-107 [facility] Comment on above: Performed By: #### C RP, URIC, BMP #### [facility] [address] [place] [address] Dr. Jessica Quinones CO2 [Moles/Vol] 28.4 mmol/L Normal 21.0-32.0 [facility] Comment on above: Performed By: #### C RP, URIC, BMP #### [facility] [address] [place] [address] Dr. Jessica Quinones Creatinine [Mass/Vol] 1.07 mg/dL Normal 0.70-1.30 [facility] Comment on above: Performed By: #### C RP, URIC, BMP #### [facility] [address] [place] [address] Dr. Jessica Quinones EGFR-AF TAIWANESE >60 Normal >=60 [facility] Comment on above: Performed By: #### C RP, URIC, BMP #### [facility] [address] [place] [address] Dr. Jessica Quinones EGFR-NON AF TAIWANESE >60 Normal >=60 [facility] Comment on above: Performed By: #### C RP, URIC, BMP #### [facility] [address] [place] [address] Dr. Jessica Quinones Glucose [Mass/Vol] 106 mg/dL Normal 74-106 [facility] Comment on above: Performed By: #### C RP, URIC, BMP #### [facility] Laboratory [address] [place] [address] Dr. Jessica Quinones Potassium [Moles/Vol] 4.0 mmol/L Normal 3.5-5.1 [facility] Comment on above: Performed By: #### C RP, URIC, BMP #### [facility] [address] [place] [address] Dr. Jessica Quinones Sodium [Moles/Vol] 136 mmol/L Normal 136-145 [facility] Comment on above: Performed By: #### C RP, URIC, BMP #### [facility] [address] [place] [address] Dr. Jessica Quinones Urea nitrogen [Mass/Vol] 22.0 mg/dL Critically high 7.0-18 .0 [facility] Comment on above: Performed By: #### C RP, URIC, BMP #### [facility] [address] [place] [address] Dr. Jessica Quinones Urea nitrogen/Creatinine [Mass ratio] 20.6 mg/mg Normal [facility] Comment on above: Performed By: #### C RP, URIC, BMP #### [facility] [address] [place] [address] Dr. Jessica Quinones [facility] 11 mm/hr Normal <=20 [facility] Comment on above: Performed By: #### S EDR #### [facility] [address] [place] [address] Dr. Jessica Quinones URIC ACID SERUMon 08-17-2021 Urate [Mass/Vol] 6.8 mg/dL Normal 3.5-8.5 [facility] Comment on above: Performed By: #### C RP, URIC, BMP #### [facility] [address] [place] [address] Dr. Jessica Quinones XR FOOT RT MIN [...] by: ODESSA UMAÑA Date: 2021-08-17 10:52 Normal [facility] Vital Signs Date Time Vital Sign Value Performing Clinician Facility 01-03-2024 10:55-0400 Diastolic blood pressure 65 mm[Hg] MD Megan Fan Work Phone: [facility] 01-03-2024 10:55-0400 Heart rate 51 /min MD Megan Fan Work Phone: [facility] 01-03-2024 10:55-0400 Respiratory rate 16 /min MD Megan Fan Work Phone: [facility] 01-03-2024 10:55-0400 SaO2% (BldA) [Mass fraction] 96 % MD Megan Fan Work Phone: [facility] 01-03-2024 10:55-0400 Systolic blood pressure 118 mm[Hg] MD Megan Fan Work Phone: [facility] 01-03-2024 08:57-0400 Body height 177.8 cm MD Megan Fan Work Phone: [facility] 01-03-2024 08:57-0400 Body weight 95.25 kg MD Megan Fan Work Phone: [facility] 10-22-2023 14:22-0400 Body height 173.99 cm MD Megan Fan Work Phone: [facility] 10-22-2023 14:22-0400 Body mass index (BMI) [Ratio] 31.6 kg/m2 MD Megan Fan Work Phone: [facility] 10-22-2023 14:22-0400 Body weight 95.7 kg MD Megan Fan Work Phone: [facility] 10-22-2023 14:22-0400 Diastolic blood pressure 62 mm[Hg] MD Megan Fan Work Phone: [facility] 10-22-2023 14:22-0400 Heart rate 54 /min MD Megan Fan Work Phone: [facility] 10-22-2023 14:22-0400 Respiratory rate 18 /min MD Megan Fan Work Phone: [facility] 10-22-2023 14:22-0400 SaO2% (BldA) [Mass fraction] 96 % MD Megan Fan Work Phone: [facility] 10-22-2023 14:22-0400 Systolic blood pressure 130 mm[Hg] MD Megan Fan Work Phone: [facility] 09-23-2023 13:44-0400 Body height 173.99 cm MD Megan Fan Work Phone: [facility] 09-23-2023 13:44-0400 Body mass index (BMI) [Ratio] 31.6 kg/m2 MD Megan Fan Work Phone: [facility] 09-23-2023 13:44-0400 Body weight 95.7 kg MD Megan Fan Work Phone: [facility] 09-23-2023 13:44-0400 Diastolic blood pressure 57 mm[Hg] MD Megan Fan Work Phone: [facility] 09-23-2023 13:44-0400 Heart rate 64 /min MD Megan Fan Work Phone: [facility] 09-23-2023 13:44-0400 Systolic blood pressure 106 mm[Hg] MD Megan Fan Work Phone: [facility] 09-19-2023 12:24-0400 Diastolic blood pressure 75 mm[Hg] MD Megan Fan Work Phone: [facility] 09-19-2023 12:24-0400 Heart rate 86 /min MD Megan Fan Work Phone: [facility] 09-19-2023 12:24-0400 Respiratory rate 18 /min MD Megan Fan Work Phone: [facility] 09-19-2023 12:24-0400 SaO2% (BldA) [Mass fraction] 96 % MD Megan Fan Work Phone: [facility] 09-19-2023 12:24-0400 Systolic blood pressure 135 mm[Hg] MD Megan Fan Work Phone: [facility] 09-19-2023 08:06-0400 Body temperature 97.6 [degF] MD Megan Fan Work Phone: [facility] 09-19-2023 04:37-0400 Body weight 94.6 kg MD Megan Fan Work Phone: [facility] 09-18-2023 13:43-0400 Body height 177.8 cm MD Megan Fan Work Phone: [facility] 09-11-2023 14:07-0400 Body height 177.8 cm MD Meagn Fan Work Phone: [facility] 09-11-2023 14:07-0400 Body mass index (BMI) [Ratio] 30.4 kg/m2 MD Megan Fan Work Phone: [facility] 09-11-2023 14:07-0400 Body weight 96.16 kg MD Megan Fan Work Phone: [facility] 09-11-2023 14:07-0400 Diastolic blood pressure 60 mm[Hg] MD Megan Fan Work Phone: [facility] 09-11-2023 14:07-0400 Heart rate 76 /min MD Megan Fan Work Phone: [facility] 09-11-2023 14:07-0400 Respiratory rate 18 /min MD Megan Fan Work Phone: [facility] 09-11-2023 14:07-0400 SaO2% (BldA) [Mass fraction] 94 % MD Megan Fan Work Phone: [facility] 09-11-2023 14:07-0400 Systolic blood pressure 124 mm[Hg] MD Megan Fan Work Phone: [facility] 08-27-2023 11:45-0400 Diastolic blood pressure 73 mm[Hg] MD Megan Fan Work Phone: [facility] 08-27-2023 11:45-0400 Heart rate 63 /min MD Megan Fan Work Phone: [facility] 08-27-2023 11:45-0400 Respiratory rate 14 /min MD Megan Fan Work Phone: [facility] 08-27-2023 11:45-0400 SaO2% (BldA) [Mass fraction] 93 % MD Megan Fan Work Phone: [facility] 08-27-2023 11:45-0400 Systolic blood pressure 141 mm[Hg] MD Megan Fan Work Phone: [facility] 08-27-2023 10:14-0400 Body temperature 98.1 [degF] MD Megan Fan Work Phone: [facility] 08-27-2023 09:49-0400 Inhaled oxygen flow rate 6 L/min MD Megan Fan Work Phone: [facility] 08-27-2023 07:47-0400 Body mass index (BMI) [Ratio] 30.9 kg/m2 MD Megan Fan Work Phone: [facility] 08-27-2023 06:36-0400 Body height 177.8 cm MD Megan Fan Work Phone: [facility] 08-27-2023 06:36-0400 Body weight 97.7 kg MD Megan Fan Work Phone: [facility] 08-21-2023 11:10-0400 Body height 177.8 cm MD Megan Fan Work Phone: [facility] 08-21-2023 11:10-0400 Body mass index (BMI) [Ratio] 30.9 kg/m2 MD Megan Fan Work Phone: [facility] 08-21-2023 11:10-0400 Body weight 97.57 kg MD Megan Fan Work Phone: [facility] 08-14-2023 14:01-0400 Body height 177.8 cm MD Megan Fan Work Phone: [facility] 08-14-2023 14:01-0400 Body mass index (BMI) [Ratio] 30.8 kg/m2 MD Megan Fan Work Phone: [facility] 08-14-2023 14:01-0400 Body weight 97.52 kg MD Megan Fan Work Phone: [facility] 08-14-2023 14:01-0400 Diastolic blood pressure 66 mm[Hg] MD Megan Fan Work Phone: [facility] 08-14-2023 14:01-0400 Heart rate 60 /min MD Megan Fan Work Phone: [facility] 08-14-2023 14:01-0400 Respiratory rate 18 /min MD Megan Fan Work Phone: [facility] 08-14-2023 14:01-0400 SaO2% (BldA) [Mass fraction] 96 % MD Megan Fan Work Phone: [facility] 08-14-2023 14:01-0400 Systolic blood pressure 142 mm[Hg] MD Megan Fan Work Phone: [facility] 08-05-2023 08:56-0400 Body height 177.8 cm MD Megan Fan Work Phone: [facility] 08-05-2023 08:56-0400 Body mass index (BMI) [Ratio] 30.2 kg/m2 MD Megan Fan Work Phone: [facility] 08-05-2023 08:56-0400 Body weight 95.42 kg MD Megan Fan Work Phone: [facility] 12-11-2022 11:24-0400 Diastolic blood pressure 83 mm[Hg] MD Megan Fan Work Phone: [facility] 12-11-2022 11:24-0400 Heart rate 55 /min MD Megan Fan Work Phone: [facility] 12-11-2022 11:24-0400 Respiratory rate 16 /min MD Megan Fan Work Phone: [facility] 12-11-2022 11:24-0400 SaO2% (BldA) [Mass fraction] 99 % MD Megan Fan Work Phone: [facility] 12-11-2022 11:24-0400 Systolic blood pressure 153 mm[Hg] MD Megan Fan Work Phone: [facility] 12-11-2022 09:15-0400 Body height 177.8 cm MD Megan Fan Work Phone: [facility] 12-11-2022 09:15-0400 Body temperature 97.6 [degF] MD Megan Fan Work Phone: [facility] 12-11-2022 09:15-0400 Body weight 96.16 kg MD Megan Fan Work Phone: [facility] 11-06-2022 10:45-0400 Body height 177.8 cm Imad Asaad Other [facility] [employer] Other 11-06-2022 10:45-0400 Body mass index (BMI) [Ratio] 30.13 kg/m2 Imad Asaad Other [facility] [employer] Other 11-06-2022 10:45-0400 Body weight 95.26 kg Imad Asaad Other [facility] Other 11-06-2022 10:45-0400 Diastolic blood pressure 63 mm[Hg] Imad Asaad Other [facility] Other 11-06-2022 10:45-0400 Systolic blood pressure 135 mm[Hg] Imad Asaad Other [facility] Other 10-03-2022 10:00-0400 Body height 177.8 cm Megan Fan Other [facility] Other 10-03-2022 10:00-0400 Body mass index (BMI) [Ratio] 30.7 kg/m2 Megan Fan Other [facility] Other 10-03-2022 10:00-0400 Body weight 97.07 kg Megan Fan Other [facility] Other 10-03-2022 10:00-0400 Diastolic blood pressure 64 mm[Hg] Megan Fan Other [facility] Other 10-03-2022 10:00-0400 Systolic blood pressure 133 mm[Hg] Megan Fan Other [facility] Other 06-22-2022 09:15-0500 Body height 177.8 cm Megan Fan Other [facility] Other 06-22-2022 09:15-0500 Body mass index (BMI) [Ratio] 31.96 kg/m2 Megan Fan Other [facility] Other 06-22-2022 09:15-0500 Body weight 101.06 kg Megan Fan Other [facility] Other 06-22-2022 09:15-0500 Diastolic blood pressure 60 mm[Hg] Megan Fan Other [facility] Other 06-22-2022 09:15-0500 SaO2% (BldA) [Mass fraction] 95 % Megan Fan Other [facility] Other 06-22-2022 09:15-0500 Systolic blood pressure 118 mm[Hg] Megan Fan Other [facility] Other 06-12-2022 09:45-0500 Body height 177.8 cm Megan Fan Other [facility] Other 06-12-2022 09:45-0500 Body mass index (BMI) [Ratio] 31.99 kg/m2 Megan Fan Other [facility] Other 06-12-2022 09:45-0500 Body weight 101.15 kg Megan Fan Other [facility] Other 06-12-2022 09:45-0500 Diastolic blood pressure 74 mm[Hg] Megan Fan Other [facility] Other 06-12-2022 09:45-0500 SaO2% (BldA) [Mass fraction] 97 % Megan Fan Other [facility] Other 06-12-2022 09:45-0500 Systolic blood pressure 126 mm[Hg] Megan Fan Other [facility] Other 02-15-2021 11:00-0400 Body height 177.8 cm Phuc Denney Other [facility] Other 02-15-2021 11:00-0400 Body mass index (BMI) [Ratio] 31.13 kg/m2 Phuc Denney Other [facility] Other 02-15-2021 11:00-0400 Body weight 98.43 kg Phuc Denney Other [place] [employer] Other Encounters Encounter Date Encounter Type Care Provider Facility Start: 01-03-2024 Non-patient / Non-visit MD Sheila Fan Work Phone: [facility] Work Phone: Start: 01-03-2024 End: 01-03-2024 Admission to same day surgery center MD Megan Fan Work Phone: [facility] Work Phone: Start: 01-03-2024 End: 01-03-2024 ambulatory MD Megan Fan Work Phone: [facility] Work Phone: Start: 10-23-2023 End: 10-23-2023 ambulatory MD Megan Fan Work Phone: [facility] Work Phone: Start: 10-23-2023 End: 10-23-2023 Patient encounter procedure MD Megan Fan Work Phone: [facility] Work Phone: Start: 10-22-2023 End: 10-22-2023 ambulatory MD Megan Fan Work Phone: [facility] Work Phone: Start: 10-22-2023 End: 10-22-2023 Patient encounter procedure MD Megan Fan Work Phone: [facility] Work Phone: Start: 10-04-2023 End: 10-04-2023 ambulatory RONNA CARPIO Not Available Start: 10-01-2023 End: 10-01-2023 ambulatory DOUGIE MOSLEY Not Available Start: 09-27-2023 End: 09-27-2023 ambulatory MANNY ESCOBEDO Not Available Start: 09-25-2023 End: 09-25-2023 ambulatory MANNY ESCOBEDO Not Available Start: 09-23-2023 End: 09-23-2023 ambulatory MD Megan aFn Work Phone: [facility] Work Phone: Start: 09-23-2023 End: 09-23-2023 Patient encounter procedure MD Megan Fan Work Phone: [facility] Work Phone: Start: 09-18-2023 End: 09-19-2023 Non-patient / Non-visit MD Megan Fan Work Phone: [facility] Cardiology Work Phone: Start: 09-18-2023 End: 09-19-2023 Evaluation and management of inpatient MD Megan Fan Work Phone: [facility] Work Phone: Start: 09-17-2023 Non-patient / Non-visit MD Sheila Fan Work Phone: [facility] Work Phone: Start: 09-11-2023 End: 09-11-2023 ambulatory MD Megan Fan Work Phone: [facility] Work Phone: Start: 09-11-2023 End: 09-11-2023 Patient encounter procedure MD Megan Fan Work Phone: [facility] Cardiology Work Phone: Start: 09-09-2023 End: 09-09-2023 Patient encounter procedure MD Megan Fan Work Phone: [facility] Work Phone: Start: 08-27-2023 Non-patient / Non-visit MD Sheila Fan Work Phone: [facility] Work Phone: Start: 08-27-2023 End: 08-27-2023 Admission to same day surgery center MD Megan Fan Work Phone: [facility] [place] Start: 08-27-2023 End: 08-27-2023 ambulatory MD Megan Fan Work Phone: [facility] Work Phone: Start: 08-21-2023 End: 08-21-2023 Patient encounter procedure MD Megan Fan Work Phone: [facility] Work Phone: Start: 08-21-2023 Registered Recurring MD Megan Fan Work Phone: [facility]-Physical Therapy [place] Start: 08-21-2023 End: 08-21-2023 ambulatory Phuc Dneney Facility:[facility] Start: 08-21-2023 Encounter for other preprocedural examination Phuc Denney [facility] Start: 08-21-2023 End: 08-21-2023 Patient encounter procedure MD Megan Fan Work Phone: [facility]-Electrodiagnostics Work Phone: Start: 08-21-2023 End: 08-21-2023 ambulatory Megan Fan Facility:[facility] Start: 08-14-2023 Patient encounter status MD Megan Fan Work Phone: [facility] Start: 08-14-2023 End: 08-14-2023 ambulatory MD Megan Fan Work Phone: [facility] Work Phone: Start: 08-14-2023 End: 08-14-2023 Encounter for preprocedural cardiovascular examination MD Megan Fan Work Phone: [facility] Start: 08-14-2023 End: 08-14-2023 Patient encounter procedure MD Megan Fan Work Phone: [facility] Cardiology Work Phone: Start: 08-09-2023 End: 08-09-2023 Patient encounter procedure MD Megan Fan Work Phone: [facility] Work Phone: Start: 08-09-2023 End: 08-09-2023 ambulatory MD Megan Fan Work Phone: [facility] Work Phone: Start: 08-09-2023 Encounter for preprocedural laboratory examination Phuc Denney [facility] Start: 08-05-2023 End: 08-05-2023 Patient encounter procedure MD Megan Fan Work Phone: [facility] Work Phone: Start: 08-05-2023 End: 08-05-2023 Patient encounter procedure MD Megan Fan Work Phone: [facility] Start: 08-05-2023 End: 08-05-2023 ambulatory MD Megan Fan Work Phone: [facility] Work Phone: Start: 06-17-2023 Non-patient / Non-visit MD Sheila Fan Work Phone: [facility] Work Phone: Start: 03-26-2023 (Televisit) Televisit Megan Paul [facility] Start: 03-26-2023 End: 03-26-2023 ambulatory Megan Fan Other [facility] Other Start: 03-13-2023 (Televisit) Televisit Megan Paul [facility] Start: 03-13-2023 End: 03-13-2023 ambulatory Megan Fan Other [facility] Other Start: 01-21-2023 End: 01-21-2023 ambulatory Megan Fan Other [employer] Other Start: 01-21-[address] Fan [facility] Start: 12-21-2022 End: 12-21-2022 ambulatory Jack Mcpherson Other [employer] Other Start: 12-21-2022 Telephone encounter Jack Mcpherson [facility] Start: 12-11-2022 End: 12-11-2022 Admission to same day surgery center MD Megan Fan Work Phone: [facility] Work Phone: Start: 12-11-2022 End: 12-11-2022 ambulatory MD Megan Fan Work Phone: [facility] Work Phone: Start: 11-16-2022 End: 11-16-2022 ambulatory Megan Fan Other [facility] Other Start: 11-16-[address] Megan Fan [facility] Start: 11-06-2022 End: 11-06-2022 ambulatory Imad Asaad Other [employer] Other Start: 11-06-2022 Office outpatient ne w 45 minutes Imad Asaad [facility] Start: 10-15-2022 End: 10-15-2022 ambulatory Megan Fan Other [facility] Other Start: 10-15-2022 [address] Megan Fan [facility] Start: 10-03-2022 End: 10-03-2022 ambulatory Megan Fan Other [employer] Other Start: 10-03-2022 Office outpatient vi sit [address] [facility] Start: 07-31-2022 End: 07-31-2022 ambulatory Megan Fan Other [facility] Other Start: 07-31-2022 Telephone encounter Megan Fan [facility] Start: 06-25-2022 End: 06-26-[address] MEGAN FAN Facility:[facility] Start: 06-22-2022 Office outpatient vi sit [address] [facility] Start: 06-22-2022 End: 06-23-[address] MEGAN FAN Facility:[facility] Start: 06-18-2022 End: 06-18-2022 ambulatory Megan Fan Other [facility] Other Start: 06-18-[address] Megan Fan [facility] Start: 06-12-2022 End: 06-12-2022 ambulatory Megan Fan Other [facility] Other Start: 06-12-2022 Office outpatient vi sit [address] [facility] Start: 08-17-2021 End: 08-17-[address] MEGAN FAN Facility:[facility] Start: 08-07-2021 Adult health examination Megan Fan Other [facility] Other Start: 02-15-2021 Postop follow up vis it related to original px Phuc Denney [facility] Start: 01-23-2021 Telephone encounter Phuc Denney [facility] Start: 01-18-2021 Postop follow up vis it related to original px Phuc Graciela [facility] Procedures Date Procedure Procedure Detail Performing [...] Date Care Activity Detail Author Start: 01-03-2024 [facility] Start: 09-19-2023 [facility] Start: 09-18-2023 Doppler ultrasonogra phy of bilateral carotid arteries US carotid doppler BI [facility] Start: 09-18-2023 US.doppler Carotid a rteries - bilateral [facility] Start: 09-18-2023 Hospital admission [facility] Start: 09-11-2023 [facility] Start: 08-29-2023 [facility] Start: 08-28-2023 [facility] Start: 08-27-2023 End: 08-27-2023 [facility] Start: 08-27-2023 X-ray of left knee XR knee LT 2V Fir [facility] Start: 08-27-2023 XR Knee - left 2 Views [facility] Start: 08-27-2023 Hospital admission [facility] Start: 08-27-2023 Physical therapy procedure [facility] Start: 08-27-2023 Referral to occupati onal therapist [facility] Start: 12-11-2022 [facility] Patient Education [facility] Work Phone: Patient referral [facility] Work Phone: US Heart Transthoracic [facility] Immunizations Immunization Date Immunization Notes Care Provider Fa cility 02-21-2023 COVID-19 (PFIZER) 12Y and older MD Megan Fan Work Phone: [facility] 01-30-2022 COVID-19 mRNA Bivale nt Booster (Pfizer) MD Megan Fan Work Phone: [facility] 01-30-2022 COVID-19 Pfizer (Pediatric) Megan Fan Other [facility] 03-06-2021 COVID-19 mRNA-1273 (Moderna) MD Megan Fan Work Phone: [facility] 10-13-2020 Kenalog -40 mg Phuc Graciela Other [facility] Other 06-28-2020 COVID-19 mRNA-1273 (Moderna) MD Megan Fan Work Phone: [facility] 05-30-2020 COVID-19 mRNA-1273 (Moderna) MD Megan Fan Work Phone: [facility] 02-06-2019 influenza virus vaccine, split virus (incl. purified surface antigen) Megan Fan Other [facility] Other 02-06-2019 influenza virus vaccine, unspecified formulation MD Megan Fan Work Phone: [facility] 10-21-2018 Kenalog -40 mg Phuc Graciela Other [facility] Other 06-07-2016 Kenalog -40 mg Phuc Graciela Other [facility] Other Payers Date Payer Category Payer Medicare [id number] 2023 Self-pay [id number] 2020 Unknown [id number] 1945 Unknown [id number] 1945 Unknown [id number] 1945 Unknown [id number] 1945 Unknown [id number] 2.840.1.517139.3.579.2.1259 1945 Unknown [id number] 2.840.1.869299.3.579.2.1259 1945 Unknown [id number] 2.840.1.313308.3.579.2.1259 1945 Unknown [id number] 2.840.1.543791.3.579.2.1259 Medicare [id number] 2. [id number] Medicare Medicare [id number] Private Health Insurance [facility] [id number] Unknown [place] [employer]/ [id number] Unknown [id number] 2.840.1.575558.3.579.2.531 Unknown [id number] 2.840.1.566713.3.579.2.531 Unknown [id number] 2.840.1.375829.3.579.2.531 Unknown [id number] 2.840.1.212763.3.579.2.531 Unknown [id number] Unknown [id number] .[id number] Unknown [id number] 2.840.1.948802.3.579.2.531 Unknown [id number] 2.840.1.018317.3.579.2.531 Unknown [id number] 2.840.1.440602.3.579.2.531 Unknown [id number] 2.840.1.776273.3.579.2.531 Social History Date Type Detail Facility Sex Assigned At [facility] Other Start: 12-11-2022 End: 01-03-2024 Tobacco smoking status NHIS Ex-smoker (finding) [facility] Start: 1945 Sex Assigned At Male [facility] Medical Equipment Procedure Code Equipment Code Equipment Origin al Text Equipment Identifier Dates Arthroplasty, knee, total, minimally invasive Orthopaedic cement, non-medicated [id number] FDA Start: 01-03-2021 Arthroplasty, knee, total, minimally invasive Coated knee femur prosthesis ()[id number] FDA Start: 01-03-2021 Arthroplasty, knee, total, minimally invasive Tibial insert ()[id number] FDA Start: 01-03-2021 Arthroplasty, knee, total, minimally invasive Polyethylene patella prosthesis ()[id number] FDA Start: 01-03-2021 Arthroplasty, knee, total, minimally invasive Uncoated knee tibia prosthesis, metallic ()[id number] FDA Start: 01-03-2021 Arthroplasty, knee, total, minimally invasive Orthopaedic cement, non-medicated ()[id number] FDA Start: 08-27-2023 Arthroplasty, knee, total, minimally invasive Uncoated knee tibia prosthesis, metallic ()[id number] FDA Start: 08-27-2023 Arthroplasty, knee, total, minimally invasive Polyethylene patella prosthesis ()[id number] FDA Start: 08-27-2023 Arthroplasty, knee, total, minimally invasive Tibial insert ()[id number] FDA Start: 08-27-2023 Arthroplasty, knee, total, minimally invasive Coated knee femur prosthesis ()[id number] FDA Start: 08-27-2023 Goals Date Patient Goal Desired Activity /State Functional Status Date Assessment Result Facility 09-19-2023 Functional status Patient at Baseline [facility] Work Phone: Mental Status Date Assessment Result Facility 09-19-2023 Cognitive function Cognitive Sta tus Patient at Baseline [facility] Work Phone: Clinical Notes 01-03-2021 to 01-03-2024 Note Date & Type Note Facility 01-03-2024 Procedure note [facility] 09-18-2023 Progress note Note Date/Time September 18, 2023 7:35p m [facility] [address] [place] [address] Hospitalist Progress Note Signed Patient: Nicholas Trujillo MR#: [id number] : 1945 Acct:[id number] Age/Sex: 78 / M Adm Date: 4 Loc: 4P Room: [address] [place] [address] Type: ADM IN Attending Dr: Patricia Vilchis MD Copies to: ~ Date of Service: 09/18/2023 Subjective Subjective Narrative: Assessment And Plan 78M with PMH of HTN, PAF (on Eliquis), DJD who presented with weakness and dizziness to [facility] ER and transferred for the evaluation and treatment of suspected sinus pauses Orthostatic hypotension The patient presented with lightheadedness, he was found with Positive orthostatic blood pressure He received IVF. could be due to Multaq per cardiology dronedarone was discontinued US carotid pending report Post-conversion pause Sinus pauses was noted at [facility] . cardiology belvies this is in the [...] <Electronically signed by Patricia Vilchis MD> 09/18/232053 [facility] Work Phone: 1(757) 691-278705-29-2024 Consult note Author Garrett Gunter [facility] September 18, 2023 2:22pm Note Date/Time September 18, 2023 2:19p m [facility] [address] [place] [address] Cardiology Consult Note Signed with Debbie Patient: Nicholas Trujillo MR#: [id number] : 1945 Acct:[id number] Age/Sex: 78 / M Adm Date: 4 Loc: Room: [address] [place] [address] Type: ADM IN Attending Dr: Patricia Vilchis [...] lastseveral days and he presented to the [facility] ER. There was questionable reportsof dark stools, however patient said that these were due to iron pills. He was not significantly anemic with hemoglobin of 10. At [facility] was noted to be in sinus rhythm with first-degree AV block. He then went into A-fib and when he converted back to sinus rhythm he had PACs with pauses lasting 1-3 seconds. The patient says he was asymptomatic of these particular episodes as he was lying inbed and he felt nothing. The rest of his workup at [facility] was unremarkable: Chest x-ray shows no acute [...] negative unless noted below or in HPI [facility] Medical History (Updated 09/18/23 @ 14:19 by [...] PO QAM supplement 12/16/20 [History Confirmed 09/18/23] yfflfcjkzwvz-mns-wdlcw acid-vit K-lycop 400 mcg-20 mcg-370 mcg tablet [...] # Post-conversion pause of 1-3-seconds noticed at [facility] ? -The pauses at [facility] were in the context of conversion of [...] <Electronically signed by Garrett Gunter MD> 09/18/23 9185 [facility] Work Phone: 1(519) 675-414305-29-2024 Consult note Author Garrett Gunter [facility] September 18, 2023 2:21pm Note Date/Time September 18, 2023 2:21p m [facility] [address] [place] [address] Cardiology Consult Note Signed Patient: Nicholas Trujillo MR#: [id number] : 1945 Acct:[id number] Age/Sex: 78 / M Adm Date: 4 Loc: 4 Room: [address] [place] [address] Type: ADM IN Attending Dr: Patricia Vilchis MD Copies to: MD Megan Mccoy MD Marwan Wassouf, MD~ Cardiology HPI [...] lastseveral days and he presented to the [facility] ER. There was questionable reportsof dark stools, however patient said that these were due to iron pills. He was not significantly anemic with hemoglobin of 10. At [facility] was noted to be in sinus rhythm with first-degree AV block. He then went into A-fib and when he converted back to sinus rhythm he had PACs with pauses lasting 1-3 seconds. The patient says he was asymptomatic of these particular episodes as he was lying inbed and he felt nothing. The rest of his workup at [facility] was unremarkable: Chest x-ray shows no acute [...] negative unless noted below or in HPI [facility] Medical History (Updated 09/18/23 @ 14:19 by [...] Son [facility] Problem: Diagnosed with Mental Illness Social History Smoking Status: Former smoker Tobacco Type: cigars Substance Use Type: None Social History Comments: lives in mobile home Meds Medications and Allergies Allergies diclofenac Allergy (Unknown, Verified 09/11/23 14:03) stomach upset/weakness Home Medications cholecalciferol (vitamin D3) 50 mcg (2,000 unit) capsule (Vitamin D3) 50 mcg PO QAM supplement 12/16/20 [History Confirmed 09/18/23] uabpearazmxz-gat-cundp acid-vit K-lycop 400 mcg-20 mcg-370 mcg tablet [...] # Post-conversion pause of 1-3-seconds noticed at [facility] ? -The pauses at [facility] were in the context of conversion of [...] signed by Garrett Gunter MD> 09/18/23 1421 [facility] Work Phone: 1(563) 362-974905-29-2024 History and physical note Author Devonte eKlly [facility] September 18, 2023 1:53am Note Date/Time September 18, 2023 1:03a m [facility] [address] [place] [address] Hospitalist H&P Signed Patient: Nicholas Trujillo MR#: [id number] : 1945 Acct:[id number] Age/Sex: 78 / M Adm Date: 4 Loc: 4 Room: [address] [place] [address] Type: ADM IN Attending Dr: Devonte Kelly MD Copies to: MD Devonte Bahena MD Paula G Smith, ENROLLMENT CONSULTANT~ HPI DATE OF EXAMINATION: 09/18/23 CHIEF COMPLAINT: weakness and dizziness HISTORY OF PRESENT ILLNESS: Mr. Trujillo is a 78-year-old male with a PMH of paroxysmal A-fib, HTN, recent left knee replacement the presented to the [facility] emergency room for weakness and dizziness. Patient [...] rate 69, standing 126/69, heart rate 57. [facility] chart review?EKG sinus rhythm with a first-degree [...] unless noted in the HPI or below. [facility] Medical History (Updated 09/18/23 @ 01:40 by [...] PO QAM supplement 12/16/20 [History Confirmed 09/18/23] ysrhcanxvzjw-glt-rzhia acid-vit K-lycop 400 mcg-20 mcg-370 mcg tablet [...] cardiology for possible sinus pauses seen at [facility] emergency room ? Hold dronedarone for now [...] signed by Devonte Kelly MD> 09/18/23 0153 [facility] Work Phone: 1(910) 324-668512-05-2023 Evaluation note* Encounter Date Diagnosis Assessment Notes Treatment Notes Treatment Clinical Notes Mar, COVID-19 (ICD-10 - U07.1) Discussed quarantine guidelines and symptom management. Call if further concerns. [facility] Other 11-22-2023 Evaluation note* Encounter Date Diagnosis [...] weekend of breathing or other symptoms worsen. [facility]-22-[facility]23 [facility]* Encounter Date Diagnosis Assessment Notes Treatment Notes Treatment Clinical Notes 28 Russell, 2023 Gouty arthritis (ICD-10 - M10.9) [facility] Other 07-18-2023 Evaluation note* Encounter Date Diagnosis Assessment Notes Treatment Notes Treatment Clinical Notes Oct, Fecal incontinence (ICD-10 - R15.9) Oct, Mucus in stool (ICD-10 - R19.5) Oct, Frequent bowel movements (ICD-10 - R19.4) Oct, Diarrhea (ICD-10 - R19.7) [facility] Other 06-26-2023 Evaluation note* Encounter Date Diagnosis Assessment Notes Treatment Notes Treatment Clinical Notes Sep, Incontinence of feces, unspecified fecal incontinence type (ICD-10 - R15.9) [facility] Other 06-14-2023 Evaluation note* Encounter Date Diagnosis [...] Medrol pack should help it resolve faster. [facility] Other 04-11-2023 Evaluation note* Encounter Date Diagnosis Assessment Notes Treatment Notes Treatment Clinical Notes Jul, Current moderate episode of major depressive disorder without prior episode (ICD-10 - F32.1) [facility] Other 03-03-2023 Evaluation note* Encounter Date Diagnosis Assessment Notes Treatment Notes Treatment Clinical Notes Jun, Current moderate episode of major depressive disorder without prior episode (ICD-10 - F32.1) D/c effexor. start SSRI. Followup in 1-2 months Jun, Essential (primary) hypertension (ICD-10 - I10) Has not had an ekg in several years. would be helpful to get a baseline with his fluctuating bps. [facility] Other 02-21-2023 Evaluation note* Encounter Date Diagnosis [...] depression in his life at this time. [facility] Other 10-27-2021 Evaluation note* Encounter Date Diagnosis [...] by physical therapy. Call with questions/concerns . [facility] Other 09-29-2021 Evaluation note* Encounter Date Diagnosis [...] ment today in the electronic medical record [facility] Other 09-14-2021 History general Narrative - Reported* Type Description Date Medical History HTN Surgical History right total knee arthroplasty [facility] Other 09-14-2021 History general Narrative - Reported* Type Description Date Medical History HTN Surgical History right total knee arthroplasty Hospitalization History SEE SURGICAL HX [facility] Other Evaluation noteNo InformationNort [employer] Other Evaluation noteNo assessment information available [facility] Work Phone: Evaluation note* Diagnosis Onset Date Resolution Status Primary osteoarthritis of left knee acute [facility] Work Phone: Evaluation note* Diagnosis Onset Date Resolution Status Primary osteoarthritis of left knee acute Essential (primary) hypertension acute Left knee pain acute Paroxysmal atrial fibrillation acute Pre-operative cardiovascular examination acute Primary osteoarthritis of left knee acute [facility] Work Phone: evaluation note* Diagnosis Onset Date Resolution Status Primary osteoarthritis of left knee acute Essential (primary) hypertension acute Left knee pain acute Paroxysmal atrial fibrillation acute Pre-operative cardiovascular examination acute Primary osteoarthritis of left knee acute Primary osteoarthritis of left knee acute [facility] Work Phone: Evaluation note* Diagnosis Onset [...] acute Primary osteoarthritis of left knee acute [facility] Work Phone: evaluation note* Diagnosis Onset [...] fibrillation with conversion pauses acute Weakness acute [facility] Work Phone: evaluation note* Diagnosis Onset [...] acute Primary osteoarthritis of left knee acute [facility] Work Phone: evaluation note* Diagnosis Onset [...] Status post total left knee replacement [facility] Work Phone: Evaluation note* Diagnosis [...] Status post total left knee replacement acute [facility] Work Phone: Evaluation note* Diagnosis Onset Date Resolution Status Essential (primary) hypertension acute Paroxysmal atrial fibrillation acute Primary osteoarthritis of left knee acute Primary osteoarthritis of left knee acute Status post total left knee replacement acute [facility] Work Phone: History and physical note Author Tina Garcia [facility] December 11, 2022 10:20am Note Date/Time December 11, 2022 10 :20am [facility] [address] [place] [address] Gastroenterology H&P Signed Patient: Nicholas Trujillo MR#: [id number] : 1945 Acct:[id number] Age/Sex: 77 / M Adm Date: 3 Loc: Room: Type: [facility] Attending Dr: Tina Garcia MD Copies to: [...] signed by Tina Garcia MD> 12/11/22 1020 [facility] Work Phone: History and physical note Author Tina Garcia [facility] January 03, 2024 10:22am Note Date/Time January 03, 2024 10:22am [facility] [address] [place] [address] Gastroenterology H&P Signed Patient: Nicholas Trujillo MR#: [id number] : 1945 Acct:[id number] Age/Sex: 78 / M Adm Date: 4 Loc: Room: Type: [facility] Attending Dr: Tina Garcai MD Copies to: MD Megan Zhang MD~ [...] signed by Tina Garcia MD> 01/03/24 1022 [facility] Work Phone: Hospital Discharge instructions Additional [...] scheduled -Follow up with PCP. -Office number [phone]. [facility] Work Phone: Hospital Discharge instructions Additional Instructions Joint Replacement Discharge Instructions Your safety during your recovery process is important to us. Please seek immediate emergency care if you have sudden chest pain or shortness of breath. Additionally, please call our office at [phone] should any of the following occur: wound [...] and/or laxatives as directed. You may take mwhb-txz-yeukvsr Benadryl if itching occurs without a rash or hives. Icing and elevation will help relieve pain as well, do not underestimate the power of ice and elevation. We do recommend that you stop taking narcotic pain medications by 4-6 weeks after surgery and if necessary, continue to use anti-inflammatory medications such as Mobic (meloxicam), Celebrex (celecoxib), or an wnau-pot-cjfxvka medication (Aleve, Motrin, Ibuprofen, etc). Driving an [...] feel free to call our office at [phone]. You are a priority of ours and we will not be upset with you if you call. We would much rather you call to confirm aspects of your recovery process as opposed to possibly hindering your recovery with inappropriate care. We are committed to providing you with the best care possible. Dr. Phuc Den[facility] [address] [place] [id number] [email or web address] [facility] Work Phone: Progress note Author Garrett Gunter [facility] September 19, 2023 1:51pm Note Date/Time September 19, 2023 1:49p m [facility] [address] [place] [address] Cardiology Progress Note Signed Patient: Nicholas Trujillo MR#: [id number] : 1945 Acct:[id number] Age/Sex: 78 / M Adm Date: 4 Loc: 4 Room: 2D4251-4 Type: ADM IN Attending Dr: Patricia Vilchis [...] # Post-conversion pause of 1-3-seconds noticed at [facility] - The pauses at [facility] were in the context of conversion of [...] call with any questions. Follow up with [facility] Cardiology in 1 month. Documented By: Garrett Gunter MD 08/22 1347 Signed By: <Electronically signed by Garrett Gunter MD> 09/19/23 1359 [facility] Work Phone: Summary Purpose Family History [...] unspecified fecal incontinence type (R15.9) Referral Organization [facility] Referring Provider First Name Megan Referring Provider Last Name Meng Referring Provider Specialty Family Medi cine Referred Organization [facility] Gastroenterolo gy Referred Provider Jack Mcpherson Referred Address [address] [facility] [address] ,[place], [place],[address] Referred Provider Specialty Gastroentero logy Referral Priority Routine General Notes Chioma Lorenzo 08:04:51 AM >received today, sent P2P Chief Complaint and Reason for Visit Chief Complaint Fecal Incontinence, Mucus in Stool, Diarrhea Chief Complaint Amb Documentation M25.562 - Pain in left knee op food court team member lt knee pain discuss surgery Reason for Visit Primary osteoarthrit is of left knee Chief Complaint Amb Documentation M25.562 - Pain in left knee op food court team member lt knee pain discuss surgery Knee Pain Reason for Visit Primary osteoarthrit is of left knee Chief Complaint Amb Documentation M25.562 - Pain in left knee op food court team member lt knee pain discuss surgery Knee Pain Preop Clearance For L Total Knee. Abnormal EKG Reason for Visit Primary osteoarthrit is of left knee Essential (primary) hypertension Left knee pain Paroxysmal atrial fibrillation Pre-operative cardiovascular examination Primary osteoarthritis of left knee Chief Complaint Amb Documentation M25.562 - Pain in left knee op food court team member lt knee pain discuss surgery Knee Pain [...] M25.562 - Pain in left knee op food court team member lt knee pain discuss surgery Knee Pain [...] - Pain in le ft knee op food court team member lt knee pain discuss surgery Knee Pain [...] - Pain in le ft knee op food court team member lt knee pain discuss surgery Knee Pain Preop Clearance For L Total Knee. Abnormal EKG R94.31 I48.91 LTK Pre Op H & P LEFT TOTAL KNEE ARTHROPLASTY 08-27-23 Knee Pain Knee Pain 2 WEEKS POST OP 1 Month Sinus Pressure Sinus Pressure [facility] follow up, weakness and dizziness Reason for [...] - Pain in le ft knee op food court team member lt knee pain discuss surgery Knee Pain [...] - Pain in le ft knee op food court team member lt knee pain discuss surgery Knee Pain [...] post total left knee replacement Chief Complaint [facility] 09/18 6 WEEK RECHECK hx of colon [...] Patient has never had colonoscopy before.messagegastro reportsRefillmessagecovid [phone] COVID Positivecovid [phone] COVID Positive (unrecognized sect ion and content) No Status Records FoundNo Status Records FoundNo Status Records Found INFORMATION SOURCE (unrecogn ized section and content) DATE CREATED AUTHOR 06/27/2022 [facility] DATE CREATED AUTHOR AUTHOR'S ORGANIZ ATION 10/05/2023 [facility] EPIC DATE CREATED AUTHOR AUTHOR'S ORGANIZ ATION 01/12/2024 [facility] Care Teams (unrecognized sec tion [...] Member Role Status Dates Garrett Gunter MD Clinical Laboratory Aide Active Megan Fan MD Primary Care Provider Active [...] BE BASED ON THE PRIMARY CLINICAL RECORDS. [facility] [employer] provides no warranty or guarantee of the accuracy or completeness of information in this document.
[2024-05-01 17:21] LABS: C. Difficile PCR POSITIVE
[2024-05-04 13:08] LABS: Giardia lamblia Ag, EIA Negative (Negative)
== END 2024-05-01 14:16 | disposition home or self-care (01) ==
LOC: LAB 14:15
PROVIDERS: PCP Chiropractor; Visit Provider Emergency Medicine
DX: R19.7 Diarrhea, unspecified (principal)
CPT/HCPCS: 83631; 87045; 87046; 87177; 87209; 87329; 87427; 87493

== ENCOUNTER 2024-09-25 13:49 | Outpatient (OUT) | payer MEDICARE, SELFPAY ==
--- NOTE | 2024-09-25 13:55 | US_ITS ---
The [address] [address] Patient Name: SHAJI WASHINGTON MRN: [id number] date: 1945 Sex: M Assigned Patient Location: [place] Current Patient Location: Accession/Order Number: [id number] Exam Date: 09/30/2024 10:10 Report Date: 09/30/2024 10:19 At the request of: NON-STAFF PHYSICIAN MD Procedure: US carotid duplex BI CAROTID DUPLEX ULTRASOUND, BILATERAL: HISTORY / INDICATION: Retinal ischemia COMPARISON: NONE TECHNIQUE: Duplex ultrasonographic examination of bilateral carotid and vertebral arteries were obtained including Morales scale/Color Doppler imaging and Spectral Doppler flow analysis. FINDINGS: The bilateral carotid arteries demonstrate normal course and caliber. Mild atherosclerotic plaque is present bilaterally. Peak systolic velocity measurements are within normal limits at all levels. Right Left CCA max 92 cm/s 96 cm/s ICA max 83 cm/s 99 cm/s Peak systolic velocity ICA/CCA ratio measures also normal bilaterally, right 1.1 and left 1.5. Bilateral vertebral arteries are patent with unremarkable antegrade flow. US/US carotid duplex BI IMPRESSION: NO HEMODYNAMICALLY SIGNIFICANT STENOSIS. Impression dictated by: Shirin Charles M.D. 09/30/2024 10:19 AM Dictation Location: [place] [address] Electronically authenticated by: [id number] Y Date: 09/30/2024 10:19
--- OUTSIDE RECORDS SUMMARY | 2024-09-25 14:11 | XMS_ITS | CCD ---
Author Organization [facility] Care Team Providers Care Nuclear Physician Name Role Phone Phuc Denney Unavailable DR RHIANNA FAN Primary Care Unavailable CARMEL ARANA Attending Unavailable GIACOMO Medina, CARMEL Admitting Unavailable ODESSA UMAÑA Consulting Unavailable CARMEL ARANA Consulting Unavailable MENG, DR RHIANNA Stafford Consulting Unavailable MENG, DR RHIANNA Stafford Attending Unavailable MENG, DR RHIANNA Stafford Admitting Unavailable MENG, DR RHIANNA Stafford Primary Care Unavailable MENG, DR RHIANNA Stafford Consulting Unavailable MENG, DR RHIANNA Stafford Attending Unavailable MENG, DR RHIANNA Stafford Admitting Unavailable MENG, DR RHIANNA Stafford Primary Care Unavailable Rhianna Fan Unavailable Tina Garcia Unavailable MD Rhianna Fan Primary Care Provider MD Tina Garcia Attending Provider Jack Mcpherson Unavailable MD Rhianna Fan Primary Care Provider DO Phuc Denney Attending Provider [phone] MD Garrett Gunter Attending Provider MD Devonte Kelly Admit Provider [phone] MD Patricia Vilchis Attending Provider MANNY ESCOBEDO Attending Unavailable MANNY ESCOBEDO Attending Unavailable KENDRA FAJARDO Referring Unavailable DOUGIE MOSLEY Attending Unavailable KENDRA FAJARDO Referring Unavailable RONNA CARPIO Attending Unavailable KENDRA FAJARDO Referring Unavailable MD Rhianna Fan Primary Care Provider [phone] DO Phuc Denney Attending Provider MD Garrett Gunter Attending Provider MD Rhianna Fan Primary Care Provider MD Garrett Gunter Attending Provider MD Tina Garcia Attending Provider Rhianna Fan MD Primary Care Provider [phone] Phuc Denney DO Attending Provider [phone] Rhianna Fan MD Attending Provider NO FAMILY, PHYSICIAN Primary Care Provider Unava Tina Patel MD Attending Provider NO FAMILY, PHYSICIAN Primary Care Provider Unava Tina Patel MD Attending Provider [phone] Rhianna Fan MD Primary Care Provider Danyel Orozco MD Emergency Provider Rhianna Fan Primary Care Unavailable Danyel Orozco Admitting Unavailable Danyel Orozco Attending Unavailable Rhianna Fan Primary Care Unavailable Garrett Gunter Admitting Unavai Garrett Martinez Attending Unavai labRhianna Davila Primary Care Unavailable Phuc Denney Admitting Unavailable Phuc Denney Attending Unavailable NO FAMILY, PHYSICIAN Primary Care Unavailable Rhianna Fan Admitting Unavailable Rhianna Fan Attending Unavailable NO FAMILY, PHYSICIAN Primary Care Unavailable Asaad, Imad Admitting Unavailable Asaad, Imad Attending Unavailable Rhianna Fan Primary Care Unavailable Asaad, Imad Admitting Unavailable Asaad, Imad Attending Unavailable Allergies Allergy Classification Reported Allergen(s) Allergy Type Date of Onset Reaction(s) Facility (18 sources) Diclofenac Drug Allergy stomach upset/weakness [facility] Other (8 sources) Allergies Reconciled Propensity to adverse reactions Unknown [facility] Other (1 source) Diclofenac Drug Allergy 5 [facility] Repository Medications Current Medications Medication Drug Class(es) Dates Sig (Normalized) Sig (Original) apixaban 5 mg oral tablet (20 sources) Factor Xa Inhibitor Start: 08-14-2023 End: [...] 16, 2020 12:00am take 1 capsule by [facility] every twenty-four hours Vitamin D3 50 MCG (2000 UT) 1 capsule Orally Once a day Active [place] 4-Gdg-Dje-Fish Oil (13 sources) Start: 04-29-2024 take 300-1000 mg by mouth once daily [place] 2-Rjc-Nul-Fish Oil (Fish Oil) 300-1,000 mg capsule Active 1 CAP PO Daily April 29, 2024 1:00am Start: 04-29-2024 take 300-1000 mg by mouth once daily [place] 4-Iir-Beh-Fish Oil (Fish Oil) 300-1,000 mg capsule Active 1 CAP PO Daily April 29, 2024 12:00am Fish Oils (9 sources) take 1 capsule by mouth once daily Fish Oil 1000 MG 1 capsule Orally Once a day Active hydroCHLOROthiazide 12.5 mg oral capsule (9 sources) Thiazide Diuretic take 1 capsule by mouth every twenty-four hours hydroCHLOROthiazide 12.5 MG 1 capsule in the morning Orally Once a day Active hydroCHLOROthiazide 12.5 mg / lisinopril 20 mg oral tablet (20 sources) Thiazide Diuretic, Angiotensin Converting Enzyme Inhibitor Start: 2024 End: 2024 take 1 tablet by mouth once daily Lisinopril-Hydrochloroth iazide 20-12.5 mg tablet Active 1 TAB PO Daily August 06, 2024 12:08pm Start: 12-13-2023 End: 05-04-2024 Lisinopril-Hydrochlorothiazi de 20-12.5 mg tablet Discontinued 0 .ROUTE .COMPLEX March 12, 2024 9:22am May 04, 2024 12:03pm TAKE 1 TABLET DAILY Start: 09-23-2023 End: 12-13-2023 take 1 tablet by mouth once daily Lisinopril-Hydrochlorothiazide 20-12.5 m g tablet Discontinued 1 TAB PO Daily September 23, 2023 1:48pm December 13, 2023 10:23am Start: 09-06-2023 End: 09-23-2023 Lisinopril-Hydrochlorothiazi de 20-12.5 mg tablet Discontinued 0 .ROUTE .COMPLEX 90 September 06, 2023 9:53am September 23, 2023 1:51pm TAKE 1 TABLET DAILY Start: 08-09-2023 End: 09-06-2023 take 1 tablet by mouth once daily in the morning Lisinopril-Hydrochlorothiazide 20-12.5 m g tablet Discontinued 1 TAB PO Every morning August 09, 2023 12:00am September 06, 2023 9:53am TAKE 1 TABLET DAILY Start: 06-17-2023 End: 08-09-2023 Lisinopril-Hydrochlorothiazi de 20-12.5 mg tablet Discontinued 0 .ROUTE .COMPLEX 90 June 17, 2023 3:23pm August 09, 2023 10:31am TAKE 1 TABLET DAILY Start: 06-17-2023 End: 06-17-2023 take 1 tablet by mouth once daily Lisinopril-Hydrochlorothiazide 20-12.5 m g tablet Discontinued 1 TAB PO Daily June 17, 2023 1:00am June 17, 2023 3:23pm Start: 12-16-2020 End: 08-05-2023 take 1 tablet by mouth once daily Lisinopril-Hydrochlorothiazide 10-12.5 m g Tablet Discontinued 1 TAB PO Daily December 16, 2020 12:00am August 05, 2023 8:55am take 1 tablet by yuri every twenty-four hours Lisinopril-hydroCHLOROthiazide 20-12.5 M G [...] directed Orally for 6 days Sep, Active Dfslnpmd-Onq-Dfmvj-Vit K-Lycop (Men's 50 Plus Daily Formula) 400-20-370 mcg Tablet (20 sources) Start : 12-16 take 1 tablet by mouth once daily in the morning Lfdhrtgu-Mpx-Vuujw-Vit K-Lycop (Men's 50 Plus Daily Formula) 400-20-370 mcg Tablet Active 1 TAB PO Every morning December 15, 2020 11:00pm Start: 12-16-2020 take 1 tablet by yuri th once daily in the morning Bpibhmvj-Jgd-Bqreo-Vit K-Lycop (Men's 50 Plus Daily Formula) 400-20-370 mcg Tablet Active 1 TAB PO Every morning December 16, 2020 12:00am Start: 12-16-2020 take 1 tablet by yuri th once daily Hfkilbtg-Xwr-Kapjx-Vit K-Lycop (Men's 50 Plus Daily Formula) 400-20-370 mcg Tablet Active 1 TAB PO Daily December 16, 2020 12:00am Multivitamin preparation (18 sources) Multivitamin Act everette paxlovid (300/100) 20 x 150 mg & 10 x 100mg tablet therapy pack (2 sources) Paxlovid (300/10 0) 20 x 150 MG & 10 x 100MG as directed Orally for 5 days Active polyethylene glycol 3350 935375 mg / potassium chloride 2970 mg / sodium bicarbonate 6740 mg / sodium chloride 5860 mg / sodium sulfate 56751 mg powder for oral solution (5 sources) Osmotic Laxative Start: 11-06-2022 Golytely 236 GM At 4:00 pm the [...] (20 sources) Start: 08-21-2023 End: 08-21-2023 take 2 tablets by mouth every eight hours Acetaminophen 500 mg tablet Discontinued 1000 MG PO Q8H 180 30 August 21, 2023 12:00am August 21, 2023 11:11am Start: 08-21-2023 End: 08-21-2023 take 1000 mg by mouth every eight hours Acetaminophen Discontinued 1000 MG PO Q8H 180 August 21, 2023 12:00am August 21, 2023 11:11am Start: 01-04-2021 End: 08-05-2023 take 1000 mg by mouth every eight hours Acetaminophen Discontinued 1000 MG PO Q8H January 04, 2021 12:00am August 05, 2023 8:56am Start: 12-30-2020 End: 08-05-2023 take 2 tablets by mouth every eight hours as needed for pain Acetaminophen 500 mg Tablet Discontinued 1000 MG PO Q8H as needed for Fever Or Pain January 04, 2021 12:00am August 05, 2023 8:56am allopurinol 100 mg oral tablet (20 sources) Xanthine Oxidase Inhibitor Start: 05-29-2024 End: 07-02-2024 take 1 tablet by mouth once daily Allopurinol 100 mg tablet Discontinued 0 .ROUTE .COMPLEX May 29, 2024 9:37am July 02, 2024 10:04am TAKE 1 TABLET BY MOUTH EVERY DAY Start: 05-04-2024 End: 05-29-2024 take 1 tablet by mouth once daily Allopurinol 100 mg tablet Discontinued 100 MG PO Daily May 04, 2024 12:02pm May 29, 2024 9:37am Start: 12-24-2023 End: 05-04-2024 take 1 tablet by mouth once daily Allopurinol 100 mg tablet Discontinued 0 .ROUTE .COMPLEX December 24, 2023 1:16pm May 04, 2024 12:02pm TAKE 1 TABLET BY MOUTH EVERY DAY Start: 09-25-2023 End: 12-24-2023 take 1 tablet by mouth once daily Allopurinol 100 mg tablet Discontinued 100 MG PO Daily November 18, 2023 2:18pm December 24, 2023 1:16pm aspirin 81 mg chewable tablet (20 sources) Platelet Aggregation Inhibitor, Nonsteroidal Anti-inflammatory Drug Start: 08-21-2023 End: 08-21-2023 take 1 tablet by mouth twice daily Aspirin 81 mg tablet,chewable Discontinued 81 MG PO Twice daily 74 August 21, 2023 12:00am August 21, 2023 11:11am Start: 01-04-2021 End: 12-11-2022 take 1 tablet by mouth twice daily Aspirin 81 mg Tablet,Delayed Release (Dr/Ec) Discontinued 81 MG PO Twice daily January 04, 2021 12:00am December 11, 2022 9:20am Start: 12-30-2020 take 1 tablet by yuri th every twelve hours Aspirin 81 MG 1 tablet Orally every 12 hrs for 35 days Do not fill until 01/02/21. To be used post op TKA for DVT prophylaxis Dec, Active baclofen 10 mg oral tablet (20 sources) gamma-Aminobutyric Acid-ergic Agonist Start: 12-16-2020 End: 08-05-2023 take 1 tablet by mouth at bedtime Baclofen 10 mg tablet Discontinued 10 MG PO Bedtime December 16, 2020 12:00am August 05, 2023 8:56am calcium ascorbate 500 mg oral tablet (20 sources) Start: 08-14-2023 End: 08-21-2023 take 1 tablet by mouth once daily Ascorbate Calcium (Vitamin C) 500 mg tablet Discontinued 500 MG PO Daily August 14, 2023 12:00am August 21, 2023 11:11am cefdinir 300 mg oral capsule (13 sources) Cephalosporin Antibacterial Start: 03-23-2024 End: 05-04-2024 take 1 capsule by mouth twice daily Cefdinir 300 mg capsule Discontinued 300 MG PO Twice daily March 23, 2024 1:00am May 04, 2024 12:01pm ciprofloxacin 500 mg oral tablet (11 sources) Quinolone Antimicrobial Start: 05-04-2024 End: 05-14-2024 take 1 tablet by mouth every twelve hours Ciprofloxacin Hcl (Cipro) 500 mg tablet Discontinued 500 MG PO Every 12 hours May 04, 2024 1:00am May 14, 2024 11:08am cyclobenzaprine hydrochloride 10 mg oral tablet (20 sources) Muscle Relaxant Start: 08-21-2023 End: 09-11-2023 take 5-10 mg by mouth every eight hours Cyclobenzaprine 10 mg tablet Discontinued 5 - 10 MG PO Q8H 30 August 21, 2023 12:00am September 11, 2023 2:04pm Start: 12-30-2020 take 0.5-1 tablets b y mouth every eight hours as needed for muscle spasms Cyclobenzaprine HCl 10 MG 1/2 to 1 tablet at as needed for muscle spasm Orally every 8 hrs Dec, Not-Taking diphenhydrAMINE hydrochloride 25 mg oral capsule (14 sources) Histamine-1 Receptor Antagonist Start: 12-20-2023 End: 05-04-2024 take 1 capsule by mouth once daily at bedtime Diphenhydramine Hcl (Allergy (Diphenhydramine)) 25 mg capsule Discontinued 25 MG PO Daily at bedtime December 20, 2023 12:00am May 04, 2024 12:01pm docusate sodium 100 mg oral capsule (20 sources) Start: 08-21-2023 End: 09-09-2023 take 1 capsule by mouth twice daily Docusate Sodium (Colace) 100 mg capsule Discontinued 100 MG PO Twice daily 28 August 21, 2023 12:00am September 09, 2023 10:21am Start: 01-04-2021 End: 08-09-2023 take 1 capsule by mouth twice daily Docusate Sodium 100 mg Capsule Discontinued 100 MG PO Twice daily January 04, 2021 12:00am August 09, 2023 10:30am Start: 12-30-2020 take 1 capsule by [facility] every twelve hours Colace 100 MG 1 capsule Orally every 12 hrs for 14 days Do not fill until 01/02/21. To be used post op TKA. Dec, Active doxycycline hyclate 100 mg oral tablet (20 sources) Tetracycline-class Drug Start: 08-21-2023 End: 09-11-2023 take 1 tablet by mouth twice daily Doxycycline Hyclate 100 mg tablet Discontinued 100 MG PO Twice daily 02 11August 21, 2023 12:00am September 11, 2023 2:04pm dronedarone 400 mg oral tablet (20 sources) Antiarrhythmic Start: 08-14-2023 End: 09-19-2023 take 1 tablet by mouth twice daily at mealtime Dronedarone (Multaq) 400 mg tablet Discontinued 400 MG PO Twice daily 180 September 11, 2023 2:49pm September 19, 2023 2:26pm must administer with a meal/food FLUoxetine 20 mg oral capsule (20 sources) Serotonin Reuptake Inhibitor Start: 10-21-2023 End: 08-06-2024 Fluoxetine 20 mg capsule Discontinued 0 .ROUTE .COMPLEX April 09, 2024 9:30am August 06, 2024 12:09pm TAKE 1 CAPSULE ONCE DAILY Start: 08-09-2023 End: 10-21-2023 take 1 capsule by mouth once daily in the morning Fluoxetine 20 mg capsule Discontinued 20 MG PO Every morning August 09, 2023 12:00am October 21, 2023 8:30am TAKE 1 CAPSULE ONCE DAILY Start: 07-22-2023 End: 08-09-2023 Fluoxetine 20 mg capsule Discontinued 0 .ROUTE .COMPLEX July 22, 2023 11:55am August 09, 2023 10:31am TAKE 1 CAPSULE ONCE DAILY Start: 07-22-2023 End: 07-22-2023 take 1 capsule by mouth once daily Fluoxetine 20 mg capsule Discontinued 20 MG PO Daily July 22, 2023 12:00am July 22, 2023 11:55am Start: 06-22-2022 take 1 capsule by mo [facility] every twenty-four hours FLUoxetine HCl 20 MG 1 capsule Orally Once a day for 90 days Jun, Active loratadine 10 mg oral tablet (20 sources) Start: 12-16-2020 End: 08-21-2023 take 1 tablet by mouth once daily at bedtime as needed Loratadine (Claritin) 10 mg tablet Discontinued 10 MG PO Daily at bedtime as needed for sinus August 14, 2023 1:57pm August 21, 2023 11:12am Claritin Active melatonin 10 mg oral tablet (20 sources) Start: 12-16-2020 End: 12-11-2022 take 1 tablet by mouth once daily at bedtime Melatonin 10 mg Tablet Discontinued 10 MG PO Daily at bedtime December 16, 2020 12:00am December 11, 2022 9:20am Melatonin [facility] Melatonin Active 24 hr metoprolol succinate 25 mg extended release oral tablet (20 sources) beta-Adrenergic Cate Start: 05-04-2024 End: 08-03-2024 take 1 tablet by mouth once daily Metoprolol Succinate 25 mg tablet extended release 24 hr Discontinued 25 MG PO Daily July 30, 2024 7:57am August 03, 2024 4:03pm Start: 02-05-2024 End: 05-04-2024 take 1 tablet by mouth once daily Metoprolol Succinate 25 mg tablet extended release 24 hr Discontinued 0 .ROUTE .COMPLEX February 05, 2024 12:10pm May 04, 2024 12:03pm TAKE 1 TABLET BY MOUTH EVERY DAY Start: 09-19-2023 End: 02-05-2024 take 1 tablet by mouth once daily Metoprolol Succinate 25 mg tablet extended release 24 hr Discontinued 25 MG PO Daily October 03, 2023 3:41pm February 05, 2024 12:11pm metroNIDAZOLE 500 mg oral tablet (11 sources) Nitroimidazole Antimicrobial Start: 05-04-2024 End: 05-14-2024 take 1 tablet by mouth every eight hours Metronidazole 500 mg tablet Discontinued 500 MG PO Every 8 hours May 04, 2024 1:00am May 14, 2024 11:07am Tupelo 9-Zss-Cho-Fish Oil (12 sources) Start: 12-16-2020 End: 10-22-2023 T[place]elo 5-Awu-Vwj-Fish Oil Discontinued 1 CAP PO Every morning December 16, 2020 12:00am October 22, 2023 2:21pm Instructed to stop 7 days berfore surgery Start: 12-16-2020 T[place]elo 3-Dha-Ep a-Fish Oil Active 1 CAP PO Every morning December 16, 2020 12:00am Instructed to stop 7 days berfore surgery Start: 12-16-2020 [place]elo 3-Dha-Ep a-Fish Oil Active 1 CAP PO Daily December 16, 2020 12:00am Instructed to stop 7 days berfore surgery Tupelo 6-Hrx-Lzy-Fish Oil 600 mg-216 mg- 324 mg-1,200 mg Capsule,Delayed Release(Dr/Ec) (13 sources) Start: 12-16-2020 End: 10-22-2023 Tupelo 6-Xwi-Ugd-Fish Oil 600 mg-216 mg- 324 mg-1,200 mg Capsule,Delayed Release(Dr/Ec) Discontinued 1 CAP PO Every morning December 16, 2020 12:00am October 22, 2023 2:21pm Instructed to stop 7 days berfore surgery Start: 12-16-2020 End: 10-22-2023 T[place]elo 1-Sct-Dre-Fish Oil 600 mg-216 mg- 324 mg-1,200 mg Capsule,Delayed Release(Dr/Ec) Discontinued 1 CAP PO Every morning December 15, 2020 11:00pm October 22, 2023 1:21pm Instructed to stop 7 days berfore surgery Tupelo-3 Fatty Acids (Maxepa) 500 mg capsule (14 sources) Start: 12-20-2023 End: 03-23-2024 take 1 capsule by mouth once daily Tupelo-3 Fatty Acids (Maxepa) 500 mg capsule Discontinued 500 MG PO Daily December 20, 2023 12:00am March 23, 2024 11:22am Start: 12-20-2023 End: 03-23-2024 take 1 capsule by mouth once daily Tupelo-3 Fatty Acids (Maxepa) 500 mg capsule Discontinued 500 MG PO Daily December 19, 2023 11:00pm March 23, 2024 10:22am Start: 12-20-2023 take 1 capsule by mo [facility] once daily Tupelo-3 Fatty Acids (Maxepa) 500 mg capsule Active 500 MG PO Daily December 20, 2023 12:00am oxyCODONE hydrochloride 5 mg oral tablet (20 sources) Opioid Agonist Start: 08-21-2023 End: 09-09-2023 take 1 tablet by mouth every four hours as needed for pain Oxycodone 5 mg tablet Discontinued 5 MG PO Q4H as needed for Pain 42 August 21, 2023 September 09, 2023 10:21am dispense 42 (forty-two) tablets diagnosis: M17.12 DO NOT FILL UNTIL 08/26/2023 Start: 12-30-2020 End: 08-09-2023 take 1 tablet by mouth every four hours as needed for pain Oxycodone 5 mg Tablet Discontinued 5 MG PO Q4H as needed for Pain Scale 1 - 5 January 04, 2021 August 09, 2023 10:30am traMADol hydrochloride 50 mg oral tablet (20 sources) Opioid Agonist Start: 08-21-2023 End: 09-09-2023 take 1 tablet by mouth every four hours as needed for pain Tramadol 50 mg tablet Discontinued 50 MG PO Q4H as needed for Pain 42 August 21, 2023 12:00am September 09, 2023 10:21am dispense 42 (forty-two) tablets diagnosis: M17.12 DO NOT FILL UNTIL 08/26/2023 Triamcinolone (20 sources) Corticosteroid Start: 10-13-2020 Kenalog -40 mg Sep, 40 mg Start: 10-21-2018 Kenalog -40 mg Oct, 40 mg Start: 06-07-2016 Kenalog -40 mg May, vancomycin 125 mg oral capsule (20 sources) Glycopeptide Antibacterial Start: 05-14-2024 End: 09-18-2024 take 1 capsule by mouth four times daily Vancomycin (Vancocin) 125 mg capsule Discontinued 125 MG PO Four times daily 56 14 June 11, 2024 2:51pm August 24, 2024 1:09pm Vitamin B Complex (20 sources) Start: 12-16-2020 End: 12-11-2022 take 1 tablet by mouth once daily Vitamin B Complex Discontinued 1 TAB PO Daily December 16, 2020 12:00am December 11, 2022 9:21am Vitamin B Comple x Not-Taking Vitamin B Comple x Active Vitamin B Complex Tablet (13 sources) Start: 12-16-2020 End: 12-11-2022 take 1 tablet by mouth once daily Vitamin B Complex Tablet Discontinued 1 TAB PO Daily December 16, 2020 12:00am December 11, 2022 9:21am Start: 12-16-2020 End: 12-11-2022 take 1 tablet by mouth once daily Vitamin B Complex Tablet Discontinued 1 TAB PO Daily December 15, 2020 11:00pm December 11, 2022 8:21am Problems Active Problems Problem Classification Problem Date Documented Da te Episodic/Chronic Anxiety disorders (8 sources) Generalized anxiety disorder; Translations: [Generalized anxiety disorder] Chronic Cardiac dysrhythmias (20 sources) Atrial fibrillation; Translations: [Unspecified atrial fibrillation] Onset: 10-22-2023 08-09-2023 Chronic Conditions associated with dizziness or vertigo (4 sources) Dizziness; Translations: [Dizziness and giddiness] 09-18-2023 Episodic Essential hypertension (20 sources) Essential (primary) hypertension; Translations: [Essential hypertension] Onset: 06-22-2022 Chronic Gout and other crystal arthropathies (20 sources) Gout, unspecified; Translations: [Gouty arthropathy] Onset: 08-18-2021 Chronic Malaise and fatigue (4 sources) Asthenia; Translations: [Weakness] 09-18-2023 Episodic Mood disorders (18 sources) Moderate major depression, single episode; Translations: [Major depressive disorder, single episode, moderate] Chronic Nausea and vomiting (8 sources) Nausea; Translations: [Nausea] Episodic Osteoarthritis (20 sources) Osteoarthritis of knee; Translations: [Unilateral primary osteoarthritis, left knee] Onset: 01-18-2021 Resolved: 02-15-2021 Chronic Other circulatory disease (5 sources) Other specified symptoms and signs involving the circulatory and respiratory systems; Translations: [OTH SPEC SX SIGNS INVLV CIRC RS] Onset: 06-25-2022 Episodic Other circulatory disease (19 sources) Orthostatic hypotension; Translations: [Orthostatic hypotension] 09-18-2023 Episodic Other circulatory disease (5 sources) Orthostatic hypotension; Translations: [Orthostatic hypotension] 09-19-2023 Episodic Other connective tissue disease (18 sources) History of right total knee replacement; Translations: [Presence of right artificial knee joint] Chronic Other connective tissue disease (2 sources) Presence of right artificial knee joint; Translations: [History of total right knee replacement Z96.651] Onset: 01-18-2021 Resolved: 02-15-2021 Chronic Other connective tissue disease (20 sources) History of total knee arthroplasty; Translations: [Presence of unspecified artificial knee joint] 01-04-2021 Chronic Comment on above: Problem List clean-u p per request of Phys. EHR Cmte Other connective tissue disease (20 sources) Presence of left artificial knee joint; Translations: [Knee joint replacement] Onset: 04-29-2024 09-09-2023 Chronic Other gastrointestinal disorders (10 sources) Incontinence of feces; Translations: [Full incontinence of feces] Episodic Other gastrointestinal disorders (2 sources) Full incontinence of feces Episodic Other gastrointestinal disorders (1 source) Other fecal abnormalities Episodic Other gastrointestinal disorders (1 source) Change in bowel habit Episodic Other gastrointestinal disorders (19 sources) Diarrhea, unspecified; Translations: [Diarrhea] Onset: 08-31-2024 Episodic Other gastrointestinal disorders (20 sources) Diarrhea; Translations: [Diarrhea, unspecified] 04-02-2024 Episodic Other injuries and conditions due to external causes (8 sources) History of fall; Translations: [History of falling] Episodic Other lower respiratory disease (8 sources) Cough; Translations: [Cough, unspecified] Episodic Other non-traumatic joint disorders (1 source) Effusion, right foot Episodic Other non-traumatic joint disorders (1 source) Effusion, left foot Episodic Other non-traumatic joint disorders (20 sources) Pain in left knee; Translations: [Left knee pain] 08-02-2023 Episodic Other nutritional; endocrine; and metabolic disorders (18 sources) Obesity; Translations: [Obesity, unspecified] Chronic Other nutritional; endocrine; and metabolic disorders (20 sources) Body mass index 30+ - obesity; Translations: [Body mass index (BMI) 32.0-32.9, adult] Chronic Other nutritional; endocrine; and metabolic disorders (2 sources) Obesity, unspecified; Translations: [Obesity, unspecified E66.9] Onset: 01-18-2021 Resolved: 02-15-2021 Chronic Other nutritional; endocrine; and metabolic disorders (2 sources) Body mass index (BMI) 31.0-31.9, adult; Translations: [Body mass index [BMI] 31.0-31.9, adult Z68.31] Onset: 01-18-2021 Resolved: 02-15-2021 Chronic Other upper respiratory infections (20 sources) Acute maxillary sinusitis; Translations: [Acute maxillary sinusitis, unspecified] 03-23-2024 Episodic Residual codes; unclassified (17 sources) Obstructive sleep apnea syndrome; Translations: [Obstructive [...] Classification Problem Date Documented Da te Episodic/Chronic Intestinal infection (20 sources) Clostridium difficile diarrhea; Translations: [Enterocolitis due to Clostridium difficile, not specified as recurrent] Onset: 06-10-2024 05-05-2024 Episodic Other aftercare (1 source) Other local [employer] (current) drug therapy; Translations: [OTH CANE BURNER CURRENT DRUG THERAPY] Onset: 08-18-2021 Episodic Other connective tissue disease (3 sources) Pain in left toe(s); Translations: [PAIN IN LEFT TOES] Onset: 08-17-2021 Episodic Other non-traumatic joint disorders (2 sources) Pain in right knee; Translations: [Acute pain of right knee M25.561] Onset: 01-18-2021 Resolved: 02-15-2021 Episodic Other screening for suspected conditions (not mental disorders or infectious disease) (1 source) Encounter for screening for malignant neoplasm of colon; Translations: [Encounter for screening for malignant neoplasm of colon] Onset: 01-03-2024 Episodic Urinary tract infections (20 sources) Urinary tract infectious disease; Translations: [Urinary tract infection, site not specified] Onset: 05-12-2024 05-05-2024 Episodic Viral infection (4 sources) COVID-19 Results Test Name Value Interpretation Reference Range Facility Alanine aminotransferase [En zymatic activity/volume] in Serum or PlasmaOrdered By: Danyel Orozco on 08-31-2024 ALT [Catalytic activity/Vol] Alanine aminotransferase [Enzymatic activity/volume] in Serum or Plasma 7-52 [facility] Albumin [Mass/volume] in Ser um or Plasma by Bromocresol green (BCG) dye binding methoOrdered By: Danyel Orozco on 08-31-2024 Albumin BCG dye [Mass/Vol] Albumin [Mass/volume] in Serum or Plasma by Bromocresol green (BCG) dye binding metho 3.5-5.7 [facility] Alkaline phosphatase [Enzyma tic activity/volume] in Serum or PlasmaOrdered By: Danyel Orozco on 08-31-2024 ALP [Catalytic activity/Vol] Alkaline phosphatase [Enzymatic activity/volume] in Serum or Plasma 34-104 [facility] Aspartate aminotransferase [ Enzymatic activity/volume] in Serum or PlasmaOrdered By: Danyel Orozco on 08-31-2024 AST [Catalytic activity/Vol] Aspartate aminotransferase [Enzymatic activity/volume] in Serum or Plasma 13-39 [facility] Basophils Auto (Bld) [#/Vol] Ordered By: Danyel Orozco on 08-31-2024 Basophils (Bld) [#/Vol] Automated basoph il count 0.0-0.2 [facility] Basophils/100 WBC Auto (Bld) Ordered By: Danyel Orozco on 08-31-2024 Basophils/100 WBC (Bld) Automated basophil % . [facility] Bilirubin.total [Mass/volume ] in Serum or PlasmaOrdered By: Danyel Orozco on 08-31-2024 Bilirubin [Mass/Vol] Bilirubin.total [Mass/volume] in Serum or Plasma 0.3-1.0 [facility] Calcium [Mass/volume] in Ser um or PlasmaOrdered By: Danyel Orozco on 08-31-2024 Calcium [Mass/Vol] Calcium [Mass/volume ] in Serum or Plasma 8.6-10.3 [facility] Campy coli+jejuni BD MaxOrde red By: Danyel Orozco on 08-31-2024 C. coli+jejuni tuf gene MAXINE+probe Ql (Stl) Campy coli+jejuni BD Max Negative [facility] Comment on above: Campylobacter test i ncludes C. jejuni and C. coli. Carbon dioxide, total [Moles /volume] in Serum or PlasmaOrdered By: Danyel Orozco on 08-31-2024 CO2 [Moles/Vol] Carbon dioxide, tota l [Moles/volume] in Serum or Plasma 21.0-31.0 [facility] Chloride [Moles/volume] in S sterling or PlasmaOrdered By: Danyel Orozco on 08-31-2024 Chloride [Moles/Vol] Chloride [Moles/volume] in Serum or Plasma 98-107 [facility] Clostridioides difficile tox in B tcdB gene [Presence] in Stool by MAXINE with probe deteOrdered By: Danyel Orozco on 08-31-2024 C. difficile toxin B tcdB gene MAXINE+probe Ql (Stl) Clostridioides difficile toxin B tcdB gene [Presence] in Stool by MAXINE with probe dete Negative [facility] Comment on above: Testing performed by RT-PCR Clostridium Difficileon 08-20 Clostridium Difficile Negative Normal Negative [facility] Comment on above: Order Comment: > or = to 3 loose/watery stools in the last 24 HRS? Y Is patient on promotility agents or tube feeding? N Result Comment: Test ing performed by RT-PCR PERFORMED BY: [place] [address] PATHOLOGIST SEISMOLOGY TECHNICAL OFFICER RJ GILLESPIE M.D. Performed By: #### C DT #### [address] Complete Blood Count Auto Di ffon 08-31-2024 Basophils (Bld) [#/Vol] 0.0 10*3/uL Normal 0.0-0.2 [facility] Comment on above: Result Comment: PERF ORMED BY: [place] [address] PATHOLOGIST SEISMOLOGY TECHNICAL OFFICER RJ GILLESPIE M.D. Performed By: #### C MP, CBC #### [address] Basophils/100 WBC (Bld) 0.9 % Normal . T ubaldo [facility] Comment on above: Performed By: #### C MP, CBC #### [address] Eosinophils (Bld) [#/Vol] 0.1 10*3/uL Normal 0.0-0.45 [facility] Comment on above: Performed By: #### C MP, CBC #### [address] Eosinophils/100 WBC (Bld) 2.9 % Normal . [facility] Comment on above: Performed By: #### C MP, CBC #### [address] Erythrocyte distribution width (RBC) [Ratio] 13.3 % Normal 12.0-14.8 [facility] Comment on above: Performed By: #### C MP, CBC #### [address] Hematocrit (Bld) [Volume fraction] 44.5 % Normal 38.8-50.0 [facility] Comment on above: Performed By: #### C MP, CBC #### [place] [address] [place] Hemoglobin (Bld) [Mass/Vol] 15.2 g/dL Normal 13.0-17.0 [facility] Comment on above: Performed By: #### C MP, CBC #### [place] [address] [place] Lymphocytes (Bld) [#/Vol] 1.2 10*3/uL Normal 1.00-4.8 [facility] Comment on above: Performed By: #### C MP, CBC #### [place] [address] [place] Lymphocytes/100 WBC (Bld) 24.6 % Normal . [facility] Comment on above: Performed By: #### C MP, CBC #### [address] MCH (RBC) [Entitic mass] 32.1 pg Normal 27.5-35.2 [facility] Comment on above: Performed By: #### C MP, CBC #### [address] MCV (RBC) [Entitic vol] 93.8 fL Normal 83.5-101 [facility] Comment on above: Performed By: #### C MP, CBC #### [address] Mean Corpuscular HGB Conc 34.3 g/dL Normal 32.5-35.6 [facility] Comment on above: Performed By: #### C MP, CBC #### [address] Monocytes (Bld) [#/Vol] 0.5 10*3/uL Normal 0.0-0.8 [facility] Comment on above: Performed By: #### C MP, CBC #### [address] Monocytes/100 WBC (Bld) 20.82 % High 0.00-20.00 [facility] Comment on above: Result Comment: For adults in ED, MDW > 20.0 may be associated with a higher risk of sepsis during the first 12 hrs of hospital admission Performed By: #### C MP, CBC #### [address] Monocytes/100 WBC (Bld) 10.8 % Normal . [facility] Comment on above: Performed By: #### C MP, CBC #### [address] Neutrophils (Bld) [#/Vol] 3.0 10*3/uL Normal 1.8-7.7 [facility] Comment on above: Performed By: #### C MP, CBC #### [address] Neutrophils/100 WBC (Bld) 60.8 % Normal . [facility] Comment on above: Performed By: #### C MP, CBC #### [address] NRBC% 0.1 /100{WBC} Normal 0-0.5 [facility] Comment on above: Performed By: #### C MP, CBC #### [address] Platelet mean volume (Bld) [Entitic vol] 8.8 fL Normal 6.6-10.1 [facility] Comment on above: Performed By: #### C MP, CBC #### [address] Platelets (Bld) [#/Vol] 185 10*3/uL Normal 150-450 [facility] Comment on above: Performed By: #### C MP, CBC #### [address] RBC (Bld) [#/Vol] 4.74 10*6/uL Normal 3.90-5.60 [facility] Comment on above: Performed By: #### C MP, CBC #### [address] WBC (Bld) [#/Vol] 4.9 10*3/uL Normal 4.1-10.5 [facility] Comment on above: Performed By: #### C MP, CBC #### [address] Comprehensive Metabolic Pane erika 08-31-2024 Albumin [Mass/Vol] 3.7 g/dL Normal 3.5-5.7 [facility] Comment on above: Performed By: #### C MP, CBC #### [address] Albumin/Globulin [Mass ratio] 1.4 {ratio} Normal [facility] Comment on above: Performed By: #### C MP, CBC #### [address] ALP [Catalytic activity/Vol] 50 U/L Normal 34-104 [facility] Comment on above: Performed By: #### C MP, CBC #### [address] ALT [Catalytic activity/Vol] 30 U/L Normal 7-52 [facility] Comment on above: Performed By: #### C MP, CBC #### [address] Anion gap [Moles/Vol] 9.3 mmol/L Normal 6.0-15.0 [facility] Comment on above: Performed By: #### C MP, CBC #### [address] AST [Catalytic activity/Vol] 30 U/L Normal 13-39 [facility] Comment on above: Performed By: #### C MP, CBC #### [address] Bilirubin [Mass/Vol] 0.6 mg/dL Normal 0.3-1.0 [facility] Comment on above: Performed By: #### C MP, CBC #### [address] Calcium [Mass/Vol] 9.1 mg/dL Normal 8.6-10.3 [facility] Comment on above: Performed By: #### C MP, CBC #### [address] Chloride [Moles/Vol] 106 mmol/L Normal 98-107 [facility] Comment on above: Performed By: #### C MP, CBC #### [address] CO2 [Moles/Vol] 25.4 mmol/L Normal 21.0-31.0 [facility] Comment on above: Performed By: #### C MP, CBC #### [address] Creatinine [Mass/Vol] 1.14 mg/dL Normal 0.70-1.30 [facility] Comment on above: Performed By: #### C MP, CBC #### [address] Creatinine Clr Calc Pharmacy 60.93 Normal [facility] Comment on above: Result Comment: PERF ORMED BY: [place] [address] PATHOLOGIST SEISMOLOGY TECHNICAL OFFICER RJ GILLESPIE M.D. Performed By: #### C MP, CBC #### [place] [address] [place] GFR/1.73 sq M.predicted MDRD (S/P/Bld) [Vol rate/Area] mL/min/{1.73_m2} Normal [facility] Comment on above: Performed By: #### C MP, CBC #### [place] [address] [place] Globulin (S) [Mass/Vol] 2.7 g/dL Normal T [facility] Comment on above: Performed By: #### C MP, CBC #### [address] Glucose [Mass/Vol] 142 mg/dL High 70-100 [facility] Comment on above: Result Comment: [facility] Glucose Reference Range is dependent on time and content of last meal. Glucose of more than 200 mg/dL in a nonstressed, ambulatory subject supports the diagnosis of Diabetes Mellitus. ADA recommended reference range Performed By: #### C MP, CBC #### [address] Potassium [Moles/Vol] 3.7 mmol/L Normal 3.5-5.1 [facility] Comment on above: Performed By: #### C MP, CBC #### [address] Protein [Mass/Vol] 6.4 g/dL Normal 6.4-8.9 [facility] Comment on above: Performed By: #### C MP, CBC #### [address] [place] [address] [place] Sodium [Moles/Vol] 137 mmol/L Normal 136-145 [facility] Comment on above: Performed By: #### C MP, CBC #### [facility] [address] Urea nitrogen [Mass/Vol] 22 mg/dL Normal 7-25 [facility] Comment on above: Performed By: #### C MP, CBC #### [facility] [address] Creatinine [Mass/volume] in Serum or PlasmaOrdered By: Danyel Orozco on 08-31-2024 Creatinine [Mass/Vol] Creatinine [Mass/volume] in Serum or Plasma 0.70-1.30 [facility] Eosinophils Auto (Bld) [#/Vo l]Ordered By: Danyel Orozco on 08-31-2024 Eosinophils (Bld) [#/Vol] Automated eosinophil count 0.0-0.45 [facility] Eosinophils/100 WBC Auto (Bl d)Ordered By: Danyel Orozco on 08-31-2024 Eosinophils/100 WBC (Bld) Automated eosinophil % . [facility] Erythrocyte distribution wid th Auto (RBC) [Ratio]Ordered By: Danyel Orozco on 08-31-2024 Erythrocyte distribution width (RBC) [Ratio] Erythrocyte distribution width [Ratio] by Automated count 12.0-14.8 [facility] Globulin Calc (S) [Mass/Vol] Ordered By: Danyel Orozco on 08-31-2024 Globulin (S) [Mass/Vol] Serum globulin measurement by calculation (mass/volume) [facility] Glucose [Mass/volume] in Ser um or PlasmaOrdered By: Danyel Orozco on 08-31-2024 Glucose [Mass/Vol] Glucose [Mass/volume ] in Serum or Plasma High 70-100 [facility] Comment on above: ADA recommended refe rence rangeRandom Glucose Reference Range is dependent on time and content of last meal. Glucose of more than 200 mg/dL in a nonstressed, ambulatory subject supports the diagnosis of Diabetes Mellitus. Hematocrit Auto (Bld) [Volum e fraction]Ordered By: Danyel Orozco on 08-31-2024 Hematocrit (Bld) [Volume fraction] Hematocrit [Volume Fraction] of Blood by Automated count 38.8-50.0 [facility] Hemoglobin [Mass/volume] in BloodOrdered By: Danyel Orozco on 08-31-2024 Hemoglobin (Bld) [Mass/Vol] Hemoglobin [Mass/volume] in Blood 13.0-17.0 [facility] Leukocytes [#/volume] correc renny for nucleated erythrocytes in Blood by Automated counOrdered By: Danyel Orozco on 08-31-2024 WBC corrected for nucl RBC Auto (Bld) [#/Vol] Leukocytes [#/volume] corrected for nucleated erythrocytes in Blood by Automated coun 4.1-10.5 [facility] Lymphocytes Auto (Bld) [#/Vo l]Ordered By: Danyel Orozco on 08-31-2024 Lymphocytes (Bld) [#/Vol] Lymphocytes [#/volume] in Blood by Automated count 1.00-4.8 [facility] Lymphocytes/100 WBC Auto (Bl d)Ordered By: Danyel Orozco on 08-31-2024 Lymphocytes/100 WBC (Bld) Lymphocytes/100 leukocytes in Blood by Automated count . [facility] MCH Auto (RBC) [Entitic mass ]Ordered By: Danyel Orozco on 08-31-2024 MCH (RBC) [Entitic mass] MCH [Entitic ma ss] by Automated count 27.5-35.2 [facility] MCHC Auto (RBC) [Mass/Vol]Or dered By: Danyel Orozco on 08-31-2024 MCHC (RBC) [Mass/Vol] MCHC [Mass/volume] by Automated count 32.5-35.6 [facility] MCV Auto (RBC) [Entitic vol] Ordered By: Danyel Orozco on 08-31-2024 MCV (RBC) [Entitic vol] MCV [Entitic vol ume] by Automated count 83.5-101 [facility] Monocyte distribution width [Entitic volume] in Blood by AutomatedOrdered By: Danyel Orozco on 08-31-2024 Monocyte distribution width Auto (Bld) [Entitic vol] Monocyte distribution width [Entitic volume] in Blood by Automated High 0.00-20.00 [facility] Comment on above: For adults in ED, MD W > 20.0 may be associated with a higher risk of sepsis during the first 12 hrs of hospital admission Monocytes Auto (Bld) [#/Vol] Ordered By: Danyel rOozco on 08-31-2024 Monocytes (Bld) [#/Vol] Automated blood monocyte count 0.0-0.8 [facility] Monocytes/100 WBC Auto (Bld) Ordered By: Danyel Orozco on 08-31-2024 Monocytes/100 WBC (Bld) Automated monocyte % . [facility] Neutrophils Auto (Bld) [#/Vo l]Ordered By: Danyel Orozco on 08-31-2024 Neutrophils (Bld) [#/Vol] Neutrophils [#/volume] in Blood by Automated count 1.8-7.7 [facility] Neutrophils/100 WBC Auto (Bl d)Ordered By: Danyel Orozco on 08-31-2024 Neutrophils/100 WBC (Bld) Automated neutrophil % . [facility] No Panel InformationOrdered By: Danyel Orozco on 08-31-2024 Estimated GFR (CKD-EPI) > 60.0 mL/Min [facility] Creatinine Clearance (Chem 60.93 [facility] Nucleated erythrocytes [Pres ence] in Blood by Automated countOrdered By: Danyel Orozco on 08-31-2024 Nucleated RBC Auto Ql (Bld) Nucleated erythrocytes [Presence] in Blood by Automated count 0-0.5 [facility] Platelet mean volume Auto (B ld) [Entitic vol]Ordered By: Danyel Orozco on 08-31-2024 Platelet mean volume (Bld) [Entitic vol] Platelet mean volume [Entitic volume] in Blood by Automated count 6.6-10.1 [facility] Platelets Auto (Bld) [#/Vol] Ordered By: Danyel Orozco on 08-31-2024 Platelets (Bld) [#/Vol] Platelets [#/vol ume] in Blood by Automated count 150-450 [facility] Potassium [Moles/volume] in Serum or PlasmaOrdered By: Danyel Orozco on 08-31-2024 Potassium [Moles/Vol] Potassium [Moles/volume] in Serum or Plasma 3.5-5.1 [facility] Protein [Mass/volume] in Ser um or PlasmaOrdered By: Danyel Orozco on 08-31-2024 Protein [Mass/Vol] Protein [Mass/volume ] in Serum or Plasma 6.4-8.9 [facility] RBC Auto (Bld) [#/Vol]Ordere d By: Danyel Orozco on 08-31-2024 RBC (Bld) [#/Vol] Erythrocytes [#/volume] in Blood by Automated count 3.90-5.60 [facility] Salmonellosis BD MaxOrdered By: Danyel Orozco on 08-31-2024 Salmonella sp spaO gene MAXINE+probe Ql (Stl) Salmonella sp spaO gene [Presence] in Stool by MAXINE with probe detection Negative [facility] Comment on above: Testing performed by RT-PCR Serum or plasma albumin/glob ulin mass ratioOrdered By: Danyel Orozco on 08-31-2024 Albumin/Globulin [Mass ratio] Serum or plasma albumin/globulin mass ratio [facility] Serum or plasma anion gap de terminationOrdered By: Danyel Orozco on 08-31-2024 Anion gap [Moles/Vol] Serum or plasma an ion gap determination 6.0-15.0 [facility] Shigella Tox 1+2 BD MaxOrder ed By: Danyel Orozco on 08-31-2024 E. coli stx1+stx2 genes MAXINE+probe Ql (Stl) Escherichia coli Stx1 and Stx2 toxin stx1+stx2 genes [Presence] in Stool by MAXINE with Negative [facility] Shigellosis BD MaxOrdered By : Danyel Orozco on 08-31-2024 Shigella species+EIEC invasion plasmid antigen H ipaH gene MAXINE+probe Ql (Stl) Shigella species+EIEC invasion plasmid antigen H ipaH gene [Presence] in Stool by MAXINE Negative [facility] Comment on above: Shigella sp. test in cludes Shigella species and Enteroinvasive E. coli (EIEC). Sodium [Moles/volume] in Ser um or PlasmaOrdered By: Danyel Orozco on 08-31-2024 Sodium [Moles/Vol] Sodium [Moles/volume ] in Serum or Plasma 136-145 [facility] Stool Bacterial Panelon 08-20 Campylobacter Negative Normal Negative [facility] Comment on above: Result Comment: Camp ylobacter test includes C. jejuni and C. coli. Performed By: #### E NT BACT PANEL #### [facility] [address] Salmonella Species Negative Normal Negative [facility] Comment on above: Result Comment: Test ing performed by RT-PCR PERFORMED BY: [place] [address] PATHOLOGIST SEISMOLOGY TECHNICAL OFFICER RJ GILLESPIE M.D. Performed By: #### E NT BACT PANEL #### [facility] [address] Shiga Toxin (E coli O157+oth) Negative Normal Negative [facility] Comment on above: Performed By: #### E NT BACT PANEL #### [facility] [address] Shigella Species Negative Normal Negative [facility] Comment on above: Result Comment: Shig shira sp. test includes Shigella species and Enteroinvasive E. coli (EIEC). Performed By: #### E NT BACT PANEL #### [facility] [address] [place] [address] Urea nitrogen [Mass/volume] in Serum or PlasmaOrdered By: Danyel Orozco on 08-31-2024 Urea nitrogen [Mass/Vol] Urea nitrogen [Mass/volume] in Serum or Plasma 11-13 [facility] WBC Auto (Bld) [#/Vol]Ordere d By: Danyel Orozco on 08-31-2024 WBC (Bld) [#/Vol] Leukocytes [#/volume ] in Blood by Automated count 4.1-10.5 [facility] Cryptosporidium sp DNA [Pres ence] in Stool by MAXINE with non-probe detectionon 06-10-2024 Cryptosporidium sp DNA MAXINE+non-probe Ql (Stl) Cryptosporidium sp DNA [Presence] in Stool by MAXINE with non-probe detection Not Detected [facility] Detection in stool of any of Campylobacter coli, Campylobacter jejuni, and Campylobacon 06-10-2024 C. coli+jejuni+upsaliensis DNA MAXINE+non-probe Ql (Stl) Detection in stool of any of Campylobacter coli, Campylobacter jejuni, and Campylobac Not Detected [facility] Detection in stool of any of Vibrio cholerae, Vibrio parahaemolyticus, and Vibrio vulon 06-10-2024 V. cholerae+parahaemolyticu s+vulnificus DNA MAXINE+non-probe Ql (Stl) Detection in stool of any of Vibrio cholerae, Vibrio parahaemolyticus, and Vibrio vul Not Detected [facility] Detection in stool of either or both Clostridium difficile toxin A and B genes by wing 06-10-2024 C. difficile toxin A+B tcdA+tcdB genes MAXINE+non-probe Ql (Stl) Detection in stool of either or both Clostridium difficile toxin A and B genes by tar Not Detected [facility] Detection in stool of either or both Salmonella enterica and Salmonella bongori DNA bon 06-10-2024 S. enterica+bongori DNA MAXINE+non-probe Ql (Stl) Detection in stool of either or both Salmonella enterica and Salmonella bongori DNA b Not Detected [facility] Detection in stool of either or both enteroaggregative Escherichia coli Zenaida plasmid aon 06-10-2024 E. coli enteroaggregative Zenaida plasmid aggR+aatA genes MAXINE+non-probe Ql (Stl) Detection in stool of either or both enteroaggregative Escherichia coli Zenaida plasmid a Not Detected [facility] Escherichia coli O157 DNA [P resence] in Stool by MAXINE with non-probe detectionon 06-10-2024 E. coli O157 DNA MAXINE+non-probe Ql (Stl) Escherichia coli O157 DNA [Presence] in Stool by MAXINE with non-probe detection Not Detected [facility] Escherichia coli Stx1 and St x2 toxin stx1+stx2 genes [Presence] in Stool by MAXINE withon 06-10-2024 E. coli stx1+stx2 genes MAXINE+non-probe Ql (Stl) Escherichia coli Stx1 and Stx2 toxin stx1+stx2 genes [Presence] in Stool by MAXINE with Not Detected [facility] Escherichia coli enteropatho genic eae gene [Presence] in Stool by MAXINE with non-probeon 06-10-2024 E. coli enteropathogenic eae gene MAXINE+non-probe Ql (Stl) Escherichia coli enteropathogenic eae gene [Presence] in Stool by MAXINE with non-probe Not Detected [facility] Escherichia coli enterotoxig enic ltA+st1a+st1b genes [Presence] in Stool by MAXINE withon 06-10-2024 E. coli enterotoxigenic ltA+st1a+st1b genes MAXINE+non-probe Ql (Stl) Escherichia coli enterotoxigenic ltA+st1a+st1b genes [Presence] in Stool by MAXINE with Not Detected [facility] No Panel Informationon 06-10 Adenovirus Types 40, 41 Not detected Not Detect ed [facility] Giardia lamblia Interpretation Not detected Not Detected [facility] Stool Astrovirus (PCR) Not detected Not Detecte d [facility] Stool Cyclospora cayetanensis (PCR) Not detected Not Detected [facility] Stool Entamoeba (PCR) Not detected Not Detected [facility] Stool Norovirus GI/GII PCR Not detected Not Detected [facility] Stool Rotavirus (PCR) Not detected Not Detected [facility] Stool Sapovirus (PCR) Not detected Not Detected [facility] Comment on above: Performed at: [address] [id number] Director: Gayla Hyatt MD, Phone: [phone] Shigella species+EIEC invasi on plasmid antigen H ipaH gene [Presence] in Stool by NAAon 06-10-2024 Shigella species+EIEC invasion plasmid antigen H ipaH gene MAXINE+non-probe Ql (Stl) Shigella species+EIEC invasion plasmid antigen H ipaH gene [Presence] in Stool by MAXINE Not Detected [facility] Stool Plesiomonas shigelloid es DNA detection by non-probe and target amplification meon 06-10-2024 P. shigelloides DNA MAXINE+non-probe Ql (Stl) Stool Plesiomonas shigelloides DNA detection by non-probe and target amplification me Not Detected [facility] Vibrio cholerae DNA [Presenc e] in Stool by MAXINE with non-probe detectionon 06-10-2024 V. cholerae DNA MAXINE+non-probe Ql (Stl) Vibrio cholerae DNA [Presence] in Stool by MAXINE with non-probe detection Not Detected [facility] Yersinia enterocolitica DNA [Presence] in Stool by MAXINE with non-probe detectionon 06-10-2024 Y. enterocolitica DNA MAXINE+non-probe Ql (Stl) Yersinia enterocolitica DNA [Presence] in Stool by MAXINE with non-probe detection Not Detected [facility] Urine Cultureon 05-12-2024 Bacteria identified Cx Nom (U) <9,000 colonies/ml mixed bacterial skin contaminants 2 Days PERFORMED BY: [facility] [address] [place] [address] PATHOLOGIST SEISMOLOGY TECHNICAL OFFICER RJ GILLESPIE M.D. Normal [facility] Comment on above: Performed By: #### C UU #### [place] [id number] [facility] Urine cultureOrdered By: Sheila Fan on 05-12-2024 Bacteria identified Cx Nom (U) Urine culture [facility] X-ray reportOrdered By: Matthew Carbajal on 04-29-2024 Study report [facility] [address] [place] [address] XRay Report Signed Patient: Nicholas Trujillo MR#: [id number] : 1945 Acct:[id number] Age/Sex: 79 / M ADM Date: 5 Loc: [facility] Room: Type: [facility] Attending Dr: Phuc Denney DO Copies to: Phuc Denney DO~ Ordering Provider: Phuc Denney DO Date of Service: 04/29/24 XR/XR knee LT 3V - NOT FOR ER USE: 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 No fracture. No malalignment. There is a small joint effusion with mild soft tissue swelling which is presumably postoperative. There is very also the patella. XR/XR knee LT 3V - NOT FOR ER USE IMPRESSION: Uncomplicated total left knee arthroplasty without change in alignment. Impression dictated by: Matthew Carbajal M.D.04/29/2024 5:12 PM Dictation Location: [facility] Transcribed By: LARISA 04/29/241711 Dictated By: Matthew Carbajal II, MD 04/29/241710 Signed By: 04/29/241711 [facility] Work Phone: XR knee LT 3V - NOT FOR ER U Chilo 04-29-2024 XR knee LT 3V - NOT FOR ER USE [facility] [address] [place] [address] XRay Report Signed Patient: Nicholas Trujillo MR#: [id number] : 1945 Acct:[id number] Age/Sex: 79 / M ADM Date: 04/29/24 Loc: [facility] Room: Type: [facility] CLI Attending Dr: Phuc Denney DO Copies to: Phuc Denney DO Ordering Provider: Phuc Denney DO Date of Service: 04/29/24 XR/XR knee LT 3V - NOT FOR ER USE: 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 No fracture. No malalignment. There is a small joint effusion with mild soft tissue swelling which is presumably postoperative. There is very also the patella. XR/XR knee LT 3V - NOT FOR ER USE IMPRESSION: Uncomplicated total left knee arthroplasty without change in alignment. Impression dictated by: Matthew Carbajal M.D.04/29/2024 5:12 PM Dictation Location: [place] [address] Transcribed By: [facility] 04/29/241711 Dictated By: Matthew Carbajal II, MD 04/29/241710 Signed By: 04/29/24 1712 Normal [facility] Pathology Request for Lab Co rpon 01-03-2024 Pathology Request for Lab [place] Normal [facility] Comment on above: Order Comment: PATHO LOGY GI SPECIMEN Result Comment: See report. Scanned copy available in EMR. PERFORMED BY: [facility] [place] [address] PATHOLOGIST SEISMOLOGY TECHNICAL OFFICER DEJA LING M.D. Performed By: #### P ATH TO [facility] #### [facility] [address] [id number] [facility] ECG *CARDIOLOGY ONLY*on 10-22-2023 FPG ECG *CARDIOLOGY ONLY* [facility] [address] [place] [address] [place] [address] Electrocardiograph Report Signed Patient: Nicholas Trujillo MR#: [id number] : 1945 Acct:[id number] Age/Sex: 78 / M ADM Date: 10/22/23 Loc: [facility] Room: Type: [facility] Attending Dr: Garrett Gunter MD Ordering [...] change was found Confirmed by Garrett Gunter ([id number]) on 10/23/2023 2:31:25 PM Referred By: Electronically Signed By:Garrett Gunter Transcribed By: MUS Signed By Garrett Gunter MD 10/23/23 1431 Normal [facility] Calcium [Mass/volume] in Ser um or PlasmaOrdered By: Patricia Vilchis on 09-19-2023 Calcium [Mass/Vol] 8.9 mg/dL 8.6-10.3 [facility] Carbon dioxide, total [Moles /volume] in Serum or PlasmaOrdered By: Patricia Vilchis on 09-19-2023 CO2 [Moles/Vol] 25.1 mmol/L 21.0-31.0 [facility] Chloride [Moles/volume] in S sterling or PlasmaOrdered By: Patricia Vilchis on 09-19-2023 Chloride [Moles/Vol] 104 mmol/L 98-107 [facility] Creatinine [Mass/volume] in Serum or PlasmaOrdered By: Patricia Vilchis on 09-19-2023 Creatinine [Mass/Vol] 1.11 mg/dL 0.70-1.30 [facility] Erythrocyte distribution wid th Auto (RBC) [Ratio]Ordered By: Patricia Vilchis on 09-19-2023 Erythrocyte distribution width (RBC) [Ratio] 13.3 % 12.0-14.8 [facility] Glucose [Mass/volume] in Ser um or PlasmaOrdered By: Patricia Vilchis on 09-19-2023 Glucose [Mass/Vol] 100 mg/dL 70-100 [facility] Comment on above: ADA recommended refe rence rangeRandom Glucose Reference Range is dependent on time and content of last meal. Glucose of more than 200 mg/dL in a nonstressed, ambulatory subject supports the diagnosis of Diabetes Mellitus. Hematocrit Auto (Bld) [Volum e fraction]Ordered By: Patricia Vilchis on 09-19-2023 Hematocrit (Bld) [Volume fraction] 33.3 % Low 38.8-50.0 [facility] Hemoglobin [Mass/volume] in BloodOrdered By: Patricia Vilchis on 09-19-2023 Hemoglobin (Bld) [Mass/Vol] 11.2 g/dL Low 13.0-17.0 [facility] Leukocytes [#/volume] correc renny for nucleated erythrocytes in Blood by Automated counOrdered By: Patricia Vilchis on 09-19-2023 WBC corrected for nucl RBC Auto (Bld) [#/Vol] 7.8 10*3/uL 4.1-10.5 [facility] MCH Auto (RBC) [Entitic mass ]Ordered By: Patricia Vilchis on 09-19-2023 MCH (RBC) [Entitic mass] 30.7 pg 27.5-35.2 [facility] MCHC Auto (RBC) [Mass/Vol]Or dered By: Patricia Vilchis on 09-19-2023 MCHC (RBC) [Mass/Vol] 33.7 g/dL 32.5-35.6 [facility] MCV Auto (RBC) [Entitic vol] Ordered By: Patricia Wassoevelyn on 09-19-2023 MCV (RBC) [Entitic vol] 91.2 fL 83.5-101 F [facility] Magnesium [Mass/volume] in S sterling or PlasmaOrdered By: Patricia Wassoevelyn on 09-19-2023 Magnesium [Mass/Vol] 1.8 mg/dL Low 1.9-2.7 [facility] No Panel InformationOrdered By: Patricia Wassoevelyn on 09-19-2023 Estimated GFR (CKD-EPI) > 60.0 mL/Min [facility] Creatinine Clearance (Chem 63.33 [facility] Platelet mean volume Auto (B ld) [Entitic vol]Ordered By: Patricia Wassoevelyn on 09-19-2023 Platelet mean volume (Bld) [Entitic vol] 8.1 fL 6.6-10.1 [facility] Platelets Auto (Bld) [#/Vol] Ordered By: Patricia Wassoevelyn on 09-19-2023 Platelets (Bld) [#/Vol] 293 10*3/uL 150-450 [facility] Potassium [Moles/volume] in Serum or PlasmaOrdered By: Patricia Wassoevelyn on 09-19-2023 Potassium [Moles/Vol] 4.2 mmol/L 3.5-5.1 [facility] RBC Auto (Bld) [#/Vol]Ordere d By: Patricia Wassouf on 09-19-2023 RBC (Bld) [#/Vol] 3.65 10*6/uL Low 3.90-5.60 [facility] Serum or plasma anion gap de terminationOrdered By: Patricia Wassouf on 09-19-2023 Anion gap [Moles/Vol] 10.1 mmol/L 6.0-15.0 [facility] Sodium [Moles/volume] in Ser um or PlasmaOrdered By: Patricia Wassouf on 09-19-2023 Sodium [Moles/Vol] 135 mmol/L Low 136-145 [facility] Urea nitrogen [Mass/volume] in Serum or PlasmaOrdered By: Marwan Wassouf on 09-19-2023 Urea nitrogen [Mass/Vol] 20 mg/dL 7-25 [facility] Basophils Auto (Bld) [#/Vol] on 09-17-2023 Basophils (Bld) [#/Vol] 0.0 10 3/uL 0.0-0.1 [facility] Basophils/100 WBC Auto (Bld) on 09-17-2023 Basophils/100 WBC (Bld) 0.5 % 0.2-2.0 F [facility] Eosinophils/100 WBC Auto (Bl d)on 09-17-2023 Eosinophils/100 WBC (Bld) 3.1 % 0.9-7.0 [facility] Erythrocyte distribution wid th Auto (RBC) [Ratio]on 09-17-2023 Erythrocyte distribution width (RBC) [Ratio] 13.0 % 11.0-15.0 [facility] Estimated glomerular filtrat ion rate (GFR) non- Americanon 09-17-2023 GFR/1.73 sq M.predicted among non-blacks MDRD (S/P/Bld) [Vol rate/Area] 59 mL/min/{1.73_m2} Low >=60 [facility] Hematocrit Auto (Bld) [Volum e fraction]on 09-17-2023 Hematocrit (Bld) [Volume fraction] 33.6 % Low 42.0-54.0 [facility] Hemoglobin [Mass/volume] in Bloodon 09-17-2023 Hemoglobin (Bld) [Mass/Vol] 10.8 g/dL Low 14.0-18.0 [facility] Laboratory - Chemistry and C hemistry - challengeon 09-17-2023 Bilirubin Ql (U) Negative NEGATIVE [facility] Glucose (U) [Mass/Vol] [facility] Ketones Ql (U) Negative NEGATIVE [facility] pH (U) 6.5 [pH] 5.0-9.0 [facility] Specific gravity (U) [Rel density] 1.025 1.005-1.025 [facility] Urobilinogen Qn (U) 0.2 {Jodi'U}/dL 0.2-1.0 [facility] Calcium [Mass/Vol] 8.6 mg/dL 8.5-10.1 [facility] Chloride [Moles/Vol] 103 mmol/L 98-107 [facility] CO2 [Moles/Vol] 26.4 mmol/L 21.0-32.0 [facility] Creatinine [Mass/Vol] 1.20 mg/dL 0.70-1.30 [facility] GFR/1.73 sq M.predicted MDRD (S/P/Bld) [Vol rate/Area] mL/min/{1.73_m2} >=60 [facility] Glucose [Mass/Vol] 102 mg/dL 74-106 [facility] Potassium [Moles/Vol] 4.1 mmol/L 3.5-5.1 [facility] Sodium [Moles/Vol] 137 mmol/L 136-145 [facility] Urea nitrogen [Mass/Vol] 21.0 mg/dL High 7.0-18.0 [facility] Urea nitrogen/Creatinine [Mass ratio] 17.5 mg/mg [facility] Laboratory - Hematology and Cell countson 09-17-2023 Immature granulocytes/100 WBC (Bld) 0.3 % 0.0-0.5 [facility] - Specimen inform ationon 09-17-2023 Appearance (U) CLEAR CLEAR [facility] Color (U) YELLOW YELLOW [facility] Laboratory - Urinalysison Leukocyte esterase Test strip Ql (U) Negative NEGATIVE [facility] Mucus Ql (Urine sed) NONE SEEN NONE SEEN [facility] Nitrite Ql (U) Negative NEGATIVE [facility] Protein Ql (U) Negative NEG/TRACE [facility] Leukocytes [#/volume] correc renny for nucleated erythrocytes in Blood by Automated counon 09-17-2023 WBC corrected for nucl RBC Auto (Bld) [#/Vol] 5.8 10 3/uL 4.0-11.0 [facility] Lymphocytes Auto (Bld) [#/Vo l]on 09-17-2023 Lymphocytes (Bld) [#/Vol] 1.4 10 3/uL 1.2-3.8 [facility] Lymphocytes/100 WBC Auto (Bl d)on 09-17-2023 Lymphocytes/100 WBC (Bld) 23.3 % 20.5-60.0 [facility] MCH Auto (RBC) [Entitic mass ]on 09-17-2023 MCH (RBC) [Entitic mass] 30.0 pg 25.9-34.0 [facility] MCHC Auto (RBC) [Mass/Vol]on 09-17-2023 MCHC (RBC) [Mass/Vol] 32.1 g/dL 29.9-35.2 [facility] MCV Auto (RBC) [Entitic vol] on 09-17-2023 MCV (RBC) [Entitic vol] 93.3 fL 80.0-94.0 F [facility] Monocytes Auto (Bld) [#/Vol] on 09-17-2023 Monocytes (Bld) [#/Vol] 0.7 10 3/uL 0.3-0.8 [facility] Monocytes/100 WBC Auto (Bld) on 09-17-2023 Monocytes/100 WBC (Bld) 12.5 % High 1.7-12.0 F [facility] Neutrophils Auto (Bld) [#/Vo l]on 09-17-2023 Neutrophils (Bld) [#/Vol] 3.5 10 3/uL 1.4-6.5 [facility] Neutrophils/100 WBC Auto (Bl d)on 09-17-2023 Neutrophils/100 WBC (Bld) 60.3 % 43.0-75.0 [facility] No Panel Informationon 09-16 Urine Bacteria NONE SEEN #/HPF NONE SEEN [facility] Urine Occult Blood Negative NEGATIVE [facility] Urine Other Casts NONE SEEN #/LPF NONE SEEN [facility] Urine Other Crystals None Seen #/HPF None Seen [facility] Urine RBC 0-2 #/HPF 0-2 [facility] Urine Squamous Epithelial Cells NONE SEEN #/LPF NONE/RARE [facility] Urine WBC NONE SEEN #/HPF NONE SEEN [facility] Eosinophils # (Auto) 0.2 10 3/uL 0.0-0.7 [facility] Immature Granulocyte # (Auto) 0.02 10 3/uL 0.00-0.03 [facility] Troponin I High Sensitivity 7.6 pg/mL 4.0-76.1 [facility] Comment on above: CUT-OFF POINTS HAVE [...] volume (Bld) [Entitic vol] 9.9 fL 9.5-13.5 [facility] Platelets Auto (Bld) [#/Vol] on 09-17-2023 Platelets (Bld) [#/Vol] 328 10 3/uL 150-450 [facility] RBC Auto (Bld) [#/Vol]on RBC (Bld) [#/Vol] 3.60 10 6/uL Low 4.70-6.10 [facility] Serum or plasma anion gap de terminationon 09-17-2023 Anion gap [Moles/Vol] 11.7 mmol/L Fi [facility] Alanine aminotransferase [En zymatic activity/volume] in Serum or PlasmaOrdered By: Phuc Denney on 08-09-2023 ALT [Catalytic activity/Vol] 21 U/L 7-52 [facility] Albumin [Mass/volume] in Ser um or Plasma by Bromocresol green (BCG) dye binding methoOrdered By: Phuc Denney on 08-09-2023 Albumin BCG dye [Mass/Vol] 4.0 g/dL 3.5-5.7 [facility] Alkaline phosphatase [Enzyma tic activity/volume] in Serum or PlasmaOrdered By: Phuc Denney on 08-09-2023 ALP [Catalytic activity/Vol] 37 U/L 34-104 [facility] Aspartate aminotransferase [ Enzymatic activity/volume] in Serum or PlasmaOrdered By: Phuc Denney on 08-09-2023 AST [Catalytic activity/Vol] 22 U/L 13-39 [facility] Basophils Auto (Bld) [#/Vol] Ordered By: Phuc Denney on 08-09-2023 Basophils (Bld) [#/Vol] 0.1 10*3/uL 0.0-0.2 [facility] Basophils/100 WBC Auto (Bld) Ordered By: Phuc Denney on 08-09-2023 Basophils/100 WBC (Bld) 1.1 % . F [facility] Bilirubin Test strip Ql (U)O rdered By: Phuc Denney on 08-09-2023 Bilirubin Ql (U) Negative Negative [facility] Bilirubin.total [Mass/volume ] in Serum or PlasmaOrdered By: Phuc Denney on 08-09-2023 Bilirubin [Mass/Vol] 0.5 mg/dL 0.3-1.0 [facility] Calcium [Mass/volume] in Ser um or PlasmaOrdered By: Phuc Denney on 08-09-2023 Calcium [Mass/Vol] 9.5 mg/dL 8.6-10.3 [facility] Carbon dioxide, total [Moles /volume] in Serum or PlasmaOrdered By: Phuc Denney on 08-09-2023 CO2 [Moles/Vol] 27.7 mmol/L 21.0-31.0 [facility] Chloride [Moles/volume] in S sterling or PlasmaOrdered By: Phuc Denney on 08-09-2023 Chloride [Moles/Vol] 104 mmol/L 98-107 [facility] Color Auto (U)Ordered By: Jenny Denney on 08-09-2023 Color (U) Yellow Yellow [facility] Creatinine [Mass/volume] in Serum or PlasmaOrdered By: Phuc Denney on 08-09-2023 Creatinine [Mass/Vol] 1.09 mg/dL 0.70-1.30 [facility] Eosinophils Auto (Bld) [#/Vo l]Ordered By: Phuc Denney on 08-09-2023 Eosinophils (Bld) [#/Vol] 0.1 10*3/uL 0.0-0.45 [facility] Eosinophils/100 WBC Auto (Bl d)Ordered By: Phuc Denney on 08-09-2023 Eosinophils/100 WBC (Bld) 2.3 % . [facility] Erythrocyte distribution wid th Auto (RBC) [Ratio]Ordered By: Phuc Denney on 08-09-2023 Erythrocyte distribution width (RBC) [Ratio] 12.9 % 12.0-14.8 [facility] Globulin Calc (S) [Mass/Vol] Ordered By: Phuc Denney on 08-09-2023 Globulin (S) [Mass/Vol] 2.5 g/dL F [facility] Glucose [Mass/volume] in Ser um or PlasmaOrdered By: Phuc Denney on 08-09-2023 Glucose [Mass/Vol] 87 mg/dL 70-100 [facility] Hematocrit Auto (Bld) [Volum e fraction]Ordered By: Phuc Denney on 08-09-2023 Hematocrit (Bld) [Volume fraction] 41.1 % 38.8-50.0 [facility] Hemoglobin [Mass/volume] in BloodOrdered By: Phuc Denney on 08-09-2023 Hemoglobin (Bld) [Mass/Vol] 13.5 g/dL 13.0-17.0 [facility] Ketones Auto test strip (U) [Mass/Vol]Ordered By: Phuc Denney on 08-09-2023 Ketones (U) [Mass/Vol] Negative Negative Fi [facility] Leukocytes [#/volume] correc renny for nucleated erythrocytes in Blood by Automated counOrdered By: Phuc Denney on 08-09-2023 WBC corrected for nucl RBC Auto (Bld) [#/Vol] 5.1 10*3/uL 4.1-10.5 [facility] Lymphocytes Auto (Bld) [#/Vo l]Ordered By: Phuc Denney on 08-09-2023 Lymphocytes (Bld) [#/Vol] 1.5 10*3/uL 1.00-4.8 [facility] Lymphocytes/100 WBC Auto (Bl d)Ordered By: Phuc Denney on 08-09-2023 Lymphocytes/100 WBC (Bld) 29.6 % . [facility] MCH Auto (RBC) [Entitic mass ]Ordered By: Phuc Denney on 08-09-2023 MCH (RBC) [Entitic mass] 30.1 pg 27.5-35.2 [facility] MCHC Auto (RBC) [Mass/Vol]Or dered By: Phuc Denney on 08-09-2023 MCHC (RBC) [Mass/Vol] 32.9 g/dL 32.5-35.6 [facility] MCV Auto (RBC) [Entitic vol] Ordered By: Phuc Denney on 08-09-2023 MCV (RBC) [Entitic vol] 91.4 fL 83.5-101 F [facility] Monocytes Auto (Bld) [#/Vol] Ordered By: Phuc Denney on 08-09-2023 Monocytes (Bld) [#/Vol] 0.8 10*3/uL 0.0-0.8 [facility] Monocytes/100 WBC Auto (Bld) Ordered By: Phuc Denney on 08-09-2023 Monocytes/100 WBC (Bld) 14.9 % . F [facility] Neutrophils Auto (Bld) [#/Vo l]Ordered By: Phuc Denney on 08-09-2023 Neutrophils (Bld) [#/Vol] 2.7 10*3/uL 1.8-7.7 [facility] Neutrophils/100 WBC Auto (Bl d)Ordered By: Phuc Denney on 08-09-2023 Neutrophils/100 WBC (Bld) 52.1 % . [facility] Nitrite Test strip Ql (U)Ord ered By: Phuc Denney on 08-09-2023 Nitrite Ql (U) Negative Negative [facility] No Panel InformationOrdered By: Phuc Denney on 08-09-2023 Estimated GFR (CKD-EPI) > 60.0 mL/Min [facility] Creatinine Clearance (Chem N/A [facility] Nucleated erythrocytes [Pres ence] in Blood by Automated countOrdered By: Phuc Denney on 08-09-2023 Nucleated RBC Auto Ql (Bld) 0.1 /100{WBC} 0-0.5 [facility] Platelet mean volume Auto (B ld) [Entitic vol]Ordered By: Phuc Denney on 08-09-2023 Platelet mean volume (Bld) [Entitic vol] 9.2 fL 6.6-10.1 [facility] Platelets Auto (Bld) [#/Vol] Ordered By: Phuc Denney on 08-09-2023 Platelets (Bld) [#/Vol] 177 10*3/uL 150-450 [facility] Potassium [Moles/volume] in Serum or PlasmaOrdered By: Phuc Denney on 08-09-2023 Potassium [Moles/Vol] 4.2 mmol/L 3.5-5.1 [facility] Protein Auto test strip (U) [Mass/Vol]Ordered By: Phuc Denney on 08-09-2023 Protein (U) [Mass/Vol] Negative Negative [facility] Protein [Mass/volume] in Ser um or PlasmaOrdered By: Phuc Denney on 08-09-2023 Protein [Mass/Vol] 6.5 g/dL 6.4-8.9 [facility] RBC Auto (Bld) [#/Vol]Ordere d By: Phuc Denney on 08-09-2023 RBC (Bld) [#/Vol] 4.49 10*6/uL 3.90-5.60 [facility] Serum or plasma albumin/glob ulin mass ratioOrdered By: Phuc Denney on 08-09-2023 Albumin/Globulin [Mass ratio] 1.6 {ratio} [facility] Serum or plasma anion gap de terminationOrdered By: Phuc Denney on 08-09-2023 Anion gap [Moles/Vol] 9.5 mmol/L 6.0-15.0 [facility] Sodium [Moles/volume] in Ser um or PlasmaOrdered By: Phuc Denney on 08-09-2023 Sodium [Moles/Vol] 137 mmol/L 136-145 [facility] Specific gravity Auto test s trip (U) [Rel density]Ordered By: Phuc Denney on 08-09-2023 Specific gravity (U) [Rel density] 1.018 1.001-1.030 [facility] Urea nitrogen [Mass/volume] in Serum or PlasmaOrdered By: Phuc Denney on 08-09-2023 Urea nitrogen [Mass/Vol] 26 mg/dL High 7-25 [facility] Urine clarity by refractomet ry automatedOrdered By: Phuc Denney on 08-09-2023 Clarity Refractometry automated (U) Clear Clear [facility] Urine glucose measurement by automated test strip (mass/volume)Ordered By: Phuc Denney on 08-09-2023 Glucose Auto test strip (U) [Mass/Vol] Normal mg/dL Normal [facility] Urine hemoglobin detection b y automated test stripOrdered By: Phuc Denney on 08-09-2023 Hemoglobin Auto test strip Ql (U) Negative Negative [facility] Urine leukocyte esterase det ection by automated test stripOrdered By: Phuc Denney on 08-09-2023 Leukocyte esterase Auto test strip Ql (U) Negative Negative [facility] Urobilinogen Auto test strip (U) [Mass/Vol]Ordered By: Phuc Denney on 08-09-2023 Urobilinogen (U) [Mass/Vol] Normal mg/dL Normal [facility] WBC Auto (Bld) [#/Vol]Ordere d By: Phuc Denney on 08-09-2023 WBC (Bld) [#/Vol] 5.1 10*3/uL 4.1-10.5 [facility] pH Auto test strip (U)Ordere d By: Phuc Denney on 08-09-2023 pH (U) 7.0 [pH] 5.0-9.0 [facility] CBC AUTO DIFFon 08-17-2021 BASO # 0.0 103/ul Normal 0.0-0.1 [facility] Comment on above: Performed By: #### C BC #### [facility] [address] [place] [address] Dr. Jessica Quinones Basophils/100 WBC (Bld) 0.4 % Normal 0.2-2.0 [facility] Comment on above: Performed By: #### C BC #### [facility] [address] [address] [address] Jessica Quinones EO # 0.1 103/ul Normal 0.0-0.7 [facility] Comment on above: Performed By: #### C BC #### [facility] [address] [place] [address] Dr. Jessica Quinones Eosinophils/100 WBC (Bld) 1.1 % Normal 0.9-7.0 [facility] Comment on above: Performed By: #### C BC #### [facility] [address] [place] [address] Dr. Jessica Quinones Erythrocyte distribution width (RBC) [Ratio] 13.2 % Normal 11.0-15.0 [facility] Comment on above: Performed By: #### C BC #### [facility] [address] [place] [address] Dr. Jessica Quinones Hematocrit (Bld) [Volume fraction] 44.2 % Normal 42.0-54.0 [facility] Comment on above: Performed By: #### C BC #### [facility] [address] [place] [address] Dr. Jessica Quinones Hemoglobin (Bld) [Mass/Vol] 14.6 g/dL Normal 14.0-18.0 [facility] Comment on above: Performed By: #### C BC #### [facility] [address] [place] [address] Dr. Jessica Quinones IG # 0.03 10e3/ul Normal 0.00-0.03 [facility] Comment on above: Performed By: #### C BC #### [facility] [address] [place] [address] Dr. Jessica Quinones IG % 0.4 % Normal 0.0-0.5 [facility] Comment on above: Performed By: #### C BC #### [facility] [address] [place] [address] Dr. Jessica Quinones LYMPH # 1.6 103/ul Normal 1.2-3.8 [facility] Comment on above: Performed By: #### C BC #### [facility] [address] [place] [address] Dr. Jessica Quinones Lymphocytes/100 WBC (Bld) 20.7 % Normal 20.5-60.0 [facility] Comment on above: Performed By: #### C BC #### [facility] [address] [place] [address] Dr. Jessica Quinones MANUAL DIFF REQ NO Normal [facility] Comment on above: Performed By: #### C BC #### [facility] [address] [place] [address] Dr. Jessica Quinones MCH (RBC) [Entitic mass] 31.1 pg Normal 25.9-34.0 [facility] Comment on above: Performed By: #### C BC #### [facility] [address] [place] [address] Dr. Jessica Quinones MCHC (RBC) [Mass/Vol] 33.0 g/dL Normal 29.9-35.2 [facility] [facility] Comment on above: Performed By: #### C BC #### [facility] [address] [place] [address] Dr. Jessica Quinones MCV (RBC) [Entitic vol] 94.2 fL Critically high 80.0-94 .0 [facility] Comment on above: Performed By: #### C BC #### [facility] [address] [place] [address] Dr. Jessica Quinones MONO # 0.9 103/ul Critically high 0.3-0.8 [facility] Comment on above: Performed By: #### C BC #### [facility] [address] [place] [address] Dr. Jessica Quinones Monocytes/100 WBC (Bld) 10.7 % Normal 1.7-12.0 [facility] Comment on above: Performed By: #### C BC #### [facility] [address] [place] [address] Dr. Jessica Quinones NEUT # 5.3 103/ul Normal 1.4-6.5 [facility] Comment on above: Performed By: #### C BC #### [facility] [address] [place] [address] Dr. Jessica Quinones Neutrophils/100 WBC (Bld) 66.7 % Normal 43.0-75.0 [facility] Comment on above: Performed By: #### C BC #### [facility] [address] [place] [address] Dr. Jessica Quinones Platelet mean volume (Bld) [Entitic vol] 10.5 fL Normal 9.5-13.5 [facility] Comment on above: Performed By: #### C BC #### [facility] [address] [address] [address] Jessica Quinones PLT 196 103/ul Normal 150-450 [facility] Comment on above: Performed By: #### C BC #### [facility] [address] [place] [address] Dr. Jessica Quinones RBC 4.69 106/ul Critically low 4.70-6.10 [facility] Comment on above: Performed By: #### C BC #### [facility] [address] [place] [address] Dr. Jessica Quinones WBC 7.9 103/ul Normal 4.0-11.0 [facility] Comment on above: Performed By: #### C BC #### [facility] [address] [place] [address] Dr. Jessica Quinones CRPon 08-17-2021 CRP [Mass/Vol] mg/L Normal <=1.0 [facility] Comment on above: Performed By: #### C RP, URIC, BMP #### [facility] [address] [place] [address] Dr. Jessica Quinones PROF CHEM 8 (BAS METB)on Anion gap [Moles/Vol] 12.6 mmol/L Normal [facility] Comment on above: Performed By: #### C RP, URIC, BMP #### [facility] [address] [place] [address] Dr. Jessica Quinones Calcium [Mass/Vol] 8.8 mg/dL Normal 8.5-10.1 [facility] Comment on above: Performed By: #### C RP, URIC, BMP #### [facility] [address] [place] [address] Dr. Jessica Quinones Chloride [Moles/Vol] 99 mmol/L Normal 98-107 [facility] Comment on above: Performed By: #### C RP, URIC, BMP #### [facility] [address] [address] [address] Jessica Quinones CO2 [Moles/Vol] 28.4 mmol/L Normal 21.0-32.0 [facility] Comment on above: Performed By: #### C RP, URIC, BMP #### [facility] [address] [address] [address] Jessica Quinones Creatinine [Mass/Vol] 1.07 mg/dL Normal 0.70-1.30 [facility] Comment on above: Performed By: #### C RP, URIC, BMP #### [facility] [address] [address] [address] Jessica Quinones EGFR-AF MOZAMBICAN >60 Normal >=60 [facility] Comment on above: Performed By: #### C RP, URIC, BMP #### [facility] [address] [address] [address] Jessica Quinones EGFR-NON AF MOZAMBICAN >60 Normal >=60 [facility] Comment on above: Performed By: #### C RP, URIC, BMP #### [facility] [address] [address] [address] Jessica Quinones Glucose [Mass/Vol] 106 mg/dL Normal 74-106 [facility] Comment on above: Performed By: #### C RP, URIC, BMP #### [facility] [address] [address] [address] Jessica Quinones Potassium [Moles/Vol] 4.0 mmol/L Normal 3.5-5.1 [facility] Comment on above: Performed By: #### C RP, URIC, BMP #### [facility] [address] [address] [address] Jessica Quinones Sodium [Moles/Vol] 136 mmol/L Normal 136-145 [facility] Comment on above: Performed By: #### C RP, URIC, BMP #### [facility] [address] [address] [address] Jessica Quinones Urea nitrogen [Mass/Vol] 22.0 mg/dL Critically high 7.0-18 .0 [facility] Comment on above: Performed By: #### C RP, URIC, BMP #### [facility] [address] [place] [address] Dr. Jessica Quinones Urea nitrogen/Creatinine [Mass ratio] 20.6 mg/mg Normal [facility] Comment on above: Performed By: #### C RP, URIC, BMP #### [facility] [address] [place] [address] Dr. Jessica Quinones SED RATE WESTERGRENon 2021 SED RATE 11 mm/hr Normal <=20 [facility] Comment on above: Performed By: #### S EDR #### [facility] [address] [place] [address] Dr. Jessica Quinones URIC ACID SERUMon 08-17-2021 Urate [Mass/Vol] 6.8 mg/dL Normal 3.5-8.5 [facility] Comment on above: Performed By: #### C RP, URIC, BMP #### [facility] [address] [place] [address] Dr. Jessica Quinones XR FOOT RT MIN [...] by: ODESSA UMAÑA Date: 2021-08-17 10:52 Normal [facility] Vital Signs Date Time Vital Sign Value Performing Clinician Facility 09-18-2024 11: Body height 175.26 cm Rhianna Fan MD Work Phone: [facility] 09-18-2024 11:[id number] Body mass index (BMI) [Ratio] 32.8 kg/m2 Rhianna Fan MD Work Phone: [facility] 09-18-2024 [id number] Body weight 100.69 kg Rhianna Fan MD Work Phone: [facility] 09-18-2024 11:11-0400 Diastolic blood pressure 74 mm[Hg] Rhianna Fan MD Work Phone: [facility] 09-18-2024 11:11-0400 Heart rate 50 /min Rhianna Fan MD Work Phone: [facility] 09-18-2024 11:11-0400 Respiratory rate 12 /min Rhianna Fan MD Work Phone: [facility] 09-18-2024 11:11-0400 SaO2% (BldA) [Mass fraction] 97 % Rhianna Fan MD Work Phone: [facility] 09-18-2024 11:11-0400 Systolic blood pressure 123 mm[Hg] Rhianna Fan MD Work Phone: [facility] 09-03-2024 09:52-0400 Body height 175.26 cm PHYSICIAN NO [facility] 09-03-2024 09:52-0400 Body mass index (BMI) [Ratio] 32.2 kg/m2 PHYSICIAN NO [facility] 09-03-2024 09:52-0400 Body weight 99.1 kg PHYSICIAN NO [facility] 09-03-2024 09:52-0400 Diastolic blood pressure 65 mm[Hg] PHYSICIAN NO [facility] 09-03-2024 09:52-0400 Heart rate 59 /min PHYSICIAN NO [facility] 09-03-2024 09:52-0400 Systolic blood pressure 107 mm[Hg] PHYSICIAN NO [facility] 08-31-2024 10:43-0400 Body height 175.26 cm PHYSICIAN NO [facility] 08-31-2024 10:43-0400 Body weight 98.9 kg PHYSICIAN NO [facility] 08-31-2024 10:42-0400 Body temperature 98.2 [degF] PHYSICIAN NO [facility] 08-31-2024 10:42-0400 Diastolic blood pressure 68 mm[Hg] PHYSICIAN NO [facility] 08-31-2024 10:42-0400 Heart rate 82 /min PHYSICIAN NO [facility] 08-31-2024 10:42-0400 Respiratory rate 18 /min PHYSICIAN NO [facility] 08-31-2024 10:42-0400 SaO2% (BldA) [Mass fraction] 95 % PHYSICIAN NO [facility] 08-31-2024 10:42-0400 Systolic blood pressure 136 mm[Hg] PHYSICIAN NO [facility] 06-11-2024 13:42-0500 Body height 177.8 cm Rhianna Fan MD Work Phone: [facility] 06-11-2024 13:42-0500 Body mass index (BMI) [Ratio] 30.8 kg/m2 Rhianna Fan MD Work Phone: [facility] 06-11-2024 13:42-0500 Body temperature 97.8 [degF] Rhianna Fan MD Work Phone: [facility] 06-11-2024 13:42-0500 Body weight 97.52 kg Rhianna Fan MD Work Phone: [facility] 06-11-2024 13:42-0500 Diastolic blood pressure 62 mm[Hg] Rhianna Fan MD Work Phone: [facility] 06-11-2024 13:42-0500 Heart rate 55 /min Rhianna Fan MD Work Phone: [facility] 06-11-2024 13:42-0500 Systolic blood pressure 119 mm[Hg] Rhianna Fan MD Work Phone: [facility] 06-01-2024 14:26-0500 Body height 177.8 cm Rhianna Fan MD Work Phone: [facility] 06-01-2024 14:26-0500 Body mass index (BMI) [Ratio] 30.8 kg/m2 Rhianna Fan MD Work Phone: [facility] 06-01-2024 14:26-0500 Body temperature 97.3 [degF] Rhianna Fan MD Work Phone: [facility] 06-01-2024 14:26-0500 Body weight 97.52 kg Rhianna Fan MD Work Phone: [facility] 06-01-2024 14:26-0500 Diastolic blood pressure 67 mm[Hg] Rhianna Fan MD Work Phone: [facility] 06-01-2024 14:26-0500 Heart rate 58 /min Rhianna Fan MD Work Phone: [facility] 06-01-2024 14:26-0500 Systolic blood pressure 148 mm[Hg] Rhianna Fan MD Work Phone: [facility] 05-05-2024 10:33-0500 Body height 177.8 cm Rhianna Fan MD Work Phone: [facility] 05-05-2024 10:33-0500 Body mass index (BMI) [Ratio] 31.2 kg/m2 Rhianna Fan MD Work Phone: [facility] 05-05-2024 10:33-0500 Body weight 98.88 kg Rhianna Fan MD Work Phone: [facility] 05-05-2024 10:33-0500 Diastolic blood pressure 71 mm[Hg] Rhianna Fan MD Work Phone: [facility] 05-05-2024 10:33-0500 Heart rate 58 /min Rhianna Fan MD Work Phone: [facility] 05-05-2024 10:33-0500 Systolic blood pressure 131 mm[Hg] Rhianna Fan MD Work Phone: [facility] 05-04-2024 11:06-0500 Body height 177.8 cm Rhianna Fan MD Work Phone: [facility] 05-04-2024 11:06-0500 Body mass index (BMI) [Ratio] 31.4 kg/m2 Rhianna Fan MD Work Phone: [facility] 05-04-2024 11:06-0500 Body weight 99.33 kg Rhianna Fan MD Work Phone: [facility] 05-04-2024 11:06-0500 Diastolic blood pressure 66 mm[Hg] Rhianna Fan MD Work Phone: [facility] 05-04-2024 11:06-0500 Heart rate 52 /min Rhianna Fan MD Work Phone: [facility] 05-04-2024 11:06-0500 Respiratory rate 18 /min Rhianna Fan MD Work Phone: [facility] 05-04-2024 11:06-0500 SaO2% (BldA) [Mass fraction] 96 % Rhianna Fan MD Work Phone: [facility] 05-04-2024 11:06-0500 Systolic blood pressure 120 mm[Hg] Rhianna Fan MD Work Phone: [facility] 04-02-2024 11:09-0500 Body height 177.8 cm Rhianna Fan MD Work Phone: [facility] 04-02-2024 11:09-0500 Body mass index (BMI) [Ratio] 30.9 kg/m2 Rhianna Fan MD Work Phone: [facility] 04-02-2024 11:09-0500 Body weight 97.97 kg Rhianna Fan MD Work Phone: [facility] 04-02-2024 11:09-0500 Diastolic blood pressure 69 mm[Hg] Rhianna Fan MD Work Phone: [facility] 04-02-2024 11:09-0500 Heart rate 62 /min Rhianna Fan MD Work Phone: [facility] 04-02-2024 11:09-0500 Systolic blood pressure 115 mm[Hg] Rhianna Fan MD Work Phone: [facility] 03-23-2024 10:20-0500 Body height 177.8 cm Rhianna Fan MD Work Phone: [facility] 03-23-2024 10:20-0500 Body mass index (BMI) [Ratio] 30.8 kg/m2 Rhianna Fan MD Work Phone: [facility] 03-23-2024 10:20-0500 Body temperature 97.5 [degF] Rhianna Fan MD Work Phone: [facility] 03-23-2024 10:20-0500 Body weight 97.52 kg Rhianna Fan MD Work Phone: [facility] 03-23-2024 10:20-0500 Diastolic blood pressure 66 mm[Hg] Rhianna Fan MD Work Phone: [facility] 03-23-2024 10:20-0500 Heart rate 60 /min Rhianna Fan MD Work Phone: [facility] 03-23-2024 10:20-0500 Systolic blood pressure 115 mm[Hg] Rhianna Fan MD Work Phone: [facility] 01-03-2024 10:55-0400 Diastolic blood pressure 65 mm[Hg] MD Rhianna Fan Work Phone: [facility] 01-03-2024 10:55-0400 Heart rate 51 /min MD Rhianna Fan Work Phone: [facility] 01-03-2024 10:55-0400 Respiratory rate 16 /min MD Rhianna Fan Work Phone: [facility] 01-03-2024 10:55-0400 SaO2% (BldA) [Mass fraction] 96 % MD Rhianna Fan Work Phone: [facility] 01-03-2024 10:55-0400 Systolic blood pressure 118 mm[Hg] MD Rhianna Fan Work Phone: [facility] 01-03-2024 08:57-0400 Body height 177.8 cm MD Rhianna Fan Work Phone: [facility] 01-03-2024 08:57-0400 Body weight 95.25 kg MD Rhianna Fan Work Phone: [facility] 10-22-2023 14:22-0400 Body height 173.99 cm MD Rhianna Fan Work Phone: [facility] 10-22-2023 14:22-0400 Body mass index (BMI) [Ratio] 31.6 kg/m2 MD Rhianna Fan Work Phone: [facility] 10-22-2023 14:22-0400 Body weight 95.7 kg MD Rhianna Fan Work Phone: [facility] 10-22-2023 14:22-0400 Diastolic blood pressure 62 mm[Hg] MD Rhianna Fan Work Phone: [facility] 10-22-2023 14:22-0400 Heart rate 54 /min MD Rhianna Fan Work Phone: [facility] 10-22-2023 14:22-0400 Respiratory rate 18 /min MD Rhianna Fan Work Phone: [facility] 10-22-2023 14:22-0400 SaO2% (BldA) [Mass fraction] 96 % MD Rhianna Fan Work Phone: [facility] 10-22-2023 14:22-0400 Systolic blood pressure 130 mm[Hg] MD Rhianna Fan Work Phone: [facility] 09-23-2023 13:44-0400 Body height 173.99 cm MD Rhianna Fan Work Phone: [facility] 09-23-2023 13:44-0400 Body mass index (BMI) [Ratio] 31.6 kg/m2 MD Rhianna Fan Work Phone: [facility] 09-23-2023 13:44-0400 Body weight 95.7 kg MD Rhianna Fan Work Phone: [facility] 09-23-2023 13:44-0400 Diastolic blood pressure 57 mm[Hg] MD Rhianna Fan Work Phone: [facility] 09-23-2023 13:44-0400 Heart rate 64 /min MD Rhianna Fan Work Phone: [facility] 09-23-2023 13:44-0400 Systolic blood pressure 106 mm[Hg] MD Rhianna Fan Work Phone: [facility] 09-19-2023 12:24-0400 Diastolic blood pressure 75 mm[Hg] MD Rhianna Fan Work Phone: [facility] 09-19-2023 12:24-0400 Heart rate 86 /min MD Rhianna Fan Work Phone: [facility] 09-19-2023 12:24-0400 Respiratory rate 18 /min MD Rhianna Fan Work Phone: [facility] 09-19-2023 12:24-0400 SaO2% (BldA) [Mass fraction] 96 % MD Rhianna Fan Work Phone: [facility] 09-19-2023 12:24-0400 Systolic blood pressure 135 mm[Hg] MD Rhianna Fan Work Phone: [facility] 09-19-2023 08:06-0400 Body temperature 97.6 [degF] MD Rhianna Fan Work Phone: [facility] 09-19-2023 04:37-0400 Body weight 94.6 kg MD Rhianna Fan Work Phone: [facility] 09-18-2023 13:43-0400 Body height 177.8 cm MD Rhianna Fan Work Phone: [facility] 09-11-2023 14:07-0400 Body height 177.8 cm MD Rhianna Fan Work Phone: [facility] 09-11-2023 14:07-0400 Body mass index (BMI) [Ratio] 30.4 kg/m2 MD Rhianna Fan Work Phone: [facility] 09-11-2023 14:07-0400 Body weight 96.16 kg MD Rhianna Fan Work Phone: [facility] 09-11-2023 14:07-0400 Diastolic blood pressure 60 mm[Hg] MD Rhianna Fan Work Phone: [facility] 09-11-2023 14:07-0400 Heart rate 76 /min MD Rhianna Fan Work Phone: [facility] 09-11-2023 14:07-0400 Respiratory rate 18 /min MD Rhianna Fan Work Phone: [facility] 09-11-2023 14:07-0400 SaO2% (BldA) [Mass fraction] 94 % MD Rhianna Fan Work Phone: [facility] 09-11-2023 14:07-0400 Systolic blood pressure 124 mm[Hg] MD Rhianna Fan Work Phone: [facility] 08-27-2023 11:45-0400 Diastolic blood pressure 73 mm[Hg] MD Rhianna Fan Work Phone: [facility] 08-27-2023 11:45-0400 Heart rate 63 /min MD Rhianna Fan Work Phone: [facility] 08-27-2023 11:45-0400 Respiratory rate 14 /min MD Rhianna Fan Work Phone: [facility] 08-27-2023 11:45-0400 SaO2% (BldA) [Mass fraction] 93 % MD Rhianna Fan Work Phone: [facility] 08-27-2023 11:45-0400 Systolic blood pressure 141 mm[Hg] MD Rhianna Fan Work Phone: [facility] 08-27-2023 10:14-0400 Body temperature 98.1 [degF] MD Rhianna Fan Work Phone: [facility] 08-27-2023 09:49-0400 Inhaled oxygen flow rate 6 L/min MD Rhianna Fan Work Phone: [facility] 08-27-2023 07:47-0400 Body mass index (BMI) [Ratio] 30.9 kg/m2 MD Rhianna Fan Work Phone: [facility] 08-27-2023 06:36-0400 Body height 177.8 cm MD Rhianna Fan Work Phone: [facility] 08-27-2023 06:36-0400 Body weight 97.7 kg MD Rhianna Fan Work Phone: [facility] 08-21-2023 11:10-0400 Body height 177.8 cm MD Rhianna Fan Work Phone: [facility] 08-21-2023 11:10-0400 Body mass index (BMI) [Ratio] 30.9 kg/m2 MD Rhianna Fan Work Phone: [facility] 08-21-2023 11:10-0400 Body weight 97.57 kg MD Rhianna Fan Work Phone: [facility] 08-14-2023 14:01-0400 Body height 177.8 cm MD Rhianna Fan Work Phone: [facility] 08-14-2023 14:01-0400 Body mass index (BMI) [Ratio] 30.8 kg/m2 MD Rhianna Fan Work Phone: [facility] 08-14-2023 14:01-0400 Body weight 97.52 kg MD Rhianna Fan Work Phone: [facility] 08-14-2023 14:01-0400 Diastolic blood pressure 66 mm[Hg] MD Rhianna Fan Work Phone: [facility] 08-14-2023 14:01-0400 Heart rate 60 /min MD Rhianna Fan Work Phone: [facility] 08-14-2023 14:01-0400 Respiratory rate 18 /min MD Rhianna Fan Work Phone: [facility] 08-14-2023 14:01-0400 SaO2% (BldA) [Mass fraction] 96 % MD Rhianna Fan Work Phone: [facility] 08-14-2023 14:01-0400 Systolic blood pressure 142 mm[Hg] MD Rhianna Fan Work Phone: [facility] 08-05-2023 08:56-0400 Body height 177.8 cm MD Rhianna Fan Work Phone: [facility] 08-05-2023 08:56-0400 Body mass index (BMI) [Ratio] 30.2 kg/m2 MD Rhianna Fan Work Phone: [facility] 08-05-2023 08:56-0400 Body weight 95.42 kg MD Rhianna Fan Work Phone: [facility] 12-11-2022 11:24-0400 Diastolic blood pressure 83 mm[Hg] MD Rhianna Fan Work Phone: [facility] 12-11-2022 11:24-0400 Heart rate 55 /min MD Rhianna Fan Work Phone: [facility] 12-11-2022 11:24-0400 Respiratory rate 16 /min MD Rhianna Fan Work Phone: [facility] 12-11-2022 11:24-0400 SaO2% (BldA) [Mass fraction] 99 % MD Rhianna Fan Work Phone: [facility] 12-11-2022 11:24-0400 Systolic blood pressure 153 mm[Hg] MD Rhianna Fan Work Phone: [facility] 12-11-2022 09:15-0400 Body height 177.8 cm MD Rhianna Fan Work Phone: [facility] 12-11-2022 09:15-0400 Body temperature 97.6 [degF] MD Rhianna Fan Work Phone: [facility] 12-11-2022 09:15-0400 Body weight 96.16 kg MD Rhianna Fan Work Phone: [facility] 11-06-2022 10:45-0400 Body height 177.8 cm Imad Asaad Other [facility] Other 11-06-2022 10:45-0400 Body mass index (BMI) [Ratio] 30.13 kg/m2 Imad Asaad Other [facility] Other 11-06-2022 10:45-0400 Body weight 95.26 kg Imad Asaad Other [facility] Other 11-06-2022 10:45-0400 Diastolic blood pressure 63 mm[Hg] Imad Asaad Other [facility] Other 11-06-2022 10:45-0400 Systolic blood pressure 135 mm[Hg] Imad Asaad Other [facility] Other 10-03-2022 10:00-0400 Body height 177.8 cm Rhianna Fan Other [facility] Other 10-03-2022 10:00-0400 Body mass index (BMI) [Ratio] 30.7 kg/m2 Rhianna Fan Other [facility] Other 10-03-2022 10:00-0400 Body weight 97.07 kg Rhianna Fan Other [facility] Other 10-03-2022 10:00-0400 Diastolic blood pressure 64 mm[Hg] Rhianna Fan Other [facility] Other 10-03-2022 10:00-0400 Systolic blood pressure 133 mm[Hg] Rhianna Fan Other [facility] Other 06-22-2022 09:15-0500 Body height 177.8 cm Rhianna Fan Other [facility] Other 06-22-2022 09:15-0500 Body mass index (BMI) [Ratio] 31.96 kg/m2 Rhianna Fan Other [facility] Other 06-22-2022 09:15-0500 Body weight 101.06 kg Rhianna Fan Other [facility] Other 06-22-2022 09:15-0500 Diastolic blood pressure 60 mm[Hg] Rhianan Fan Other [facility] Other 06-22-2022 09:15-0500 SaO2% (BldA) [Mass fraction] 95 % Rhianna Fan Other [facility] Other 06-22-2022 09:15-0500 Systolic blood pressure 118 mm[Hg] Rhianna Fan Other [facility] Other 06-12-2022 09:45-0500 Body height 177.8 cm Rhianna Fan Other [facility] Other 06-12-2022 09:45-0500 Body mass index (BMI) [Ratio] 31.99 kg/m2 Rhianna Fan Other [facility] Other 06-12-2022 09:45-0500 Body weight 101.15 kg Rhianna Fan Other [facility] Other 06-12-2022 09:45-0500 Diastolic blood pressure 74 mm[Hg] Rhianna Fan Other [facility] Other 06-12-2022 09:45-0500 SaO2% (BldA) [Mass fraction] 97 % Rhianna Fan Other [facility] Other 06-12-2022 09:45-0500 Systolic blood pressure 126 mm[Hg] Rhianna Fan Other [facility] Other 02-15-2021 11:00-0400 Body height 177.8 cm Phuc Jumana Other [facility] Other 02-15-2021 11:00-0400 Body mass index (BMI) [Ratio] 31.13 kg/m2 Phuc Denney Other [facility] Other 02-15-2021 11:00-0400 Body weight 98.43 kg Phuc Denney Other [facility] Other Encounters Encounter Date Encounter Type Care Provider Facility Start: 09-18-2024 End: 09-18-2024 ambulatory Rhianna Fan MD Work Phone: [facility] Work Phone: Start: 09-18-2024 End: 09-18-2024 Patient encounter procedure Rhianna Fan MD Work Phone: [facility] Physician [facility] Work Phone: Start: 09-03-2024 End: 09-03-2024 ambulatory PHYSICIAN NO [facility] Work Phone: Start: 09-03-2024 End: 09-03-2024 Patient encounter procedure PHYSICIAN NO [facility] Physician [facility] Work Phone: Start: 09-01-2024 Non-patient / Non-visit PHYSICIAN NO [facility] Physician [facility] Work Phone: Start: 08-31-2024 End: 08-31-2024 Emergency department patient visit PHYSICIAN PHYLLIS QUEEN [facility] Work Phone: Start: 06-11-2024 End: 06-11-2024 ambulatory Rhianna Fan MD Work Phone: [facility] Work Phone: Start: 06-11-2024 End: 06-11-2024 Patient encounter procedure Rhianna Fan MD Work Phone: [facility] Work Phone: Start: 06-10-2024 End: 06-10-2024 Patient encounter procedure Rhianna Fan MD Work Phone: [facility] [place] Work Phone: Start: 06-10-2024 End: 06-10-2024 ambulatory Rhianna Fan MD Work Phone: [facility] Work Phone: Start: 06-01-2024 End: 06-01-2024 ambulatory Rhianna Fan MD Work Phone: [facility] Work Phone: Start: 06-01-2024 End: 06-01-2024 Patient encounter procedure Rhianna Fan MD Work Phone: [facility] Physician [facility] Work Phone: Start: 05-14-2024 End: 05-14-2024 ambulatory Rhianna Fan MD Work Phone: [facility] Work Phone: Start: 05-14-2024 End: 05-14-2024 Patient encounter procedure Rhianna Fan MD Work Phone: [facility] Physician [facility] Work Phone: Start: 05-12-2024 End: 05-12-2024 ambulatory Rhianna Fan MD Work Phone: [facility] Work Phone: Start: 05-12-2024 End: 05-12-2024 Departed Referred Rhianna Fan MD Work Phone: [facility] [place] Work Phone: Start: 05-05-2024 End: 05-05-2024 ambulatory Rhianna Fan MD Work Phone: [facility] Work Phone: Start: 05-05-2024 End: 05-05-2024 Patient encounter procedure Rhianna Fan MD Work Phone: [facility] Work Phone: Start: 05-04-2024 End: 05-04-2024 ambulatory Rhianna Fan MD Work Phone: [facility] Work Phone: Start: 05-04-2024 End: 05-04-2024 Patient encounter procedure Rhianna Fan MD Work Phone: [facility] Work Phone: Start: 04-29-2024 End: 04-29-2024 ambulatory Rhianna Fan MD Work Phone: [facility] Work Phone: Start: 04-29-2024 End: 04-29-2024 Patient encounter procedure Rhianna Fan MD Work Phone: [facility] Work Phone: Start: 04-02-2024 End: 04-02-2024 Patient encounter procedure Rhianna Fan MD Work Phone: [facility] Work Phone: Start: 04-01-2024 Non-patient / Non-visit Rhianna Fan MD Work Phone: [facility] Work Phone: Start: 03-23-2024 End: 03-23-2024 Patient encounter procedure Rhianna Fan MD Work Phone: [facility] Work Phone: Start: 01-03-2024 Non-patient / Non-visit MD Sheila Fan Work Phone: [facility] Work Phone: Start: 01-03-2024 End: 01-03-2024 Admission to same day surgery center MD Rhianna Fan Work Phone: [facility] Work Phone: Start: 01-03-2024 End: 01-03-2024 ambulatory MD Rhianna Fan Work Phone: [facility] Work Phone: Start: 10-23-2023 End: 10-23-2023 ambulatory MD Rhianna Fan Work Phone: [facility] Work Phone: Start: 10-23-2023 End: 10-23-2023 Patient encounter procedure MD Rhianna Fan Work Phone: [facility] Work Phone: Start: 10-22-2023 End: 10-22-2023 ambulatory MD Rhianna Fan Work Phone: [facility] Work Phone: Start: 10-22-2023 End: 10-22-2023 Patient encounter procedure MD Rhianna Fan Work Phone: [facility] Card[facility] Work Phone: Start: 10-04-2023 End: 10-04-2023 ambulatory RONNA CARPIO Not Available Start: 10-01-2023 End: 10-01-2023 ambulatory DOUGIE MOSLEY Not Available Start: 09-27-2023 End: 09-27-2023 ambulatory MANNY ESCOBEDO Not Available Start: 09-25-2023 End: 09-25-2023 ambulatory MANNY ESCOBEDO Not Available Start: 09-23-2023 End: 09-23-2023 ambulatory MD Rhianna Fan Work Phone: [facility] Work Phone: Start: 09-23-2023 End: 09-23-2023 Patient encounter procedure MD Rhianna Fan Work Phone: [facility] Work Phone: Start: 09-18-2023 End: 09-19-2023 Non-patient / Non-visit MD Rhianna Fan Work Phone: [facility] Cardiology Work Phone: Start: 09-18-2023 End: 09-19-2023 Evaluation and management of inpatient MD Rhianna Fan Work Phone: [facility] Work Phone: Start: 09-17-2023 Non-patient / Non-visit MD Sheila Fan Work Phone: [facility] Work Phone: Start: 09-11-2023 End: 09-11-2023 ambulatory MD Rhianna Fan Work Phone: [facility] Work Phone: Start: 09-11-2023 End: 09-11-2023 Patient encounter procedure MD Rhianna Fan Work Phone: [facility] Cardiology Work Phone: Start: 09-09-2023 End: 09-09-2023 Patient encounter procedure MD Rhianna Fan Work Phone: [facility] Work Phone: Start: 08-27-2023 Non-patient / Non-visit MD Sheila Fan Work Phone: [facility] Work Phone: Start: 08-27-2023 End: 08-27-2023 Admission to same day surgery center MD Rhianna Fan Work Phone: [facility] [place] Start: 08-27-2023 End: 08-27-2023 ambulatory MD Rhianna Fan Work Phone: [facility] Work Phone: Start: 08-21-2023 End: 08-21-2023 Patient encounter procedure MD Rhianna Fan Work Phone: [facility] Work Phone: Start: 08-21-2023 Registered Recurring MD Rhianna Fan Work Phone: [facility] [place] Start: 08-21-2023 End: 08-21-2023 Patient encounter procedure MD Rhianna Fan Work Phone: [facility]ro[facility] Work Phone: Start: 08-14-2023 Patient encounter status MD Rhianna Fan Work Phone: [facility] Start: 08-14-2023 End: 08-14-2023 ambulatory MD Rhianna Fan Work Phone: [facility] Work Phone: Start: 08-14-2023 End: 08-14-2023 Encounter for preprocedural cardiovascular examination MD Rhianna Fan Work Phone: [facility] Start: 08-14-2023 End: 08-14-2023 Patient encounter procedure MD Rhianna Fan Work Phone: [facility] Work Phone: Start: 08-09-2023 End: 08-09-2023 ambulatory MD Rhianna Fan Work Phone: [facility] Work Phone: Start: 08-09-2023 End: 08-09-2023 Patient encounter procedure MD Rhianna Fan Work Phone: [facility] Work Phone: Start: 08-05-2023 End: 08-05-2023 Patient encounter procedure MD Rhianna Fan Work Phone: [facility] Work Phone: Start: 08-05-2023 End: 08-05-2023 ambulatory MD Rhianna Fan Work Phone: [facility] Work Phone: Start: 08-05-2023 End: 08-05-2023 Patient encounter procedure MD Rhianna Fan Work Phone: [facility] Start: 06-17-2023 Non-patient / Non-visit MD Sheila Fan Work Phone: [facility] Work Phone: Start: 03-26-2023 (Televisit) Televisit Rhianna Fan [facility] Start: 03-26-2023 End: 03-26-2023 ambulatory Rhianna Fan Other [facility] Other Start: 03-13-2023 (Televisit) Televisit Rhianna Fan [facility] Start: 03-13-2023 End: 03-13-2023 ambulatory Rhianna Fan Other [facility] Other Start: 01-21-2023 End: 01-21-2023 ambulatory Rhianna Fan Other [facility] Other Start: 01-21-2023 Telephone encounter Rhianna Fan [facility] Start: 12-21-2022 End: 12-21-2022 ambulatory Jack Mcpherson Other [facility] Other Start: 12-21-2022 Telephone encounter Jack ANDERSON [facility] Nurse Start: 12-11-2022 End: 12-11-2022 Admission to same day surgery center MD Rhianna Fan Work Phone: [facility] Work Phone: Start: 12-11-2022 End: 12-11-2022 ambulatory MD Rhianna Fan Work Phone: [facility] Work Phone: Start: 11-16-2022 End: 11-16-2022 ambulatory Rhianna Fan Other [facility] Other Start: 11-16-2022 Telephone encounter Rhianna Fan [facility] Start: 11-06-2022 End: 11-06-2022 ambulatory Imad Asaad Other [facility] Other Start: 11-06-2022 Office outpatient ne w 45 minutes Imad Asaad [facility] Start: 10-15-2022 End: 10-15-2022 ambulatory Rhianna Fan Other [facility] Other Start: 10-15-2022 Telephone encounter Rhianna Fan [facility] Start: 10-03-2022 End: 10-03-2022 ambulatory Rhianna Fan Other [facility] Other Start: 10-03-2022 Office outpatient vi sit 15 minutes Rhianna Fan [facility] Start: 07-31-2022 End: 07-31-2022 ambulatory Rhianna Fan Other [facility] Other Start: 07-31-2022 Telephone encounter Rhianna Fan [facility] Start: 06-25-2022 End: 06-26-[address] RHIANNA FAN Facility:[facility] Start: 06-22-2022 Office outpatient vi sit 15 minutes Rhianna Fan [facility] Start: 06-22-2022 End: 06-23-[address] RHIANNA FAN Facility:[facility] Start: 06-18-2022 End: 06-18-2022 ambulatory Rhianna Fan Other [facility] Other Start: 06-18-2022 Telephone encounter Rhianna Fan [facility] Start: 06-12-2022 End: 06-12-2022 ambulatory Rhianna Fan Other [facility] Other Start: 06-12-2022 Office outpatient vi sit 15 minutes Rhianna Fan [facility] Start: 08-17-2021 End: 08-17-[address] RHIANNA FAN Facility: Start: 08-07-2021 Adult health examination Rhianna Fan Other [facility] Other Start: 02-15-2021 Postop follow up vis it related to original px Phuc Jumana [facility] Start: 01-23-2021 Telephone encounter Phuc Denney [facility] Start: 01-18-2021 Postop follow up vis it related to original px Phuc Jumana [facility] Procedures Date Procedure Procedure Detail Performing Clinician Start: 05-12-2024 Urine culture Rhianna reyes MD Work Phone: Start: 04-29-2024 X-ray of left knee, three views Rhianna Fan MD Work Phone: Start: 01-03-2024 Colonoscopy MD Rhianna Fan Work Phone: Start: 09-18-2023 Doppler ultrasonogra phy of bilateral carotid arteries MD Rhianna Fan Work Phone: Start: 08-27-2023 Total replacement of left knee joint MD Rhianna Fan Work Phone: Start: 08-27-2023 X-ray of left knee MD Mile Fan Work Phone: Start: 08-05-2023 X-ray of left knee MD Mile Fan Work Phone: Start: 12-11-2022 Colonoscopy MD Rhianna Fan Work Phone: Plan of Treatment Date Care Activity Detail Author Start: 09-03-2024 Patient referral [facility] Work Phone: Start: 08-31-2024 [facility] Start: 06-10-2024 [facility] Start: 05-12-2024 Bacteria identified in Urine by Culture Urine Culture [facility] Start: 05-12-2024 Urine culture [facility] Start: 04-29-2024 X-ray of left knee, three views XR knee LT 3V - NOT FOR ER USE [facility] Start: 04-29-2024 XR Knee - left 3 Views [facility] Start: 01-03-2024 [facility] Start: 09-19-2023 [facility] Start: 09-18-2023 Doppler ultrasonogra phy of bilateral carotid arteries US carotid doppler BI [facility] Start: 09-18-2023 US.doppler Carotid a rteries - bilateral [facility] Start: 09-18-2023 Hospital admission [facility] Start: 09-11-2023 [facility] Start: 08-29-2023 [facility] Start: 08-28-2023 [facility] Start: 08-27-2023 End: 08-27-2023 [facility] Start: 08-27-2023 X-ray of left knee XR knee LT 2V [facility] Start: 08-27-2023 XR Knee - left 2 Views [facility] Start: 08-27-2023 Hospital admission [facility] Start: 08-27-2023 Physical therapy procedure [facility] Start: 08-27-2023 Referral to occupati onal therapist [facility] Start: 12-11-2022 [facility] Campylobacter coli+jejuni+upsaliensis DNA [Presence] in Stool by MAXINE with non-probe detection [facility] Comprehensive metabo lic 2000 panel - Serum or Plasma [facility] Escherichia coli enteropathogenic eae gene [Presence] in Stool by MAXINE with non-probe [facility] Escherichia coli enterotoxigenic ltA+st1a+st1b genes [Presence] in Stool by MAXINE with [facility] Escherichia coli O15 7 DNA [Presence] in Stool by MAXINE with non-probe detection [facility] Escherichia coli Stx 1 and Stx2 toxin stx1+stx2 genes [Presence] in Stool by MAXINE with non-probe detection [facility] Infectious agent gen otype identification [facility] Patient Education [facility] Work Phone: Patient referral [facility] Work Phone: Plesiomonas shigello ides DNA [Presence] in Stool by MAXINE with non-probe detection [facility] Salmonella enterica+ bongori DNA [Presence] in Stool by MAXINE with non-probe detection [facility] Shigella species+EIE C invasion plasmid antigen H ipaH gene [Presence] in Stool by MAXINE [facility] Urine culture [facility] US Heart Transthoracic [facility] Vibrio cholerae DNA [Presence] in Stool by MAXINE with non-probe detection [facility] Vibrio cholerae+parahaemolyticus+vu lnificus DNA [Presence] in Stool by MAXINE with non-probe detection [facility] Immunizations Immunization Date Immunization Notes Care Provider Fa cility 02-21-2023 COVID-19 (PFIZER) [id number] 12Y and older MD Rhianna Fan Work Phone: [facility] 01-30-2022 COVID-19 mRNA Bivale nt Booster (Pfizer) MD Rhianna Fan Work Phone: [facility] 01-30-2022 COVID-19 Pfizer (Pediatric) Rhianna Fan Other [facility] 03-06-2021 COVID-19 mRNA-1273 (Moderna) MD Rhianna Fan Work Phone: [facility] 10-13-2020 Kenalog -40 mg Phuc Denney Other [facility] Other 06-28-2020 COVID-19 mRNA-1273 (Moderna) MD Rhianna Fan Work Phone: [facility] 05-30-2020 COVID-19 mRNA-1273 (Moderna) MD Rhianna Fan Work Phone: [facility] 02-06-2019 influenza virus vaccine, split virus (incl. purified surface antigen) Rhianna Fan Other [facility] Other 02-06-2019 influenza virus vaccine, unspecified formulation MD Rhianna Fan Work Phone: [facility] 10-21-2018 Kenalog -40 mg Phuc Jumana Other [facility] Other 06-07-2016 Kenalog -40 mg Phuc Jumana Other [facility] Other Payers Date Payer Category Payer Medicare [id number] 2024 Unknown [id number] 2023 Self-pay [id number] 2020 Unknown [id number] 1945 Unknown [id number] 1945 Unknown [id number] [id number] 1945 Unknown [id number] [id number] 1945 Unknown [id number] [id number] 1945 Unknown [id number] [id number] 1945 Unknown [id number] 2.16.840.1.405434.3.579.2.1259 1945 Unknown [id number] [id number] Medicare [id number] 2.16. [id number] Medicare Medicare [id number] Private Health Insurance [facility] [id number] Unknown [place] BC/BS [id number] Unknown [id number] [id number] Unknown [id number] [id number] Unknown [id number] [id number] Unknown [id number] 2.16.840.1.321823.3.579.2.531 Unknown [id number] [id number] Unknown [id number] [id number] Social History Date Type Detail Facility Sex Assigned At [facility] Other Start: 12-11-2022 End: 06-01-2024 Tobacco smoking status MIIS Ex-smoker (finding) [facility] Start: 1945 Sex Assigned At Male F [facility] Start: 04-29-2024 End: 09-18-2024 Sex Male (finding) [facility] Start: 08-31-2024 Tobacco smoking stat us [facility] Never smoked tobacco (finding) [facility] Medical Equipment Procedure Code Equipment Code Equipment Origin al Text Equipment Identifier Dates Arthroplasty, knee, total, minimally invasive Orthopaedic cement, non-medicated ()[id number] FDA Start: 01-03-2021 Arthroplasty, knee, total, minimally invasive Coated knee femur prosthesis ()[id number] FDA Start: 01-03-2021 Arthroplasty, knee, total, minimally invasive Tibial insert ()[id number] FDA Start: 01-03-2021 Arthroplasty, knee, total, minimally invasive Polyethylene patella prosthesis ()[id number] FDA Start: 01-03-2021 Arthroplasty, knee, total, minimally invasive Uncoated knee tibia prosthesis, metallic ()[id number] FDA Start: 01-03-2021 Arthroplasty, knee, total, minimally invasive Orthopaedic cement, non-medicated ()[id number] FDA Start: 08-27-2023 Arthroplasty, knee, total, minimally invasive Uncoated knee tibia prosthesis, metallic ()[id number] FDA Start: 08-27-2023 Arthroplasty, knee, total, minimally invasive Polyethylene patella prosthesis ()[id number] FDA Start: 08-27-2023 Arthroplasty, knee, total, minimally invasive Tibial insert ()[id number] FDA Start: 08-27-2023 Arthroplasty, knee, total, minimally invasive Coated knee femur prosthesis ()[id number] FDA Start: 08-27-2023 Goals Date Patient Goal Desired Activity /State Functional Status Date Assessment Result Facility 09-19-2023 Functional status Patient at Baseline [facility] Work Phone: Mental Status Date Assessment Result Facility 09-19-2023 Cognitive function Cognitive Sta tus Patient at Baseline [facility] Work Phone: Clinical Notes 01-03-2021 to 09-03-2024 Note Date & Type Note Facility 09-03-2024 Evaluation note Diagnosis Onset Date Resolution Diarrhea acute September 03, 2024 9:51am [facility] Work Phone: 1(441) 363-680202-20-2025 Evaluation note* Diagnosis Onset Date Resolution Status Admit Date Diarrhea acute June 11, 2024 1:39pm [facility] Work Phone: 1(130) 723-745212-02-2024 Evaluation note* Diagnosis Onset Date Resolution Status Admit Date Sinusitis, acute maxillary acute March 23, 2024 10:06am Diarrhea in adult patient acute April 02, 2024 10:59am Primary osteoarthritis of le ft knee acute April 29 9:02am Status post total left knee replacement acute April 29 9:02am [facility] Work Phone: 1(207) 340-793712-02-2024 Evaluation note* Diagnosis Onset Date Resolution Status Admit Date Sinusitis, acute maxillary acute March 23, 2024 10:06am Diarrhea in adult patient acute April 02, 2024 10:59am Primary osteoarthritis of le ft knee acute April 29 9:02am Status post total left knee replacement acute April 29 9:02am Essential (primary) hypertension acute May 04 10:54am Paroxysmal atrial fibrillation acute May 04, 2024 10:54am Primary osteoarthritis of le ft knee acute May 04 10:54am [facility] Work Phone: 1(304) 269-272412-02-2024 Evaluation note* Diagnosis Onset Date Resolution Status Admit Date Sinusitis, acute maxillary acute March 23, 2024 10:06am Diarrhea in adult patient acute April 02, 2024 10:59am Primary osteoarthritis of le ft knee acute April 29 9:02am Status post total left knee replacement acute April 29 9:02am Essential (primary) hypertension acute May 04 10:54am Paroxysmal atrial fibrillation acute May 04, 2024 10:54am Primary osteoarthritis of le ft knee acute May 04 10:54am UTI (urinary tract infection) acute May 05, 2024 10:26am [facility] Work Phone: 1(470) 228-356312-02-2024 Evaluation note* Diagnosis Onset Date Resolution Status Admit Date Sinusitis, acute maxillary acute March 23, 2024 10:06am Diarrhea in adult patient acute April 02, 2024 10:59am Primary osteoarthritis of le ft knee acute April 29 9:02am Status post total left knee replacement acute April 29 9:02am Essential (primary) hypertension acute May 04 10:54am Paroxysmal atrial fibrillation acute May 04, 2024 10:54am Primary osteoarthritis of le ft knee acute May 04 10:54am C. difficile diarrhea acute Apr 10:26am UTI (urinary tract infection) acute May 05, 2024 10:26am [facility] Work Phone: 1(568) 348-929512-02-2024 Evaluation note* Diagnosis Onset Date Resolution Status Admit Date Sinusitis, acute maxillary acute March 23, 2024 10:06am Diarrhea in adult patient acute April 02, 2024 10:59am Primary osteoarthritis of le ft knee acute April 29 9:02am Status post total left knee replacement acute April 29 9:02am Essential (primary) hypertension acute May 04 10:54am Paroxysmal atrial fibrillation acute May 04, 2024 10:54am Primary osteoarthritis of le ft knee acute May 04 10:54am C. difficile diarrhea acute Apr 10:26am UTI (urinary tract infection) acute May 05, 2024 10:26am C. difficile diarrhea acute Apr 9:16am UTI (urinary tract infection) acute May 14, 2024 9:16am [facility] Work Phone: 1(560) 596-165012-02-2024 Evaluation note* Diagnosis Onset Date Resolution Status Admit Date Sinusitis, acute maxillary acute March 23, 2024 10:06am Diarrhea in adult patient acute April 02, 2024 10:59am Primary osteoarthritis of le ft knee acute April 29 9:02am Status post total left knee replacement acute April 29 9:02am Essential (primary) hypertension acute May 04 10:54am Paroxysmal atrial fibrillation acute May 04, 2024 10:54am Primary osteoarthritis of le ft knee acute May 04 10:54am C. difficile diarrhea acute Apr 10:26am UTI (urinary tract infection) acute May 05, 2024 10:26am C. difficile diarrhea acute Apr 9:16am UTI (urinary tract infection) acute May 14, 2024 9:16am Diarrhea acute June 01, 2024 2:17pm [facility] Work Phone: 1(330) 737-351309-13-2024 [facility] Progress note Author Patricia Vilchis [facility] September 18, 2023 8:54pm Note Date/Time September 18, 2023 7:35p m [facility] [address] [place] [address] Hospitalist Progress Note Signed Patient: Nicholas Trujillo MR#: [id number] : 1945 Acct:[id number] Age/Sex: 78 / M Adm Date: 4 Loc: 4P Room: [address] [place] [address] Type: ADM IN Attending Dr: Patricia Vilchis MD Copies to: ~ Date of Service: 09/18/2023 Subjective Subjective Narrative: Assessment And Plan 78M with PMH of HTN, PAF (on Eliquis), DJD who presented with weakness and dizziness to [facility] ER and transferred for the evaluation and treatment of suspected sinus pauses Orthostatic hypotension The patient presented with lightheadedness, he was found with Positive orthostatic blood pressure He received IVF. could be due to Multaq per cardiology dronedarone was discontinued US carotid pending report Post-conversion pause Sinus pauses was noted at [facility] . cardiology belvies this is in [...] <Electronically signed by Patricia Vilchis MD> 09/18/232053 [facility] Work Phone: 1(312) 586-686605-29-2024 Consult note Author Garrett Gunter [facility] September 18, 2023 2:22pm Note Date/Time September 18, 2023 2:19p m [facility] [address] [place] [address] Cardiology Consult Note Signed with Addenda Patient: Nicholas Trujillo MR#: [id number] : 1945 Acct:[id number] Age/Sex: 78 / M Adm Date: 4 Loc: 4 Room: [address] [place] [address] Type: ADM IN Attending Dr: Patricia Vilchis MD Copies to: MD Rhianna Mccoy MD Marwan Wassouf, MD~ ADDENDUM1 CANCELLED Addendum Documented By: Garrett Gunter MD 09/18/231421 Addendum Signed By: <Electronically signed by Garrett Gunter MD> 09/18/231421 Cardiology HPI History of Present Illness Consult [...] lastseveral days and he presented to the [facility] ER. There was questionable reportsof dark stools, however patient said that these were due to iron pills. He was not significantly anemic with hemoglobin of 10. At [facility] was noted to be in sinus rhythm with first-degree AV block. He then went into A-fib and when he converted back to sinus rhythm he had PACs with pauses lasting 1-3 seconds. The patient says he was asymptomatic of these particular episodes as he was lying inbed and he felt nothing. The rest of his workup at [facility] was unremarkable: Chest x-ray shows no acute [...] negative unless noted below or in HPI [facility] Medical History (Updated 09/18/23 @ [...] PO QAM supplement 12/16/20 [History Confirmed 09/18/23] wgimmtsvyedv-lvc-dvdzg acid-vit K-lycop 400 mcg-20 mcg-370 mcg tablet [...] # Post-conversion pause of 1-3-seconds noticed at [facility] ? -The pauses at [facility] were in the context of conversion [...] <Electronically signed by Garrett Gunter MD> 09/18/23 1418 [facility] Work Phone: 1(312) 642-347105-29-2024 Consult note Author Garrett Gunter [facility] September 18, 2023 2:21pm Note Date/Time September 18, 2023 2:21p m [facility] [address] [place] [address] Cardiology Consult Note Signed Patient: Nicholas Trujillo MR#: [id number] : 1945 Acct:[id number] Age/Sex: 78 / M Adm Date: 4 Loc: 4 Room: 2G3265-3 Type: ADM IN Attending Dr: Patricia Vilchis MD Copies to: MD Rhianna Mccoy MD Marwan Wassouf, MD~ Cardiology HPI [...] lastseveral days and he presented to the [facility]. There was questionable reportsof dark stools, however patient said that these were due to iron pills. He was not significantly anemic with hemoglobin of 10. At [facility] was noted to be in sinus rhythm with first-degree AV block. He then went into A-fib and when he converted back to sinus rhythm he had PACs with pauses lasting 1-3 seconds. The patient says he was asymptomatic of these particular episodes as he was lying inbed and he felt nothing. The rest of his workup at [facility] was unremarkable: Chest x-ray shows no acute [...] negative unless noted below or in HPI [facility] Medical History (Updated 09/18/23 @ [...] PO QAM supplement 12/16/20 [History Confirmed 09/18/23] zuiloapavwds-pbs-jtfgb acid-vit K-lycop 400 mcg-20 mcg-370 mcg tablet [...] # Post-conversion pause of 1-3-seconds noticed at [facility] ? -The pauses at [facility] were in the context of conversion [...] home. Documented By: Garrett Gunter MD 08/21 Signed By: <Electronically signed by Garrett Gunter MD> 09/18/23 1421 [facility] Work Phone: 1(606) 531-605405-29-2024 History and physical note Author Devonte Kelly [facility] September 18, 2023 1:53am Note Date/Time September 18, 2023 1:03a m [facility] [address] [place] [address] Hospitalist H&P Signed Patient: Nicholas Trujillo MR#: [id number] : 1945 Acct:[id number] Age/Sex: 78 / M Adm Date: 4 Loc: 4 Room: [address] [place] [address] Type: ADM IN Attending Dr: Devonte Kelly MD Copies to: MD Devonte Bahena MD Paula G Smith, COUNSELOR DORMITORY~ HPI DATE OF EXAMINATION: 09/18/23 CHIEF COMPLAINT: weakness and dizziness HISTORY OF PRESENT ILLNESS: Mr. Trujillo is a 78-year-old male with a PMH of paroxysmal A-fib, HTN, recent left knee replacement the presented to the [facility] emergency room for weakness and dizziness. [...] rate 69, standing 126/69, heart rate 57. [facility] chart review?EKG sinus rhythm with a [...] unless noted in the HPI or below. [facility] Medical History (Updated 09/18/23 @ [...] PO QAM supplement 12/16/20 [History Confirmed 09/18/23] hhbapialbsom-gxu-fwdsa acid-vit K-lycop 400 mcg-20 mcg-370 mcg tablet [...] cardiology for possible sinus pauses seen at [facility] emergency room ? Hold dronedarone for [...] 0150 <Electronically signed by Devonte Kelly MD> 09/18/23152 [facility] Work Phone: 1(742) 932-876012-05-2023 Evaluation note* Encounter Date Diagnosis Assessment Notes Treatment Notes Treatment Clinical Notes Mar, COVID-19 (ICD-10 - U07.1) Discussed quarantine guidelines and symptom management. Call if further concerns. [facility] Other 11-22-2023 Evaluation note* Encounter Date Diagnosis [...] weekend of breathing or other symptoms worsen. [facility] Other 08-22-2023 Procedure [facility]07-28-2023 Evaluation note* Encounter Date Diagnosis Assessment Notes Treatment Notes Treatment Clinical Notes Oct, Gouty arthritis (ICD-10 - M10.9) [facility] Other 07-18-2023 Evaluation note* Encounter Date Diagnosis Assessment Notes Treatment Notes Treatment Clinical Notes Oct, Fecal incontinence (ICD-10 - R15.9) Oct, Mucus in stool (ICD-10 - R19.5) Oct, Frequent bowel movements (ICD-10 - R19.4) Oct, Diarrhea (ICD-10 - R19.7) [facility] Other 06-26-2023 Evaluation note* Encounter Date Diagnosis Assessment Notes Treatment Notes Treatment Clinical Notes Sep, Incontinence of feces, unspecified fecal incontinence type (ICD-10 - R15.9) [facility] Other 06-14-2023 Evaluation note* Encounter Date Diagnosis [...] Medrol pack should help it resolve faster. [facility] Other 04-11-2023 Evaluation note* Encounter Date Diagnosis Assessment Notes Treatment Notes Treatment Clinical Notes Jul, Current moderate episode of major depressive disorder without prior episode (ICD-10 - F32.1) [facility] Other 03-03-2023 Evaluation note* Encounter Date Diagnosis Assessment Notes Treatment Notes Treatment Clinical Notes Jun, Current moderate episode of major depressive disorder without prior episode (ICD-10 - F32.1) D/c effexor. start SSRI. Followup in 1-2 months Jun, Essential (primary) hypertension (ICD-10 - I10) Has not had an ekg in several years. would be helpful to get a baseline with his fluctuating bps. [facility] Other 02-21-2023 Evaluation note* Encounter Date Diagnosis Assessment Notes Treatment Notes Treatment Clinical Notes May, Essential (primary) hypertension (ICD-10 - I10) Reviewed medications. Continue present dose. Request copy of labs from [place]. May, Decreased pedal pulses (ICD-10 - R09.89) Discussed possible arterial issues - will set up for ABIs. May, Current moderate episode of major depressive disorder without prior episode (ICD-10 - F32.1) Will initiate medication as a trial. Discussed side effects. Denies counseling - cannot identify particular sources of depression in his life at this time. [facility] Other 10-27-2021 Evaluation note* Encounter Date Diagnosis [...] by physical therapy. Call with questions/concerns . [facility] Other 09-29-2021 Evaluation note* Encounter Date Diagnosis [...] ment today in the electronic medical record CO Everywhere [facility] Other 09-14-2021 History general Narrative - Reported* Type Description Date Medical History HTN Surgical History right total knee arthroplasty [facility] Other 09-14-2021 History general Narrative - Reported* Type Description Date Medical History HTN Surgical History right total knee arthroplasty Hospitalization History SEE SURGICAL HX [facility] Other Evaluation noteNo [employer] Other Evaluation noteNo assessment information available [facility] Work Phone: Evaluation note* Diagnosis Onset Date Resolution Status Primary osteoarthritis of left knee acute [facility] Work Phone: Evaluation note* Diagnosis Onset Date Resolution Status Primary osteoarthritis of left knee acute Essential (primary) hypertension acute Left knee pain acute Paroxysmal atrial fibrillation acute Pre-operative cardiovascular examination acute Primary osteoarthritis of left knee acute [facility] Work Phone: Evaluation note* Diagnosis Onset Date Resolution Status Primary osteoarthritis of left knee acute Essential (primary) hypertension acute Left knee pain acute Paroxysmal atrial fibrillation acute Pre-operative cardiovascular examination acute Primary osteoarthritis of left knee acute Primary osteoarthritis of left knee acute [facility] Work Phone: Evaluation note* Diagnosis Onset Date [...] acute Primary osteoarthritis of left knee acute [facility] Work Phone: Evaluation note* Diagnosis Onset Date [...] fibrillation with conversion pauses acute Weakness acute [facility] Work Phone: Evaluation note* Diagnosis Onset Date [...] acute Primary osteoarthritis of left knee acute [facility] Work Phone: Evaluation note* Diagnosis Onset Date [...] Status post total left knee replacement acute [facility] Work Phone: Evaluation note* Diagnosis Onset Date [...] Status post total left knee replacement acute [facility] Work Phone: Evaluation note* Diagnosis Onset Date Resolution Status Essential (primary) hypertension acute Paroxysmal atrial fibrillation acute Primary osteoarthritis of left knee acute Primary osteoarthritis of left knee acute Status post total left knee replacement acute [facility] Work Phone: History and physical note Author Tina Garcia [facility] December 11, 2022 10:20am Note Date/Time December 11, 2022 10 :20am [facility] [address] [place] [address] Gastroenterology H&P Signed Patient: Nicholas Trujillo MR#: [id number] : 1945 Acct:[id number] Age/Sex: 77 / M Adm Date: 3 Loc: Room: Type: [facility] Attending Dr: Tina Garcia MD Copies to: MD Rhianna Zhang MD~ Date of Service: 12/11/2022 HISTORY [...] signed by Tina Garcia MD> 12/11/22 1020 [facility] Work Phone: History and physical note Author Tina Garcia [facility] January 03, 2024 10:22am Note Date/Time January 03, 2024 10:22am [facility] [address] [place] [address] Gastroenterology H&P Signed Patient: Nicholas Trujillo MR#: [id number] : 1945 Acct:[id number] Age/Sex: 78 / M Adm Date: 4 Loc: Room: Type: [facility] Attending Dr: Tina Garcia MD Copies to: MD Rhianna Zhang MD~ Date of Service: 01/03/2024 HISTORY [...] signed by Tina Garcia MD> 01/03/24 1022 [facility] Work Phone: Hospital Discharge instructions Additional Instructions [...] scheduled -Follow up with PCP. -Office number [phone]. [facility] Work Phone: Hospital Discharge instructions Additional Instructions Joint Replacement Discharge Instructions Your safety during your recovery process is important to us. Please seek immediate emergency care if you have sudden chest pain or shortness of breath. Additionally, please call our office at [phone] should any of the following occur: wound [...] over time or it could last forever. RENNY hose (stockinette): Wear them for 4 weeks on the [...] and/or laxatives as directed. You may take panx-lgk-srczgil Benadryl if itching occurs without a rash or hives. Icing and elevation will help relieve pain as well, do not underestimate the power of ice and elevation. We do recommend that you stop taking narcotic pain medications by 4-6 weeks after surgery and if necessary, continue to use anti-inflammatory medications such as Mobic (meloxicam), Celebrex (celecoxib), or an eahr-bcl-rkmeuik medication (Aleve, Motrin, Ibuprofen, etc). Driving an [...] feel free to call our office at [phone]. You are a priority of ours and we will not be upset with you if you call. We would much rather you call to confirm aspects of your recovery process as opposed to possibly hindering your recovery with inappropriate care. We are committed to providing you with the best care possible. Dr. Phuc [facility] [address] [place] [id number] [email or web address] [facility] Work Phone: Hospital Discharge instructions Additional Instructions Lots of fluids Follow-up with Dr. Pulido and gastroenterology [facility] for [facility] Work Phone: Progress note Author Garrett Gunter [facility] September 19, 2023 1:51pm Note Date/Time September 19, 2023 1:49p m [facility] [address] [place] [id number] Cardiology Progress Note Signed Patient: Nicholas Trujillo MR#: [id number] : 1945 Acct:[id number] Age/Sex: 78 / M Adm Date: 4 Loc: 4 Room: 0Z3769-2 Type: ADM IN Attending Dr: Patricia Vilchis [...] # Post-conversion pause of 1-3-seconds noticed at [facility] - The pauses at [facility] were in the context of conversion [...] call with any questions. Follow up with [facility] Cardiology in 1 month. Documented By: Garrett Gunter MD 08/22 1347 Signed By: <Electronically signed by Garrett Gunter MD> 09/19/23 1351 [facility] Work Phone: Summary Purpose Family History No [...] Date/ Time Advance Directives No October 24 7:45am Advance Directive Response Recorded Date/ Time Advance Directives No February 11:27am Advance Directive Response Recorded Date/ Time Advance Directives No February 12:27pm Reason for Referral Reason *Waiting for appt Bowel incontinence Diagnosis 1 Incontinence of fece s, unspecified fecal incontinence type (R15.9) Referral Organization [facility] Referring Provider First Name Rhianna Referring Provider Last Name Meng Referring Provider Specialty Family [facility] Referred Organization [facility] Gastroenterolo gy Referred Provider Jack Mcpherson Referred Address [address] [place] [phone] Referred Provider Specialty Gastroentero logy Referral Priority Routine General Notes Chioma Lorenzo 08:04:51 AM >received today, sent P2P Chief Complaint and Reason for Visit Chief Complaint Fecal Incontinence, Mucus in Stool, Diarrhea Chief Complaint Amb Documentation M25.562 - Pain in left knee 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 Abnormal EKG R94.31 I48.91 LTK Pre Op H & P LEFT TOTAL KNEE ARTHROPLASTY 08-27-23 Knee Pain Knee Pain 2 WEEKS POST OP 1 Month Sinus Pressure Sinus Pressure [facility] follow up, weakness and dizziness Reason for [...] - Pain in le ft knee op 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 Abnormal EKG R94.31 I48.91 LTK Pre Op H & P LEFT TOTAL KNEE ARTHROPLASTY 08-27-23 Knee Pain Knee Pain 2 WEEKS POST OP 1 Month Sinus Pressure Sinus Pressure [facility] follow up, weakness and dizziness [facility] 530 Reason for Visit Primary osteoarthrit is of [...] - Pain in le ft knee op funeral pre arrangement counselor lt knee pain discuss surgery Knee Pain [...] post total left knee replacement Chief Complaint [facility] 09/18 6 WEEK RECHECK hx of colon polyps hx of colon polyps Reason for Visit Essential (primary) hypertension Paroxysmal atrial fibrillation Primary osteoarthritis of left knee Primary osteoarthritis of left knee Status post total left knee replacement Chief Complaint Admit Date Sinus Infection March 23, 2024 1 0:06am CC Adult Risk Stratification April 012023 10:09am frequent diarrhea (1 mo) April 02, 2024 10:59am 6 MONTHS April 29, 2024 9: 02am M17.12 - Unilateral primary osteoarthrit is, left k April 29, 2024 9:05am Reason for Visit Admit Date Sinusitis, acute maxillary March 23, 2024 10:06am Diarrhea in adult patient April 02, 2024 10:59am Primary osteoarthritis of left knee Jose Rafael cheney 2024 9:02am Status post total left knee replacement April 29, 2024 9:02am Chief Complaint Admit Date Sinus Infection March 23, 2024 1 0:06am CC Adult Risk Stratification April 012023 10:09am frequent diarrhea (1 mo) April 02, 2024 10:59am 6 MONTHS April 29, 2024 9: 02am M17.12 Z96.652 April 29, 2024 9: 05am Chief Complaint Admit Date Sinus Infection March 23, 2024 1 0:06am CC Adult Risk Stratification April 012023 10:09am frequent diarrhea (1 mo) April 02, 2024 10:59am 6 MONTHS April 29, 2024 9: 02am M17.12 Z96.652 April 29, 2024 9: 05am 6 MONTHS May 04, 2024 1 0:54am Reason for Visit Admit Date Sinusitis, acute maxillary March 23, 2024 10:06am Diarrhea in adult patient April 02, 2024 10:59am Primary osteoarthritis of left knee Jose Rafael noni 2024 9:02am Status post total left knee replacement April 29, 2024 9:02am Essential (primary) hypertension May 04, 2024 10:54am Paroxysmal atrial fibrillation April 222024 10:54am Primary osteoarthritis of left knee Jose Rafael cheney 2024 10:54am Chief Complaint Admit Date Sinus Infection March 23, 2024 1 0:06am CC Adult Risk Stratification April 012023 10:09am frequent diarrhea (1 mo) April 02, 2024 10:59am 6 MONTHS April 29, 2024 9: 02am M17.12 Z96.652 April 29, 2024 9: 05am 6 MONTHS May 04, 2024 1 0:54am Diarrhea/ER f/u May 05, 2024 1 0:26am Reason for Visit Admit Date Sinusitis, acute maxillary March 23, 2024 10:06am Diarrhea in adult patient April 02, 2024 10:59am Primary osteoarthritis of left knee Jose Rafael cheney 2024 9:02am Status post total left knee replacement April 29, 2024 9:02am Essential (primary) hypertension May 04, 2024 10:54am Paroxysmal atrial fibrillation April 222024 10:54am Primary osteoarthritis of left knee Jose Rafael cheney 2024 10:54am UTI (urinary tract infection) May 052024 10:26am Reason for Visit Admit Date Sinusitis, acute maxillary March 23, 2024 10:06am Diarrhea in adult patient April 02, 2024 10:59am Primary osteoarthritis of left knee Jose Rafael cheney 2024 9:02am Status post total left knee replacement April 29, 2024 9:02am Essential (primary) hypertension May 04, 2024 10:54am Paroxysmal atrial fibrillation April 222024 10:54am Primary osteoarthritis of left knee Jose Rafael cheney 2024 10:54am C. difficile diarrhea May 05, 2024 10:26am UTI (urinary tract infection) May 052024 10:26am Chief Complaint Admit Date Sinus Infection March 23, 2024 1 0:06am CC Adult Risk Stratification April 012023 10:09am frequent diarrhea (1 mo) April 02, 2024 10:59am 6 MONTHS April 29, 2024 9: 02am M17.12 Z96.652 April 29, 2024 9: 05am 6 MONTHS May 04, 2024 1 0:54am Diarrhea/ER f/u May 05, 2024 1 0:26am N39.0 May 12, 2024 8 :00am [facility]IRTUAL, concerns with C-diff May 142024 9:16am Reason for Visit Admit Date Sinusitis, acute maxillary March 23, 2024 10:06am Diarrhea in adult patient April 02, 2024 10:59am Primary osteoarthritis of left knee Jose Rafael noni 2024 9:02am Status post total left knee replacement April 29, 2024 9:02am Essential (primary) hypertension May 04, 2024 10:54am Paroxysmal atrial fibrillation April 222024 10:54am Primary osteoarthritis of left knee Jose Rafael 2024 10:54am C. difficile diarrhea May 05, 2024 10:26am UTI (urinary tract infection) May 052024 10:26am C. difficile diarrhea May 14, 2024 9:16am UTI (urinary tract infection) May 142024 9:16am Chief Complaint Admit Date Sinus Infection March 23, 2024 1 0:06am CC Adult Risk Stratification April 012023 10:09am frequent diarrhea (1 mo) April 02, 2024 10:59am 6 MONTHS April 29, 2024 9: 02am M17.12 Z96.652 April 29, 2024 9: 05am 6 MONTHS May 04, 2024 1 0:54am Diarrhea/ER f/u May 05, 2024 1 0:26am N39.0 May 12, 2024 8 :00am VIRTUAL, concerns with C-diff May 142024 9:16am referred by Rhianna VALLES June 01, 2024 2:17pm Reason for Visit Admit Date Sinusitis, acute maxillary March 23, 2024 10:06am Diarrhea in adult patient April 02, 2024 10:59am Primary osteoarthritis of left knee Jose Rafael 2024 9:02am Status post total left knee replacement April 29, 2024 9:02am Essential (primary) hypertension May 04, 2024 10:54am Paroxysmal atrial fibrillation April 222024 10:54am Primary osteoarthritis of left knee Jose Rafael noni2024 10:54am C. difficile diarrhea May 05, 2024 10:26am UTI (urinary tract infection) May 052024 10:26am C. difficile diarrhea May 14, 2024 9:16am UTI (urinary tract infection) May 142024 9:16am Diarrhea June 01, 2024 2:17pm Chief Complaint Admit Date Sinus Infection March 23, 2024 1 0:06am CC Adult Risk Stratification April 012023 10:09am frequent diarrhea (1 mo) April 02, 2024 10:59am 6 MONTHS April 29, 2024 9: 02am M17.12 Z96.652 April 29, 2024 9: 05am 6 MONTHS May 04, 2024 1 0:54am Diarrhea/ER f/u May 05, 2024 1 0:26am N39.0 May 12, 2024 8 :00am VIRTUAL, concerns with C-diff May 142024 9:16am referred by Rhianna VALLES June 01, 2024 2:17pm r19.7 June 10, 2024 11:01am Chief Complaint Admit Date Sinus Infection March 23, 2024 1 0:06am CC Adult Risk Stratification April 012023 10:09am frequent diarrhea (1 mo) April 02, 2024 10:59am 6 MONTHS April 29, 2024 9: 02am M17.12 Z96.652 April 29, 2024 9: 05am 6 MONTHS May 04, 2024 1 0:54am Diarrhea/ER f/u May 05, 2024 1 0:26am N39.0 May 12, 2024 8 :00am VIRTUAL, concerns with C-diff May 142024 9:16am referred by Rhianna VALLES June 01, 2024 2:17pm r19.7 June 10, 2024 11:01am Patient here for a 1.5 week f/u June 11, 2024 1:39pm Chief Complaint Admit Date r19.7 June 10, 2024 11:01am Patient here for a 1.5 week f/u June 11, 2024 1:39pm Diarrhea August 31, 2024 10:32 am Reason for Visit Admit Date Diarrhea June 11, 2024 1:39pm Chief Complaint Admit Date r19.7 June 10, 2024 11:01am Patient here for a 1.5 week f/u June 11, 2024 1:39pm Diarrhea August 31, 2024 10:32 am Amb Documentation September 01, 2024 9:57a m [facility]; diarrhea September 03, 2024 9:51a m Chief Complaint Admit Date Diarrhea August 31, 2024 10:32 am Amb Documentation September 01, 2024 9:57a m [facility]; diarrhea September 03, 2024 9:51a m talk about lab work September 18, 2024 11:02 am Reason for Visit Admit Date Diarrhea September 03, 2024 9:51a m Additional Source Comments REASON FOR VISIT (unrecogniz ed section and content) Recheck Right KneeBMIRecheck Right KneeCheck Up/ DepressionmessageMedication DiscussionREFILLFeet IssuesGI referralCONSULT FOR Bowel incontinence. Patient has never had colonoscopy before.messagegastro reportsRefillmessagecovid [phone] COVID Positivecovid [phone] COVID Positive (unrecognized sect ion and content) No Status Records FoundNo Status Records FoundNo Status Records Found INFORMATION SOURCE (unrecogn ized section and content) DATE CREATED AUTHOR 06/27/2022 [facility] DATE CREATED AUTHOR AUTHOR'S ORGANIZ ATION 10/05/2023 [facility] EPIC DATE CREATED AUTHOR AUTHOR'S ORGANIZ ATION 09/24/2024 [facility] Care Teams (unrecognized sec tion and content) Team Status: Active Member Role Status Dates Rhianna Fan MD Primary Care Provider Active Team Status: Active Member Role Status Dates Rhianna Fan MD Primary Care Provider Active Start: June 17, 2023 JOVITA Zavala Attending Provider Active Start : June 17, 2023 Team Status: Inactive Member Role Status Dates Rhianna Fan MD Primary Care Provider Active Start: August 05, 2023 End: August 05, 2023 Phuc Denney DO Attending Provider Active S tart: August 05, 2023 End: August 05, 2023 Team Status: Inactive Member Role Status Dates Rhianna Fan MD Primary Care Provider Active Tina Garcia MD Attending Provider Active Team Status: Inactive Member Role Status Dates Rhianna Fan MD Primary Care Provider Active Start: August 09, 2023 End: August 09, 2023 Phuc Denney DO Attending Provider Active S tart: August 09, 2023 End: August 09, 2023 Team Status: Inactive Member Role Status Dates Rhianna Fan MD Primary Care Provide r, Referring Provider Active Start: August 14, 2023 End: August 14, 2023 Garrett Gunter MD Attending Provider Active Start: August 13 End: August 14, 2023 Team Status: Inactive Member Role Status Dates Rhianna Fan MD Primary Care Provider Active Start: August 14, 2023 End: August 14, 2023 Garrett Gunter MD Attending Provider Activ e Start: August 14, 2023 End: August 14, 2023 Team Status: Inactive Member Role Status Dates Rhianna Fan MD Primary Care Provider Active Start: August 21, 2023 End: August 21, 2023 Garrett Gunter MD Attending Provider Activ e Start: August 21, 2023 End: August 21, 2023 Team Status: Active Member Role Status Dates Rhianna Fan MD Primary Care Provider Active Start: August 21, 2023 Phuc Denney DO Attending Provider Active S tart: August 21, 2023 Team Status: Inactive Member Role Status Dates Rhianna Fan MD Primary Care Provider Active Start: August 21, 2023 End: August 21, 2023 Phuc Denney DO Attending Provider Active S tart: August 21, 2023 End: August 21, 2023 Team Status: Inactive Member Role Status Dates Rhianna Fan MD Primary Care Provider Active Start: August 27, 2023 End: August 27, 2023 Phuc Denney DO Attending Provider Active S tart: August 27, 2023 End: August 27, 2023 Team Status: Active Member Role Status Dates Rhianna Fan MD Primary Care Provider Active Start: August 27, 2023 Phuc Denney DO Attending Provider, Other Provide r Active Start: August 27, 2023 Team Status: Inactive Member Role Status Dates Rhianna Fan MD Primary Care Provider Active Start: September 09, 2023 End: September 09, 2023 Phuc Denney DO Active Start: September 09, 2023 End: September 09, 2023 Kendra Fajardo NP-C Attending Provider Active Start: September 09, 2023 End: September 09, 2023 Team Status: Inactive Member Role Status Dates Rhianna Fan MD Primary Care Provider Active Start: September 11, 2023 End: September 11, 2023 Garrett Gnuter MD Attending Provider Activ e Start: September 11, 2023 End: September 11, 2023 Team Status: Active Member Role Status Dates Garrett Gunter MD Body Piercer Active Rhianna Fan MD Primary Care Provider Active Team Status: Active Member Role Status Dates Rhianna Fan MD Primary Care Provider Active Start: September 17, 2023 Jovanni Sullivan DO Attending Provider Active S tart: September 17, 2023 Team Status: Inactive Member Role Status Dates Rhianna Fan MD Primary Care Provider Active Start: September 18, 2023 End: September 19, 2023 Devonte Kelly MD Admit Provider Active Sta rt: September 18, 2023 End: September 19, 2023 Patricia Vilchis MD Attending Provider Active St art: September 18, 2023 End: September 19, 2023 Team Status: Active Member Role Status Dates Rhianna Fan MD Primary Care Provider Active Start: September 18, 2023 Devonte Kelly MD Admit Provider Active Sta rt: September 18, 2023 Patricia Vilchis MD Other Provider Active Start: September 18, 2023 Adwoa Castro RN Other Provider Active Star t: September 18, 2023 Buddy Ham MD Other Provider Active Start: M leora 2023 Garrett Gunter MD Attending Provider, Other Provider Active Start: September 18, 2023 Ibis Melendez MD Other Provider Active Start: September 18, 2023 Team Status: Inactive Member Role Status Dates Rhianna Fan MD Primary Care Provide r, Attending Provider Active Start: September 23, 2023 End: September 23, 2023 Team Status: Active Member Role Status Dates Rhianna Fan MD Primary Care Provider Active Start: [...] Buddy Ham MD Other Provider Active Start: 2023 End: September 19, 2023 Garrett Gunter MD Attending Provider, Other Provider Active Start: September 18, 2023 End: September 19, 2023 Ibis Melendez MD Other Provider Active Start: September 18, 2023 End: September 19, 2023 Team Status: Inactive Member Role Status Dates Rhianna Fan MD Primary Care Provider Active Start: [...] 2024 Team Status: Active Member Role Status Bright Fan MD Primary Care Provider Active Start: January 03, 2024 Tina Garcia MD Attending Provider, Other Provider Active Start: January 03, 2024 Team Status: Inactive Member Role Status Bright Fan MD Primary Care Provide r, Attending Provider Active Start: March 23, 2024 End: March 23, 2024 Team Status: Active Member Role Status Bright Fan MD Primary Care Provide r, Attending Provider Active Start: April 01, 2024 Team Status: Inactive Member Role Status Bright Fan MD Primary Care Provide r, Attending Provider Active Start: April 02, 2024 End: April 02, 2024 Team Status: Inactive Member Role Status Bright Fan MD Primary Care Provider Active Start: April 29, 2024 End: April 29, 2024 Phuc Denney DO Attending Provider Active S tart: April 29, 2024 End: April 29, 2024 Team Status: Active Member Role Status Bright Fan MD Primary Care Provider Active Start: April 29, 2024 Phuc Denney DO Attending Provider Active S tart: April 29, 2024 Team Status: Inactive Member Role Status Dates Rhianna Fan MD Primary Care Provider Active Start: May 04, 2024 End: May 04, 2024 Garrett Gunter MD Attending Provider Activ e Start: May 04, 2024 End: May 04, 2024 Team Status: Inactive Member Role Status Dates Rhianna Fan MD Primary Care Provide r, Attending Provider Active Start: May 05, 2024 End: May 05, 2024 Team Status: Active Member Role Status Dates Garrett Gunter MD Body Piercer Active Team Status: Inactive Member Role Status Dates Rhianna Fan MD Attending Provider Active St art: May 12, 2024 End: May 12, 2024 Team Status: Active Member Role Status Dates Garrett Gunter MD Body Piercer Active PHYSICIAN NO FAMILY Primary Care Provider Active Team Status: Inactive Member Role Status Dates Rhianna Fan MD Attending Provider Active St art: May 12, 2024 End: May 12, 2024 PHYSICIAN NO FAMILY Primary Care Provider Active Start: May 12, 2024 End: May 12, 2024 Team Status: Inactive Member Role Status Dates Rhianna Fan MD Attending Provider Active St art: May 14, 2024 End: May 14, 2024 PHYSICIAN NO FAMILY Primary Care Provider Active Start: May 14, 2024 End: May 14, 2024 Team Status: Inactive Member Role Status Dates PHYSICIAN NO FAMILY Primary Care Provider Active Start: June 01, 2024 End: June 01, 2024 Odessa Pulido MD Attending Provider Active Sta rt: June 01, 2024 End: June 01, 2024 Team Status: Inactive Member Role Status Dates PHYSICIAN NO FAMILY Primary Care Provider Active Start: June 10, 2024 End: June 10, 2024 Tina Garcia MD Attending Provider Active Start: June 10, 2024 End: June 10, 2024 Team Status: Inactive Member Role Status Dates PHYSICIAN NO FAMILY Primary Care Provider Active Start: June 11, 2024 End: June 11, 2024 Odessa Pulido MD Attending Provider Active Sta rt: June 11, 2024 End: June 11, 2024 Team Status: Inactive Member Role Status Dates Rhianna Fan MD Primary Care Provider Active Start: August 31, 2024 End: August 31, 2024 Danyel Orozco MD Emergency Provider Active Star t: August 31, 2024 End: August 31, 2024 Team Status: Active Member Role Status Dates Rhianna Fan MD Primary Care Provider Active Start: September 01, 2024 Estefania Madrid CMA Attending Provider Active Start: September 01, 2024 Team Status: Inactive Member Role Status Dates Rhianna Fan MD Primary Care Provide r, Attending Provider Active Start: September 03, 2024 End: September 03, 2024 Team Status: Inactive Member Role Status Dates Rhianna Fan MD Primary Care Provide r, Attending Provider Active Start: September 18, 2024 End: September 18, 2024 Goals (unrecognized section and content) Goals [...] BE BASED ON THE PRIMARY CLINICAL RECORDS. [employer] [facility]. provides no warranty or guarantee of the accuracy or completeness of information in this document.
== END 2024-09-25 13:50 | disposition home or self-care (01) ==
LOC: US 13:51
PROVIDERS: PCP Family Medicine
DX: H35.82 Retinal ischemia (principal)
CPT/HCPCS: 93880